=== PATIENT | male | born 1975 | race Caucasian/White ===

== ENCOUNTER 2018-05-12 22:18 | Observation (INO) ==
[2018-05-12 22:55] LABS: Basophils # 0.1 K/mcL (0.0-0.2); Basophils % 0.8 %; Eosinophils % 0.1 %; Hematocrit 49.5 % (37.5-50.1); Hemoglobin 17.4 g/dL (12.9-16.9); Immature Granulocytes % 0.7 % (0-4); Lymphocytes # 2.7 K/mcL (0.6-4.6); Mean Corpuscular HGB Conc 35.2 g/dL (31.6-35.5); Mean Corpuscular Hemoglobin 33.3 pg (28.0-33.3); Mean Corpuscular Volume 94.8 fL (83.0-100.0); Mean Platelet Volume 8.9 fL (9.4-12.4); Monocytes # 0.7 K/mcL (0.0-1.3); Monocytes % 7.3 %; Neutrophils # 5.7 K/mcL (1.6-8.9); Platelet Count 278 K/mcL (140-400); Red Blood Count 5.22 M/mcL (4.19-5.50); Red Cell Distribution Width 13.1 % (11.5-14.5); Segmented Neutrophils % 62.1 %
[2018-05-12 23:14] LABS: Acetaminophen < 10 mcg/mL (10-20); BUN/Creatinine Ratio 10 (6-26); Blood Urea Nitrogen 9 mg/dL (6-20); Calcium 9.2 mg/dL (8.6-10.3); Carbon Dioxide 23 mEq/L (23-29); Chloride 108 mEq/L (98-107); Ethanol 311 mg/dL (Less than 10); Glucose 133 mg/dL (70-105); Osmolality,Calculated 293 (280-300); Salicylate < 2.5 mg/dL (15.0-30.0); Sodium 141 mEq/L (136-145); eGFR For African Americans > 60 (> 60); eGFR For Non-African Americans > 60 (> 60)
[2018-05-12] MEDS ORDERED: ALPRAZolam 0.5 MG TABLET PO ONE (23:27)
[2018-05-12 23:53] LABS: Bilirubin,Urine Negative (Negative); Blood,Urine Negative (Negative); Clarity,Urine Clear (Clear); Color,Urine Yellow (Yellow); Glucose,Urine (UA) Normal (Normal); Ketones,Urine Negative (Negative); Leukocyte Esterase,Urine Negative (Negative); Nitrite,Urine Negative (Negative); Protein,Urine Negative (Neg-Trace); Specific Gravity,Urine 1.018 (1.010-1.025); Urobilinogen,Urine Normal (Normal)
[2018-05-13 00:14] LABS: Amphetamine Screen,Urine Negative ng/mL (Cutoff=1000); Barbiturate Screen,Urine Negative ng/mL (Cutoff=200); Benzodiazepines Screen,Urine Negative ng/mL (Cutoff=200); Cannabinoid Screen,Urine Positive ng/mL (Cutoff = 50); Cocaine Screen,Urine Negative ng/mL (Cutoff= 300); Opiate Screen,Urine Negative ng/mL (Cutoff=300)
--- NOTE | 2018-05-13 01:43 | Emergency Department Note ---
Disposition Clinical Impression: Anxiety, Suicidal ideation Alcohol intoxication Qualifiers: Complication of substance-induced condition: uncomplicated Qualified Code(s): F10.920 - Alcohol use, unspecified with intoxication, uncomplicated Disposition: Admitted As Inpatient Condition: Fair Referrals: NONE,PCP [Primary Care Provider] - Time of Disposition: 01:44 General Adult HPI - General Chief complaint: ED Alcohol Abuse Stated complaint: severe anxiety Time Seen by Provider: 05/12/18 22:23 Source: patient, EMS Limitations: no limitations - History of Present Illness Pain Scale: 4 - Related Data Previous Rx's Medication Instructions Recorded Gabapentin [Neurontin] 300 mg PO TID 20 Days capsule 12/26/15 LORazepam [Ativan] 1 mg PO BID 7 Days tablet 12/26/15 Nicotine Patch [Nicoderm] 14 mg TD DAILY 7 Days patch.td24 12/26/15 Sertraline [Zoloft] 25 mg PO DAILY 20 Days tablet 12/26/15 Thiamine (B-1) [Vitamin B-1] 100 mg PO DAILY 20 Days tablet 12/26/15 traMADol [Ultram] 50 mg PO Q6H PRN #20 tablet 12/26/15 Cyclobenzaprine [Flexeril] 10 mg PO TID PRN #15 tablet 09/18/16 Ibuprofen [Motrin] 600 mg PO Q8HR PRN #20 tab 09/18/16 Naproxen [Naprosyn] 500 mg PO BID PRN #10 tablet 04/18/18 methylPREDNISolone [Medrol] 4 mg PO TAPER #21 tablet 05/08/18 Allergies Allergy/AdvReac Type Severity Reaction Status Date / Time No Known Allergies Allergy Verified 12/23/15 16:38 Past Medical History - Past Medical History Medical history: Reports: seizures Surgical history: Reports: orthopedic, other Psychiatric history: Reports: anxiety, depression - Social History Smoking Status: Current every day smoker Smokeless Tobacco Status: No Alcohol use: Reports: occasionally Drug use: Reports: opiates, marijuana Physical Exam - General Limitations: no limitations General appearance: alert, appears intoxicated Course Course Narrative: Nursing note states patient was suicidal. My evaluation, he states "I am not sure." He is currently homeless. Patient appears in currently anxious. He is tearful, speaking about his multiple troubles in his life. He is agreeable to 1 mg by mouth Xanax. Reevaluation, patient is much more calm however still appears anxious. Initial workup shows patient is EtOH is 311. Mental health services will not evaluate him until he is within the legal limit. Restart cancellations, and will take approximately 10-12 hours for him to metabolize. I discussed the patient with the admitting hospitalist, Dr. Bernstein, who agrees to accept the patient for continued evaluation and monitoring of his EtOH. We discussed his psychological and social situation. Patient is pink slipped at this time. Vital Signs Temperature 98.5 F 05/12/18 22:21 Pulse Rate 105 05/12/18 22:21 Respiratory Rate 20 05/12/18 22:21 Blood Pressure 147/98 05/12/18 22:21 O2 Sat by Pulse Oximetry 99 05/12/18 22:21 Temperature 98.5 F 05/12/18 22:21 Pulse Rate 105 05/12/18 22:21 Respiratory Rate 20 05/12/18 22:21 Blood Pressure 147/98 05/12/18 22:21 O2 Sat by Pulse Oximetry 99 05/12/18 22:21 Oxygen Delivery Oxygen Delivery Room Air Medical Decision Making - Lab Data Result diagrams: 05/12/18 22:43 05/12/18 22:43 Lab Results 05/12/18 05/12/18 05/12/18 Range/Units 22:43 22:43 23:35 WBC 9.2 (4.3-11.1) K/mcL RBC 5.22 (4.19-5.50) M/mcL Hgb 17.4 H (12.9-16.9) g/dL Hct 49.5 (37.5-50.1) % MCV 94.8 (83.0-100.0) fL MCH 33.3 (28.0-33.3) pg MCHC 35.2 (31.6-35.5) g/dL RDW 13.1 (11.5-14.5) % Plt Count 278 (140-400) K/mcL MPV 8.9 L (9.4-12.4) fL Immature Gran % 0.7 (0-4) % Seg Neutrophils % 62.1 % Lymphocytes % 29.0 % Monocytes % 7.3 % Eosinophils % 0.1 % Basophils % 0.8 % Neutrophils # 5.7 (1.6-8.9) K/mcL Lymphocytes # 2.7 (0.6-4.6) K/mcL Monocytes # 0.7 (0.0-1.3) K/mcL Eosinophils # 0.0 (0.0-0.6) K/mcL Basophils # 0.1 (0.0-0.2) K/mcL Sodium 141 (136-145) mEq/L Potassium 4.0 (3.5-5.1) mEq/L Chloride 108 H (98-107) mEq/L Carbon Dioxide 23 (23-29) mEq/L BUN 9 (6-20) mg/dL Creatinine 0.86 (0.70-1.30) mg/dL Est GFR ( Amer) > 60 (> 60) Est GFR (Non-Af Amer) > 60 (> 60) BUN/Creatinine Ratio 10 (6-26) Glucose 133 H (70-105) mg/dL Calculated Osmolality 293 (280-300) Calcium 9.2 (8.6-10.3) mg/dL Urine Color Yellow (Yellow) Urine Clarity Clear (Clear) Urine pH 6.0 (5.0-8.0) pH Units Ur Specific [place] 1.018 (1.010-1.025) Urine Protein Negative (Neg-Trace) mg/dL Urine Glucose (UA) Normal (Normal) mg/dL Urine Ketones Negative (Negative) mg/dL Urine Blood Negative (Negative) Urine Nitrite Negative (Negative) Urine Bilirubin Negative (Negative) Urine Urobilinogen Normal (Normal) mg/dL Ur Leukocyte Esterase Negative (Negative) Salicylates < 2.5 L (15.0-30.0) mg/dL Urine Opiates Screen (Lhahud=955) ng/mL Acetaminophen < 10 L (10-20) mcg/mL Ur Barbiturates Screen (Qaifpg=337) ng/mL Ur Phencyclidine Scrn (Cutoff=25) ng/mL Ur Amphetamines Screen (Redkhm=0742) ng/mL U Benzodiazepines Scrn (Gvrlya=553) ng/mL Urine Cocaine Screen (Cutoff= 300) ng/mL U Marijuana (THC) Screen (Cutoff = 50) ng/mL Ethyl Alcohol 311 H (Less than 10) mg/dL 05/12/18 Range/Units 23:35 WBC (4.3-11.1) K/mcL RBC (4.19-5.50) M/mcL Hgb (12.9-16.9) g/dL Hct (37.5-50.1) % MCV (83.0-100.0) fL MCH (28.0-33.3) pg MCHC (31.6-35.5) g/dL RDW (11.5-14.5) % Plt Count (140-400) K/mcL MPV (9.4-12.4) fL Immature Gran % (0-4) % Seg Neutrophils % % Lymphocytes % % Monocytes % % Eosinophils % % Basophils % % Neutrophils # (1.6-8.9) K/mcL Lymphocytes # (0.6-4.6) K/mcL Monocytes # (0.0-1.3) K/mcL Eosinophils # (0.0-0.6) K/mcL Basophils # (0.0-0.2) K/mcL Sodium (136-145) mEq/L Potassium (3.5-5.1) mEq/L Chloride (98-107) mEq/L Carbon Dioxide (23-29) mEq/L BUN (6-20) mg/dL Creatinine (0.70-1.30) mg/dL Est GFR ( Amer) (> 60) Est GFR (Non-Af Amer) (> 60) BUN/Creatinine Ratio (6-26) Glucose (70-105) mg/dL Calculated Osmolality (280-300) Calcium (8.6-10.3) mg/dL Urine Color (Yellow) Urine Clarity (Clear) Urine pH (5.0-8.0) pH Units Ur Specific [place] (1.010-1.025) Urine Protein (Neg-Trace) mg/dL Urine Glucose (UA) (Normal) mg/dL Urine Ketones (Negative) mg/dL Urine Blood (Negative) Urine Nitrite (Negative) Urine Bilirubin (Negative) Urine Urobilinogen (Normal) mg/dL Ur Leukocyte Esterase (Negative) Salicylates (15.0-30.0) mg/dL Urine Opiates Screen Negative (Wmrdvd=869) ng/mL Acetaminophen (10-20) mcg/mL Ur Barbiturates Screen Negative (Mnfigt=199) ng/mL Ur Phencyclidine Scrn Positive H (Cutoff=25) ng/mL Ur Amphetamines Screen Negative (Mqmdqs=3689) ng/mL U Benzodiazepines Scrn Negative (Khpgdd=283) ng/mL Urine Cocaine Screen Negative (Cutoff= 300) ng/mL U Marijuana (THC) Screen Positive H (Cutoff = 50) ng/mL Ethyl Alcohol (Less than 10) mg/dL
[2018-05-13] MEDS ORDERED: Famotidine 20 MG/2 ML VIAL IVP ONE (03:15)
[2018-05-13] MEDS ORDERED: Naloxone 0.4 MG/ML INJ IVP PRN (04:53)
[2018-05-13] MEDS ORDERED: diazePAM 10 MG/2 ML SYRINGE IVP PRN ×3 (04:55)
[2018-05-13] MEDS ORDERED: *HR* LORazepam 2 MG/ML VIAL IVP PRN ×3 (04:55)
[2018-05-13] MEDS ORDERED: *HR* Promethazine 25 MG/ML VIAL IVP PRN (04:55)
[2018-05-13 06:15] LABS: Hematocrit 43.2 % (37.5-50.1); Mean Corpuscular Volume 97.1 fL (83.0-100.0); Mean Platelet Volume 9.1 fL (9.4-12.4); Platelet Count 194 K/mcL (140-400); Red Blood Count 4.45 M/mcL (4.19-5.50); Red Cell Distribution Width 13.1 % (11.5-14.5)
[2018-05-13 06:16] LABS: Hemoglobin 14.7 g/dL (12.9-16.9)
[2018-05-13 06:36] LABS: BUN/Creatinine Ratio 13 (6-26); Blood Urea Nitrogen 10 mg/dL (6-20); Calcium 8.4 mg/dL (8.6-10.3); Carbon Dioxide 22 mEq/L (23-29); Chloride 106 mEq/L (98-107); Glucose 88 mg/dL (70-105); Osmolality,Calculated 286 (280-300); Potassium 3.7 mEq/L (3.5-5.1); Sodium 139 mEq/L (136-145); eGFR For African Americans > 60 (> 60); eGFR For Non-African Americans > 60 (> 60)
[2018-05-13] MEDS: Vitamin B Complex/Vit C/Vit E 1 EACH TABLET PO SCH (07:46)
[2018-05-13] MEDS: Folic Acid 1 MG TABLET PO SCH (07:46)
[2018-05-13] MEDS: Thiamine (B-1) 100 MG TABLET PO SCH (07:46)
--- NOTE | 2018-05-13 09:11 | Internal Med History&Physical ---
Date of Encounter: 05/13/18 Time of Encounter: 04:00 Internal Medicine - H&P: HPI Admitted From: Home Plans for Post Hospital Care: Home History of present illness: Mr. Messer is a 42 year old male Impression presented to the emergency room with a blood alcohol level of 311. Unclear if his history is accurate, but he states that he was staying at a hotel because he doesn't have a home or family and he had a fall at the hotel. Someone called EMS who picked him up and came to the emergency room. He states that he does not think it was due to the alcohol. He states that he struggles with depression a lot has really bad anxiety and panic attacks. He denies nausea, vomiting, chest pain, shortness of breath. He also has a history of GERD which seems to be his main complaint right now. In the emergency room he made some comments about suicide therefore he is recommended to be medically cleared for his impending alcohol withdrawal after which she will be transferred to inpatient psych unit. Past Med Surg Social Fam HX - Past Medical History Medical history: seizures Additional medical history: Chronic Back Pain Psychiatric history: anxiety, depression - Past Surgical History Surgical History: orthopedic, other Additional surgical history: right foot/ankle - Social History Smoking Status: Current every day smoker Smokeless Tobacco Status: No Alcohol use: occasionally Drug use: opiates, marijuana Internal Medicine - H&P: Meds Thiamine (B-1) [Vitamin B-1] 100 mg PO DAILY 20 Days tablet 12/26/15 [Rx] ALPRAZolam [Xanax 1 MG Tablet] 1 mg PO TID PRN 05/13/18 [History] Baclofen [Lioresal] 10 mg PO BID 05/13/18 [History] Gabapentin [Neurontin] 600 mg PO BID 05/13/18 [History] Sertraline [Zoloft] 100 mg PO DAILY 05/13/18 [History] raNITIdine HCl [Zantac] 150 mg PO DAILY 05/13/18 [History] 3 Allergy/AdvReac Type Severity Reaction Status Date / Time No Known Allergies Allergy Verified 12/23/15 16:38 All Systems PM: A 10-system review of systems was performed and is negative for pertinent findings except as documented above in the HPI. - Constitutional Vitals: Temp Pulse Resp BP Pulse Ox 98.1 F 92 17 119/82 97 05/13/18 07:44 05/13/18 07:44 05/13/18 07:44 05/13/18 07:44 05/13/18 07:44 General appearance: Present: mild distress, A&O X 3 - Head Head exam: Present: atraumatic, normocephalic - Eye Eye exam: Present: EOMI. Absent: nystagmus - Neck Neck exam general surgery: Present: full ROM - Respiratory Respiratory exam: Present: CTAB. Absent: rhonchi, wheezes - Cardiovascular Cardiovascular exam: Present: RRR. Absent: diastolic murmur, systolic murmur - GI/Abdominal GI/Abdominal exam: Present: normal bowel sounds, soft. Absent: guarding - Extremities Exam Extremities exam: Present: tenderness, warm Additional comments: Stated he had tenderness at his ankles bilaterally, no obvious source of pain - Neurological Exam Neurological exam: Present: alert. Absent: altered, motor sensory deficit - Skin Skin exam: Present: dry, warm. Absent: rash Internal Med - H&P Results - Labs CBC & Chem 7: 05/13/18 05:49 05/13/18 05:49 Labs: Short CBC 05/13/18 Range/Units 05:49 WBC 6.0 (4.3-11.1) K/mcL Hgb 14.7 D (12.9-16.9) g/dL Hct 43.2 (37.5-50.1) % Plt Count 194 (140-400) K/mcL [facility] 05/13/18 05:49 Sodium 139 Potassium 3.7 Chloride 106 Carbon Dioxide 22 L BUN 10 Creatinine 0.75 Glucose 88 Calcium 8.4 L - Assessment and plan (1) Alcohol abuse Current Visit: No Status: Acute Assessment and plan: Blood alcohol level on arrival at the ER was 311. Patient will be monitored for signs of withdrawal. CIWA protocol (2) Anxiety Current Visit: Yes Status: Acute Assessment and plan: Patient states that he has a lot of anxiety, use to take medication for it, but has not been taking anything for it lately. Patient was sleeping when I arrived to admit him, and went back to sleep when I left Continue to monitor, will likely be getting ativan if he scores appropriately on CIWA protocol, which should help. (3) Suicidal ideation Current Visit: Yes Status: Acute Assessment and plan: Patient made worrisome comments to ER staff indicating self harm. Patient was put on medical hold, and will be going to inpatient psych unit after his alcohol withdrawal is managed. Psych consult. (4) Acute pain of both ankles Current Visit: Yes Status: Acute Assessment and plan: Patient states he has pain in both of his ankles secondary to fall that occurred at a hotel prior to his admission on exam he had some pain with palpation however no obvious deformity or swelling. No bruising or abrasion of the skin. Continue to monitor. Consider imaging if pain does not improve. (5) GERD (gastroesophageal reflux disease) Current Visit: Yes Status: Acute Assessment and plan: Patient's pain complaint to me in the emergency room was that his heartburn, he says that he takes Zantac at home and it usually helps. Could be related to his alcohol use, as alcohol can trigger reflux. Zantac given for heartburn symptoms. Qualifiers: Qualified Code(s): K21.9 - Gastro-esophageal reflux disease without esophagitis - Time Spent With Patient Total time spent is greater than 50% in coordination of care (as documented) at patient's floor/unit and/or counseling patient: Greater than 35 minutes
--- NOTE | 2018-05-13 09:19 | Event Note ---
Date of Encounter: 05/13/18 Time of Encounter: 09:17 Patient was seen and evaluated by hospitalist earlier this am. Presently denies any SI/HI. He states that he feels like he is having a nervous breakdown, and that he has PTSD Discussed that he will be seen by Psych once ETOH is acceptable level, he verbalized understanding. He is hemodynamically stable at this time
[2018-05-13] MEDS: Ibuprofen 400 MG TABLET PO PRN (10:36)
[2018-05-13] MEDS: Nicotine 14 MG PATCH.TD24 TD SCH (15:01)
[2018-05-13] MEDS ORDERED: ALPRAZolam 1 MG TABLET PO ONE (15:22)
[2018-05-13] MEDS ORDERED: Thiamine (B-1) 100 MG, Folic Acid 1 MG, MVI, adult with vitamin K 10 ML in 0.9 % Sodi... IVPB SCH (18:00)
[2018-05-13] MEDS ORDERED: hydrOXYzine pamoate 25 MG CAPSULE PO PRN (19:36)
--- NOTE | 2018-05-13 19:45 | Consult Note ---
Date of Encounter: 05/13/18 Time of Encounter: 19:45 Assessment & Recommendation (1) Depression Current visit: Yes Status: Acute Qualifiers: Depression Type: major depressive disorder Active/Remission status: currently active Psychotic features: without psychotic features Qualified Code(s): F32.2 - Major depressive disorder, single episode, severe without psychotic features (2) Alcohol abuse Current visit: No Status: Acute (3) Anxiety Current visit: Yes Status: Acute (4) Alcohol intoxication Current visit: Yes Status: Acute Qualifiers: Complication of substance-induced condition: uncomplicated Qualified Code(s ): F10.920 - Alcohol use, unspecified with intoxication, uncomplicated (5) Suicidal ideation Current visit: Yes Status: Acute History of Present Illness Patient: new to practice Requesting Physician: Chavo Lerner Reason for consult: depression History of present illness: Pt is a 42 yo ,, male, who presents for depression and anxiety. Pt noted recent exacerbation of depression with intoxication. Pt states "I stopped all of my medications I did not like the side-effects of zoloft for my depression....so I just stopped them then I got depressed and started drinking. " Pt noted "I made some statements when I was intoxicated and I do not have those feelings now but I would like to start another antidepressant." PT agreed to start wellbutrin 150 mg XL QAM for mood. Pt noted I came in because I needed some help I feel much better now. I feel safe and comfortable on the unit. Pt was in agreement with current treatment plan. Pt noted that he is doing much better today. Pt noted he slept 6 hours broken night. Pt noted his appetite is much better. Pt rated his depression a 5, on a scale of zero to ten with ten being the worst and zero being none. Pt rate his anxiety a 0, on the same scale. Pt denied any auditory or visual hallucinations. Pt denied any current thoughts to harm himself or anyone else. Pt denied HEP C, HIV, TBIs or seizures. Assessment/Plan 1.Interval hx 2.Continue current medications 3.Review current labs 4.Pt had an opportunity to ask questions and discuss current treatment plan. 5.Supportive therapy was provided 6.Pt encouraged to consider group or individual therapy 7.Pt was in agreement with treatment plan. 8.Pt was educated on the risks benefits and side effects of current medications. 9.Start wellbutrin xl 150 mg PO QAM for mood 10. Start visteril 50 mg PO Q6H for anxiety 11. Coordinate out pt follow up appointment. 12. D/C Sitter. 13. Pt Denies any suicidally at this time, pt cleared for D/C tomorrow. CC: Chavo Lerner Past Med Surg Social Fam HX - Past Medical History Medical history: seizures - Past Psychiatric History Psychiatric history: Reports: depression Family psychiatric history: No Family History of Suicide: None - Past Surgical History Surgical History: orthopedic, other - Social History Smoking Status: Current every day smoker Smokeless Tobacco Status: No Alcohol use: occasionally Drug use: opiates, marijuana Medications & Allergies Thiamine (B-1) [Vitamin B-1] 100 mg PO DAILY 20 Days tablet 12/26/15 [Rx] ALPRAZolam [Xanax 1 MG Tablet] 1 mg PO TID PRN 05/13/18 [History] Baclofen [Lioresal] 10 mg PO BID 05/13/18 [History] Gabapentin [Neurontin] 600 mg PO BID 05/13/18 [History] Sertraline [Zoloft] 100 mg PO DAILY 05/13/18 [History] raNITIdine HCl [Zantac] 150 mg PO DAILY 05/13/18 [History] 3 Allergy/AdvReac Type Severity Reaction Status Date / Time No Known Allergies Allergy Verified 12/23/15 16:38 Review of Systems Constitutional: Denies: fever, chills, weakness, weight change Eyes: Denies: eye pain, vision change Ears, Nose, Throat: Denies: ear pain, throat pain, dental pain, hearing loss, congestion Cardiovascular: Denies: chest pain, palpitations, dyspnea on exertion Respiratory: Denies: cough, dyspnea, wheezes Gastrointestinal: Denies: abdominal pain, nausea, vomiting, diarrhea, constipation Genitourinary male: Denies: urgency, dysuria, frequency, genital lesions Musculoskeletal: Denies: joint swelling, joint pain Integumentary: Denies: rash, lesions, pruritus Neurological: Denies: headache, weakness, numbness, memory loss Endocrine: Denies: fatigue, heat or cold intolerance Hematologic/Lymphatic: Denies: easy bruising, lymphadenopathy Allergic/Immunologic: Denies: urticaria, itchy eyes Psychiatry Exam - Constitutional Vitals: Temp Pulse Resp BP Pulse Ox 97.5 F L 74 16 131/76 96 05/13/18 16:28 05/13/18 16:28 05/13/18 16:28 05/13/18 16:28 05/13/18 16:28 General appearance: age & developmentally appropriate, well-groomed, well- nourished - Musculoskeletal Gait: normal Station: relaxed Strength & Tone: normal for patient - Psychiatric Patient Orientation: Yes Person, Yes Time, Yes Place Level of alertness: Alert Behavior: calm, cooperative Psychomotor activity: Normal Eye Contact: Maintains Eye Contact Mood Description: Euthymic/stable Affect description: congruent with mood, full range Speech Volume: Normal Speech pattern: normal rate, normal rhythm, normal tone, fluent, spontaneous Language & Vocabulary: consistent with education Thought Process: Linear, Goal Oriented Thought Content: No Suicidal ideation, No Homicidal ideation, No Overt delusions Perceptual Disturbances: No Auditory hallucinations, No Visual hallucinations Attention Span Ability: Capable of Focused Attention Memory Description: Grossly Intact Patient Reliability: Reliable Historian Fund of knowledge: Yes abstraction ability, Yes aware of current events Intelligence Estimate: Average Judgment: Limited Insight: Partial Results - Drug Levels and Toxicology Drug Levels and Toxicology: Drug Levels and Toxicity 05/13/18 18:31 Ethyl Alcohol < 10 - Labs Labs: Laboratory Last Values WBC 6.0 K/mcL (4.3-11.1) 05/13/18 05:49 RBC 4.45 M/mcL (4.19-5.50) 05/13/18 05:49 Hgb 14.7 g/dL (12.9-16.9) D 05/13/18 05:49 Hct 43.2 % (37.5-50.1) 05/13/18 05:49 MCV 97.1 fL (83.0-100.0) 05/13/18 05:49 MCH 33.0 pg (28.0-33.3) 05/13/18 05:49 MCHC 34.0 g/dL (31.6-35.5) 05/13/18 05:49 RDW 13.1 % (11.5-14.5) 05/13/18 05:49 Plt Count 194 K/mcL (140-400) 05/13/18 05:49 MPV 9.1 fL (9.4-12.4) L 05/13/18 05:49 Immature Gran % 0.7 % (0-4) 05/12/18 22:43 Seg Neutrophils % 62.1 % 05/12/18 22:43 Lymphocytes % 29.0 % 05/12/18 22:43 Monocytes % 7.3 % 05/12/18 22:43 Eosinophils % 0.1 % 05/12/18 22:43 Basophils % 0.8 % 05/12/18 22:43 Neutrophils # 5.7 K/mcL (1.6-8.9) 05/12/18 22:43 Lymphocytes # 2.7 K/mcL (0.6-4.6) 05/12/18 22:43 Monocytes # 0.7 K/mcL (0.0-1.3) 05/12/18 22:43 Eosinophils # 0.0 K/mcL (0.0-0.6) 05/12/18 22:43 Basophils # 0.1 K/mcL (0.0-0.2) 05/12/18 22:43 Sodium 139 mEq/L (136-145) 05/13/18 05:49 Potassium 3.7 mEq/L (3.5-5.1) 05/13/18 05:49 Chloride 106 mEq/L (98-107) 05/13/18 05:49 Carbon Dioxide 22 mEq/L (23-29) L 05/13/18 05:49 BUN 10 mg/dL (6-20) 05/13/18 05:49 Creatinine 0.75 mg/dL (0.70-1.30) 05/13/18 05:49 Est GFR ( Amer) > 60 (> 60) 05/13/18 05:49 Est GFR (Non-Af Amer) > 60 (> 60) 05/13/18 05:49 BUN/Creatinine Ratio 13 (6-26) 05/13/18 05:49 Glucose 88 mg/dL (70-105) 05/13/18 05:49 POC Glucose 117 mg/dL (70-99) H 05/12/18 22:54 Calculated Osmolality 286 (280-300) 05/13/18 05:49 Calcium 8.4 mg/dL (8.6-10.3) L 05/13/18 05:49 Urine Color Yellow (Yellow) 05/12/18 23:35 Urine Clarity Clear (Clear) 05/12/18 23:35 Urine pH 6.0 pH Units (5.0-8.0) 05/12/18 23:35 Ur Specific [place] 1.018 (1.010-1.025) 05/12/18 23:35 Urine Protein Negative mg/dL (Neg-Trace) 05/12/18 23:35 Urine Glucose (UA) Normal mg/dL (Normal) 05/12/18 23:35 Urine Ketones Negative mg/dL (Negative) 05/12/18 23:35 Urine Blood Negative (Negative) 05/12/18 23:35 Urine Nitrite Negative (Negative) 05/12/18 23:35 Urine Bilirubin Negative (Negative) 05/12/18 23:35 Urine Urobilinogen Normal mg/dL (Normal) 05/12/18 23:35 Ur Leukocyte Esterase Negative (Negative) 05/12/18 23:35 Salicylates < 2.5 mg/dL (15.0-30.0) L 05/12/18 22:43 Urine Opiates Screen Negative ng/mL (Vrhmcv=142) 05/12/18 23:35 Acetaminophen < 10 mcg/mL (10-20) L 05/12/18 22:43 Ur Barbiturates Screen Negative ng/mL (Udcgey=947) 05/12/18 23:35 Ur Phencyclidine Scrn Positive ng/mL (Cutoff=25) H 05/12/18 23:35 Ur Amphetamines Screen Negative ng/mL (Eywxpb=3422) 05/12/18 23:35 U Benzodiazepines Scrn Negative ng/mL (Xosija=051) 05/12/18 23:35 Urine Cocaine Screen Negative ng/mL (Cutoff= 300) 05/12/18 23:35 U Marijuana (THC) Screen Positive ng/mL (Cutoff = 50) H 05/12/18 23:35 Ethyl Alcohol < 10 mg/dL (Less than 10) 05/13/18 18:31 Consult Discharge Plan - Plan Additional Instructions: Continue wellbutrin xl 150 mg PO QAM for mood Continue visteril 50 mg PO Q6H for anxiety Coordinate out pt follow up appointment. D/C Sitter. Pt Denies any suicidally at this time, pt cleared for D/C tomorrow with scirpts and follow up. Referrals: NONE,PCP [Primary Care Provider] -
[2018-05-13] MEDS: Gabapentin 300 MG CAPSULE PO SCH (20:43)
[2018-05-14] MEDS: Ibuprofen 400 MG TABLET PO PRN (02:44)
[2018-05-14 07:16] VITALS: BP 138/91
[2018-05-14] MEDS: Nicotine 14 MG PATCH.TD24 TD SCH (07:37)
[2018-05-14] MEDS: Vitamin B Complex/Vit C/Vit E 1 EACH TABLET PO SCH (07:38)
[2018-05-14] MEDS: Gabapentin 300 MG CAPSULE PO SCH (07:38)
[2018-05-14] MEDS: Folic Acid 1 MG TABLET PO SCH (07:38)
[2018-05-14] MEDS: Thiamine (B-1) 100 MG TABLET PO SCH (07:38)
--- NOTE | 2018-05-14 07:58 | Discharge Summary ---
Date of Encounter: 05/14/18 Time of Encounter: 07:56 Hospital course: Mr. Messer is a 42 year old male past medical history of seizures and chronic back pain. Patient presented to the emergency room with a blood alcohol level of 311. He states that he been living in a hotel because he does not have a home her family and he had a fall at the hotel. He has been struggling with depression and anxiety with panic attacks. He stopped his previous antidepressants because he did not like the way they made him feel and he began to drink. He verbalized the ER physician that he was not sure if he wanted to harm himself or not-psychiatry was consult and however patient was too intoxicated to see the patient in the ER. He was pink slipped and admitted for further evaluation. Patient was given IV fluids overnight lab work was unremarkable EKG with no ST-T wave normalities. He was seen by psychiatry who recommended patient be seen as outpatient no suicidal ideations voiced. Recommending starting Wellbutrin had 50 mg XL every a.m. for mood as well as Vistaril 50 mg by mouth every 6 hours for anxiety patient does have a place to stay with a friend and he is anxious to be discharged so he can go to work. We do have an appointment with mental health with Mandi Hylton next Saturday advised patient to follow-up I gave patient has prescription for both Wellbutrin and Vistaril patient verbalized understanding he is hemodynamically stable and is ready for discharge. Discharge discussed with: patient - Time Spent with Patient Total time spent providing and/or coordinating discharge services: - Discharge Medications Prescriptions: BuPROPion XL (24 HR) [Wellbutrin Xl] 150 mg PO DAILY #14 tab.er.24h hydrOXYzine pamoate [HydrOXYzine Pamoate] 50 mg PO Q6H PRN #16 capsule PRN Reason: Anxiety Home Medications: Thiamine (B-1) [Vitamin B-1] 100 mg PO DAILY 20 Days tablet 12/26/15 [Rx] Baclofen [Lioresal] 10 mg PO BID 05/13/18 [History] Gabapentin [Neurontin] 600 mg PO BID 05/13/18 [History] raNITIdine HCl [Zantac] 150 mg PO DAILY 05/13/18 [History] BuPROPion XL (24 HR) [Wellbutrin Xl] 150 mg PO DAILY #14 tab.er.24h 05/14/18 [Rx ] hydrOXYzine pamoate [HydrOXYzine Pamoate] 50 mg PO Q6H PRN #16 capsule 05/14/18 [Rx] Allergies/Adverse Reactions: 3 Allergy/AdvReac Type Severity Reaction Status Date / Time No Known Allergies Allergy Verified 12/23/15 16:38 Date of admission: 05/13/18 03:32 Primary care physician: PCP NONE Consults: 05/13/18 04:55 Consult to [facility] Tender [CONS] Routine Reason for SW Consult: Anxiety, homelessness 05/13/18 15:44 Consult to Psychiatry [CONS] Routine Consulting Provider: Psychiatry Ally Reason consult: Sitter/1:1 - Constitutional Vitals: Temp Pulse Resp BP Pulse Ox 98.0 F 76 15 138/91 98 05/14/18 07:15 05/14/18 07:15 05/14/18 07:15 05/14/18 07:15 05/14/18 07:15 General appearance: Present: mild distress, A&O X 3 - Patient Status Disposition: Home, Self-Care Condition: Fair - Discharge Instructions Instructions: Bupropion (By mouth), Hydroxyzine (By mouth) Follow Up With: Rosalva Hylton [Advanced Practice Nurse] - 05/21/18 9:00 am Forms: Work/School Release Additional Instructions: Continue wellbutrin xl 150 mg PO QAM for mood Continue visteril 50 mg PO Q6H for anxiety Coordinate out pt follow up appointment. D/C Sitter. Pt Denies any suicidally at this time, pt cleared for D/C tomorrow with scirpts and follow up.
[2018-05-14] MEDS ORDERED: BuPROPion XL (24 HR) 150 MG TABLET PO SCH (09:00)
[2018-05-15 15:28] LABS: Phencyclidine Screen,Urine Negative ng/mL (Cutoff=25)
--- NOTE | 2018-05-19 21:06 | Emergency Department Note ---
Disposition Clinical Impression: Anxiety, Suicidal ideation Alcohol intoxication Qualifiers: Complication of substance-induced condition: uncomplicated Qualified Code(s): F10.920 - Alcohol use, unspecified with intoxication, uncomplicated Disposition: Admitted As Inpatient Condition: Fair General Adult HPI - General Chief complaint: ED Alcohol Abuse Stated complaint: severe anxiety Time Seen by Provider: 05/12/18 22:23 Source: patient, EMS Limitations: no limitations - History of Present Illness Pain Scale: 0 - Related Data Home Medications Medication Instructions Recorded Confirmed Baclofen [Lioresal] 10 mg PO BID 05/13/18 05/13/18 Gabapentin [Neurontin] 600 mg PO BID 05/13/18 05/13/18 raNITIdine HCl [Zantac] 150 mg PO DAILY 05/13/18 05/13/18 Previous Rx's Medication Instructions Recorded Thiamine (B-1) [Vitamin B-1] 100 mg PO DAILY 20 Days tablet 12/26/15 BuPROPion XL (24 HR) [Wellbutrin 150 mg PO DAILY #14 tab.er.24h 05/14/18 Xl] hydrOXYzine pamoate [HydrOXYzine 50 mg PO Q6H PRN #16 capsule 05/14/18 Pamoate] Allergies Allergy/AdvReac Type Severity Reaction Status Date / Time No Known Allergies Allergy Verified 12/23/15 16:38 Past Medical History - Past Medical History Medical history: Reports: seizures Surgical history: Reports: orthopedic, other Psychiatric history: Reports: depression - Social History Smoking Status: Current every day smoker Smokeless Tobacco Status: No Alcohol use: Reports: occasionally Drug use: Reports: opiates, marijuana Physical Exam - General Limitations: no limitations General appearance: alert, appears intoxicated Course Vital Signs Temperature 98.5 F 05/12/18 22:21 Pulse Rate 105 05/12/18 22:21 Respiratory Rate 20 05/12/18 22:21 Blood Pressure 147/98 05/12/18 22:21 O2 Sat by Pulse Oximetry 99 05/12/18 22:21 Temperature 98.0 F 05/14/18 07:15 Pulse Rate 76 05/14/18 07:15 Respiratory Rate 15 05/14/18 07:15 Blood Pressure 138/91 05/14/18 07:15 O2 Sat by Pulse Oximetry 98 05/14/18 07:15 Oxygen Delivery Oxygen Delivery Room Air Medical Decision Making - Lab Data Result diagrams: 05/13/18 05:49 05/13/18 05:49 Lab Results 05/12/18 05/12/18 05/12/18 Range/Units 22:43 22:43 22:54 WBC 9.2 (4.3-11.1) K/mcL RBC 5.22 (4.19-5.50) M/mcL Hgb 17.4 H (12.9-16.9) g/dL Hct 49.5 (37.5-50.1) % MCV 94.8 (83.0-100.0) fL MCH 33.3 (28.0-33.3) pg MCHC 35.2 (31.6-35.5) g/dL RDW 13.1 (11.5-14.5) % Plt Count 278 (140-400) K/mcL MPV 8.9 L (9.4-12.4) fL Immature Gran % 0.7 (0-4) % Seg Neutrophils % 62.1 % Lymphocytes % 29.0 % Monocytes % 7.3 % Eosinophils % 0.1 % Basophils % 0.8 % Neutrophils # 5.7 (1.6-8.9) K/mcL Lymphocytes # 2.7 (0.6-4.6) K/mcL Monocytes # 0.7 (0.0-1.3) K/mcL Eosinophils # 0.0 (0.0-0.6) K/mcL Basophils # 0.1 (0.0-0.2) K/mcL Sodium 141 (136-145) mEq/L Potassium 4.0 (3.5-5.1) mEq/L Chloride 108 H (98-107) mEq/L Carbon Dioxide 23 (23-29) mEq/L BUN 9 (6-20) mg/dL Creatinine 0.86 (0.70-1.30) mg/dL Est GFR ( Amer) > 60 (> 60) Est GFR (Non-Af Amer) > 60 (> 60) BUN/Creatinine Ratio 10 (6-26) Glucose 133 H (70-105) mg/dL POC Glucose 117 H (70-99) mg/dL Calculated Osmolality 293 (280-300) Calcium 9.2 (8.6-10.3) mg/dL Urine Color (Yellow) Urine Clarity (Clear) Urine pH (5.0-8.0) pH Units Ur Specific [place] (1.010-1.025) Urine Protein (Neg-Trace) mg/dL Urine Glucose (UA) (Normal) mg/dL Urine Ketones (Negative) mg/dL Urine Blood (Negative) Urine Nitrite (Negative) Urine Bilirubin (Negative) Urine Urobilinogen (Normal) mg/dL Ur Leukocyte Esterase (Negative) Salicylates < 2.5 L (15.0-30.0) mg/dL Urine Opiates Screen (Ojoech=602) ng/mL Acetaminophen < 10 L (10-20) mcg/mL Ur Barbiturates Screen (Gboxhp=155) ng/mL Ur Phencyclidine Scrn (Cutoff=25) ng/mL Ur Amphetamines Screen (Zvgtkn=6193) ng/mL U Benzodiazepines Scrn (Vdndgb=219) ng/mL Urine Cocaine Screen (Cutoff= 300) ng/mL U Marijuana (THC) Screen (Cutoff = 50) ng/mL Ethyl Alcohol 311 H (Less than 10) mg/dL 05/12/18 05/12/18 Range/Units 23:35 23:35 WBC (4.3-11.1) K/mcL RBC (4.19-5.50) M/mcL Hgb (12.9-16.9) g/dL Hct (37.5-50.1) % MCV (83.0-100.0) fL MCH (28.0-33.3) pg MCHC (31.6-35.5) g/dL RDW (11.5-14.5) % Plt Count (140-400) K/mcL MPV (9.4-12.4) fL Immature Gran % (0-4) % Seg Neutrophils % % Lymphocytes % % Monocytes % % Eosinophils % % Basophils % % Neutrophils # (1.6-8.9) K/mcL Lymphocytes # (0.6-4.6) K/mcL Monocytes # (0.0-1.3) K/mcL Eosinophils # (0.0-0.6) K/mcL Basophils # (0.0-0.2) K/mcL Sodium (136-145) mEq/L Potassium (3.5-5.1) mEq/L Chloride (98-107) mEq/L Carbon Dioxide (23-29) mEq/L BUN (6-20) mg/dL Creatinine (0.70-1.30) mg/dL Est GFR ( Amer) (> 60) Est GFR (Non-Af Amer) (> 60) BUN/Creatinine Ratio (6-26) Glucose (70-105) mg/dL POC Glucose (70-99) mg/dL Calculated Osmolality (280-300) Calcium (8.6-10.3) mg/dL Urine Color Yellow (Yellow) Urine Clarity Clear (Clear) Urine pH 6.0 (5.0-8.0) pH Units Ur Specific [place] 1.018 (1.010-1.025) Urine Protein Negative (Neg-Trace) mg/dL Urine Glucose (UA) Normal (Normal) mg/dL Urine Ketones Negative (Negative) mg/dL Urine Blood Negative (Negative) Urine Nitrite Negative (Negative) Urine Bilirubin Negative (Negative) Urine Urobilinogen Normal (Normal) mg/dL Ur Leukocyte Esterase Negative (Negative) Salicylates (15.0-30.0) mg/dL Urine Opiates Screen Negative (Ccvvsh=666) ng/mL Acetaminophen (10-20) mcg/mL Ur Barbiturates Screen Negative (Yyzbhi=065) ng/mL Ur Phencyclidine Scrn Negative (Cutoff=25) ng/mL Ur Amphetamines Screen Negative (Ocgpke=8027) ng/mL U Benzodiazepines Scrn Negative (Hjlrli=994) ng/mL Urine Cocaine Screen Negative (Cutoff= 300) ng/mL U Marijuana (THC) Screen Positive H (Cutoff = 50) ng/mL Ethyl Alcohol (Less than 10) mg/dL Attestation Statement - Attestation Attestation: I examined this patient and my medical decision-making was reviewed with the Resident Physician. I agree with the documented findings, disposition and treatment plan as described except to the extent set forth below. Suicidal ideation, no medical issues.
== END 2018-05-14 10:44 | disposition home or self-care (01) ==
LOC: 3BNU 22:18 → EMEROO 22:18 → 3BNU 05-13 04:00
PROVIDERS: ADMIT Family Medicine; ATTEND Family Medicine

== ENCOUNTER 2019-02-05 13:46 | Observation (INO) ==
[2019-02-05] MEDS ORDERED: KETAMINE HCL 50 MG/ML SYRINGE IV ONE (13:49)
[2019-02-05] MEDS ORDERED: Ketamine *HR* 500 MG/10 ML MDV IM ONE (13:51)
[2019-02-05] MEDS ORDERED: 0.9 % Sodium Chloride 1,000 ML IVC ONE ×2 (13:52→16:58)
--- NOTE | 2019-02-05 14:04 | Emergency Department Note ---
Disposition Clinical Impression: Altered mental status Disposition: Admitted As Inpatient Condition: Good General Adult HPI - General Stated complaint: Seizure Time Seen by Provider: 02/05/19 13:51 - Related Data Home Medications Medication Instructions Recorded Confirmed RX: No Known Home Drugs 02/05/19 02/05/19 Allergies Allergy/AdvReac Type Severity Reaction Status Date / Time No Known Allergies Allergy Verified 12/23/15 16:38 Past Medical History - Past Medical History Medical history: Reports: seizures Surgical history: Reports: orthopedic, other Psychiatric history: Reports: depression - Social History Smoking Status: Current every day smoker Smokeless Tobacco Status: No Alcohol use: Reports: recent Drug use: Reports: opiates, marijuana Course Vital Signs Temperature 97.8 F 02/05/19 14:00 Pulse Rate 130 02/05/19 14:00 Respiratory Rate 26 02/05/19 14:00 Blood Pressure 148/98 02/05/19 14:00 O2 Sat by Pulse Oximetry 98 02/05/19 14:00 Temperature 97.8 F 02/05/19 14:44 Pulse Rate 111 02/05/19 15:57 Respiratory Rate 16 02/05/19 15:57 Blood Pressure 133/103 02/05/19 15:57 O2 Sat by Pulse Oximetry 97 02/05/19 15:57 Oxygen Delivery Oxygen Delivery Room Air Medical Decision Making - Lab Data Result diagrams: 02/05/19 14:19 02/05/19 14:19 Lab Results 02/05/19 02/05/19 02/05/19 Range/Units 14:19 14:19 14:19 WBC 7.2 (4.3-11.1) K/mcL RBC 4.65 (4.19-5.50) M/mcL Hgb 15.3 (12.9-16.9) g/dL Hct 44.9 (37.5-50.1) % MCV 96.6 (83.0-100.0) fL MCH 32.9 (28.0-33.3) pg MCHC 34.1 (31.6-35.5) g/dL RDW 12.3 (11.5-14.5) % Plt Count 158 (140-400) K/mcL MPV 10.1 (9.4-12.4) fL Immature Gran % 0.1 (0-4) % Seg Neutrophils % 45.4 % Lymphocytes % 38.0 % Monocytes % 10.7 % Eosinophils % 4.1 % Basophils % 1.7 % Neutrophils # 3.3 (1.6-8.9) K/mcL Lymphocytes # 2.8 (0.6-4.6) K/mcL Monocytes # 0.8 (0.0-1.3) K/mcL Eosinophils # 0.3 (0.0-0.6) K/mcL Basophils # 0.1 (0.0-0.2) K/mcL Sodium 139 (136-145) mEq/L Potassium 3.4 L (3.5-5.1) mEq/L Chloride 106 (98-107) mEq/L Carbon Dioxide 26 (23-29) mEq/L BUN 13 (6-20) mg/dL Creatinine 0.64 L (0.70-1.30) mg/dL Est GFR ( Amer) > 60 (> 60) Est GFR (Non-Af Amer) > 60 (> 60) BUN/Creatinine Ratio 20 (6-26) Glucose 123 H (70-105) mg/dL Calculated Osmolality 289 (280-300) Calcium 9.6 (8.6-10.3) mg/dL Total Bilirubin 1.1 H (0.3-1.0) mg/dL Direct Bilirubin 0.4 H (0.0-0.2) mg/dL Indirect Bilirubin 0.7 (0.0-1.2) mg/dL AST 736 H (13-39) Units/L ALT 1053 H (7-52) Units/L Alkaline Phosphatase 153 H (34-104) Units/L Ammonia 67 H (16-53) mcmol/L Creatine Kinase 37 (30-223) Units/L Troponin I < 0.03 (< 0.04) ng/mL Serum Total Protein 7.2 (6.4-8.9) g/dL Albumin 4.5 (3.5-5.7) g/dL Globulin 2.7 (2.4-3.5) g/dL Albumin/Globulin Ratio 1.7 (1.1-2.2) Urine Color (Yellow) Urine Clarity (Clear) Urine pH (5.0-8.0) pH Units Ur Specific [place] (1.010-1.025) Urine Protein (Neg-Trace) mg/dL Urine Glucose (UA) (Normal) mg/dL Urine Ketones (Negative) mg/dL Urine Blood (Negative) Urine Nitrite (Negative) Urine Bilirubin (Negative) Urine Urobilinogen (Normal) mg/dL Ur Leukocyte Esterase (Negative) Ur Culture Indicated? (NO) Salicylates < 2.5 L (15.0-30.0) mg/dL Urine Opiates Screen (Wcxafv=931) ng/mL Acetaminophen < 10 L (10-20) mcg/mL Ur Barbiturates Screen (Gjnega=282) ng/mL Ur Phencyclidine Scrn (Cutoff=25) ng/mL Ur Amphetamines Screen (Dsklee=0859) ng/mL U Benzodiazepines Scrn (Zpgyoy=919) ng/mL Urine Cocaine Screen (Cutoff= 300) ng/mL U Marijuana (THC) Screen (Cutoff = 50) ng/mL Ur Drug Screen Interp Ethyl Alcohol 283 H (Less than 10) mg/dL Hep Bs Antigen (Nonreactive) 02/05/19 02/05/19 02/05/19 Range/Units 14:27 14:27 14:45 WBC (4.3-11.1) K/mcL RBC (4.19-5.50) M/mcL Hgb (12.9-16.9) g/dL Hct (37.5-50.1) % MCV (83.0-100.0) fL MCH (28.0-33.3) pg MCHC (31.6-35.5) g/dL RDW (11.5-14.5) % Plt Count (140-400) K/mcL MPV (9.4-12.4) fL Immature Gran % (0-4) % Seg Neutrophils % % Lymphocytes % % Monocytes % % Eosinophils % % Basophils % % Neutrophils # (1.6-8.9) K/mcL Lymphocytes # (0.6-4.6) K/mcL Monocytes # (0.0-1.3) K/mcL Eosinophils # (0.0-0.6) K/mcL Basophils # (0.0-0.2) K/mcL Sodium (136-145) mEq/L Potassium (3.5-5.1) mEq/L Chloride (98-107) mEq/L Carbon Dioxide (23-29) mEq/L BUN (6-20) mg/dL Creatinine (0.70-1.30) mg/dL Est GFR ( Amer) (> 60) Est GFR (Non-Af Amer) (> 60) BUN/Creatinine Ratio (6-26) Glucose (70-105) mg/dL Calculated Osmolality (280-300) Calcium (8.6-10.3) mg/dL Total Bilirubin (0.3-1.0) mg/dL Direct Bilirubin (0.0-0.2) mg/dL Indirect Bilirubin (0.0-1.2) mg/dL AST (13-39) Units/L ALT (7-52) Units/L Alkaline Phosphatase (34-104) Units/L Ammonia (16-53) mcmol/L Creatine Kinase (30-223) Units/L Troponin I (< 0.04) ng/mL Serum Total Protein (6.4-8.9) g/dL Albumin (3.5-5.7) g/dL Globulin (2.4-3.5) g/dL Albumin/Globulin Ratio (1.1-2.2) Urine Color Dark Yellow (Yellow) Urine Clarity Clear (Clear) Urine pH 5.5 (5.0-8.0) pH Units Ur Specific [place] 1.017 (1.010-1.025) Urine Protein Negative (Neg-Trace) mg/dL Urine Glucose (UA) Normal (Normal) mg/dL Urine Ketones Negative (Negative) mg/dL Urine Blood Negative (Negative) Urine Nitrite Negative (Negative) Urine Bilirubin Negative (Negative) Urine Urobilinogen 2.0 H (Normal) mg/dL Ur Leukocyte Esterase Negative (Negative) Ur Culture Indicated? NO (NO) Salicylates (15.0-30.0) mg/dL Urine Opiates Screen Negative (Uivvxp=654) ng/mL Acetaminophen (10-20) mcg/mL Ur Barbiturates Screen Negative (Wiiqyp=901) ng/mL Ur Phencyclidine Scrn Negative (Cutoff=25) ng/mL Ur Amphetamines Screen Negative (Fdityf=8008) ng/mL U Benzodiazepines Scrn Negative (Uzdkyi=582) ng/mL Urine Cocaine Screen Negative (Cutoff= 300) ng/mL U Marijuana (THC) Screen Positive H (Cutoff = 50) ng/mL Ur Drug Screen Interp See Below Ethyl Alcohol (Less than 10) mg/dL Hep Bs Antigen Nonreactive (Nonreactive) Critical Care Time Critical Care Time: Yes Total Critical Care Time: 45 Attestation: The high probability of a clinically significant, sudden or life threatening det erioration of the [] system(s) required my full and direct attention, intervention and personal management. The aggregate critical care time was [] minutes. This time is in addition to time spent performing reported procedures but includes the following: [] Data Review and interpretation [] Patient assessment and monitoring of vital signs [] Documentation [] Medication orders and management Attestation Statement - Attestation Attestation: I examined this patient and my medical decision-making was reviewed with the Resident Physician. I agree with the documented findings, disposition and treatment plan as described except to the extent set forth below. [id number] time provided Patient arrives with altered mentation. It was reported that he had a witnessed generalized tonic-clonic seizure. He is now perseverating ideas of persecution. It is uncertain whether the patient has a previous seizure disorder. He required intramuscular ketamine for behavior control in order to facilitate evaluation
--- NOTE | 2019-02-05 14:19 | Emergency Department Note ---
Disposition Clinical Impression: Altered mental status Qualifiers: Altered mental status type: unspecified Qualified Code(s): R41.82 - Altered mental status, unspecified Disposition: Admitted As Inpatient Condition: Good Referrals: NONE,PCP [Primary Care Provider] - Time of Disposition: 15:53 General Adult HPI - General Stated complaint: Seizure Time Seen by Provider: 02/05/19 13:51 Source: EMS Mode of arrival: EMS Limitations: no limitations Nursing Notes Reviewed: Yes Vital Signs Reviewed: Yes - History of Present Illness HPI Narrative: Pt is a 43M who was reported from EMS to have a seizure while drinking beer with friends and working on cars. Pt is altered on arrival with pressured speech, trying to get out of the stretcher, and telling everyone that people are out to get him. A medication report pulled by pharmacy shows a hx of taking gabapentin, ranitidine, sertraline, bupropion, hydroxyzine, baclofen, methylprednisone, ativan 1mg TID, tramdol HS. Fill dates are all from 2017, uncertain what he is taking now. Pt was combative and trying to leave the stretcher and it was evident that he would need further workup and treatment so 200mg IM ketamine was administered. Before being sedated, pt stated that he was having emotional problems and needed help. - Related Data Previous Rx's Medication Instructions Recorded Cyclobenzaprine [Flexeril] 10 mg PO TID #15 tablet 08/25/18 methylPREDNISolone [Medrol] 4 mg PO TAPER #21 tablet 08/25/18 Allergies Allergy/AdvReac Type Severity Reaction Status Date / Time No Known Allergies Allergy Verified 12/23/15 16:38 Limitations: ROS unobtainable due to patients medical condition Past Medical History - Past Medical History Medical history: Reports: seizures Surgical history: Reports: orthopedic, other Psychiatric history: Reports: depression - Social History Smoking Status: Current every day smoker Smokeless Tobacco Status: No Alcohol use: Reports: recent Drug use: Reports: opiates, marijuana Physical Exam - General Limitations: altered mental status - Head Head exam: atraumatic, normocephalic - Eye Eye exam: Present: normal appearance, PERRL, EOMI - ENT ENT exam: normal exam, normal oropharynx - Neck Neck exam: Present: normal inspection, full ROM - Chest Chest inspection: Present: normal inspection, symmetric chest wall rise - Respiratory Respiratory exam: Present: normal lung sounds bilaterally. Absent: respiratory distress, wheezes - Cardiovascular Cardiovascular exam: Present: tachycardia - Abdominal Exam Abdominal exam: Present: soft, Non-Tender - Expanded Lower Extremity Exam Foot/toe exam: Present: other (orange discoloration noted to bottoms of both feet. Whitish discoloration noted to left small toe consistent with moisture exposure) - Psychiatric Psychiatric exam: Present: agitated, anxious - Skin Skin exam: Present: warm, dry, intact Course Course Narrative: Will order AMS workup including drugs of abuse, EKG. Will place IV. Will get head CT. Will perform physical exam after sedation. - Reevaluation(s) Reevaluation #1: While patient was getting undressed, a small baggy containing presumed crack cocaine was found on his person. Time: 14:27 Vital Signs Temperature 97.8 F 02/05/19 14:00 Pulse Rate 130 02/05/19 14:00 Respiratory Rate 26 02/05/19 14:00 Blood Pressure 148/98 02/05/19 14:00 O2 Sat by Pulse Oximetry 98 02/05/19 14:00 Temperature 97.8 F 02/05/19 14:44 Pulse Rate 111 02/05/19 15:57 Respiratory Rate 16 02/05/19 15:57 Blood Pressure 133/103 02/05/19 15:57 O2 Sat by Pulse Oximetry 97 02/05/19 15:57 Oxygen Delivery Oxygen Delivery Room Air Medical Decision Making - MDM Narrative Medical decision making narrative: Pts CT was negative for acute intracranial pathology, lab work revealed transaminitis with elevated ETOH at 284, UDS was positive for marijuana but negative for cocaine. Pt continued to have agitation and required a sitter while he was in the department. He continued to endorse beliefs that there may be people after him. Pt remained hemodynamically stable while in the department and required no further interventions. Spoke with Dr. Jerez, hospitalist, who agreed to accept the patient. - Medical Records Medical records reviewed: Yes I reviewed the patient's medical records. - Lab Data Lab results reviewed: Yes I reviewed the patient's lab results. Result diagrams: 02/05/19 14:19 02/05/19 14:19 Lab Results 02/05/19 02/05/19 02/05/19 Range/Units 14:19 14:19 14:19 WBC 7.2 (4.3-11.1) K/mcL RBC 4.65 (4.19-5.50) M/mcL Hgb 15.3 (12.9-16.9) g/dL Hct 44.9 (37.5-50.1) % MCV 96.6 (83.0-100.0) fL MCH 32.9 (28.0-33.3) pg MCHC 34.1 (31.6-35.5) g/dL RDW 12.3 (11.5-14.5) % Plt Count 158 (140-400) K/mcL MPV 10.1 (9.4-12.4) fL Immature Gran % 0.1 (0-4) % Seg Neutrophils % 45.4 % Lymphocytes % 38.0 % Monocytes % 10.7 % Eosinophils % 4.1 % Basophils % 1.7 % Neutrophils # 3.3 (1.6-8.9) K/mcL Lymphocytes # 2.8 (0.6-4.6) K/mcL Monocytes # 0.8 (0.0-1.3) K/mcL Eosinophils # 0.3 (0.0-0.6) K/mcL Basophils # 0.1 (0.0-0.2) K/mcL Sodium 139 (136-145) mEq/L Potassium 3.4 L (3.5-5.1) mEq/L Chloride 106 (98-107) mEq/L Carbon Dioxide 26 (23-29) mEq/L BUN 13 (6-20) mg/dL Creatinine 0.64 L (0.70-1.30) mg/dL Est GFR ( Amer) > 60 (> 60) Est GFR (Non-Af Amer) > 60 (> 60) BUN/Creatinine Ratio 20 (6-26) Glucose 123 H (70-105) mg/dL Calculated Osmolality 289 (280-300) Calcium 9.6 (8.6-10.3) mg/dL Total Bilirubin 1.1 H (0.3-1.0) mg/dL Direct Bilirubin 0.4 H (0.0-0.2) mg/dL Indirect Bilirubin 0.7 (0.0-1.2) mg/dL AST 736 H (13-39) Units/L ALT 1053 H (7-52) Units/L Alkaline Phosphatase 153 H (34-104) Units/L Ammonia 67 H (16-53) mcmol/L Creatine Kinase 37 (30-223) Units/L Troponin I < 0.03 (< 0.04) ng/mL Serum Total Protein 7.2 (6.4-8.9) g/dL Albumin 4.5 (3.5-5.7) g/dL Globulin 2.7 (2.4-3.5) g/dL Albumin/Globulin Ratio 1.7 (1.1-2.2) Urine Color (Yellow) Urine Clarity (Clear) Urine pH (5.0-8.0) pH Units Ur Specific [place] (1.010-1.025) Urine Protein (Neg-Trace) mg/dL Urine Glucose (UA) (Normal) mg/dL Urine Ketones (Negative) mg/dL Urine Blood (Negative) Urine Nitrite (Negative) Urine Bilirubin (Negative) Urine Urobilinogen (Normal) mg/dL Ur Leukocyte Esterase (Negative) Ur Culture Indicated? (NO) Salicylates < 2.5 L (15.0-30.0) mg/dL Urine Opiates Screen (Nfrjnb=167) ng/mL Acetaminophen < 10 L (10-20) mcg/mL Ur Barbiturates Screen (Butrnm=273) ng/mL Ur Phencyclidine Scrn (Cutoff=25) ng/mL Ur Amphetamines Screen (Avujft=0057) ng/mL U Benzodiazepines Scrn (Gggelm=042) ng/mL Urine Cocaine Screen (Cutoff= 300) ng/mL U Marijuana (THC) Screen (Cutoff = 50) ng/mL Ur Drug Screen Interp Ethyl Alcohol 283 H (Less than 10) mg/dL 02/05/19 02/05/19 Range/Units 14:27 14:27 WBC (4.3-11.1) K/mcL RBC (4.19-5.50) M/mcL Hgb (12.9-16.9) g/dL Hct (37.5-50.1) % MCV (83.0-100.0) fL MCH (28.0-33.3) pg MCHC (31.6-35.5) g/dL RDW (11.5-14.5) % Plt Count (140-400) K/mcL MPV (9.4-12.4) fL Immature Gran % (0-4) % Seg Neutrophils % % Lymphocytes % % Monocytes % % Eosinophils % % Basophils % % Neutrophils # (1.6-8.9) K/mcL Lymphocytes # (0.6-4.6) K/mcL Monocytes # (0.0-1.3) K/mcL Eosinophils # (0.0-0.6) K/mcL Basophils # (0.0-0.2) K/mcL Sodium (136-145) mEq/L Potassium (3.5-5.1) mEq/L Chloride (98-107) mEq/L Carbon Dioxide (23-29) mEq/L BUN (6-20) mg/dL Creatinine (0.70-1.30) mg/dL Est GFR ( Amer) (> 60) Est GFR (Non-Af Amer) (> 60) BUN/Creatinine Ratio (6-26) Glucose (70-105) mg/dL Calculated Osmolality (280-300) Calcium (8.6-10.3) mg/dL Total Bilirubin (0.3-1.0) mg/dL Direct Bilirubin (0.0-0.2) mg/dL Indirect Bilirubin (0.0-1.2) mg/dL AST (13-39) Units/L ALT (7-52) Units/L Alkaline Phosphatase (34-104) Units/L Ammonia (16-53) mcmol/L Creatine Kinase (30-223) Units/L Troponin I (< 0.04) ng/mL Serum Total Protein (6.4-8.9) g/dL Albumin (3.5-5.7) g/dL Globulin (2.4-3.5) g/dL Albumin/Globulin Ratio (1.1-2.2) Urine Color Dark Yellow (Yellow) Urine Clarity Clear (Clear) Urine pH 5.5 (5.0-8.0) pH Units Ur Specific [place] 1.017 (1.010-1.025) Urine Protein Negative (Neg-Trace) mg/dL Urine Glucose (UA) Normal (Normal) mg/dL Urine Ketones Negative (Negative) mg/dL Urine Blood Negative (Negative) Urine Nitrite Negative (Negative) Urine Bilirubin Negative (Negative) Urine Urobilinogen 2.0 H (Normal) mg/dL Ur Leukocyte Esterase Negative (Negative) Ur Culture Indicated? NO (NO) Salicylates (15.0-30.0) mg/dL Urine Opiates Screen Negative (Xygnqk=070) ng/mL Acetaminophen (10-20) mcg/mL Ur Barbiturates Screen Negative (Nialgc=256) ng/mL Ur Phencyclidine Scrn Negative (Cutoff=25) ng/mL Ur Amphetamines Screen Negative (Cxbovm=0420) ng/mL U Benzodiazepines Scrn Negative (Vnnkyq=087) ng/mL Urine Cocaine Screen Negative (Cutoff= 300) ng/mL U Marijuana (THC) Screen Positive H (Cutoff = 50) ng/mL Ur Drug Screen Interp See Below Ethyl Alcohol (Less than 10) mg/dL - Radiology Data Radiology results reviewed: Yes I reviewed the patient's radiology results. Chest X-Ray 02/05/19 13:52 IMPRESSION: No acute cardiopulmonary process identified. D/ / Car Colorado MD / Car Colorado MD Interpreting Provider: Car Colorado MD Head CT 02/05/19 13:53 IMPRESSION: No acute intracranial abnormality. Mucosal thickening in the ethmoid air cells and frontal sinuses suggesting sinus disease. D/ / Cassius Marcial MD / Cassius Marcial MD Interpreting Provider: Cassius Marcial MD - EKG Data EKG #1 EKG attestation: Yes I reviewed and interpreted this EKG. EKG results narrative: HR 104, rhythm sinus tachycardia, axis rightward at 100. DE 146, QRS 127 and prolonged, QTc 453. No evidence of ST elevation or depression. No evidence of LVH.
[2019-02-05 14:46] LABS: Basophils # 0.1 K/mcL (0.0-0.2); Basophils % 1.7 %; Eosinophils # 0.3 K/mcL (0.0-0.6); Eosinophils % 4.1 %; Hematocrit 44.9 % (37.5-50.1); Hemoglobin 15.3 g/dL (12.9-16.9); Immature Granulocytes % 0.1 % (0-4); Lymphocytes # 2.8 K/mcL (0.6-4.6); Mean Corpuscular HGB Conc 34.1 g/dL (31.6-35.5); Mean Corpuscular Hemoglobin 32.9 pg (28.0-33.3); Mean Corpuscular Volume 96.6 fL (83.0-100.0); Mean Platelet Volume 10.1 fL (9.4-12.4); Monocytes # 0.8 K/mcL (0.0-1.3); Monocytes % 10.7 %; Neutrophils # 3.3 K/mcL (1.6-8.9); Platelet Count 158 K/mcL (140-400); Red Blood Count 4.65 M/mcL (4.19-5.50); Red Cell Distribution Width 12.3 % (11.5-14.5); Segmented Neutrophils % 45.4 %
[2019-02-05 14:55] LABS: Bilirubin,Urine Negative (Negative); Blood,Urine Negative (Negative); Clarity,Urine Clear (Clear); Color,Urine Dark Yellow (Yellow); Glucose,Urine (UA) Normal (Normal); Ketones,Urine Negative (Negative); Leukocyte Esterase,Urine Negative (Negative); Nitrite,Urine Negative (Negative); PH,Urine 5.5 pH Units (5.0-8.0); Protein,Urine Negative (Neg-Trace); Specific Gravity,Urine 1.017 (1.010-1.025)
[2019-02-05 15:28] LABS: Acetaminophen < 10 mcg/mL (10-20); Alanine Aminotransferase 1053 Units/L (7-52); Albumin 4.5 g/dL (3.5-5.7); Albumin/Globulin Ratio 1.7 (1.1-2.2); Alkaline Phosphatase 153 Units/L (34-104); Aspartate Amino Transferase 736 Units/L (13-39); BUN/Creatinine Ratio 20 (6-26); Bilirubin,Direct 0.4 mg/dL (0.0-0.2); Bilirubin,Indirect 0.7 mg/dL (0.0-1.2); Bilirubin,Total 1.1 mg/dL (0.3-1.0); Blood Urea Nitrogen 13 mg/dL (6-20); Calcium 9.6 mg/dL (8.6-10.3); Carbon Dioxide 26 mEq/L (23-29); Chloride 106 mEq/L (98-107); Creatine Kinase 37 Units/L (30-223); Ethanol 283 mg/dL (Less than 10); Globulin 2.7 g/dL (2.4-3.5); Glucose 123 mg/dL (70-105); Osmolality,Calculated 289 (280-300); Potassium 3.4 mEq/L (3.5-5.1); Salicylate < 2.5 mg/dL (15.0-30.0); Sodium 139 mEq/L (136-145); Total Protein 7.2 g/dL (6.4-8.9); Troponin I < 0.03 ng/mL (< 0.04); eGFR For Non-African Americans > 60 (> 60)
[2019-02-05 15:31] LABS: Amphetamine Screen,Urine Negative ng/mL (Cutoff=1000); Barbiturate Screen,Urine Negative ng/mL (Cutoff=200); Benzodiazepines Screen,Urine Negative ng/mL (Cutoff=200); Cannabinoid Screen,Urine Positive ng/mL (Cutoff = 50); Cocaine Screen,Urine Negative ng/mL (Cutoff= 300); Opiate Screen,Urine Negative ng/mL (Cutoff=300); Phencyclidine Screen,Urine Negative ng/mL (Cutoff=25)
[2019-02-05] MEDS ORDERED: Ziprasidone injection 20 MG/ML VIAL IM ONE ×2 (15:48→15:50)
[2019-02-05] MEDS ORDERED: Naloxone 0.4 MG/ML INJ IVP PRN (16:30)
[2019-02-05] MEDS ORDERED: Ondansetron 4 MG/2 ML VIAL IVP PRN (16:30)
--- NOTE | 2019-02-05 16:44 | Internal Med History&Physical ---
Date of Encounter: 02/05/19 Time of Encounter: 16:40 Internal Medicine - H&P: HPI Chief complaint: Seizure Admitted From: Emergency Dept History of present illness: Jerome Messer is a 43 M w hx EtOH use disorder, anx/dep, EtOH hepatitis, smoker , who p/w seizure. Pt is somnolent and not able to participate in much medical history without falling back asleep. He does not remember having a seizure, nor having them in the past. Does state that he's been drinking much more than his usual in the last week or so. Says he ran out of all his meds a long time ago but that he did take some of his leftover zoloft. Cannot tell me how much he drank recently or when last drink was, and is disoriented to time and place. In the ED, pt initially agitated and confused, required sedation w ziprasidone and and ketamine. HR 110-120s. EtOH level elevated to 0.2. LFTs w ALT 1000, AST 800, Tbili 1.1. Review of records reveals that patient had withdrawal seizure a few years ago and was treated at this hospital. Neuro consult and MRI at that time unrema rkable. Past medical, surgical, social, and family histories reviewed and updated as below. Past Med Surg Social Fam HX - Past Medical History Medical history: seizures Additional medical history: Chronic Back Pain Psychiatric history: depression - Past Surgical History Surgical History: orthopedic, other Additional surgical history: right foot/ankle - Social History Smoking Status: Current every day smoker Smokeless Tobacco Status: No Alcohol use: recent Drug use: opiates, marijuana Internal Medicine - H&P: Meds Cyclobenzaprine [Flexeril] 10 mg PO TID #15 tablet 08/25/18 [Rx] methylPREDNISolone [Medrol] 4 mg PO TAPER #21 tablet 08/25/18 [Rx] Allergy/AdvReac Type Severity Reaction Status Date / Time No Known Allergies Allergy Verified 12/23/15 16:38 All Systems PM: A 10-system review of systems was performed and is negative for pertinent findings except as documented above in the HPI. - Constitutional Vitals: Temp Pulse Resp BP Pulse Ox 97.8 F 111 16 133/103 97 02/05/19 14:44 02/05/19 15:57 02/05/19 15:57 02/05/19 15:57 02/05/19 15:57 Exam: General: NAD, poor eye contact, disheveled Head: Atraumatic, normocephalic. Face symmetric Eyes: EOMI, sclerae anicteric ENT: Mucous membranes dry, normal oral mucosa and poor dentition. Trachea midline. Thoracic: No visible chest wall deformities. Normal breath sounds b/l, no wheezing or crackles Cardio: Normal S1 and S2, regular rhythm, tachycardic, no murmurs. Abdomen: Soft, nontender, nondistended. No HSM Extremities: Warm, well perfused. DP pulses 2+ b/l. No edema Skin: Intact. No rashes, bruises, or ulcers Neuro: Drowsy, oriented only to person. Speech fluent. Internal Med - H&P Results - Labs CBC & Chem 7: 02/05/19 14:19 02/05/19 14:19 Labs: Short CBC 02/05/19 Range/Units 14:19 WBC 7.2 (4.3-11.1) K/mcL Hgb 15.3 (12.9-16.9) g/dL Hct 44.9 (37.5-50.1) % Plt Count 158 (140-400) K/mcL Neutrophils # 3.3 (1.6-8.9) K/mcL BMP 02/05/19 14:19 Sodium 139 Potassium 3.4 L Chloride 106 Carbon Dioxide 26 BUN 13 Creatinine 0.64 L Glucose 123 H Calcium 9.6 Cardiac Enzymes 02/05/19 Range/Units 14:19 Troponin I < 0.03 (< 0.04) ng/mL Liver Function 02/05/19 Range/Units 14:19 Total Bilirubin 1.1 H (0.3-1.0) mg/dL Direct Bilirubin 0.4 H (0.0-0.2) mg/dL AST 736 H (13-39) Units/L ALT 1053 H (7-52) Units/L Alkaline Phosphatase 153 H (34-104) Units/L Albumin 4.5 (3.5-5.7) g/dL Urine 02/05/19 Range/Units 14:27 Urine Color Dark Yellow (Yellow) Urine Clarity Clear (Clear) Urine pH 5.5 (5.0-8.0) pH Units Ur Specific [place] 1.017 (1.010-1.025) Urine Protein Negative (Neg-Trace) mg/dL Urine Glucose (UA) Normal (Normal) mg/dL - Impressions ITS Impressions Chest X-Ray 02/05/19 13:52 IMPRESSION: No acute cardiopulmonary process identified. D/ / Car Colorado MD / Car Colorado MD Interpreting Provider: Car Colorado MD Head CT 02/05/19 13:53 IMPRESSION: No acute intracranial abnormality. Mucosal thickening in the ethmoid air cells and frontal sinuses suggesting sinus disease. D/ / Cassius Marcial MD / Cassius Marcial MD Interpreting Provider: Cassius Marcial MD - Summary of Assessment and Plan Summary of Assessment and Plan: Jerome Messer is a 43 M w hx EtOH use disorder, anx/dep, EtOH hepatitis, s jeni, who p/w seizure and found to have significantly elevated LFTs. Seizure: suspect EtOH/withdrawal related - need to clarify med fill hx as pt has rx for wellbutrin, gabapentin, ativan, tramadol, baclofen, sertraline; he says he took zoloft recently but none of the others - holding all centrally acting agents - ativan prn seizure Tachycardia: dry MM, likely dehydration - NS 1L bolus s/p 500cc in ED Acute on chronic hepatitis: ALT 1000 and AST 800 when usually 200s, suspect 2/2 recent heavy EtOH use - daily MELD labs - fluids as above - viral panel given current hep A outbreak EtOH use disorder: high risk of wdwl - CIWA Anx/dep: meds as above, will need outpt f/u Smoker: nicotine patch scheduled PPx: lovenox FEN: regular, MIVF NS@125 Lines: PIV Consults: Code: Full Dispo: obs for seizure and hepatitis, although is high risk for EtOH withdrawal and may need longer hosp stay, will be homegoing
[2019-02-05] MEDS ORDERED: 0.9 % Sodium Chloride 1,000 ML ONE (16:56)
[2019-02-05] MEDS ORDERED: *HR* LORazepam 2 MG/ML VIAL IVP PRN ×4 (16:59→21:28)
[2019-02-05] MEDS ORDERED: *HR* LORazepam 1 MG TABLET PO SCH (17:00)
[2019-02-05 17:42] LABS: Hepatitis B Surface Antigen Nonreactive (Nonreactive)
[2019-02-05 18:12] LABS: Hepatitis B Core IgM Nonreactive (Nonreactive)
[2019-02-05 18:14] LABS: Hepatitis A Antibody IgM Nonreactive (Nonreactive)
[2019-02-05] MEDS: Thiamine (B-1) 100 MG TABLET PO SCH (21:08)
[2019-02-05] MEDS: Vitamin B Complex/Vit C/Vit E 1 EACH TABLET PO SCH (21:09)
[2019-02-05] MEDS: Folic Acid 1 MG TABLET PO SCH (21:09)
[2019-02-05] MEDS: Nicotine 21 MG PATCH.TD24 TD SCH (21:09)
[2019-02-05] MEDS: 0.9 % Sodium Chloride 1,000 ML IVC SCH (21:10)
[2019-02-05] MEDS ORDERED: *HR* Promethazine 25 MG/ML VIAL IVP PRN (21:28)
[2019-02-05 21:58] LABS: Amylase 37 Units/L (29-103); Lipase 48 Units/L (11-82)
[2019-02-05] MEDS: Ibuprofen 400 MG TABLET PO PRN (22:25)
--- NOTE | 2019-02-05 23:31 | Electrocardiograph Report ---
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
[2019-02-06] MEDS: 0.9 % Sodium Chloride 1,000 ML IVC SCH (05:17)
[2019-02-06 05:36] LABS: Hematocrit 36.7 % (37.5-50.1); Mean Corpuscular HGB Conc 34.6 g/dL (31.6-35.5); Mean Corpuscular Hemoglobin 33.2 pg (28.0-33.3); Mean Corpuscular Volume 96.1 fL (83.0-100.0); Mean Platelet Volume 10.5 fL (9.4-12.4); Platelet Count 113 K/mcL (140-400); Red Blood Count 3.82 M/mcL (4.19-5.50); Red Cell Distribution Width 12.1 % (11.5-14.5)
[2019-02-06 05:46] LABS: Hemoglobin 12.7 g/dL (12.9-16.9)
[2019-02-06 05:47] LABS: Hepatitis C Virus Antibody Reactive (Nonreactive)
[2019-02-06 06:08] LABS: Alanine Aminotransferase 786 Units/L (7-52); Albumin 3.6 g/dL (3.5-5.7); Albumin/Globulin Ratio 1.7 (1.1-2.2); Alkaline Phosphatase 112 Units/L (34-104); Aspartate Amino Transferase 555 Units/L (13-39); BUN/Creatinine Ratio 27 (6-26); Bilirubin,Total 1.8 mg/dL (0.3-1.0); Blood Urea Nitrogen 14 mg/dL (6-20); Carbon Dioxide 26 mEq/L (23-29); Chloride 107 mEq/L (98-107); Globulin 2.1 g/dL (2.4-3.5); Glucose 79 mg/dL (70-105); Magnesium 1.6 mg/dL (1.6-2.6); Osmolality,Calculated 287 (280-300); Potassium 4.1 mEq/L (3.5-5.1); Sodium 139 mEq/L (136-145); Total Protein 5.7 g/dL (6.4-8.9); eGFR For Non-African Americans > 60 (> 60)
[2019-02-06] MEDS: Thiamine (B-1) 100 MG TABLET PO SCH (09:12)
[2019-02-06] MEDS: Nicotine 21 MG PATCH.TD24 TD SCH (09:12)
[2019-02-06] MEDS: Ibuprofen 400 MG TABLET PO PRN (09:12)
[2019-02-06] MEDS: Vitamin B Complex/Vit C/Vit E 1 EACH TABLET PO SCH (09:12)
[2019-02-06] MEDS: Folic Acid 1 MG TABLET PO SCH (09:12)
[2019-02-06 15:24] VITALS: BP 125/83
--- NOTE | 2019-02-06 16:07 | Discharge Summary ---
- NOTES TO OUTPATIENT PROVIDER Notes to Outpatient Provider: Presented after having seizure while intoxicated - drinking heavily over the last week ran out of medications-alcohol level was 283-offered patient alcohol rehabilitation and resources however declined- complains of feet hurting-from shoes being too tight and that is why he drinks. We will monitor chemistry as outpatient. Consult to podiatry as outpatient Date of Encounter: 02/06/19 Time of Encounter: 16:05 - Discharge Diagnosis (1) Alcohol intoxication Priority: Primary Status: Acute Qualifiers: Complication of substance-induced condition: uncomplicated Qualified Code(s): F10.920 - Alcohol use, unspecified with intoxication, uncomplicated (2) Elevated liver enzymes Priority: Secondary Status: Acute (3) Seizure Priority: Primary Status: Acute Hospital course: Mr. Messer is a 43 year old male past medical history of alcohol abuse anxiety/depression alcohol hepatitis current smoker who presented to [facility] ED with seizure found to have elevated LFTs alcohol level 283 tox screen positive for marijuana-CT of head was negative or any intracranial abnormalities-patient was given IV fluids and monitored overnight currently he is alert and appropriate following simple commands. He verbalizes concerns about losing his job and would like work excuse because he has not been working for a week, he states that he has problems with his feet that they hurt because his boots are too tight he thinks is causing neuropathy in his feet and would like to see a fitting room operator. He has been missing a lot of work because of this he also admits that he has been drinking more. States he has not been taking his medications he does not have the money or any insurance-bilingual social worker was consulted patient was given information concerning resources for mental health and alcohol rehabilitation patient is currently declining any services. He states that he does not think that alcohol is a problem at this time. Patient is requesting pain medication as well as anxiety medicine advised patient that he will not follow up with his primary care provider as well as with mental health-he states he is unable to get appointment advised that nursing will also point out before he leaves verbalizes understanding-patient denies any suicidal ideations he just voices concerns about losing his job and is requesting that I write for him a work excuse for last week when he missed work because of his feet. Advised patient I can only write work excuse for the days that I saw him in the hospital patient states that would be fine. Encouraged patient to follow-up with PCP as well as alcohol resources. Patient verbalized understanding currently he is hemodynamically stable no seizure activity noted. I did discuss this case with Dr Benjamin who agrees with plan and she will be discharged to home - Time Spent with Patient Total time spent providing and/or coordinating discharge services: - Discharge Medications Prescriptions: No Action No Known Home Drugs 1 each .ROUTE AD each Home Medications: No Known Home Drugs 02/05/19 [History] Allergies/Adverse Reactions: Allergy/AdvReac Type Severity Reaction Status Date / Time No Known Allergies Allergy Verified 12/23/15 16:38 Date of admission: 02/05/19 16:20 Primary care physician: PCP NONE Consults: 02/05/19 16:34 Consult to Timber Spotter [CONS] Routine Reason for SW Consult: etoh Discharging clinician: Katie Nunez Anticipated date of discharge: 02/06/19 - Constitutional Vitals: Temp Pulse Resp BP Pulse Ox 98.4 F 111 13 125/83 96 02/06/19 15:17 02/06/19 15:17 02/06/19 15:17 02/06/19 15:17 02/06/19 15:17 Exam: General: NAD, poor eye contact, disheveled Head: Atraumatic, normocephalic. Face symmetric Eyes: EOMI, sclerae anicteric ENT: Mucous membranes dry, normal oral mucosa and poor dentition. Trachea midline. Thoracic: No visible chest wall deformities. Normal breath sounds b/l, no wheezing or crackles Cardio: Normal S1 and S2, regular rhythm, tachycardic, no murmurs. Abdomen: Soft, nontender, nondistended. No HSM Extremities: Warm, well perfused. DP pulses 2+ b/l. No edema Skin: Intact. No rashes, bruises, or ulcers Neuro: Alert and appropriate and follows simple commands - Patient Status Disposition: Home, Self-Care Condition: Good Functional capacity at discharge: independent ambulation Overall status at discharge: patient is back to baseline - Ambulatory Orders Ambulatory Orders: Comprehensive Metabolic Panel [CHEM] Time Frame: 02/09/19, Facility: [facility], Location: Lab - Discharge Instructions Follow Up With: Rosalva Hylton [Advanced Practice Nurse] - 02/11/19 10:40 am Doris Givens NARINDER [Advanced Practice Nurse] - (An appointment with podiatry has been requested. The office will contact you at home to schedule an appointment. ) Forms: ED Satisfaction Letter - Diet and Activity Activity: increase activity as tolerated Diet: advance to your usual diet
== END 2019-02-06 16:28 | disposition home or self-care (01) ==
LOC: EMEROOARM 13:46 → 3BNU 13:46
PROVIDERS: ADMIT Internal Medicine; ATTEND Internal Medicine

== ENCOUNTER 2019-07-01 15:39 | Inpatient (IN) ==
[2019-07-01] MEDS ORDERED: ALPRAZolam 0.5 MG TABLET PO ONE (15:49)
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
[2019-07-01 16:27] LABS: Basophils % 0.7 %; Immature Granulocytes % 0.3 % (0-4); Mean Platelet Volume 9.3 fL (9.4-12.4)
[2019-07-01 16:29] LABS: Amphetamine Screen,Urine Positive ng/mL (Cutoff=1000); Barbiturate Screen,Urine Negative ng/mL (Cutoff=200); Benzodiazepines Screen,Urine Negative ng/mL (Cutoff=200); Cannabinoid Screen,Urine Positive ng/mL (Cutoff = 50); Cocaine Screen,Urine Negative ng/mL (Cutoff= 300); Opiate Screen,Urine Negative ng/mL (Cutoff=300); Phencyclidine Screen,Urine Negative ng/mL (Cutoff=25)
[2019-07-01 16:29] LABS: Basophils # 0.1 K/mcL (0.0-0.2); Eosinophils % 0.5 %; Hematocrit 40.8 % (37.5-50.1); Hemoglobin 13.7 g/dL (12.9-16.9); Immature Platelets 3.9 % (1.1-6.1); Lymphocytes # 1.9 K/mcL (0.6-4.6); Lymphocytes % 25.1 %; Mean Corpuscular HGB Conc 33.6 g/dL (31.6-35.5); Mean Corpuscular Volume 89.3 fL (83.0-100.0); Monocytes # 0.8 K/mcL (0.0-1.3); Monocytes % 10.7 %; Neutrophils # 4.7 K/mcL (1.6-8.9); Nucleated Red Blood Cells 0.3 /100 WBC (0); Platelet Count 106 K/mcL (140-400); Red Blood Count 4.57 M/mcL (4.19-5.50); Segmented Neutrophils % 62.7 %; White Blood Count 7.5 K/mcL (4.3-11.1)
[2019-07-01 16:44] LABS: Acetaminophen < 10 mcg/mL (10-20); Alanine Aminotransferase 276 Units/L (7-52); Albumin 4.5 g/dL (3.5-5.7); Albumin/Globulin Ratio 1.5 (1.1-2.2); Alkaline Phosphatase 74 Units/L (34-104); Aspartate Amino Transferase 264 Units/L (13-39); Bilirubin,Direct 0.3 mg/dL (0.0-0.2); Bilirubin,Indirect 0.5 mg/dL (0.0-1.2); Bilirubin,Total 0.8 mg/dL (0.3-1.0); Blood Urea Nitrogen 11 mg/dL (6-20); Calcium 9.3 mg/dL (8.6-10.3); Carbon Dioxide 24 mEq/L (23-29); Chloride 95 mEq/L (98-107); Ethanol 376 mg/dL (Less than 10); Globulin 3.1 g/dL (2.4-3.5); Glucose 102 mg/dL (70-105); Osmolality,Calculated 280 (280-300); Potassium 3.9 mEq/L (3.5-5.1); Salicylate < 2.5 mg/dL (15.0-30.0); Sodium 135 mEq/L (136-145); Total Protein 7.6 g/dL (6.4-8.9); Valproate 27 mcg/mL (50-100)
[2019-07-01 16:46] LABS: BUN/Creatinine Ratio 16 (6-26); eGFR For African Americans > 60 (> 60); eGFR For Non-African Americans > 60 (> 60)
--- NOTE | 2019-07-01 16:49 | Emergency Department Note ---
Disposition Clinical Impression: Acute anxiety, Elevated liver enzymes Alcohol intoxication Qualifiers: Complication of substance-induced condition: with unspecified complication Q ualified Code(s): F10.929 - Alcohol use, unspecified with intoxication, unspecified Disposition: Still a Patient Condition: Good Referrals: Rosalva Hylton [Primary Care Provider] - Forms: ED Satisfaction Letter Time of Disposition: 00:53 General Adult HPI - General Chief complaint: ED Psychiatric Symptoms Time Seen by Provider: 07/01/19 15:47 Source: patient, EMS Mode of arrival: EMS Limitations: no limitations Nursing Notes Reviewed: Yes Vital Signs Reviewed: Yes - History of Present Illness HPI Narrative: Received patient in signout by the departing emergency medicine attending Dr. oTro SHAFFER, patient signed out at 1700. Patient has a history of a mental health disorder but is currently not suicidal or homicidal. However he is intoxicated by alcohol numerically and by physical examination. The plan is to observe the patient make sure he has dinner redraw the blood see her the blood alcohol level at 12 midnight and then at that point he can be seen by mental health services for further determination. Patient resting comfortably in bed. Disposition pending Pain Scale: 7 - Related Data Previous Rx's Medication Instructions Recorded Ibuprofen [Motrin] 600 mg PO Q8HR PRN #20 tab 06/22/19 Allergies Allergy/AdvReac Type Severity Reaction Status Date / Time No Known Allergies Allergy Verified 12/23/15 16:38 Constitutional: Reports: as per HPI Eyes: Reports: as per HPI ENT ED: Reports: as per HPI Cardiovascular: Reports: as per HPI Respiratory: Reports: as per HPI Gastrointestinal: Reports: as per HPI Genitourinary: Reports: as per HPI Musculoskeletal: Reports: back pain Integumentary: Reports: abrasion Neurological: Reports: headache Psychiatric: Reports: anxiety, depression Endocrine: Reports: as per HPI Hematological/Lymphatic: Reports: as per HPI Allergic/Immunologic: Reports: as per HPI Past Medical History - Past Medical History Medical history: Reports: other (Chronic back pain, anxiety) Surgical history: Reports: orthopedic, other Psychiatric history: Reports: anxiety, depression, panic disorder - Social History Smoking Status: Current every day smoker Smokeless Tobacco Status: No Alcohol use: Reports: occasionally, recent Drug use: Reports: none Physical Exam - General Limitations: no limitations General appearance: alert, in no apparent distress, anxious Course - Reevaluation(s) Reevaluation #1: Patient became slightly shaky and anxious earlier in the evening he got 25 mg of Librium and that helped his symptoms. The ethanol redraw at midnight showed his alcohol still elevated at 178, and he needs to be at 80 or below for one A evaluation. Patient signed out to the overnight emergency medicine attending Dr. Yung MARTINEZ. He will follow-up with repeat ethanol level has been placed for redraw at 4 AM. Then one a can be consulted and disposition pending 180s recommendation. Patient signed out at 1 AM in stable condition Time: 00:52 Vital Signs Temperature 98.4 F 07/01/19 15:41 Pulse Rate 117 07/01/19 15:41 Respiratory Rate 20 07/01/19 15:41 Blood Pressure 132/73 07/01/19 15:41 O2 Sat by Pulse Oximetry 94 07/01/19 15:41 Temperature 98.2 F 07/01/19 23:53 Pulse Rate 108 07/01/19 23:53 Respiratory Rate 19 07/01/19 23:53 Blood Pressure 120/75 07/01/19 23:53 O2 Sat by Pulse Oximetry 94 07/01/19 23:53 Oxygen Delivery Oxygen Delivery Room Air Medical Decision Making - Lab Data Result diagrams: 07/01/19 15:48 07/01/19 15:48 Lab Results 07/01/19 07/01/19 07/01/19 Range/Units 15:48 15:48 15:52 WBC 7.5 (4.3-11.1) K/mcL RBC 4.57 (4.19-5.50) M/mcL Hgb 13.7 (12.9-16.9) g/dL Hct 40.8 (37.5-50.1) % MCV 89.3 (83.0-100.0) fL MCH 30.0 (28.0-33.3) pg MCHC 33.6 (31.6-35.5) g/dL RDW 13.0 (11.5-14.5) % Plt Count 106 L (140-400) K/mcL MPV 9.3 L (9.4-12.4) fL Immature Gran % 0.3 (0-4) % Seg Neutrophils % 62.7 % Lymphocytes % 25.1 % Monocytes % 10.7 % Eosinophils % 0.5 % Basophils % 0.7 % Neutrophils # 4.7 (1.6-8.9) K/mcL Lymphocytes # 1.9 (0.6-4.6) K/mcL Monocytes # 0.8 (0.0-1.3) K/mcL Eosinophils # 0.0 (0.0-0.6) K/mcL Basophils # 0.1 (0.0-0.2) K/mcL Nucleated RBCs/100 WBC 0.3 H (0) /100 WBC Immature Plt Fraction 3.9 (1.1-6.1) % Sodium 135 L (136-145) mEq/L Potassium 3.9 (3.5-5.1) mEq/L Chloride 95 L (98-107) mEq/L Carbon Dioxide 24 (23-29) mEq/L BUN 11 (6-20) mg/dL Creatinine 0.67 L (0.70-1.30) mg/dL Est GFR ( Amer) > 60 (> 60) Est GFR (Non-Af Amer) > 60 (> 60) BUN/Creatinine Ratio 16 (6-26) Glucose 102 (70-105) mg/dL Calculated Osmolality 280 (280-300) Calcium 9.3 (8.6-10.3) mg/dL Total Bilirubin 0.8 (0.3-1.0) mg/dL Direct Bilirubin 0.3 H (0.0-0.2) mg/dL Indirect Bilirubin 0.5 (0.0-1.2) mg/dL AST 264 H (13-39) Units/L ALT 276 H (7-52) Units/L Alkaline Phosphatase 74 (34-104) Units/L Serum Total Protein 7.6 (6.4-8.9) g/dL Albumin 4.5 (3.5-5.7) g/dL Globulin 3.1 (2.4-3.5) g/dL Albumin/Globulin Ratio 1.5 (1.1-2.2) Salicylates < 2.5 L (15.0-30.0) mg/dL Urine Opiates Screen Negative (Iowuqp=996) ng/mL Ur Buprenorphine Scrn Negative (Cutoff=5) ng/mL Acetaminophen < 10 L (10-20) mcg/mL Ur Barbiturates Screen Negative (Bcbbvp=673) ng/mL Valproic Acid 27 L (50-100) mcg/mL Ur Phencyclidine Scrn Negative (Cutoff=25) ng/mL Ur Amphetamines Screen Positive H (Rvvsqh=2232) ng/mL U Benzodiazepines Scrn Negative (Pvxwyl=119) ng/mL Urine Cocaine Screen Negative (Cutoff= 300) ng/mL U Marijuana (THC) Screen Positive H (Cutoff = 50) ng/mL Ur Drug Screen Interp See Below Ethyl Alcohol 376 H (Less than 10) mg/dL 07/01/19 Range/Units 23:45 WBC (4.3-11.1) K/mcL RBC (4.19-5.50) M/mcL Hgb (12.9-16.9) g/dL Hct (37.5-50.1) % MCV (83.0-100.0) fL MCH (28.0-33.3) pg MCHC (31.6-35.5) g/dL RDW (11.5-14.5) % Plt Count (140-400) K/mcL MPV (9.4-12.4) fL Immature Gran % (0-4) % Seg Neutrophils % % Lymphocytes % % Monocytes % % Eosinophils % % Basophils % % Neutrophils # (1.6-8.9) K/mcL Lymphocytes # (0.6-4.6) K/mcL Monocytes # (0.0-1.3) K/mcL Eosinophils # (0.0-0.6) K/mcL Basophils # (0.0-0.2) K/mcL Nucleated RBCs/100 WBC (0) /100 WBC Immature Plt Fraction (1.1-6.1) % Sodium (136-145) mEq/L Potassium (3.5-5.1) mEq/L Chloride (98-107) mEq/L Carbon Dioxide (23-29) mEq/L BUN (6-20) mg/dL Creatinine (0.70-1.30) mg/dL Est GFR ( Amer) (> 60) Est GFR (Non-Af Amer) (> 60) BUN/Creatinine Ratio (6-26) Glucose (70-105) mg/dL Calculated Osmolality (280-300) Calcium (8.6-10.3) mg/dL Total Bilirubin (0.3-1.0) mg/dL Direct Bilirubin (0.0-0.2) mg/dL Indirect Bilirubin (0.0-1.2) mg/dL AST (13-39) Units/L ALT (7-52) Units/L Alkaline Phosphatase (34-104) Units/L Serum Total Protein (6.4-8.9) g/dL Albumin (3.5-5.7) g/dL Globulin (2.4-3.5) g/dL Albumin/Globulin Ratio (1.1-2.2) Salicylates (15.0-30.0) mg/dL Urine Opiates Screen (Ggyktp=947) ng/mL Ur Buprenorphine Scrn (Cutoff=5) ng/mL Acetaminophen (10-20) mcg/mL Ur Barbiturates Screen (Ggunqe=270) ng/mL Valproic Acid (50-100) mcg/mL Ur Phencyclidine Scrn (Cutoff=25) ng/mL Ur Amphetamines Screen (Icnyny=7172) ng/mL U Benzodiazepines Scrn (Doiock=966) ng/mL Urine Cocaine Screen (Cutoff= 300) ng/mL U Marijuana (THC) Screen (Cutoff = 50) ng/mL Ur Drug Screen Interp Ethyl Alcohol 178 H (Less than 10) mg/dL
--- NOTE | 2019-07-02 06:32 | Emergency Department Note ---
Disposition Clinical Impression: Acute anxiety, Elevated liver enzymes Alcohol intoxication Qualifiers: Complication of substance-induced condition: with unspecified complication Q ualified Code(s): F10.929 - Alcohol use, unspecified with intoxication, unspecified Disposition: Admitted As Inpatient Condition: Good Referrals: Rosalva Hylton [Primary Care Provider] - Forms: ED Satisfaction Letter Time of Disposition: 06:32 General Adult HPI - General Chief complaint: ED Psychiatric Symptoms Stated complaint: 1A eval Time Seen by Provider: 07/01/19 15:47 Source: patient, EMS Mode of arrival: EMS Limitations: no limitations - History of Present Illness Pain Scale: 6 - Related Data Previous Rx's Medication Instructions Recorded Ibuprofen [Motrin] 600 mg PO Q8HR PRN #20 tab 06/22/19 Allergies Allergy/AdvReac Type Severity Reaction Status Date / Time No Known Allergies Allergy Verified 12/23/15 16:38 Constitutional: Reports: as per HPI Eyes: Reports: as per HPI ENT ED: Reports: as per HPI Cardiovascular: Reports: as per HPI Respiratory: Reports: as per HPI Gastrointestinal: Reports: as per HPI Genitourinary: Reports: as per HPI Musculoskeletal: Reports: back pain Integumentary: Reports: abrasion Neurological: Reports: headache Psychiatric: Reports: anxiety, depression Endocrine: Reports: as per HPI Hematological/Lymphatic: Reports: as per HPI Allergic/Immunologic: Reports: as per HPI Past Medical History - Past Medical History Medical history: Reports: other (Chronic back pain, anxiety) Surgical history: Reports: orthopedic, other Psychiatric history: Reports: anxiety, depression, panic disorder - Social History Smoking Status: Current every day smoker Smokeless Tobacco Status: No Alcohol use: Reports: occasionally, recent Drug use: Reports: none Physical Exam - General Limitations: no limitations General appearance: alert, in no apparent distress, anxious Course Course Narrative: Patient was seen by one A the patient was starting to have alcohol withdrawal. Psychiatry felt that the patient should be admitted medically for management of the alcohol withdrawal with a psych consult. The case was discussed with the hospitalist and the patient was accepted to the hospitalist service Vital Signs Temperature 98.4 F 07/01/19 15:41 Pulse Rate 117 07/01/19 15:41 Respiratory Rate 20 07/01/19 15:41 Blood Pressure 132/73 07/01/19 15:41 O2 Sat by Pulse Oximetry 94 07/01/19 15:41 Temperature 98.2 F 07/02/19 03:04 Pulse Rate 108 07/02/19 03:04 Respiratory Rate 20 07/02/19 03:04 Blood Pressure 131/81 07/02/19 03:04 O2 Sat by Pulse Oximetry 94 07/02/19 03:04 Oxygen Delivery Oxygen Delivery Room Air Medical Decision Making - Lab Data Result diagrams: 07/01/19 15:48 07/01/19 15:48 Lab Results 07/01/19 07/01/19 07/01/19 Range/Units 15:48 15:48 15:52 WBC 7.5 (4.3-11.1) K/mcL RBC 4.57 (4.19-5.50) M/mcL Hgb 13.7 (12.9-16.9) g/dL Hct 40.8 (37.5-50.1) % MCV 89.3 (83.0-100.0) fL MCH 30.0 (28.0-33.3) pg MCHC 33.6 (31.6-35.5) g/dL RDW 13.0 (11.5-14.5) % Plt Count 106 L (140-400) K/mcL MPV 9.3 L (9.4-12.4) fL Immature Gran % 0.3 (0-4) % Seg Neutrophils % 62.7 % Lymphocytes % 25.1 % Monocytes % 10.7 % Eosinophils % 0.5 % Basophils % 0.7 % Neutrophils # 4.7 (1.6-8.9) K/mcL Lymphocytes # 1.9 (0.6-4.6) K/mcL Monocytes # 0.8 (0.0-1.3) K/mcL Eosinophils # 0.0 (0.0-0.6) K/mcL Basophils # 0.1 (0.0-0.2) K/mcL Nucleated RBCs/100 WBC 0.3 H (0) /100 WBC Immature Plt Fraction 3.9 (1.1-6.1) % Sodium 135 L (136-145) mEq/L Potassium 3.9 (3.5-5.1) mEq/L Chloride 95 L (98-107) mEq/L Carbon Dioxide 24 (23-29) mEq/L BUN 11 (6-20) mg/dL Creatinine 0.67 L (0.70-1.30) mg/dL Est GFR ( Amer) > 60 (> 60) Est GFR (Non-Af Amer) > 60 (> 60) BUN/Creatinine Ratio 16 (6-26) Glucose 102 (70-105) mg/dL Calculated Osmolality 280 (280-300) Calcium 9.3 (8.6-10.3) mg/dL Total Bilirubin 0.8 (0.3-1.0) mg/dL Direct Bilirubin 0.3 H (0.0-0.2) mg/dL Indirect Bilirubin 0.5 (0.0-1.2) mg/dL AST 264 H (13-39) Units/L ALT 276 H (7-52) Units/L Alkaline Phosphatase 74 (34-104) Units/L Serum Total Protein 7.6 (6.4-8.9) g/dL Albumin 4.5 (3.5-5.7) g/dL Globulin 3.1 (2.4-3.5) g/dL Albumin/Globulin Ratio 1.5 (1.1-2.2) Salicylates < 2.5 L (15.0-30.0) mg/dL Urine Opiates Screen Negative (Xngeyn=073) ng/mL Ur Buprenorphine Scrn Negative (Cutoff=5) ng/mL Acetaminophen < 10 L (10-20) mcg/mL Ur Barbiturates Screen Negative (Ainppb=951) ng/mL Valproic Acid 27 L (50-100) mcg/mL Ur Phencyclidine Scrn Negative (Cutoff=25) ng/mL Ur Amphetamines Screen Positive H (Rfoatq=4369) ng/mL U Benzodiazepines Scrn Negative (Ivarys=888) ng/mL Urine Cocaine Screen Negative (Cutoff= 300) ng/mL U Marijuana (THC) Screen Positive H (Cutoff = 50) ng/mL Ur Drug Screen Interp See Below Ethyl Alcohol 376 H (Less than 10) mg/dL 07/01/19 07/02/19 Range/Units 23:45 04:30 WBC (4.3-11.1) K/mcL RBC (4.19-5.50) M/mcL Hgb (12.9-16.9) g/dL Hct (37.5-50.1) % MCV (83.0-100.0) fL MCH (28.0-33.3) pg MCHC (31.6-35.5) g/dL RDW (11.5-14.5) % Plt Count (140-400) K/mcL MPV (9.4-12.4) fL Immature Gran % (0-4) % Seg Neutrophils % % Lymphocytes % % Monocytes % % Eosinophils % % Basophils % % Neutrophils # (1.6-8.9) K/mcL Lymphocytes # (0.6-4.6) K/mcL Monocytes # (0.0-1.3) K/mcL Eosinophils # (0.0-0.6) K/mcL Basophils # (0.0-0.2) K/mcL Nucleated RBCs/100 WBC (0) /100 WBC Immature Plt Fraction (1.1-6.1) % Sodium (136-145) mEq/L Potassium (3.5-5.1) mEq/L Chloride (98-107) mEq/L Carbon Dioxide (23-29) mEq/L BUN (6-20) mg/dL Creatinine (0.70-1.30) mg/dL Est GFR ( Amer) (> 60) Est GFR (Non-Af Amer) (> 60) BUN/Creatinine Ratio (6-26) Glucose (70-105) mg/dL Calculated Osmolality (280-300) Calcium (8.6-10.3) mg/dL Total Bilirubin (0.3-1.0) mg/dL Direct Bilirubin (0.0-0.2) mg/dL Indirect Bilirubin (0.0-1.2) mg/dL AST (13-39) Units/L ALT (7-52) Units/L Alkaline Phosphatase (34-104) Units/L Serum Total Protein (6.4-8.9) g/dL Albumin (3.5-5.7) g/dL Globulin (2.4-3.5) g/dL Albumin/Globulin Ratio (1.1-2.2) Salicylates (15.0-30.0) mg/dL Urine Opiates Screen (Ocpptg=675) ng/mL Ur Buprenorphine Scrn (Cutoff=5) ng/mL Acetaminophen (10-20) mcg/mL Ur Barbiturates Screen (Kupdzo=813) ng/mL Valproic Acid (50-100) mcg/mL Ur Phencyclidine Scrn (Cutoff=25) ng/mL Ur Amphetamines Screen (Yupvlh=3015) ng/mL U Benzodiazepines Scrn (Pboflp=415) ng/mL Urine Cocaine Screen (Cutoff= 300) ng/mL U Marijuana (THC) Screen (Cutoff = 50) ng/mL Ur Drug Screen Interp Ethyl Alcohol 178 H 67 H (Less than 10) mg/dL
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
[2019-07-02] MEDS ORDERED: Acetaminophen 325 MG TABLET PO PRN (07:08)
[2019-07-02] MEDS ORDERED: Ondansetron 4 MG/2 ML VIAL IVP PRN (07:08)
[2019-07-02] MEDS ORDERED: Naloxone 0.4 MG/ML INJ IVP PRN (07:08)
[2019-07-02] MEDS ORDERED: *HR* LORazepam 2 MG/ML VIAL IVP PRN ×2 (07:11→08:07)
[2019-07-02] MEDS ORDERED: *HR* LORazepam 2 MG/ML VIAL ONE (07:22)
[2019-07-02] MEDS ORDERED: *HR* LORazepam 2 MG/ML VIAL IVP ONE (07:25)
[2019-07-02] MEDS ORDERED: Ibuprofen 400 MG TABLET PO PRN (08:08)
[2019-07-02 08:52] LABS: Alanine Aminotransferase 242 Units/L (7-52); Albumin/Globulin Ratio 1.4 (1.1-2.2); Alkaline Phosphatase 102 Units/L (34-104); Aspartate Amino Transferase 245 Units/L (13-39); BUN/Creatinine Ratio 16 (6-26); Bilirubin,Total 1.2 mg/dL (0.3-1.0); Blood Urea Nitrogen 11 mg/dL (6-20); Calcium 9.5 mg/dL (8.6-10.3); Carbon Dioxide 25 mEq/L (23-29); Chloride 98 mEq/L (98-107); Globulin 2.9 g/dL (2.4-3.5); Glucose 89 mg/dL (70-105); Magnesium 1.4 mg/dL (1.6-2.6); Osmolality,Calculated 287 (280-300); Sodium 139 mEq/L (136-145); Total Protein 6.9 g/dL (6.4-8.9); eGFR For African Americans > 60 (> 60); eGFR For Non-African Americans > 60 (> 60)
[2019-07-02] MEDS: Nicotine 21 MG PATCH.TD24 TD SCH (09:27)
[2019-07-02] MEDS: *HR* LORazepam 2 MG/ML VIAL IVP PRN ×6 (09:32→19:45)
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
[2019-07-02] MEDS: Ringers Solution, Lactated 1,000 ML IVC SCH ×2 (11:34→23:50)
--- NOTE | 2019-07-02 16:58 | Event Note ---
Date of Encounter: 07/02/19 Time of Encounter: 16:00 Notified by nursing pt getting agitated and confused. Instructed further IV ativan as suspect since admit he is far behind and went four hours without any this afternoon. When I was available to leave ED pt seen at bedside. PAI GOW DEALER in room with him. He is oriented to place and year. Some confusion in describing why he is here. Noting that he really is anxious about having a couple belongings he would like retrieved but has no family whom speaks to him to obtain. When discussing he became tremulous and notes he is very anxious. HR on bedside tele varies from low 100s when perfectly resting to 130s when fidgeting in bed and talking about family. He has noted that his emergency contact is his friend Bentley and we are permitted to call him to ask him to call him after work to see if he can help with these errands to alleviate some anxiety. When I am out of room talking with RNs he is resting without tremor in bed. While he is clearly behind on ativan, he also has a anxiety component to sxs as well. Given his HR elevating to 130s with agitation/anxiety/tremor and inability to get him as much ativan as he likely requires, will be started on precedex gtt. Titration goals discussed with RN. Order discussed with pharmacy and after that discussion will hold ciwa ativan while on precedex drip but have prn seizure ativan remaining available. I have also discussed this case with Dr Hoyt and Dr Garcia
[2019-07-02] MEDS: Dexmedetomidine HCl 400 MCG/100 ML MLS IVC SCH (17:18)
[2019-07-02] MEDS: Thiamine (B-1) 100 MG, Folic Acid 1 MG, MVI, adult with vitamin K 10 ML in 0.9 % Sodi... IVPB SCH (18:35)
[2019-07-02] MEDS: Famotidine 20 MG TABLET PO SCH (19:46)
[2019-07-03] MEDS: Dexmedetomidine HCl 400 MCG/100 ML MLS IVC SCH ×4 (00:54→20:32)
[2019-07-03 02:23] LABS: Mean Platelet Volume 9.7 fL (9.4-12.4); Red Cell Distribution Width 12.7 % (11.5-14.5)
[2019-07-03 02:25] LABS: Basophils % 0.6 %; Eosinophils # 0.1 K/mcL (0.0-0.6); Eosinophils % 3.7 %; Hematocrit 34.2 % (37.5-50.1); Hemoglobin 11.5 g/dL (12.9-16.9); Immature Platelets 5.2 % (1.1-6.1); Lymphocytes # 1.1 K/mcL (0.6-4.6); Lymphocytes % 31.9 %; Mean Corpuscular HGB Conc 33.6 g/dL (31.6-35.5); Mean Corpuscular Hemoglobin 29.9 pg (28.0-33.3); Mean Corpuscular Volume 88.8 fL (83.0-100.0); Monocytes # 0.3 K/mcL (0.0-1.3); Monocytes % 9.1 %; Neutrophils # 1.9 K/mcL (1.6-8.9); Red Blood Count 3.85 M/mcL (4.19-5.50); Segmented Neutrophils % 54.7 %; White Blood Count 3.5 K/mcL (4.3-11.1)
[2019-07-03 02:36] LABS: Prothrombin Time 11.8 Seconds (9.4-12.1)
[2019-07-03 02:39] LABS: Alanine Aminotransferase 189 Units/L (7-52); Albumin 3.4 g/dL (3.5-5.7); Albumin/Globulin Ratio 1.4 (1.1-2.2); Alkaline Phosphatase 76 Units/L (34-104); Aspartate Amino Transferase 161 Units/L (13-39); BUN/Creatinine Ratio 21 (6-26); Bilirubin,Total 1.1 mg/dL (0.3-1.0); Blood Urea Nitrogen 14 mg/dL (6-20); Calcium 8.7 mg/dL (8.6-10.3); Carbon Dioxide 25 mEq/L (23-29); Chloride 106 mEq/L (98-107); Globulin 2.5 g/dL (2.4-3.5); Glucose 105 mg/dL (70-105); Osmolality,Calculated 287 (280-300); Potassium 3.5 mEq/L (3.5-5.1); Sodium 138 mEq/L (136-145); Total Protein 5.9 g/dL (6.4-8.9); eGFR For African Americans > 60 (> 60); eGFR For Non-African Americans > 60 (> 60)
[2019-07-03 02:52] LABS: Platelet Count 81 K/mcL (140-400)
[2019-07-03] MEDS: Famotidine 20 MG TABLET PO SCH ×2 (09:34→20:34)
[2019-07-03] MEDS: Nicotine 21 MG PATCH.TD24 TD SCH (09:35)
[2019-07-03] MEDS: Ringers Solution, Lactated 1,000 ML IVC SCH (10:00)
[2019-07-03] MEDS: *HR* LORazepam 2 MG/ML VIAL IVP PRN ×4 (10:13→23:56)
--- NOTE | 2019-07-03 13:55 | Internal Med Progress Note ---
Hospitalist Progress Note - Encounter Date of Encounter: 07/03/19 Time of Encounter: 13:53 - Subjective Interval History: I have seen and evaluated the patient at bedside. patient having visual hallucination, and resting and intentional tremors. denies chest pain, nausea or vomiting. denies abdominal pain or headache - Exam Vitals: Temp Pulse Resp BP Pulse Ox 98.4 F 54 19 164/108 93 07/03/19 11:25 07/03/19 11:25 07/03/19 11:25 07/03/19 11:25 07/03/19 11:25 Exam: Vitals: Reviewed General: Alert and oriented x4. In mild distress due to tremors Skin: Normal color, no rash, no lesions. HEENT: EOM, pupils equal, round and reactive. Cardiovascular: RRR, normal S1 & S2, no rubs, murmurs or gallops. Lungs: CTA b/l, no wheezes or crackles. Abdomen: Soft, non-tender, no rigidity. Extremities: No deformity, no edema or tenderness, no joint swelling or clubb ing. Neurological: visual hallucination and resting/intentional tremors Rest of the physical exam is non contributory - Assessment and Plan (1) Alcohol withdrawal Current Visit: No Status: Acute (2) Acute anxiety Current Visit: Yes Status: Acute (3) Elevated transaminase level Current Visit: Yes Status: Acute (4) Hepatitis C Current Visit: Yes Status: Chronic - Summary of Assessment and Plan Summary of Assessment and Plan: 43 year old male pmhx tobacco use, chronic back pain, hep c, anxiety, depression. Patient admitted to the hospital due to Alcohol withdrawal. Assessment: 1. Alcohol withdrawal 2. Anxiety 3. Transaminitis 4. Hep C 5. Alcohol abuse 6. DVT prophylaxis Plan: - Patient with visual hallucination and intentional/resting tremors - continue CIWA per protocol - On Dexmedetomidine drip, titrate per protocol - continue multi-vitamins. - discontinue IV fluids. encourage PO intake - started on heparin - will continue to trend LFTs, LFTs trending down. - Time Spent with Patient Total time spent is greater than 50% in coordination of care (as documented) at patient's floor/unit and/or counseling patient: Greater than 35 minutes (45) Plan of Care Discussed with: nurse Internal Medicine: Result - Labs CBC & Chem 7: 07/03/19 01:56 07/03/19 01:56 Labs: Short CBC 07/03/19 Range/Units 01:56 WBC 3.5 L D (4.3-11.1) K/mcL Hgb 11.5 L D (12.9-16.9) g/dL Hct 34.2 L (37.5-50.1) % Plt Count 81 L (140-400) K/mcL Neutrophils # 1.9 (1.6-8.9) K/mcL BMP 07/03/19 01:56 Sodium 138 Potassium 3.5 Chloride 106 Carbon Dioxide 25 BUN 14 Creatinine 0.68 L Glucose 105 Calcium 8.7 Liver Function 07/03/19 Range/Units 01:56 Total Bilirubin 1.1 H (0.3-1.0) mg/dL AST 161 H (13-39) Units/L ALT 189 H (7-52) Units/L Alkaline Phosphatase 76 (34-104) Units/L Albumin 3.4 L (3.5-5.7) g/dL - ABG Interpretation ABG results: PT/INR, D-dimer PT 11.8 Seconds (9.4-12.1) 07/03/19 01:56 - Impressions Impressions Liver Ultrasound 07/03/19 08:30 IMPRESSION: Fatty liver. No biliary ductal dilatation Cholelithiasis. No cholecystitis D/ / Jerome Castañeda MD / Jerome Castañeda MD Interpreting Provider: Jerome Castañeda MD Consult Discharge Plan - Plan Referrals: Rosalva yHlton [Primary Care Provider] - (1) Alcohol withdrawal Qualifiers: Complication of substance-induced condition: uncomplicated Qualified Code(s): F10.230 - Alcohol dependence with withdrawal, uncomplicated (4) Hepatitis C Qualifiers: Viral hepatitis chronicity: unspecified Hepatic coma status: without hepatic coma Qualified Code(s): B19.20 - Unspecified viral hepatitis C without hepatic coma
[2019-07-03] MEDS: Fluticasone Propionate Nasal 50 MCG/SPRAY BOTTLE NS SCH (17:31)
[2019-07-03] MEDS: Thiamine (B-1) 100 MG, Folic Acid 1 MG, MVI, adult with vitamin K 10 ML in 0.9 % Sodi... IVPB SCH (17:32)
[2019-07-03] MEDS: 0.9 % Sodium Chloride 1,000 ML ONE (20:32)
[2019-07-03] MEDS: *HR* Heparin 5,000 UNIT/ML VIAL SQ SCH (20:34)
[2019-07-04] MEDS: Dexmedetomidine HCl 400 MCG/100 ML MLS IVC SCH ×3 (01:44→16:42)
[2019-07-04 02:24] LABS: Basophils % 0.7 %; Hematocrit 36.2 % (37.5-50.1); Immature Granulocytes % 0.2 % (0-4); Mean Corpuscular Volume 88.9 fL (83.0-100.0); Red Blood Count 4.07 M/mcL (4.19-5.50); Red Cell Distribution Width 12.4 % (11.5-14.5)
[2019-07-04 02:25] LABS: Eosinophils # 0.3 K/mcL (0.0-0.6); Eosinophils % 6.5 %; Hemoglobin 12.2 g/dL (12.9-16.9); Lymphocytes # 1.5 K/mcL (0.6-4.6); Lymphocytes % 33.2 %; Mean Corpuscular HGB Conc 33.7 g/dL (31.6-35.5); Mean Platelet Volume 10.4 fL (9.4-12.4); Monocytes # 0.4 K/mcL (0.0-1.3); Monocytes % 8.9 %; Neutrophils # 2.3 K/mcL (1.6-8.9); Segmented Neutrophils % 50.5 %; White Blood Count 4.6 K/mcL (4.3-11.1)
[2019-07-04 02:27] LABS: Platelet Count 87 K/mcL (140-400)
[2019-07-04 02:42] LABS: BUN/Creatinine Ratio 16 (6-26); Blood Urea Nitrogen 10 mg/dL (6-20); Calcium 8.7 mg/dL (8.6-10.3); Carbon Dioxide 22 mEq/L (23-29); Chloride 109 mEq/L (98-107); Glucose 104 mg/dL (70-105); Magnesium 1.6 mg/dL (1.6-2.6); Osmolality,Calculated 285 (280-300); Phosphorous 3.2 mg/dL (2.7-4.5); Potassium 3.6 mEq/L (3.5-5.1); Sodium 138 mEq/L (136-145); eGFR For African Americans > 60 (> 60); eGFR For Non-African Americans > 60 (> 60)
[2019-07-04] MEDS: *HR* Heparin 5,000 UNIT/ML VIAL SQ SCH ×3 (05:11→20:56)
[2019-07-04] MEDS: Famotidine 20 MG TABLET PO SCH ×2 (07:55→20:45)
[2019-07-04] MEDS: Nicotine 21 MG PATCH.TD24 TD SCH (07:57)
[2019-07-04] MEDS: *HR* LORazepam 2 MG/ML VIAL IVP PRN ×4 (08:06→22:01)
[2019-07-04 08:45] LABS: Alanine Aminotransferase 179 Units/L (7-52); Albumin 3.5 g/dL (3.5-5.7); Albumin/Globulin Ratio 1.4 (1.1-2.2); Alkaline Phosphatase 85 Units/L (34-104); Aspartate Amino Transferase 139 Units/L (13-39); Bilirubin,Direct 0.3 mg/dL (0.0-0.2); Bilirubin,Indirect 0.6 mg/dL (0.0-1.2); Bilirubin,Total 0.9 mg/dL (0.3-1.0); Globulin 2.5 g/dL (2.4-3.5)
[2019-07-04] MEDS: Fluticasone Propionate Nasal 50 MCG/SPRAY BOTTLE NS SCH (11:52)
--- NOTE | 2019-07-04 13:54 | Internal Med Progress Note ---
Hospitalist Progress Note - Encounter Date of Encounter: 07/04/19 Time of Encounter: 13:52 - Subjective Interval History: I have seen and evaluated the patient at bedside. Patient still having visual hallucinations, denies auditory hallucinations. he reports seeing bugs crawling on the wall. denies chest pain, nausea, vomiting or abdominal pain. - Exam Vitals: Temp Pulse Resp BP Pulse Ox 97.6 F 51 18 148/90 96 07/04/19 11:03 07/04/19 11:03 07/04/19 11:03 07/04/19 11:03 07/04/19 11:03 Exam: Vitals: Reviewed General: Alert and oriented x4. In mild distress due to visual hallucinations Skin: Healing laceration on the forehead Cardiovascular: RRR, normal S1 & S2, no rubs, murmurs or gallops. Lungs: CTA b/l, no wheezes or crackles. Abdomen: Soft, non-tender, no rigidity. NABS in all 4 quadrants Extremities: No edema Neurological: visual hallucination and resting/intentional tremors Rest of the physical exam is non contributory - Assessment and Plan (1) Alcohol withdrawal Current Visit: No Status: Acute (2) Acute anxiety Current Visit: Yes Status: Acute (3) Elevated transaminase level Current Visit: Yes Status: Acute (4) Hepatitis C Current Visit: Yes Status: Chronic - Summary of Assessment and Plan Summary of Assessment and Plan: 43 year old male pmhx tobacco use, chronic back pain, hep c, anxiety, depress ion. Patient admitted to the hospital due to Alcohol withdrawal. Assessment: 1. Alcohol withdrawal 2. Anxiety 3. Transaminitis 4. Hep C 5. Alcohol abuse 6. DVT prophylaxis Plan: - Patient continues to have visual hallucination, reported seeing bugs and bird nets on the jones. - c/w CIWA per protocol, on Dexmedetomidine drip, titrate per protocol - on multi-vitamins. - on heparin subq for DVT prophylaxis - LFTs and bilirubin level continue trending down. will repeat level tomorrow morning. Disposition: - Patient not clinically stable to be discharged. still withdrawing - Time Spent with Patient Total time spent is greater than 50% in coordination of care (as documented) at patient's floor/unit and/or counseling patient: Greater than 35 minutes (45) Plan of Care Discussed with: nurse Internal Medicine: Result - Labs CBC & Chem 7: 07/04/19 01:44 07/04/19 01:44 Labs: Short CBC 07/04/19 Range/Units 01:44 WBC 4.6 (4.3-11.1) K/mcL Hgb 12.2 L (12.9-16.9) g/dL Hct 36.2 L (37.5-50.1) % Plt Count 87 L (140-400) K/mcL Neutrophils # 2.3 (1.6-8.9) K/mcL BMP 07/04/19 01:44 Sodium 138 Potassium 3.6 Chloride 109 H Carbon Dioxide 22 L BUN 10 Creatinine 0.61 L Glucose 104 Calcium 8.7 Liver Function 07/04/19 Range/Units 01:44 Total Bilirubin 0.9 (0.3-1.0) mg/dL Direct Bilirubin 0.3 H (0.0-0.2) mg/dL AST 139 H (13-39) Units/L ALT 179 H (7-52) Units/L Alkaline Phosphatase 85 (34-104) Units/L Albumin 3.5 (3.5-5.7) g/dL - ABG Interpretation ABG results: PT/INR, D-dimer PT 11.8 Seconds (9.4-12.1) 07/03/19 01:56 Consult Discharge Plan - Plan Referrals: Rosalva Hylton [Primary Care Provider] - 07/17/19 11:15 am (1) Alcohol withdrawal Qualifiers: Complication of substance-induced condition: uncomplicated Qualified Code(s): F10.230 - Alcohol dependence with withdrawal, uncomplicated (4) Hepatitis C Qualifiers: Viral hepatitis chronicity: unspecified Hepatic coma status: without hepatic coma Qualified Code(s): B19.20 - Unspecified viral hepatitis C without hepatic coma
[2019-07-04] MEDS: Thiamine (B-1) 100 MG, Folic Acid 1 MG, MVI, adult with vitamin K 10 ML in 0.9 % Sodi... IVPB SCH (17:15)
[2019-07-04] MEDS ORDERED: 0.9 % Sodium Chloride 1,000 ML ONE (21:59)
[2019-07-04] MEDS: 0.9 % Sodium Chloride 1,000 ML ONE (22:02)
[2019-07-05] MEDS: Dexmedetomidine HCl 400 MCG/100 ML MLS IVC SCH ×3 (01:40→20:37)
[2019-07-05] MEDS: *HR* Heparin 5,000 UNIT/ML VIAL SQ SCH ×2 (03:42→13:58)
[2019-07-05 04:42] LABS: BUN/Creatinine Ratio 15 (6-26); Blood Urea Nitrogen 11 mg/dL (6-20); Calcium 9.1 mg/dL (8.6-10.3); Carbon Dioxide 23 mEq/L (23-29); Chloride 106 mEq/L (98-107); Glucose 101 mg/dL (70-105); Magnesium 1.6 mg/dL (1.6-2.6); Osmolality,Calculated 286 (280-300); Phosphorous 4.1 mg/dL (2.7-4.5); Potassium 3.3 mEq/L (3.5-5.1); Sodium 138 mEq/L (136-145); eGFR For African Americans > 60 (> 60); eGFR For Non-African Americans > 60 (> 60)
[2019-07-05] MEDS: amLODIPine 5 MG TABLET PO SCH (09:27)
[2019-07-05] MEDS: Thiamine (B-1) 100 MG TABLET PO SCH (09:27)
[2019-07-05] MEDS: Famotidine 20 MG TABLET PO SCH ×2 (09:27→20:35)
[2019-07-05] MEDS: Renal Vitamin 1 CAP CAPSULE PO SCH (09:27)
[2019-07-05] MEDS: Nicotine 21 MG PATCH.TD24 TD SCH (09:27)
[2019-07-05] MEDS: Fluticasone Propionate Nasal 50 MCG/SPRAY BOTTLE NS SCH (09:28)
[2019-07-05 10:11] LABS: HCV Quant Log 5.45 log IU/mL
--- NOTE | 2019-07-05 10:58 | Internal Med Progress Note ---
Hospitalist Progress Note - Encounter Date of Encounter: 07/05/19 Time of Encounter: 10:56 - Subjective Interval History: I have seen and evaluated the patient at bedside. Patient still reporting some visual hallucinations, tremors have decreased to minimum. denies headache, nausea, vomiting or palpitations - Exam Vitals: Temp Pulse Resp BP Pulse Ox 97.8 F 52 18 132/82 98 07/05/19 07:25 07/05/19 09:00 07/05/19 07:25 07/05/19 09:00 07/05/19 07:25 Exam: Vitals: Reviewed General: Alert and oriented x4. reports feeling anxious. Skin: Healing laceration on the forehead Cardiovascular: RRR, normal S1 & S2, no rubs, murmurs or gallops. Lungs: CTA b/l, no wheezes or crackles. Abdomen: Soft, non-tender, no rigidity. NABS in all 4 quadrants Extremities: No edema Neurological: visual hallucination and resting/intentional tremors. No focal neurological abnormalities Rest of the physical exam is non contributory - Assessment and Plan (1) Alcohol withdrawal Current Visit: No Status: Acute (2) Acute anxiety Current Visit: Yes Status: Acute (3) Elevated transaminase level Current Visit: Yes Status: Acute (4) Hepatitis C Current Visit: Yes Status: Chronic - Summary of Assessment and Plan Summary of Assessment and Plan: 43 year old male pmhx tobacco use, chronic back pain, hep c, anxiety, depression. Patient admitted to the hospital due to Alcohol withdrawal. Assessment: 1. Alcohol withdrawal 2. Anxiety 3. Transaminitis 4. Hep C 5. Alcohol abuse 6. DVT prophylaxis Plan: - Patient continues to have visual hallucination, but no resting or intentional tremors. - On CIWA per protocol, - C/w Dexmedetomidine drip, titrate per protocol - amlodipine 10mg/PO added for better BP control - on multi-vitamins. - Heparin subq for DVT prophylaxis - c/w patient home dose of his mood stabilizing medications Disposition: - Patient not clinically stable to be discharged. still withdrawing - Time Spent with Patient Total time spent is greater than 50% in coordination of care (as documented) at patient's floor/unit and/or counseling patient: Greater than 35 minutes (40) Plan of Care Discussed with: patient (and the nurse.) Internal Medicine: Result - Labs CBC & Chem 7: 07/04/19 01:44 07/05/19 03:47 Labs: BMP 07/05/19 03:47 Sodium 138 Potassium 3.3 L Chloride 106 Carbon Dioxide 23 BUN 11 Creatinine 0.72 Glucose 101 Calcium 9.1 - ABG Interpretation ABG results: PT/INR, D-dimer PT 11.8 Seconds (9.4-12.1) 07/03/19 01:56 Consult Discharge Plan - Plan Referrals: Rosalva Hylton [Primary Care Provider] - 07/17/19 11:15 am (1) Alcohol withdrawal Qualifiers: Complication of substance-induced condition: uncomplicated Qualified Code(s): F10.230 - Alcohol dependence with withdrawal, uncomplicated (4) Hepatitis C Qualifiers: Viral hepatitis chronicity: unspecified Hepatic coma status: without hepatic coma Qualified Code(s): B19.20 - Unspecified viral hepatitis C without hepatic coma
[2019-07-05] MEDS: *HR* LORazepam 2 MG/ML VIAL IVP PRN ×2 (16:37→20:34)
[2019-07-06] MEDS: *HR* Heparin 5,000 UNIT/ML VIAL SQ SCH ×4 (03:28→21:10)
[2019-07-06] MEDS: Dexmedetomidine HCl 400 MCG/100 ML MLS IVC SCH ×3 (03:57→18:50)
[2019-07-06] MEDS: Renal Vitamin 1 CAP CAPSULE PO SCH (07:55)
[2019-07-06] MEDS: amLODIPine 5 MG TABLET PO SCH (07:55)
[2019-07-06] MEDS: Famotidine 20 MG TABLET PO SCH ×2 (07:55→21:09)
[2019-07-06] MEDS: Thiamine (B-1) 100 MG TABLET PO SCH (07:55)
[2019-07-06] MEDS: *HR* LORazepam 2 MG/ML VIAL IVP PRN ×4 (08:08→21:50)
[2019-07-06] MEDS: Nicotine 21 MG PATCH.TD24 TD SCH (09:27)
--- NOTE | 2019-07-06 09:44 | Psychiatry Progress Note ---
Date of Encounter: 07/07/19 Time of Encounter: 09:30 Subjective Interval history: Patient is seen and examined at the bedside. He continues to be on Precedex drip for his alcohol withdrawal. Denies any suicidal or homicidal ideation although he does have active visual hallucinations he tells me that he sees ants crawling on the TV and the wall. He is not tachycardic or diaphoretic. Patient seems to be confabulating as he keeps changing his story every time i ask him the question about his alcohol abuse. He tells me that alcohol helps with his back pain and symptoms of anxiety but on repeating the same question a few minutes later he told me about the family and social stressors in his life. Patient has no recollection of his being on duloxetine and fluoxetine and he only remember taking a brown pill. Review of Systems Psychiatric: Reports: anxiety. Denies: suicidal ideation, homicidal ideation, auditory hallucinations, visual hallucinations Results - Vital Signs Vital Signs: Temp Pulse Resp BP Pulse Ox 97.9 F 66 18 119/92 97 07/06/19 07:54 07/06/19 07:54 07/06/19 07:54 07/06/19 07:54 07/06/19 03:00 - Impressions ITS Impressions Liver Ultrasound 07/03/19 08:30 IMPRESSION: Fatty liver. No biliary ductal dilatation Cholelithiasis. No cholecystitis D/ / Jerome Castañeda MD / Jerome Castañeda MD Interpreting Provider: Jerome Castañeda MD Assessment and Plan (1) Anxiety Current visit: No Status: Acute Additional Plan: Patient has a history of anxiety. He sees Dr. Tamayo at the site of [facility]. Patient has no recollection of what medications he is on currently . On talking to the phamracist it appears that his last refill was for duloxetine 60 g by mouth, fluoxetine 20 mg by mouth daily, hydroxyzine 25-50 mg every 6 hours when necessary, seroquel 25 mg HS. He is also on Prazoin 1mg which i am assuming is for panic attacks but i am not sure. Recommendations have been made to continue on BuSpar 7.5 mg 3 times a day. Risks, benefits, side effects, alternatives discussed w/pt: Yes Patient agreeable to treatment: Yes (2) Alcohol withdrawal Current visit: No Status: Acute Additional Plan: -Patient came to the ED with alcohol level of 376.He is currently on Precedx drip , also on 2mg Ativan q6h PRN. He is mildly tremulous, actively visually hallucinating. He denies any suicidal or homicidal ideation. He is showing sings for Confabulation when i performed the H&P on him. There appears to be no consistency in his story. -At this point our recommendation is to continue on the CIWA protocol, patient with need inpatient/outpatient AOD services to help with his binge drinking episodes -since he is not actively suicidal he does not meet the criteria for inpatient admission - can add Haldol 5mg PO PRN for agitation , continue telemetry to monitor signs of any QTc prolongation Risks, benefits, side effects, alternatives discussed w/pt: Yes Patient agreeable to treatment: Yes Qualifiers: Complication of substance-induced condition: uncomplicated Qualified Code(s): F10.230 - Alcohol dependence with withdrawal, uncomplicated Consult Discharge Plan - Plan Referrals: Rosalva Hylton [Primary Care Provider] - 07/17/19 11:15 am - Attending Attestation I discussed this patient and my medical decision-making was reviewed with the Resident Physician. I agree with the documented findings, disposition and treatment plan as described. Psychiatry Exam - Constitutional Vitals: Temp Pulse Resp BP Pulse Ox 97.9 F 66 18 119/92 97 07/06/19 07:54 07/06/19 07:54 07/06/19 07:54 07/06/19 07:54 07/06/19 03:00 - Psychiatric Patient Orientation: Yes Person, Yes Time, Yes Place Level of alertness: Follows commands Behavior: cooperative, anxious Eye Contact: Maintains Eye Contact Mood Description: Anxious Speech Volume: Normal Speech pattern: normal rate, rambling Thought Content: No Suicidal ideation, No Homicidal ideation
[2019-07-06] MEDS: Fluticasone Propionate Nasal 50 MCG/SPRAY BOTTLE NS SCH (10:13)
[2019-07-06 10:56] LABS: HCV Quant Interpretation DETECTED (Not Detected)
--- NOTE | 2019-07-06 15:18 | Internal Med Progress Note ---
Hospitalist Progress Note - Encounter Date of Encounter: 07/06/19 Time of Encounter: 15:17 - Subjective Interval History: I have seen and evaluated the patient at bedside. patient reported seeing ants crawling on the wall and the TV. denies chest pain, headache or tremors. denies nausea or vomiting. - Exam Vitals: Temp Pulse Resp BP Pulse Ox 97.9 F 91 18 108/95 97 07/06/19 11:07 07/06/19 13:00 07/06/19 11:07 07/06/19 13:00 07/06/19 03:00 Exam: Vitals: Reviewed General: Alert and oriented x4. In mild distress due to anxiety Skin: Healing laceration on the forehead Cardiovascular: RRR, normal S1 & S2, no rubs, murmurs or gallops. Lungs: CTA b/l, no wheezes or crackles. Abdomen: Soft, non-tender, no rigidity. NABS in all 4 quadrants Extremities: No edema Neurological: visual hallucination and resting/intentional tremors. No focal neurological abnormalities Rest of the physical exam is non contributory - Assessment and Plan (1) Alcohol withdrawal Current Visit: No Status: Acute (2) Anxiety Current Visit: No Status: Acute - Summary of Assessment and Plan Summary of Assessment and Plan: 43 year old male pmhx tobacco use, chronic back pain, hep c, anxiety, depression. Patient admitted to the hospital due to Alcohol withdrawal. Assessment: 1. Alcohol withdrawal 2. Anxiety 3. Transaminitis 4. Hep C 5. Alcohol abuse 6. DVT prophylaxis 7. Hypokalemia Plan: - Patient continues to have visual hallucination, reported seeing ants crawling on the jones and on the TV - C/W CIWA per protocol, - Still on Dexmedetomidine drip, titrate per protocol - Bp well controlled on amlodipine 10mg/PO - on multi-vitamins. - Heparin subq for DVT prophylaxis - c/w patient home dose of his mood stabilizing medications - electrolytes replaced. will check potassium and magnesium level tomorrow morning. - On Buspar 7.5mg TID - Psychiatry recommendations appreciated Disposition: - Patient not clinically stable to be discharged. still withdrawing - Time Spent with Patient Total time spent is greater than 50% in coordination of care (as documented) at patient's floor/unit and/or counseling patient: Internal Medicine: Result - Labs CBC & Chem 7: 07/04/19 01:44 07/05/19 03:47 - ABG Interpretation ABG results: PT/INR, D-dimer PT 11.8 Seconds (9.4-12.1) 07/03/19 01:56 Consult Discharge Plan - Plan Referrals: Rosalva Hylton [Primary Care Provider] - 07/17/19 11:15 am (1) Alcohol withdrawal Qualifiers: Complication of substance-induced condition: uncomplicated Qualified Code(s): F10.230 - Alcohol dependence with withdrawal, uncomplicated
[2019-07-06] MEDS ORDERED: 0.9 % Sodium Chloride 1,000 ML ONE (16:18)
[2019-07-06] MEDS: Ringers Solution, Lactated 1,000 ML IVC SCH (19:59)
[2019-07-06] MEDS ORDERED: *HR* LORazepam 2 MG/ML VIAL IVP ONE (23:08)
[2019-07-07] MEDS: Dexmedetomidine HCl 400 MCG/100 ML MLS IVC SCH ×4 (01:43→23:42)
[2019-07-07] MEDS: *HR* LORazepam 2 MG/ML VIAL IVP PRN ×4 (03:24→20:18)
[2019-07-07 06:00] LABS: Basophils # 0.1 K/mcL (0.0-0.2); Basophils % 0.9 %; Eosinophils # 0.3 K/mcL (0.0-0.6); Eosinophils % 5.6 %; Hematocrit 40.4 % (37.5-50.1); Hemoglobin 13.6 g/dL (12.9-16.9); Immature Granulocytes % 0.6 % (0-4); Lymphocytes # 1.9 K/mcL (0.6-4.6); Lymphocytes % 35.6 %; Mean Corpuscular HGB Conc 33.7 g/dL (31.6-35.5); Mean Corpuscular Hemoglobin 30.3 pg (28.0-33.3); Mean Platelet Volume 9.6 fL (9.4-12.4); Monocytes # 0.8 K/mcL (0.0-1.3); Monocytes % 15.1 %; Neutrophils # 2.2 K/mcL (1.6-8.9); Platelet Count 151 K/mcL (140-400); Red Blood Count 4.49 M/mcL (4.19-5.50); Red Cell Distribution Width 12.8 % (11.5-14.5); Segmented Neutrophils % 42.2 %; White Blood Count 5.3 K/mcL (4.3-11.1)
[2019-07-07] MEDS: *HR* Heparin 5,000 UNIT/ML VIAL SQ SCH ×3 (06:05→20:17)
[2019-07-07 06:22] LABS: BUN/Creatinine Ratio 16 (6-26); Blood Urea Nitrogen 13 mg/dL (6-20); Calcium 9.1 mg/dL (8.6-10.3); Carbon Dioxide 21 mEq/L (23-29); Chloride 108 mEq/L (98-107); Glucose 130 mg/dL (70-105); Magnesium 1.7 mg/dL (1.6-2.6); Osmolality,Calculated 286 (280-300); Phosphorous 4.2 mg/dL (2.7-4.5); Potassium 3.6 mEq/L (3.5-5.1); Sodium 137 mEq/L (136-145); eGFR For African Americans > 60 (> 60); eGFR For Non-African Americans > 60 (> 60)
[2019-07-07] MEDS: Nicotine 21 MG PATCH.TD24 TD SCH (07:46)
[2019-07-07] MEDS: Famotidine 20 MG TABLET PO SCH ×2 (07:46→20:18)
[2019-07-07] MEDS: Thiamine (B-1) 100 MG TABLET PO SCH (07:46)
[2019-07-07] MEDS: amLODIPine 5 MG TABLET PO SCH (07:46)
[2019-07-07] MEDS: Renal Vitamin 1 CAP CAPSULE PO SCH (07:46)
[2019-07-07] MEDS: Fluticasone Propionate Nasal 50 MCG/SPRAY BOTTLE NS SCH (07:51)
--- NOTE | 2019-07-07 09:29 | Internal Med Progress Note ---
Hospitalist Progress Note - Encounter Date of Encounter: 07/07/19 Time of Encounter: 09:27 - Subjective Interval History: I have seen and evaluated the patient at bedside. Patient continues to report seeing ants crawling on the wall and around his bed. he also reported raising thoughts and having episodes of anxiety attacks during the day. - Exam Vitals: Temp Pulse Resp BP Pulse Ox 97.6 F 53 18 148/98 96 07/07/19 06:21 07/07/19 06:21 07/07/19 06:21 07/07/19 06:21 07/07/19 06:21 Exam: Vitals: Reviewed General: Alert and oriented x4. In mild distress due to anxiety and visual hallucination Skin: Healing laceration on the forehead Cardiovascular: RRR, normal S1 & S2, no rubs, murmurs or gallops. Lungs: CTA b/l, no wheezes or crackles. Abdomen: Soft, non-tender, no rigidity. NABS in all 4 quadrants Extremities: No edema Neurological: No focal neurological abnormalities Rest of the physical exam is non contributory - Assessment and Plan (1) Alcohol withdrawal Current Visit: No Status: Acute (2) Anxiety Current Visit: No Status: Acute - Summary of Assessment and Plan Summary of Assessment and Plan: 43 year old male pmhx tobacco use, chronic back pain, hep c, anxiety, depression. Patient admitted to the hospital due to Alcohol withdrawal. Assessment: 1. Alcohol withdrawal 2. Anxiety 3. Transaminitis 4. Hep C 5. Alcohol abuse 6. DVT prophylaxis 7. Hypokalemia Plan: - Reporting visual hallucinations. no auditory hallucination. Also reported anxiety attacks and raising thoughts - Psychiatry involved in patient care, recommendations appreciated - On Buspar 7.5mg TID - On CIWA per protocol. Dexmedetomidine drip continue to titrate per protocol - Bp well controlled. c/w amlodipine 10mg/PO - on multi-vitamins. - Heparin subq for DVT prophylaxis - C/w daily PT/OT Disposition: - Patient not clinically stable to be discharged. still withdrawing - Time Spent with Patient Total time spent is greater than 50% in coordination of care (as documented) at patient's floor/unit and/or counseling patient: Greater than 35 minutes (40) Plan of Care Discussed with: patient (and the nurse.) Internal Medicine: Result - Labs CBC & Chem 7: 07/07/19 05:26 07/07/19 05:26 Labs: Short CBC 07/07/19 Range/Units 05:26 WBC 5.3 (4.3-11.1) K/mcL Hgb 13.6 (12.9-16.9) g/dL Hct 40.4 (37.5-50.1) % Plt Count 151 D (140-400) K/mcL Neutrophils # 2.2 (1.6-8.9) K/mcL BMP 07/07/19 05:26 Sodium 137 Potassium 3.6 Chloride 108 H Carbon Dioxide 21 L BUN 13 Creatinine 0.81 Glucose 130 H Calcium 9.1 - ABG Interpretation ABG results: PT/INR, D-dimer PT 11.8 Seconds (9.4-12.1) 07/03/19 01:56 Consult Discharge Plan - Plan Referrals: Rosalva Hylton [Primary Care Provider] - 07/17/19 11:15 am (1) Alcohol withdrawal Qualifiers: Complication of substance-induced condition: uncomplicated Qualified Code(s): F10.230 - Alcohol dependence with withdrawal, uncomplicated
[2019-07-08] MEDS: *HR* LORazepam 2 MG/ML VIAL IVP PRN ×4 (00:33→19:52)
[2019-07-08] MEDS: *HR* Heparin 5,000 UNIT/ML VIAL SQ SCH ×3 (04:38→19:57)
[2019-07-08 05:40] LABS: BUN/Creatinine Ratio 13 (6-26); Blood Urea Nitrogen 12 mg/dL (6-20); Calcium 9.3 mg/dL (8.6-10.3); Carbon Dioxide 23 mEq/L (23-29); Chloride 108 mEq/L (98-107); Glucose 105 mg/dL (70-105); Magnesium 1.8 mg/dL (1.6-2.6); Osmolality,Calculated 288 (280-300); Phosphorous 4.7 mg/dL (2.7-4.5); Potassium 3.8 mEq/L (3.5-5.1); Sodium 139 mEq/L (136-145); eGFR For African Americans > 60 (> 60); eGFR For Non-African Americans > 60 (> 60)
[2019-07-08] MEDS ORDERED: 0.9 % Sodium Chloride 1,000 ML ONE (07:41)
[2019-07-08] MEDS: Nicotine 21 MG PATCH.TD24 TD SCH (07:50)
[2019-07-08] MEDS: Dexmedetomidine HCl 400 MCG/100 ML MLS IVC SCH (07:51)
[2019-07-08] MEDS: Famotidine 20 MG TABLET PO SCH ×2 (07:53→19:58)
[2019-07-08] MEDS: Renal Vitamin 1 CAP CAPSULE PO SCH (07:53)
[2019-07-08] MEDS: Thiamine (B-1) 100 MG TABLET PO SCH (07:53)
[2019-07-08] MEDS: amLODIPine 5 MG TABLET PO SCH (07:53)
[2019-07-08] MEDS: Fluticasone Propionate Nasal 50 MCG/SPRAY BOTTLE NS SCH (07:54)
--- NOTE | 2019-07-08 10:34 | Psychiatry Progress Note ---
Date of Encounter: 07/08/19 Time of Encounter: 10:20 Subjective Interval history: Patient seen and examined at the bedside. He continues to be on Precedex drip for alcohol withdrawal along with scheduled Ativan. patient continues to endorse visual hallucination with ants crawling on the wall and TV. Scored a 17 on his most recent CIWA. He denies any suicidal / homicidal ideation or auditory hallucination. Review of Systems Psychiatric: Reports: anxiety. Denies: suicidal ideation, homicidal ideation, auditory hallucinations, visual hallucinations Results - Vital Signs Vital Signs: Temp Pulse Resp BP Pulse Ox 97.6 F 57 18 117/89 96 07/08/19 07:32 07/08/19 07:41 07/08/19 07:32 07/08/19 07:32 07/08/19 07:32 - Labs Labs: Laboratory Results - last 24 hr 07/08/19 04:51 Sodium 139 Potassium 3.8 Chloride 108 H Carbon Dioxide 23 BUN 12 Creatinine 0.89 Est GFR ( Amer) > 60 Est GFR (Non-Af Amer) > 60 BUN/Creatinine Ratio 13 Glucose 105 Calculated Osmolality 288 Calcium 9.3 Phosphorus 4.7 H Magnesium 1.8 - Impressions ITS Impressions Liver Ultrasound 07/03/19 08:30 IMPRESSION: Fatty liver. No biliary ductal dilatation Cholelithiasis. No cholecystitis D/ / Jerome Castañeda MD / Jerome Castañeda MD Interpreting Provider: Jerome Castañeda MD Assessment and Plan (1) Anxiety Current visit: No Status: Acute Additional Plan: Patient has a history of anxiety. He sees Dr. Tamayo at the site of [facility]. Patient has no recollection of what medications he is on currently . On talking to the 2N phamracist it appears that his last refill was for duloxetine 60 g by mouth, fluoxetine 20 mg by mouth daily, hydroxyzine 25-50 mg every 6 hours when necessary, seroquel 25 mg HS. He is also on Prazoin 1mg which i am assuming is for panic attacks but i am not sure. Recommendations have been made to continue on BuSpar 7.5 mg 3 times a day. Risks, benefits, side effects, alternatives discussed w/pt: Yes Patient agr eeable to treatment: Yes (2) Alcohol withdrawal Current visit: Yes Status: Acute Additional Plan: -Patient came to the ED with alcohol level of 376. He is currently on Precedx drip , also on 2mg Ativan q6h PRN. He is mildly tremulous, actively visually hallucinating. He denies any suicidal or homicidal ideation. He is showing sings for Confabulation when i performed the H&P on him. There appears to be no consistency in his story. -At this point our recommendation is to continue on the CIWA protocol, patient with need inpatient/outpatient AOD services to help with his binge drinking episodes -since he is not actively suicidal he does not meet the criteria for inpatient admission -Added Haldol 5mg TID PRN for agitation , continue telemetry to monitor signs of any QTc prolongation Risks, benefits, side effects, alternatives discussed w/pt: Yes Patient agreeable to treatment: Yes Qualifiers: Complication of substance-induced condition: with perceptual disturbance Qualified Code(s): F10.232 - Alcohol dependence with withdrawal with perceptual disturbance Consult Discharge Plan - Plan Referrals: Rosalva Hylton [Primary Care Provider] - 07/17/19 11:15 am - Attending Attestation I discussed this patient and my medical decision-making was reviewed with the Resident Physician. I agree with the documented findings, disposition and treatment plan as described except to the extent set forth below. Continue with CIWAs/Ativan taper as planned. However, can also add an antipsychotic to help with visual hallucinations. Can use Haldol 5mg PO or IV every 4-6hours as needed. If given IV would have him on telemetry. Hallucinations will likely improve automatically once acute withdrawal period is over but an antipsychotic can help provide some relief from symptoms in the short term. Psychiatry Exam - Constitutional Vitals: Temp Pulse Resp BP Pulse Ox 97.6 F 57 18 117/89 96 07/08/19 07:32 07/08/19 07:41 07/08/19 07:32 07/08/19 07:32 07/08/19 07:32 General appearance: age & developmentally appropriate, well-groomed, well- nourished - Musculoskeletal Gait: normal Station: relaxed Strength & Tone: normal for patient - Psychiatric Patient Orientation: Yes Person, Yes Time, Yes Place Level of alertness: Alert Behavior: calm, cooperative Psychomotor activity: Normal Eye Contact: Maintains Eye Contact Mood Description: Euthymic/stable Affect description: congruent with mood, full range Speech Volume: Normal Speech pattern: normal rate, normal rhythm, normal tone, fluent, spontaneous Language & Vocabulary: consistent with education Thought Process: Linear, Goal Oriented Thought Content: No Suicidal ideation, No Homicidal ideation, No Overt delusions Perceptual Disturbances: No Auditory hallucinations, Yes Visual hallucinations Attention Span Ability: Capable of Focused Attention Memory Description: Grossly Intact Patient Reliability: Reliable Historian Fund of knowledge: Yes abstraction ability, Yes aware of current events Intelligence Estimate: Average Judgment: Limited Insight: Partial
--- NOTE | 2019-07-08 11:24 | Internal Med Progress Note ---
Hospitalist Progress Note - Encounter Date of Encounter: 07/08/19 Time of Encounter: 08:15 - Subjective Interval History: Although pt denies any SI/HI, pt reports that he continues to see ants crawling on TV/wall intermittently. Nevertheless, patient remains normotensive and HR is also normal. Most of his "high CIWA" score were due to him subjectively r eporting anxiety and visual hallucinations but there has been no objective signs so far and pt is resting comfortably during the day. - Exam Vitals: Temp Pulse Resp BP Pulse Ox 97.6 F 57 18 117/89 96 07/08/19 07:32 07/08/19 07:41 07/08/19 07:32 07/08/19 07:32 07/08/19 07:32 Exam: Vitals: Reviewed General: Alert and oriented x4. not in distress Skin: Healing laceration on the forehead Cardiovascular: RRR, normal S1 & S2, no rubs, murmurs or gallops. Lungs: CTA b/l, no wheezes or crackles. Abdomen: Soft, non-tender, no rigidity. Extremities: No edema Neurological: No focal neurological abnormalities - Assessment and Plan (1) Alcohol withdrawal Current Visit: Yes Status: Acute Assessment and Plan: Although patient reports visual hallucinations and anxiety, there is no objective signs of active withdrawal and it had been 6 days since the tx started part of his encephalopathy could be due to ?Wernicke's or even Korsakoff as the pt is noted to be confabulating per psych will attempt to wean precedex by starting scheduled ativan in addition to CIWA score will discuss with SW regarding placement for alcohol rehab and ECF per PT/OT rec (2) Anxiety Current Visit: No Status: Acute Assessment and Plan: On BuSpar 7.5 mg TID per psych (3) Hepatitis C Current Visit: Yes Status: Chronic Assessment and Plan: outpt GI follow up DVT Prophylaxis: Subcutaneous heparin - Time Spent with Patient Total time spent is greater than 50% in coordination of care (as documented) at patient's floor/unit and/or counseling patient: 25 - 35 minutes Plan of Care Discussed with: patient Internal Medicine: Result - Labs CBC & Chem 7: 07/07/19 05:26 07/08/19 04:51 Labs: BMP 07/08/19 04:51 Sodium 139 Potassium 3.8 Chloride 108 H Carbon Dioxide 23 BUN 12 Creatinine 0.89 Glucose 105 Calcium 9.3 - ABG Interpretation ABG results: PT/INR, D-dimer PT 11.8 Seconds (9.4-12.1) 07/03/19 01:56 Consult Discharge Plan - Plan Referrals: Rosalva Hylton [Primary Care Provider] - 07/17/19 11:15 am (1) Alcohol withdrawal Qualifiers: Complication of substance-induced condition: with perceptual disturbance Qualified Code(s): F10.232 - Alcohol dependence with withdrawal with perceptual disturbance (3) Hepatitis C Qualifiers: Viral hepatitis chronicity: chronic Hepatic coma status: without hepatic coma Qualified Code(s): B18.2 - Chronic viral hepatitis C
[2019-07-08] MEDS: *HR* LORazepam 1 MG TABLET PO SCH ×4 (11:41→23:41)
[2019-07-08] MEDS: Melatonin 3 MG TABLET PO PRN (19:57)
--- NOTE | 2019-07-08 22:12 | Electrocardiograph Report ---
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
[2019-07-09] MEDS: *HR* LORazepam 1 MG TABLET PO SCH ×6 (03:31→23:47)
[2019-07-09] MEDS: *HR* Heparin 5,000 UNIT/ML VIAL SQ SCH ×3 (04:40→20:07)
[2019-07-09] MEDS: Nicotine 21 MG PATCH.TD24 TD SCH (07:55)
[2019-07-09] MEDS: Thiamine (B-1) 100 MG TABLET PO SCH (07:56)
[2019-07-09] MEDS: Renal Vitamin 1 CAP CAPSULE PO SCH (07:56)
[2019-07-09] MEDS: Famotidine 20 MG TABLET PO SCH ×2 (07:56→20:07)
[2019-07-09] MEDS: amLODIPine 5 MG TABLET PO SCH (07:56)
[2019-07-09] MEDS: *HR* LORazepam 2 MG/ML VIAL IVP PRN ×2 (09:36→18:19)
[2019-07-09] MEDS: Fluticasone Propionate Nasal 50 MCG/SPRAY BOTTLE NS SCH (09:39)
--- NOTE | 2019-07-09 10:17 | Internal Med Progress Note ---
Hospitalist Progress Note - Encounter Date of Encounter: 07/09/19 Time of Encounter: 07:30 - Subjective Interval History: Patient was successfully weaned off on Precedex drip but had bouts of tachycardia and worsening tremor in the afternoon, despite being on scheduled ativan 1mg Q4 in addition to CIWA protocol. States that visual hallucination is more or less unchanged. - Exam Vitals: Temp Pulse Resp BP Pulse Ox 98.3 F 88 18 120/72 94 07/09/19 07:07 07/09/19 07:07 07/09/19 07:07 07/09/19 07:07 07/09/19 07:07 Exam: Vitals: Reviewed General: Alert and oriented x4. tremulous in all 4 extremities Skin: Healing laceration on the L forehead Cardiovascular: RRR, normal S1 & S2, no rubs, murmurs or gallops. Lungs: CTA b/l, no wheezes or crackles. Abdomen: Soft, non-tender, no rigidity. Extremities: No edema Neurological: No focal neurological abnormalities - Assessment and Plan (1) Alcohol withdrawal Current Visit: Yes Status: Acute Assessment and Plan: precedex gtt weaned off and pt then developed tachycardia and worsening tremor despite being on 1mg of PO ativan Q4 scheduled in addition to CIWA protocol part of his encephalopathy could be due to ?Wernicke's or even Korsakoff as the pt is noted to be confabulating per psych discussed with psych, will increase ativan to 2mg Q4 scheduled and continue CIWA protocol (2) Anxiety Current Visit: Yes Status: Acute Assessment and Plan: discussed with psych, will increase buspar to 15mg TID and add vistaril 25mg Q4 PRN (3) Hepatitis C Current Visit: Yes Status: Chronic Assessment and Plan: outpt GI follow up DVT Prophylaxis: Subcutaneous heparin - Time Spent with Patient Total time spent is greater than 50% in coordination of care (as documented) at patient's floor/unit and/or counseling patient: 25 - 35 minutes Plan of Care Discussed with: environmental consultant Internal Medicine: Result - Labs CBC & Chem 7: 07/07/19 05:26 07/08/19 04:51 - ABG Interpretation ABG results: PT/INR, D-dimer PT 11.8 Seconds (9.4-12.1) 07/03/19 01:56 - VTE Documentation of Mechanical Device: Intermittent pneumatic compression device Consult Discharge Plan - Plan Referrals: Rosalva Hylton [Primary Care Provider] - 07/17/19 11:15 am (1) Alcohol withdrawal Qualifiers: Complication of substance-induced condition: with perceptual disturbance Qualified Code(s): F10.232 - Alcohol dependence with withdrawal with perceptual disturbance (3) Hepatitis C Qualifiers: Viral hepatitis chronicity: chronic Hepatic coma status: without hepatic coma Qualified Code(s): B18.2 - Chronic viral hepatitis C
[2019-07-09] MEDS ORDERED: hydrOXYzine pamoate 25 MG CAPSULE PO PRN (10:18)
--- NOTE | 2019-07-09 11:00 | Psychiatry Progress Note ---
Date of Encounter: 07/09/19 Time of Encounter: 10:52 Subjective Interval history: Client not seen by this financial underwriter today but spoke with his primary provider over the phone. Client is now off the Precedex drip but once this was stopped he started having runs of tachycardia and tremors. Placed on scheduled Ativan. Client's vitals have otherwise been stable and he has not otherwise appeared to be in active withdrawal. However, visual hallucinations have continued. 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 Client has not been overly agitated or distressed in response to these hallucinations. He also has presented with signs of more permanent brain damage from chronic and heavy alcohol abuse such as confabulation/Korsakoff's syndrome. Continue to recommend AOD treatment once he is medically stable. Would continue with scheduled Ativan for today but taper PO dose incrementally every day so that he is not getting any more benzodiazepines than he needs. Since client has been demonstrating some anxiety can increase Buspar dose to 15mg TID. Since this medication can take a while to kick in can use Vistaril 50mg PO every 4-6hrs prn for breakthrough anxiety. Can also use Haldol 5mg as a prn to help with hallucinations but some of his presentation may take a long time to resolve/become permanent. Will sign off again for now but feel free to call if any additional questions. Review of Systems Psychiatric: Reports: anxiety. Denies: suicidal ideation, homicidal ideation, auditory hallucinations, visual hallucinations Results - Vital Signs Vital Signs: Temp Pulse Resp BP Pulse Ox 98.3 F 88 18 120/72 94 07/09/19 07:07 07/09/19 07:07 07/09/19 07:07 07/09/19 07:07 07/09/19 07:07 - Impressions ITS Impressions Liver Ultrasound 07/03/19 08:30 IMPRESSION: Fatty liver. No biliary ductal dilatation Cholelithiasis. No cholecystitis D/ / Jerome Castañeda MD / Jerome Castañeda MD Interpreting Provider: Jerome Castañeda MD Assessment and Plan (1) Anxiety Current visit: Yes Status: Acute Risks, benefits, side effects, alternatives discussed w/pt: Yes Patient agreeable to treatment: Yes (2) Alcohol withdrawal Current visit: Yes Status: Acute Risks, benefits, side effects, alternatives discussed w/pt: Yes Patient agreeable to treatment: Yes Qualifiers: Complication of substance-induced condition: with perceptual disturbance Qualified Code(s): F10.232 - Alcohol dependence with withdrawal with perceptual disturbance Consult Discharge Plan - Plan Referrals: Rosalva Hylton [Primary Care Provider] - 07/17/19 11:15 am Psychiatry Exam - Constitutional Vitals: Temp Pulse Resp BP Pulse Ox 98.3 F 88 18 120/72 94 07/09/19 07:07 07/09/19 07:07 07/09/19 07:07 07/09/19 07:07 07/09/19 07:07
[2019-07-09] MEDS: Melatonin 3 MG TABLET PO PRN (23:48)
[2019-07-10] MEDS: *HR* LORazepam 1 MG TABLET PO SCH ×3 (04:18→14:06)
[2019-07-10] MEDS: *HR* Heparin 5,000 UNIT/ML VIAL SQ SCH ×2 (04:18→14:07)
--- NOTE | 2019-07-10 09:27 | Discharge Summary ---
- NOTES TO OUTPATIENT PROVIDER Notes to Outpatient Provider: Advised to be voluntarily admitted at alcohol rehab Date of Encounter: 07/10/19 Time of Encounter: 07:30 - Discharge Diagnosis (1) Alcohol withdrawal Priority: Primary Status: Acute Qualifiers: Complication of substance-induced condition: with perceptual disturbance Qualified Code(s): F10.232 - Alcohol dependence with withdrawal with perceptual disturbance (2) Anxiety Priority: Secondary Status: Acute (3) Hepatitis C Priority: Secondary Status: Chronic Qualifiers: Viral hepatitis chronicity: chronic Hepatic coma status: without hepatic coma Qualified Code(s): B18.2 - Chronic viral hepatitis C Hospital course: Mr. Messer is a 43 year old male with past mental history of chronic back pain, hepatitis C, alcohol abuse, anxiety/depression, who was admitted for alcohol withdrawal in the background of poorly controlled anxiety. He remained on precedex gtt in addition to ativan per CIKS protocol for 6-7 days due to poorly controlled symptoms including bouts of panic attacks, visual hallucination, and tremor. He was eventually titrated off on Precedex drip after the addition of scheduled Ativan. Managed in consultation with psychiatry who recommended Buspar 15mg TID and addition of Vistaril 50mg Q4 PRN for anxiety. He will also be given a prescription for low dose gabapentin which he was taking for chronic LBP until he was lost to follow up. He was advised to be voluntarily admitted at the facility for alcohol rehab and worked with to find him a suitable facility for him to attend prior to discharge. Discharge discussed with: patient, nurse, social work, case management, field service consultant - Time Spent with Patient Total time spent providing and/or coordinating discharge services: 36 mins - Discharge Medications Prescriptions: New LORazepam [Ativan] 1 mg PO Q4HR PRN 7 Days #21 tablet PRN Reason: Anxiety Buspirone HCl [Buspar] 15 mg PO TID #45 tablet Haloperidol [Haldol] 5 mg PO TID PRN #15 tablet PRN Reason: Psychosis Gabapentin [Neurontin] 100 mg PO TID 30 Days #90 capsule amLODIPine [Norvasc] 10 mg PO DAILY #60 tablet hydrOXYzine pamoate [Vistaril] 50 mg PO Q4H PRN #90 capsule PRN Reason: Anxiety Continued Baclofen [Lioresal] 10 mg PO BID PRN PRN Reason: Muscle Spasm Prazosin [Minipress] 1 mg PO HS Celecoxib [Celebrex] 200 mg PO DAILY PRN PRN Reason: Pain raNITIdine HCl [Zantac] 150 mg PO BID PRN PRN Reason: GERD Cholecalciferol (Vitamin D3) [Vitamin D3] 1,000 mg PO HS Fluticasone Propionate Nasal [Flonase] 2 spray NS DAILY PRN PRN Reason: Allergy Symptoms Meloxicam 7.5 - 15 mg PO DAILY PRN PRN Reason: Pain Discontinued hydroCHLOROthiazide [Hydrochlorothiazide] 25 mg PO DAILY PRN PRN Reason: SWOLLEN ANKLES Quetiapine Fumarate [SEROquel] 25 mg PO HS PRN PRN Reason: Sleep hydrOXYzine HCl [Hydroxyzine HCl] 25 - 50 mg PO Q6H PRN PRN Reason: Anxiety Divalproex (24 HR) [Depakote ER (24 HR)] 1,500 mg PO HS FLUoxetine HCl [Prozac] 20 mg PO DAILY Duloxetine HCl [Cymbalta] 60 mg PO DAILY Home Medications: Baclofen [Lioresal] 10 mg PO BID PRN 07/02/19 [History] Celecoxib [Celebrex] 200 mg PO DAILY PRN 07/02/19 [History] Cholecalciferol (Vitamin D3) [Vitamin D3] 1,000 mg PO HS 07/02/19 [History] Fluticasone Propionate Nasal [Flonase] 2 spray NS DAILY PRN 07/02/19 [History] Meloxicam 7.5 - 15 mg PO DAILY PRN 07/02/19 [History] Prazosin [Minipress] 1 mg PO HS 07/02/19 [History] raNITIdine HCl [Zantac] 150 mg PO BID PRN 07/02/19 [History] Buspirone HCl [Buspar] 15 mg PO TID #45 tablet 07/10/19 [Rx] Gabapentin [Neurontin] 100 mg PO TID 30 Days #90 capsule 07/10/19 [Rx] Haloperidol [Haldol] 5 mg PO TID PRN #15 tablet 07/10/19 [Rx] LORazepam [Ativan] 1 mg PO Q4HR PRN 7 Days #21 tablet 07/10/19 [Rx] amLODIPine [Norvasc] 10 mg PO DAILY #60 tablet 07/10/19 [Rx] hydrOXYzine pamoate [Vistaril] 50 mg PO Q4H PRN #90 capsule 07/10/19 [Rx] Allergies/Adverse Reactions: Allergy/AdvReac Type Severity Reaction Status Date / Time No Known Allergies Allergy Verified 12/23/15 16:38 Date of admission: 07/03/19 13:26 Primary care physician: Rosalva Hylton Consults: 07/02/19 06:30 Consult to Psychiatry [CONS] Stat Consulting Provider: Psychiatry Ally Reason consult: Other Other reason and/or additional details: anxiety 07/06/19 07:29 Consult to Occupational Therapy [CONS] Routine Comment: Evaluate, develop and implement POC Reason for Consult: generalized weakness Does patient have active BEDREST order?: No Is patient medically & hemodynamically stable?: Yes Consult to Physical Therapy [CONS] Routine Comment: Evaluate, develop and implement POC Reason for Consult: generalized weakness Does patient have active BEDREST order?: No Is patient medically & hemodynamically stable?: Yes - Constitutional Vitals: Temp Pulse Resp BP Pulse Ox 97.7 F 79 16 108/75 92 07/10/19 07:53 07/10/19 07:53 07/10/19 07:53 07/10/19 07:53 07/10/19 07:53 Exam: Vitals: Reviewed General: Alert and oriented x4. No tremor noted today Skin: Healing laceration on the L forehead Cardiovascular: RRR, normal S1 & S2, no rubs, murmurs or gallops. Lungs: CTA b/l, no wheezes or crackles. Abdomen: Soft, non-tender, no rigidity. Extremities: No edema Neurological: No focal neurological abnormalities - Patient Status Disposition: Home, Self-Care Condition: Good Functional capacity at discharge: independent ambulation Overall status at discharge: patient is progressing back to baseline - Discharge Instructions Instructions: Anxiety (DC), Depression (DC) Follow Up With: Rosalva Hylton [Primary Care Provider] - 07/17/19 11:15 am - Diet and Activity Activity: resume usual activities as tolerated Diet: regular diet - VTE Documentation of Mechanical Device: Intermittent pneumatic compression device
[2019-07-10] MEDS: Nicotine 21 MG PATCH.TD24 TD SCH (10:00)
[2019-07-10] MEDS: Famotidine 20 MG TABLET PO SCH (10:02)
[2019-07-10] MEDS: Thiamine (B-1) 100 MG TABLET PO SCH (10:02)
[2019-07-10] MEDS: Renal Vitamin 1 CAP CAPSULE PO SCH (10:02)
[2019-07-10] MEDS: amLODIPine 5 MG TABLET PO SCH (10:02)
[2019-07-10] MEDS: Fluticasone Propionate Nasal 50 MCG/SPRAY BOTTLE NS SCH (10:05)
[2019-07-10 11:35] VITALS: BP 102/68
== END 2019-07-10 16:19 | disposition home or self-care (01) | DRG 775 ==
LOC: EMEROOARM 15:39 → 3BNU 15:39 → SUATTDRO 07-02 06:41 → 2NNU 07-02 08:26 → SUATTDRO 07-03 13:26 → 2ANU 07-09 05:24
PROVIDERS: ADMIT Internal Medicine; ATTEND Internal Medicine

== ENCOUNTER 2019-07-19 17:29 | Observation (INO) ==
--- NOTE | 2019-07-19 17:52 | Emergency Department Note ---
Disposition Clinical Impression: Alcohol abuse Disposition: Still a Patient Condition: Good Referrals: NONE,PCP [Primary Care Provider] - Forms: ED Satisfaction Letter Time of Disposition: 23:54 Alcohol HPI - General Chief Complaint: ED Alcohol Abuse Stated Complaint: Withdrawl Time Seen by Provider: 07/19/19 17:33 Source: patient Limitations: no limitations Nursing Notes Reviewed: Yes Vital Signs Reviewed: Yes - History of Present Illness HPI Narrative: 43-year-old male presents from scene via EMS. Patient was laying on the ground in the backyard of somebody's house. It was not his home and he did not know the homeowners. EMS brings him because patient has a history of alcohol is him and is requesting help. Patient was discharged from long-term this morning. He was arrested last night for public intoxication. Patient is requesting help for alcohol withdrawal symptoms to get clean. Patient notes he does go through withdrawal symptoms after nondrinking for 24 hours. Patient notes he had chest pain was sharp stabbing sensations going down to his toes. He also notes right ankle pain. Patient denies suicidal and homicidal ideation. PMH: Chronic alcoholism. Patient typically drinks a small bottle of vodka per day. He is not sure how many ounces or milliliters this bottle may be. Also history of hepatitis C though no history of IV drug use. ROS: Positive: Alcohol abuse Negative: Fever, chills, nausea, vomiting, cough, dyspnea, diaphoresis, abdominal pain, back pain - Related Data Home Medications Medication Instructions Recorded Confirmed Baclofen [Lioresal] 10 mg PO BID PRN 07/02/19 07/02/19 Celecoxib [Celebrex] 200 mg PO DAILY PRN 07/02/19 07/02/19 Cholecalciferol (Vitamin D3) 1,000 mg PO HS 07/02/19 07/02/19 [Vitamin D3] Fluticasone Propionate Nasal 2 spray NS DAILY PRN 07/02/19 07/02/19 [Flonase] Meloxicam 7.5 - 15 mg PO DAILY PRN 07/02/19 07/02/19 Prazosin [Minipress] 1 mg PO HS 07/02/19 07/02/19 raNITIdine HCl [Zantac] 150 mg PO BID PRN 07/02/19 07/02/19 Previous Rx's Medication Instructions Recorded Buspirone HCl [Buspar] 15 mg PO TID #45 tablet 07/10/19 Gabapentin [Neurontin] 100 mg PO TID 30 Days #90 capsule 07/10/19 Haloperidol [Haldol] 5 mg PO TID PRN #15 tablet 07/10/19 LORazepam [Ativan] 1 mg PO Q4HR PRN 7 Days #21 tablet 07/10/19 amLODIPine [Norvasc] 10 mg PO DAILY #60 tablet 07/10/19 hydrOXYzine pamoate [Vistaril] 50 mg PO Q4H PRN #90 capsule 07/10/19 Allergies Allergy/AdvReac Type Severity Reaction Status Date / Time No Known Allergies Allergy Verified 12/23/15 16:38 All systems ED: reviewed and negative except as stated. Review of Systems: As Per HPI Past Medical History - Past Medical History Medical history: Reports: GERD, seizures, other Surgical history: Reports: orthopedic, other Psychiatric history: Reports: anxiety, depression - Social History Smoking Status: Current every day smoker Smokeless Tobacco Status: No Alcohol use: Reports: heavy, recent Drug use: Reports: marijuana Physical Exam Vital Signs Reviewed General: Patient is alert, oriented, and in no acute distress. He is speaking quickly but does not have flight of ideas. Head: atraumatic, normocephalic Eye: normal appearance, PERRL, EOMI, no scleral icterus, no conjunctival injection ENT: mucous membranes moist, normal external ear exam Neck: normal inspection, trachea midline, full ROM Chest: normal inspection, symmetric chest rise Respiratory: Good respiratory effort. Bilateral breath sounds are clear without wheezing, crackles, or rhonchi. Cardiovascular: Regular rate and rhythm. No clicks, rubs, gallops, or murmors. Normal heart sounds. Abdomen: Bowel sounds present normoactive. Abdomen is soft, nondistended, and nontender. No guarding or rebound. No organomegaly noted. Musculoskeletal: Spontaneously moving all extremities. Skin: warm, dry, intact. Neuro: GCS 15. No focal neurologic deficits observed. Psych: Patient's affect is appropriate for situation. - General Limitations: no limitations General appearance: alert Course Course Narrative: Patient is homeless. Try sleeping in the park last night and was picked up for public intoxication. His plan today was to come to the emergency department for help. He has no other thoughts or plans beyond his presentation here. Patient's EtOH is 352. Assuming clearance of 20 units per hour. Intake 13-14 hours to get down to a legal limit of 80. Patient is not having any withdrawal symptoms at this time; he is intoxicated. I discussed the above with the admitting hospitalist, Dr. Bernstein. He also discussed the patient with inpatient social services manager. transit worker devises the patient's stay in the emergency department until he begins to have withdrawal s ymptoms. There is no indication for admission at this time per admit hospitalist and inpatient social services manager. From an ED perspective, cannot discharge patient home given his intoxication. Additionally, he does not have a home to which he may be discharged. We will board the patient and continue observation. Patient signed out to the night team, Dr. Guajardo. Pending: obs for intoxication. Vital Signs Temperature 98.6 F 07/19/19 17:41 Pulse Rate 119 07/19/19 17:41 Respiratory Rate 20 07/19/19 17:41 Blood Pressure 144/88 07/19/19 17:41 O2 Sat by Pulse Oximetry 96 07/19/19 17:41 Temperature 98.6 F 07/19/19 17:41 Pulse Rate 119 07/19/19 17:41 Respiratory Rate 20 07/19/19 17:41 Blood Pressure 144/88 07/19/19 17:41 O2 Sat by Pulse Oximetry 96 07/19/19 17:41 Oxygen Delivery Oxygen Delivery Room Air Alcohol - Lab Data Result diagrams: 07/19/19 18:07 07/19/19 18:07 Lab Results 07/19/19 07/19/19 07/19/19 Range/Units 18:07 18:07 18:07 WBC 10.1 (4.3-11.1) K/mcL RBC 4.64 (4.19-5.50) M/mcL Hgb 14.2 (12.9-16.9) g/dL Hct 42.1 (37.5-50.1) % MCV 90.7 (83.0-100.0) fL MCH 30.6 (28.0-33.3) pg MCHC 33.7 (31.6-35.5) g/dL RDW 13.2 (11.5-14.5) % Plt Count 318 (140-400) K/mcL MPV 8.9 L (9.4-12.4) fL Immature Gran % 0.2 (0-4) % Seg Neutrophils % 53.8 % Lymphocytes % 32.2 % Monocytes % 11.4 % Eosinophils % 1.0 % Basophils % 1.4 % Neutrophils # 5.4 (1.6-8.9) K/mcL Lymphocytes # 3.3 (0.6-4.6) K/mcL Monocytes # 1.2 (0.0-1.3) K/mcL Eosinophils # 0.1 (0.0-0.6) K/mcL Basophils # 0.1 (0.0-0.2) K/mcL PT (9.4-12.1) Seconds INR Sodium (136-145) mEq/L Potassium (3.5-5.1) mEq/L Chloride (98-107) mEq/L Carbon Dioxide (23-29) mEq/L BUN (6-20) mg/dL Creatinine (0.70-1.30) mg/dL Est GFR ( Amer) (> 60) Est GFR (Non-Af Amer) (> 60) BUN/Creatinine Ratio (6-26) Glucose (70-105) mg/dL Calculated Osmolality (280-300) Calcium (8.6-10.3) mg/dL Magnesium (1.6-2.6) mg/dL Total Bilirubin (0.3-1.0) mg/dL Direct Bilirubin (0.0-0.2) mg/dL Indirect Bilirubin (0.0-1.2) mg/dL AST (13-39) Units/L ALT (7-52) Units/L Alkaline Phosphatase (34-104) Units/L Serum Total Protein (6.4-8.9) g/dL Albumin (3.5-5.7) g/dL Globulin (2.4-3.5) g/dL Albumin/Globulin Ratio (1.1-2.2) Urine Color Yellow (Yellow) Urine Clarity Clear (Clear) Urine pH 6.0 (5.0-8.0) pH Units Ur Specific [place] 1.007 L (1.010-1.025) Urine Protein Negative (Neg-Trace) mg/dL Urine Glucose (UA) Normal (Normal) mg/dL Urine Ketones Negative (Negative) mg/dL Urine Blood Negative (Negative) Urine Nitrite Negative (Negative) Urine Bilirubin Negative (Negative) Urine Urobilinogen Normal (Normal) mg/dL Ur Leukocyte Esterase Negative (Negative) Salicylates (15.0-30.0) mg/dL Urine Opiates Screen Negative (Dduqzt=872) ng/mL Ur Buprenorphine Scrn Negative (Cutoff=5) ng/mL Acetaminophen (10-20) mcg/mL Ur Barbiturates Screen Negative (Djckmy=723) ng/mL Ur Phencyclidine Scrn Negative (Cutoff=25) ng/mL Ur Amphetamines Screen Negative (Ehlwzd=4819) ng/mL U Benzodiazepines Scrn Negative (Fohebo=695) ng/mL Urine Cocaine Screen Negative (Cutoff= 300) ng/mL U Marijuana (THC) Screen Negative (Cutoff = 50) ng/mL Ur Drug Screen Interp See Below Ethyl Alcohol (Less than 10) mg/dL 07/19/19 07/19/19 Range/Units 18:07 18:07 WBC (4.3-11.1) K/mcL RBC (4.19-5.50) M/mcL Hgb (12.9-16.9) g/dL Hct (37.5-50.1) % MCV (83.0-100.0) fL MCH (28.0-33.3) pg MCHC (31.6-35.5) g/dL RDW (11.5-14.5) % Plt Count (140-400) K/mcL MPV (9.4-12.4) fL Immature Gran % (0-4) % Seg Neutrophils % % Lymphocytes % % Monocytes % % Eosinophils % % Basophils % % Neutrophils # (1.6-8.9) K/mcL Lymphocytes # (0.6-4.6) K/mcL Monocytes # (0.0-1.3) K/mcL Eosinophils # (0.0-0.6) K/mcL Basophils # (0.0-0.2) K/mcL PT 10.4 (9.4-12.1) Seconds INR 0.9 Sodium 139 (136-145) mEq/L Potassium 3.1 L (3.5-5.1) mEq/L Chloride 104 (98-107) mEq/L Carbon Dioxide 22 L (23-29) mEq/L BUN 7 (6-20) mg/dL Creatinine 0.73 (0.70-1.30) mg/dL Est GFR ( Amer) > 60 (> 60) Est GFR (Non-Af Amer) > 60 (> 60) BUN/Creatinine Ratio 10 (6-26) Glucose 144 H (70-105) mg/dL Calculated Osmolality 289 (280-300) Calcium 9.1 (8.6-10.3) mg/dL Magnesium 2.0 (1.6-2.6) mg/dL Total Bilirubin 0.5 (0.3-1.0) mg/dL Direct Bilirubin 0.1 (0.0-0.2) mg/dL Indirect Bilirubin 0.4 (0.0-1.2) mg/dL AST 57 H (13-39) Units/L ALT 86 H (7-52) Units/L Alkaline Phosphatase 77 (34-104) Units/L Serum Total Protein 6.9 (6.4-8.9) g/dL Albumin 4.1 (3.5-5.7) g/dL Globulin 2.8 (2.4-3.5) g/dL Albumin/Globulin Ratio 1.5 (1.1-2.2) Urine Color (Yellow) Urine Clarity (Clear) Urine pH (5.0-8.0) pH Units Ur Specific [place] (1.010-1.025) Urine Protein (Neg-Trace) mg/dL Urine Glucose (UA) (Normal) mg/dL Urine Ketones (Negative) mg/dL Urine Blood (Negative) Urine Nitrite (Negative) Urine Bilirubin (Negative) Urine Urobilinogen (Normal) mg/dL Ur Leukocyte Esterase (Negative) Salicylates < 2.5 L (15.0-30.0) mg/dL Urine Opiates Screen (Knsohx=716) ng/mL Ur Buprenorphine Scrn (Cutoff=5) ng/mL Acetaminophen < 10 L (10-20) mcg/mL Ur Barbiturates Screen (Xbsahb=691) ng/mL Ur Phencyclidine Scrn (Cutoff=25) ng/mL Ur Amphetamines Screen (Aqkujk=7318) ng/mL U Benzodiazepines Scrn (Lmidix=419) ng/mL Urine Cocaine Screen (Cutoff= 300) ng/mL U Marijuana (THC) Screen (Cutoff = 50) ng/mL Ur Drug Screen Interp Ethyl Alcohol 352 H (Less than 10) mg/dL
[2019-07-19] MEDS ORDERED: *HR* LORazepam 2 MG/ML VIAL IVP ONE (17:59)
[2019-07-19 18:27] LABS: Bilirubin,Urine Negative (Negative); Blood,Urine Negative (Negative); Clarity,Urine Clear (Clear); Color,Urine Yellow (Yellow); Glucose,Urine (UA) Normal (Normal); Ketones,Urine Negative (Negative); Leukocyte Esterase,Urine Negative (Negative); Nitrite,Urine Negative (Negative); Protein,Urine Negative (Neg-Trace); Specific Gravity,Urine 1.007 (1.010-1.025); Urobilinogen,Urine Normal (Normal)
[2019-07-19 18:36] LABS: Amphetamine Screen,Urine Negative ng/mL (Cutoff=1000); Barbiturate Screen,Urine Negative ng/mL (Cutoff=200); Benzodiazepines Screen,Urine Negative ng/mL (Cutoff=200); Cannabinoid Screen,Urine Negative ng/mL (Cutoff = 50); Cocaine Screen,Urine Negative ng/mL (Cutoff= 300); Opiate Screen,Urine Negative ng/mL (Cutoff=300); Phencyclidine Screen,Urine Negative ng/mL (Cutoff=25)
[2019-07-19 18:40] LABS: Basophils # 0.1 K/mcL (0.0-0.2); Basophils % 1.4 %; Eosinophils # 0.1 K/mcL (0.0-0.6); Hematocrit 42.1 % (37.5-50.1); Hemoglobin 14.2 g/dL (12.9-16.9); Immature Granulocytes % 0.2 % (0-4); Lymphocytes # 3.3 K/mcL (0.6-4.6); Lymphocytes % 32.2 %; Mean Corpuscular HGB Conc 33.7 g/dL (31.6-35.5); Mean Corpuscular Hemoglobin 30.6 pg (28.0-33.3); Mean Corpuscular Volume 90.7 fL (83.0-100.0); Mean Platelet Volume 8.9 fL (9.4-12.4); Monocytes # 1.2 K/mcL (0.0-1.3); Monocytes % 11.4 %; Neutrophils # 5.4 K/mcL (1.6-8.9); Platelet Count 318 K/mcL (140-400); Red Blood Count 4.64 M/mcL (4.19-5.50); Red Cell Distribution Width 13.2 % (11.5-14.5); Segmented Neutrophils % 53.8 %; White Blood Count 10.1 K/mcL (4.3-11.1)
[2019-07-19 18:47] LABS: INR 0.9; Prothrombin Time 10.4 Seconds (9.4-12.1)
[2019-07-19 18:49] LABS: Acetaminophen < 10 mcg/mL (10-20); Alanine Aminotransferase 86 Units/L (7-52); Albumin 4.1 g/dL (3.5-5.7); Albumin/Globulin Ratio 1.5 (1.1-2.2); Alkaline Phosphatase 77 Units/L (34-104); Aspartate Amino Transferase 57 Units/L (13-39); BUN/Creatinine Ratio 10 (6-26); Bilirubin,Direct 0.1 mg/dL (0.0-0.2); Bilirubin,Indirect 0.4 mg/dL (0.0-1.2); Bilirubin,Total 0.5 mg/dL (0.3-1.0); Blood Urea Nitrogen 7 mg/dL (6-20); Calcium 9.1 mg/dL (8.6-10.3); Carbon Dioxide 22 mEq/L (23-29); Chloride 104 mEq/L (98-107); Ethanol 352 mg/dL (Less than 10); Globulin 2.8 g/dL (2.4-3.5); Glucose 144 mg/dL (70-105); Osmolality,Calculated 289 (280-300); Potassium 3.1 mEq/L (3.5-5.1); Salicylate < 2.5 mg/dL (15.0-30.0); Sodium 139 mEq/L (136-145); Total Protein 6.9 g/dL (6.4-8.9); eGFR For African Americans > 60 (> 60); eGFR For Non-African Americans > 60 (> 60)
--- NOTE | 2019-07-19 18:50 | Emergency Department Note ---
Disposition Clinical Impression: Alcohol abuse Disposition: Still a Patient Condition: Good Referrals: NONE,PCP [Primary Care Provider] - Forms: ED Satisfaction Letter Time of Disposition: 00:28 General Adult HPI - General Chief complaint: ED Alcohol Abuse Stated complaint: Withdrawl Time Seen by Provider: 07/19/19 17:33 Source: patient Limitations: no limitations Nursing Notes Reviewed: Yes Vital Signs Reviewed: Yes - History of Present Illness Pain Scale: 0 - Related Data Home Medications Medication Instructions Recorded Confirmed Baclofen [Lioresal] 10 mg PO BID PRN 07/02/19 07/02/19 Celecoxib [Celebrex] 200 mg PO DAILY PRN 07/02/19 07/02/19 Cholecalciferol (Vitamin D3) 1,000 mg PO HS 07/02/19 07/02/19 [Vitamin D3] Fluticasone Propionate Nasal 2 spray NS DAILY PRN 07/02/19 07/02/19 [Flonase] Meloxicam 7.5 - 15 mg PO DAILY PRN 07/02/19 07/02/19 Prazosin [Minipress] 1 mg PO HS 07/02/19 07/02/19 raNITIdine HCl [Zantac] 150 mg PO BID PRN 07/02/19 07/02/19 Previous Rx's Medication Instructions Recorded Buspirone HCl [Buspar] 15 mg PO TID #45 tablet 07/10/19 Gabapentin [Neurontin] 100 mg PO TID 30 Days #90 capsule 07/10/19 Haloperidol [Haldol] 5 mg PO TID PRN #15 tablet 07/10/19 LORazepam [Ativan] 1 mg PO Q4HR PRN 7 Days #21 tablet 07/10/19 amLODIPine [Norvasc] 10 mg PO DAILY #60 tablet 07/10/19 hydrOXYzine pamoate [Vistaril] 50 mg PO Q4H PRN #90 capsule 07/10/19 Allergies Allergy/AdvReac Type Severity Reaction Status Date / Time No Known Allergies Allergy Verified 12/23/15 16:38 Past Medical History - Past Medical History Medical history: Reports: GERD, seizures, other Surgical history: Reports: orthopedic, other Psychiatric history: Reports: anxiety, depression - Social History Smoking Status: Current every day smoker Smokeless Tobacco Status: No Alcohol use: Reports: heavy, recent Drug use: Reports: marijuana Physical Exam - General Limitations: no limitations General appearance: alert Course Vital Signs Temperature 98.6 F 07/19/19 17:41 Pulse Rate 119 07/19/19 17:41 Respiratory Rate 20 07/19/19 17:41 Blood Pressure 144/88 07/19/19 17:41 O2 Sat by Pulse Oximetry 96 07/19/19 17:41 Temperature 98.6 F 07/19/19 17:41 Pulse Rate 119 07/19/19 17:41 Respiratory Rate 20 07/19/19 17:41 Blood Pressure 144/88 07/19/19 17:41 O2 Sat by Pulse Oximetry 96 07/19/19 17:41 Oxygen Delivery Oxygen Delivery Room Air Medical Decision Making - Lab Data Result diagrams: 07/19/19 18:07 07/19/19 18:07 Lab Results 07/19/19 07/19/19 07/19/19 Range/Units 18:07 18:07 18:07 WBC 10.1 (4.3-11.1) K/mcL RBC 4.64 (4.19-5.50) M/mcL Hgb 14.2 (12.9-16.9) g/dL Hct 42.1 (37.5-50.1) % MCV 90.7 (83.0-100.0) fL MCH 30.6 (28.0-33.3) pg MCHC 33.7 (31.6-35.5) g/dL RDW 13.2 (11.5-14.5) % Plt Count 318 (140-400) K/mcL MPV 8.9 L (9.4-12.4) fL Immature Gran % 0.2 (0-4) % Seg Neutrophils % 53.8 % Lymphocytes % 32.2 % Monocytes % 11.4 % Eosinophils % 1.0 % Basophils % 1.4 % Neutrophils # 5.4 (1.6-8.9) K/mcL Lymphocytes # 3.3 (0.6-4.6) K/mcL Monocytes # 1.2 (0.0-1.3) K/mcL Eosinophils # 0.1 (0.0-0.6) K/mcL Basophils # 0.1 (0.0-0.2) K/mcL PT (9.4-12.1) Seconds INR Sodium (136-145) mEq/L Potassium (3.5-5.1) mEq/L Chloride (98-107) mEq/L Carbon Dioxide (23-29) mEq/L BUN (6-20) mg/dL Creatinine (0.70-1.30) mg/dL Est GFR ( Amer) (> 60) Est GFR (Non-Af Amer) (> 60) BUN/Creatinine Ratio (6-26) Glucose (70-105) mg/dL Calculated Osmolality (280-300) Calcium (8.6-10.3) mg/dL Magnesium (1.6-2.6) mg/dL Total Bilirubin (0.3-1.0) mg/dL Direct Bilirubin (0.0-0.2) mg/dL Indirect Bilirubin (0.0-1.2) mg/dL AST (13-39) Units/L ALT (7-52) Units/L Alkaline Phosphatase (34-104) Units/L Serum Total Protein (6.4-8.9) g/dL Albumin (3.5-5.7) g/dL Globulin (2.4-3.5) g/dL Albumin/Globulin Ratio (1.1-2.2) Urine Color Yellow (Yellow) Urine Clarity Clear (Clear) Urine pH 6.0 (5.0-8.0) pH Units Ur Specific [place] 1.007 L (1.010-1.025) Urine Protein Negative (Neg-Trace) mg/dL Urine Glucose (UA) Normal (Normal) mg/dL Urine Ketones Negative (Negative) mg/dL Urine Blood Negative (Negative) Urine Nitrite Negative (Negative) Urine Bilirubin Negative (Negative) Urine Urobilinogen Normal (Normal) mg/dL Ur Leukocyte Esterase Negative (Negative) Salicylates (15.0-30.0) mg/dL Urine Opiates Screen Negative (Vgebub=723) ng/mL Ur Buprenorphine Scrn Negative (Cutoff=5) ng/mL Acetaminophen (10-20) mcg/mL Ur Barbiturates Screen Negative (Wqscaf=379) ng/mL Ur Phencyclidine Scrn Negative (Cutoff=25) ng/mL Ur Amphetamines Screen Negative (Bhcnyv=8443) ng/mL U Benzodiazepines Scrn Negative (Auvwfs=091) ng/mL Urine Cocaine Screen Negative (Cutoff= 300) ng/mL U Marijuana (THC) Screen Negative (Cutoff = 50) ng/mL Ur Drug Screen Interp See Below Ethyl Alcohol (Less than 10) mg/dL 07/19/19 07/19/19 Range/Units 18:07 18:07 WBC (4.3-11.1) K/mcL RBC (4.19-5.50) M/mcL Hgb (12.9-16.9) g/dL Hct (37.5-50.1) % MCV (83.0-100.0) fL MCH (28.0-33.3) pg MCHC (31.6-35.5) g/dL RDW (11.5-14.5) % Plt Count (140-400) K/mcL MPV (9.4-12.4) fL Immature Gran % (0-4) % Seg Neutrophils % % Lymphocytes % % Monocytes % % Eosinophils % % Basophils % % Neutrophils # (1.6-8.9) K/mcL Lymphocytes # (0.6-4.6) K/mcL Monocytes # (0.0-1.3) K/mcL Eosinophils # (0.0-0.6) K/mcL Basophils # (0.0-0.2) K/mcL PT 10.4 (9.4-12.1) Seconds INR 0.9 Sodium 139 (136-145) mEq/L Potassium 3.1 L (3.5-5.1) mEq/L Chloride 104 (98-107) mEq/L Carbon Dioxide 22 L (23-29) mEq/L BUN 7 (6-20) mg/dL Creatinine 0.73 (0.70-1.30) mg/dL Est GFR ( Amer) > 60 (> 60) Est GFR (Non-Af Amer) > 60 (> 60) BUN/Creatinine Ratio 10 (6-26) Glucose 144 H (70-105) mg/dL Calculated Osmolality 289 (280-300) Calcium 9.1 (8.6-10.3) mg/dL Magnesium 2.0 (1.6-2.6) mg/dL Total Bilirubin 0.5 (0.3-1.0) mg/dL Direct Bilirubin 0.1 (0.0-0.2) mg/dL Indirect Bilirubin 0.4 (0.0-1.2) mg/dL AST 57 H (13-39) Units/L ALT 86 H (7-52) Units/L Alkaline Phosphatase 77 (34-104) Units/L Serum Total Protein 6.9 (6.4-8.9) g/dL Albumin 4.1 (3.5-5.7) g/dL Globulin 2.8 (2.4-3.5) g/dL Albumin/Globulin Ratio 1.5 (1.1-2.2) Urine Color (Yellow) Urine Clarity (Clear) Urine pH (5.0-8.0) pH Units Ur Specific [place] (1.010-1.025) Urine Protein (Neg-Trace) mg/dL Urine Glucose (UA) (Normal) mg/dL Urine Ketones (Negative) mg/dL Urine Blood (Negative) Urine Nitrite (Negative) Urine Bilirubin (Negative) Urine Urobilinogen (Normal) mg/dL Ur Leukocyte Esterase (Negative) Salicylates < 2.5 L (15.0-30.0) mg/dL Urine Opiates Screen (Yxscks=979) ng/mL Ur Buprenorphine Scrn (Cutoff=5) ng/mL Acetaminophen < 10 L (10-20) mcg/mL Ur Barbiturates Screen (Chozrn=700) ng/mL Ur Phencyclidine Scrn (Cutoff=25) ng/mL Ur Amphetamines Screen (Pxvrij=3524) ng/mL U Benzodiazepines Scrn (Ojzfcj=954) ng/mL Urine Cocaine Screen (Cutoff= 300) ng/mL U Marijuana (THC) Screen (Cutoff = 50) ng/mL Ur Drug Screen Interp Ethyl Alcohol 352 H (Less than 10) mg/dL Attestation Statement - Attestation Attestation: I examined this patient and my medical decision-making was reviewed with the Resident Physician. I agree with the documented findings, disposition and treatment plan as described except to the extent set forth below. Patient to the ED stating he is in alcohol withdrawal. Patient was released from long term this morning. Found laying in the yard. Admits to alcohol today. On exam he appears intoxicated. Slurring his words. Repeating himself. A cardiac. Abdomen soft lungs clear. Plan. Patient is currently intoxicated with an alcohol level of 350. Patient is not in alcohol withdrawal. Patient is not in withdrawal. He is intoxicated. He is homeless with no vertigo. 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 Using admission as he meets admission criteria. Patient was signed out to night guard pending sobriety
[2019-07-19] MEDS ORDERED: Potassium Chloride Elixir 20 MEQ/15 ML UDC PO ONE ×2 (19:56→20:45)
[2019-07-20] MEDS ORDERED: *HR* LORazepam 2 MG/ML VIAL IVP ONE (03:21)
[2019-07-20] MEDS ORDERED: 0.9 % Sodium Chloride 1,000 ML IVC ONE (03:21)
--- NOTE | 2019-07-20 04:16 | Emergency Department Note ---
Disposition Clinical Impression: Alcohol abuse, Alcohol withdrawal delirium, acute, mixed level of activity Disposition: Admitted As Inpatient Condition: Fair Reasons to Return/Additional Instructions: Admission to Dr. Bernstein at 04 12 Referrals: NONE,PCP [Primary Care Provider] - Forms: ED Satisfaction Letter Time of Disposition: 04:15 General Adult HPI - General Chief complaint: ED Alcohol Abuse Stated complaint: Withdrawl Time Seen by Provider: 07/19/19 17:33 Source: patient Limitations: no limitations Nursing Notes Reviewed: Yes Vital Signs Reviewed: Yes - History of Present Illness HPI Narrative: Patient is being observed in the emergency department for all withdrawal. At 3 AM he became agitated and developed a tremor again. Denies any nausea. Denies any suicidal or homicidal ideations at this time. During his last admission to the hospital he did require Precedex drip along with Ativan Pain Scale: 0 - Related Data Home Medications Medication Instructions Recorded Confirmed Baclofen [Lioresal] 10 mg PO BID PRN 07/02/19 07/02/19 Celecoxib [Celebrex] 200 mg PO DAILY PRN 07/02/19 07/02/19 Cholecalciferol (Vitamin D3) 1,000 mg PO HS 07/02/19 07/02/19 [Vitamin D3] Fluticasone Propionate Nasal 2 spray NS DAILY PRN 07/02/19 07/02/19 [Flonase] Meloxicam 7.5 - 15 mg PO DAILY PRN 07/02/19 07/02/19 Prazosin [Minipress] 1 mg PO HS 07/02/19 07/02/19 raNITIdine HCl [Zantac] 150 mg PO BID PRN 07/02/19 07/02/19 Previous Rx's Medication Instructions Recorded Buspirone HCl [Buspar] 15 mg PO TID #45 tablet 07/10/19 Gabapentin [Neurontin] 100 mg PO TID 30 Days #90 capsule 07/10/19 Haloperidol [Haldol] 5 mg PO TID PRN #15 tablet 07/10/19 LORazepam [Ativan] 1 mg PO Q4HR PRN 7 Days #21 tablet 07/10/19 amLODIPine [Norvasc] 10 mg PO DAILY #60 tablet 07/10/19 hydrOXYzine pamoate [Vistaril] 50 mg PO Q4H PRN #90 capsule 07/10/19 Allergies Allergy/AdvReac Type Severity Reaction Status Date / Time No Known Allergies Allergy Verified 12/23/15 16:38 Past Medical History - Past Medical History Medical history: Reports: GERD, seizures, other Surgical history: Reports: orthopedic, other Psychiatric history: Reports: anxiety, depression - Social History Smoking Status: Current every day smoker Smokeless Tobacco Status: No Alcohol use: Reports: heavy, recent Drug use: Reports: marijuana Physical Exam - General Limitations: no limitations General appearance: alert Course Course Narrative: Please see the attending note Dr. Heredia as well as the resident's note correlate with this one. - Reevaluation(s) Reevaluation #1: After the Ativan IV he did become more relaxed and did go back to sleep. Time: 04:16 - Consultations Consultation #1: Dr. Bernstein was contacted and agreed to observation at this time. As he is beginning to withdrawal. He is becoming more agitated. He does now have a tremor. I did give him Ativan 1 mg IV. A fluid bolus was started. Time: 04:12 Vital Signs Temperature 98.6 F 07/19/19 17:41 Pulse Rate 119 07/19/19 17:41 Respiratory Rate 20 07/19/19 17:41 Blood Pressure 144/88 07/19/19 17:41 O2 Sat by Pulse Oximetry 96 07/19/19 17:41 Temperature 98.6 F 07/19/19 17:41 Pulse Rate 119 07/19/19 17:41 Respiratory Rate 20 07/19/19 17:41 Blood Pressure 144/88 07/19/19 17:41 O2 Sat by Pulse Oximetry 96 07/19/19 17:41 Oxygen Delivery Oxygen Delivery Room Air Medical Decision Making - Medical Records Medical records reviewed: Yes I reviewed the patient's medical records. - Lab Data Lab results reviewed: Yes I reviewed the patient's lab results. Result diagrams: 07/19/19 18:07 07/19/19 18:07 Lab Results 07/19/19 07/19/19 07/19/19 Range/Units 18:07 18:07 18:07 WBC 10.1 (4.3-11.1) K/mcL RBC 4.64 (4.19-5.50) M/mcL Hgb 14.2 (12.9-16.9) g/dL Hct 42.1 (37.5-50.1) % MCV 90.7 (83.0-100.0) fL MCH 30.6 (28.0-33.3) pg MCHC 33.7 (31.6-35.5) g/dL RDW 13.2 (11.5-14.5) % Plt Count 318 (140-400) K/mcL MPV 8.9 L (9.4-12.4) fL Immature Gran % 0.2 (0-4) % Seg Neutrophils % 53.8 % Lymphocytes % 32.2 % Monocytes % 11.4 % Eosinophils % 1.0 % Basophils % 1.4 % Neutrophils # 5.4 (1.6-8.9) K/mcL Lymphocytes # 3.3 (0.6-4.6) K/mcL Monocytes # 1.2 (0.0-1.3) K/mcL Eosinophils # 0.1 (0.0-0.6) K/mcL Basophils # 0.1 (0.0-0.2) K/mcL PT (9.4-12.1) Seconds INR Sodium (136-145) mEq/L Potassium (3.5-5.1) mEq/L Chloride (98-107) mEq/L Carbon Dioxide (23-29) mEq/L BUN (6-20) mg/dL Creatinine (0.70-1.30) mg/dL Est GFR ( Amer) (> 60) Est GFR (Non-Af Amer) (> 60) BUN/Creatinine Ratio (6-26) Glucose (70-105) mg/dL Calculated Osmolality (280-300) Calcium (8.6-10.3) mg/dL Magnesium (1.6-2.6) mg/dL Total Bilirubin (0.3-1.0) mg/dL Direct Bilirubin (0.0-0.2) mg/dL Indirect Bilirubin (0.0-1.2) mg/dL AST (13-39) Units/L ALT (7-52) Units/L Alkaline Phosphatase (34-104) Units/L Serum Total Protein (6.4-8.9) g/dL Albumin (3.5-5.7) g/dL Globulin (2.4-3.5) g/dL Albumin/Globulin Ratio (1.1-2.2) Urine Color Yellow (Yellow) Urine Clarity Clear (Clear) Urine pH 6.0 (5.0-8.0) pH Units Ur Specific [place] 1.007 L (1.010-1.025) Urine Protein Negative (Neg-Trace) mg/dL Urine Glucose (UA) Normal (Normal) mg/dL Urine Ketones Negative (Negative) mg/dL Urine Blood Negative (Negative) Urine Nitrite Negative (Negative) Urine Bilirubin Negative (Negative) Urine Urobilinogen Normal (Normal) mg/dL Ur Leukocyte Esterase Negative (Negative) Salicylates (15.0-30.0) mg/dL Urine Opiates Screen Negative (Qjgkbl=108) ng/mL Ur Buprenorphine Scrn Negative (Cutoff=5) ng/mL Acetaminophen (10-20) mcg/mL Ur Barbiturates Screen Negative (Gpezdk=479) ng/mL Ur Phencyclidine Scrn Negative (Cutoff=25) ng/mL Ur Amphetamines Screen Negative (Mhfnmr=1069) ng/mL U Benzodiazepines Scrn Negative (Saihfh=648) ng/mL Urine Cocaine Screen Negative (Cutoff= 300) ng/mL U Marijuana (THC) Screen Negative (Cutoff = 50) ng/mL Ur Drug Screen Interp See Below Ethyl Alcohol (Less than 10) mg/dL 07/19/19 07/19/19 Range/Units 18:07 18:07 WBC (4.3-11.1) K/mcL RBC (4.19-5.50) M/mcL Hgb (12.9-16.9) g/dL Hct (37.5-50.1) % MCV (83.0-100.0) fL MCH (28.0-33.3) pg MCHC (31.6-35.5) g/dL RDW (11.5-14.5) % Plt Count (140-400) K/mcL MPV (9.4-12.4) fL Immature Gran % (0-4) % Seg Neutrophils % % Lymphocytes % % Monocytes % % Eosinophils % % Basophils % % Neutrophils # (1.6-8.9) K/mcL Lymphocytes # (0.6-4.6) K/mcL Monocytes # (0.0-1.3) K/mcL Eosinophils # (0.0-0.6) K/mcL Basophils # (0.0-0.2) K/mcL PT 10.4 (9.4-12.1) Seconds INR 0.9 Sodium 139 (136-145) mEq/L Potassium 3.1 L (3.5-5.1) mEq/L Chloride 104 (98-107) mEq/L Carbon Dioxide 22 L (23-29) mEq/L BUN 7 (6-20) mg/dL Creatinine 0.73 (0.70-1.30) mg/dL Est GFR ( Amer) > 60 (> 60) Est GFR (Non-Af Amer) > 60 (> 60) BUN/Creatinine Ratio 10 (6-26) Glucose 144 H (70-105) mg/dL Calculated Osmolality 289 (280-300) Calcium 9.1 (8.6-10.3) mg/dL Magnesium 2.0 (1.6-2.6) mg/dL Total Bilirubin 0.5 (0.3-1.0) mg/dL Direct Bilirubin 0.1 (0.0-0.2) mg/dL Indirect Bilirubin 0.4 (0.0-1.2) mg/dL AST 57 H (13-39) Units/L ALT 86 H (7-52) Units/L Alkaline Phosphatase 77 (34-104) Units/L Serum Total Protein 6.9 (6.4-8.9) g/dL Albumin 4.1 (3.5-5.7) g/dL Globulin 2.8 (2.4-3.5) g/dL Albumin/Globulin Ratio 1.5 (1.1-2.2) Urine Color (Yellow) Urine Clarity (Clear) Urine pH (5.0-8.0) pH Units Ur Specific [place] (1.010-1.025) Urine Protein (Neg-Trace) mg/dL Urine Glucose (UA) (Normal) mg/dL Urine Ketones (Negative) mg/dL Urine Blood (Negative) Urine Nitrite (Negative) Urine Bilirubin (Negative) Urine Urobilinogen (Normal) mg/dL Ur Leukocyte Esterase (Negative) Salicylates < 2.5 L (15.0-30.0) mg/dL Urine Opiates Screen (Jkhhlf=297) ng/mL Ur Buprenorphine Scrn (Cutoff=5) ng/mL Acetaminophen < 10 L (10-20) mcg/mL Ur Barbiturates Screen (Bvdzur=077) ng/mL Ur Phencyclidine Scrn (Cutoff=25) ng/mL Ur Amphetamines Screen (Fiqbdr=9062) ng/mL U Benzodiazepines Scrn (Zwfkhx=692) ng/mL Urine Cocaine Screen (Cutoff= 300) ng/mL U Marijuana (THC) Screen (Cutoff = 50) ng/mL Ur Drug Screen Interp Ethyl Alcohol 352 H (Less than 10) mg/dL Critical Care Time Critical Care Time: Yes Total Critical Care Time: 30 Attestation: The high probability of a clinically significant, sudden or life threatening deterioration of the patient's condition required my full and direct attention, intervention and personal management.
[2019-07-20] MEDS ORDERED: Naloxone 0.4 MG/ML INJ IVP PRN (06:06)
[2019-07-20] MEDS ORDERED: *HR* LORazepam 2 MG/ML VIAL IVP PRN (06:07)
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
[2019-07-20 06:57] LABS: Basophils # 0.1 K/mcL (0.0-0.2); Basophils % 2.3 %; Eosinophils # 0.2 K/mcL (0.0-0.6); Eosinophils % 4.8 %; Hematocrit 39.8 % (37.5-50.1); Hemoglobin 13.1 g/dL (12.9-16.9); Immature Granulocytes % 0.2 % (0-4); Lymphocytes # 1.7 K/mcL (0.6-4.6); Mean Corpuscular HGB Conc 32.9 g/dL (31.6-35.5); Mean Corpuscular Volume 91.1 fL (83.0-100.0); Mean Platelet Volume 8.9 fL (9.4-12.4); Monocytes # 0.4 K/mcL (0.0-1.3); Monocytes % 8.7 %; Neutrophils # 2.3 K/mcL (1.6-8.9); Platelet Count 268 K/mcL (140-400); Red Blood Count 4.37 M/mcL (4.19-5.50); Red Cell Distribution Width 13.2 % (11.5-14.5)
[2019-07-20 06:59] LABS: White Blood Count 4.8 K/mcL (4.3-11.1)
[2019-07-20] MEDS ORDERED: 0.9 % Sodium Chloride 1,000 ML IVC SCH (07:00)
[2019-07-20 07:17] LABS: Alanine Aminotransferase 84 Units/L (7-52); Albumin 3.6 g/dL (3.5-5.7); Albumin/Globulin Ratio 1.6 (1.1-2.2); Alkaline Phosphatase 74 Units/L (34-104); Aspartate Amino Transferase 72 Units/L (13-39); BUN/Creatinine Ratio 8 (6-26); Bilirubin,Total 0.6 mg/dL (0.3-1.0); Blood Urea Nitrogen 5 mg/dL (6-20); Calcium 8.5 mg/dL (8.6-10.3); Carbon Dioxide 27 mEq/L (23-29); Chloride 108 mEq/L (98-107); Globulin 2.3 g/dL (2.4-3.5); Glucose 79 mg/dL (70-105); Osmolality,Calculated 294 (280-300); Potassium 3.7 mEq/L (3.5-5.1); Sodium 144 mEq/L (136-145); Total Protein 5.9 g/dL (6.4-8.9); eGFR For African Americans > 60 (> 60); eGFR For Non-African Americans > 60 (> 60)
[2019-07-20] MEDS: *HR* LORazepam 2 MG/ML VIAL IVP PRN ×5 (08:10→20:48)
--- NOTE | 2019-07-20 08:26 | Event Note ---
Date of Encounter: 07/20/19 Time of Encounter: 08:26 Patient seen and examined swelling at bedside. Admitted overnight for alcohol abuse and withdrawal and anxiety. Was recently discharged. Was found to have a: This is come. Currently on [facility] protocol this will continue with ativan. Previous to have tremors and tachycardic on exam. Express wanting to stop drinking alcohol and had plan to join rehabilitation. Denies any chest pain difficulty breathing abdominal pain nausea vomiting or diarrhea. Has chronic back pain. We will resume home medications once confirmed. Resume gabapentin 100 3 times a day for now.
--- NOTE | 2019-07-20 09:03 | Electrocardiograph Report ---
[place] [id number] Test Date: 2019-07-19 Pat Name: Jerome Messer Department: EXAM1 Room: 2A44 Gender: M Gasateria Attendant: : 1975 Requested By: Beck Mas Order Number: [id number] Reading MD: Erika Carson Measurements Intervals [place] Rate: 116 P: 34 NM: 112 QRS: 78 QRSD: 124 T: 42 QT: 369 QTc: 513 Interpretive Statements Sinus tachycardia IVCD, consider atypical RBBB Electronically Signed On 07-20-2019 9:01:35 EDT by Erika Carson
[2019-07-20] MEDS ORDERED: Ibuprofen 400 MG TABLET PO PRN (11:58)
[2019-07-20] MEDS: Gabapentin 100 MG CAPSULE PO SCH ×2 (14:28→20:12)
[2019-07-20] MEDS: Thiamine (B-1) 100 MG, Folic Acid 1 MG, MVI, adult with vitamin K 10 ML in 0.9 % Sodi... IVPB SCH (17:00)
[2019-07-20] MEDS: Nicotine 21 MG PATCH.TD24 TD SCH (17:00)
[2019-07-21] MEDS: *HR* LORazepam 2 MG/ML VIAL IVP PRN ×6 (00:34→19:40)
[2019-07-21] MEDS: Gabapentin 100 MG CAPSULE PO SCH ×3 (08:03→20:34)
[2019-07-21] MEDS: Nicotine 21 MG PATCH.TD24 TD SCH (10:09)
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
[2019-07-21] MEDS: hydrOXYzine pamoate 25 MG CAPSULE PO PRN ×2 (12:15→17:47)
[2019-07-21] MEDS: Thiamine (B-1) 100 MG, Folic Acid 1 MG, MVI, adult with vitamin K 10 ML in 0.9 % Sodi... IVPB SCH (17:48)
[2019-07-21] MEDS ORDERED: Haloperidol Lactate 5 MG/ML VIAL IVP ONE (20:15)
[2019-07-21] MEDS ORDERED: *HR* Promethazine 25 MG/ML VIAL IVP PRN (20:17)
[2019-07-22] MEDS: Nicotine 21 MG PATCH.TD24 TD SCH (09:23)
[2019-07-22] MEDS: Gabapentin 100 MG CAPSULE PO SCH ×2 (09:23→16:01)
[2019-07-22 10:58] VITALS: BP 127/87
[2019-07-22] MEDS: hydrOXYzine pamoate 25 MG CAPSULE PO PRN (12:32)
--- NOTE | 2019-07-22 15:41 | Internal Med Progress Note ---
Hospitalist Progress Note - Encounter Date of Encounter: 07/22/19 Time of Encounter: 15:40 - Subjective Interval History: OPt was seen and examined at bed side. Patient received 1 time Haldol overnight. Patient denied any acute issues and concerns other than that. Patient denied any tremor and agitation this morning. Patient denied any hoarseness. Patient reports on and off anxiety. - Exam Vitals: Temp Pulse Resp BP Pulse Ox 97.9 F 102 18 127/87 95 07/22/19 10:57 07/22/19 10:57 07/22/19 10:57 07/22/19 10:57 07/21/19 23:51 Exam: General: In no acute distress. anxious Respiratory exam: CTAB. no accessory muscle use, rales, rhonchi, wheezes Cardiovascular exam: tachycardic, +S1, +S2. no murmur, gallop, rubs. GI/Abdominal exam: Non-tender, Non-distended, normal bowel sounds, soft, no peritoneal signs. Extremities exam: no pedal edema, pulses palpable in b/l lower extremities. no calf tenderness Neurological exam: CN II-XII intact, AO X3, no focal deficits. Mild tremors Skin exam: No skin rash - Assessment and Plan (1) Alcohol intoxication Current Visit: No Status: Acute Assessment and Plan: Patient has improved since the admission. Patient is not requiring On CIWA protocol. We will continue to monitor. We will wait for substance abuse placement. Social work is on consult. (2) Elevated liver enzymes Current Visit: Yes Status: Chronic Assessment and Plan: Chronic. Currently improved. Likely secondary to history of Hepatitis C and alcohol abuse. We will continue to monitor. (3) Depression with anxiety Current Visit: Yes Status: Chronic Assessment and Plan: Continue BuSpar and Vistaril.. DVT Prophylaxis: EPCD - Time Spent with Patient Total time spent is greater than 50% in coordination of care (as documented) at patient's floor/unit and/or counseling patient: 25 - 35 minutes Plan of Care Discussed with: patient Internal Medicine: Result - Labs CBC & Chem 7: 07/20/19 06:17 07/20/19 06:17 - ABG Interpretation ABG results: PT/INR, D-dimer PT 10.4 Seconds (9.4-12.1) 07/19/19 18:07 Consult Discharge Plan - Plan Referrals: NONE,PCP [Primary Care Provider] - (1) Alcohol intoxication Qualifiers: Complication of substance-induced condition: with unspecified complication Qualified Code(s): F10.929 - Alcohol use, unspecified with intoxication, unspecified
--- NOTE | 2019-07-22 16:09 | Discharge Summary ---
- NOTES TO OUTPATIENT PROVIDER Notes to Outpatient Provider: Pt was hospitalized due to alcohol withdrawal. Patient received Ativan on CIWA protocol. Patient subsequently improved. Patient was discharged home on Visteril as needed. Reports that he has been a [facility]. Suspicion to home today. Patient to go for rehabilitation at [facility]. Date of Encounter: 07/22/19 Time of Encounter: 16:05 - Discharge Diagnosis (1) Alcohol intoxication Priority: Primary Status: Acute Qualifiers: Complication of substance-induced condition: with unspecified complication Qualified Code(s): F10.929 - Alcohol use, unspecified with intoxication, unspecified (2) Elevated liver enzymes Priority: Secondary Status: Chronic (3) Depression with anxiety Priority: Secondary Status: Chronic Hospital course: Mr. Messer is a 43 year old male was hospitalized due to alcohol withdrawal. Patient received Ativan on CIMS protocol. Patient subsequently improved. Patient was discharged home on Visteril as needed. Reports that he has been a [facility]. Suspicion to home today. Patient to go for rehabilitation at [facility]. - Time Spent with Patient Total time spent providing and/or coordinating discharge services: 35 Time spent: Greater than 30 minutes - Discharge Medications Prescriptions: New Folic Acid 1 mg PO DAILY #7 tablet Thiamine (B-1) [Vitamin B-1] 100 mg PO DAILY #7 tablet Continued Baclofen [Lioresal] 10 mg PO BID PRN PRN Reason: Muscle Spasm Prazosin [Minipress] 1 mg PO HS Celecoxib [Celebrex] 200 mg PO DAILY PRN PRN Reason: Pain raNITIdine HCl [Zantac] 150 mg PO BID PRN PRN Reason: GERD Cholecalciferol (Vitamin D3) [Vitamin D3] 1,000 mg PO HS Fluticasone Propionate Nasal [Flonase] 2 spray NS DAILY PRN PRN Reason: Allergy Symptoms Meloxicam 7.5 - 15 mg PO DAILY PRN PRN Reason: Pain LORazepam [Ativan] 1 mg PO Q4HR PRN 7 Days #21 tablet PRN Reason: Anxiety Buspirone HCl [Buspar] 15 mg PO TID #45 tablet Haloperidol [Haldol] 5 mg PO TID PRN #15 tablet PRN Reason: Psychosis Gabapentin [Neurontin] 100 mg PO TID 30 Days #90 capsule amLODIPine [Norvasc] 10 mg PO DAILY #60 tablet Changed hydrOXYzine pamoate [Vistaril] 50 mg PO TID PRN #21 capsule PRN Reason: Anxiety Home Medications: Baclofen [Lioresal] 10 mg PO BID PRN 07/02/19 [History] Celecoxib [Celebrex] 200 mg PO DAILY PRN 07/02/19 [History] Cholecalciferol (Vitamin D3) [Vitamin D3] 1,000 mg PO HS 07/02/19 [History] Fluticasone Propionate Nasal [Flonase] 2 spray NS DAILY PRN 07/02/19 [History] Meloxicam 7.5 - 15 mg PO DAILY PRN 07/02/19 [History] Prazosin [Minipress] 1 mg PO HS 07/02/19 [History] raNITIdine HCl [Zantac] 150 mg PO BID PRN 07/02/19 [History] Buspirone HCl [Buspar] 15 mg PO TID #45 tablet 07/10/19 [Rx] Gabapentin [Neurontin] 100 mg PO TID 30 Days #90 capsule 07/10/19 [Rx] Haloperidol [Haldol] 5 mg PO TID PRN #15 tablet 07/10/19 [Rx] LORazepam [Ativan] 1 mg PO Q4HR PRN 7 Days #21 tablet 07/10/19 [Rx] amLODIPine [Norvasc] 10 mg PO DAILY #60 tablet 07/10/19 [Rx] Folic Acid 1 mg PO DAILY #7 tablet 07/22/19 [Rx] Thiamine (B-1) [Vitamin B-1] 100 mg PO DAILY #7 tablet 07/22/19 [Rx] hydrOXYzine pamoate [Vistaril] 50 mg PO TID PRN #21 capsule 07/22/19 [Rx] Allergies/Adverse Reactions: Allergy/AdvReac Type Severity Reaction Status Date / Time No Known Allergies Allergy Verified 12/23/15 16:38 Date of admission: 07/20/19 04:24 Primary care physician: PCP NONE Consults: 07/20/19 06:07 Consult to Cafeteria Supervisor [CONS] Routine Reason for SW Consult: Presents for alcohol intoxication. Wants resources to help quit. Is also currently homeless. Discharging clinician: Walt Toussaint - Constitutional Vitals: Temp Pulse Resp BP Pulse Ox 97.9 F 102 18 127/87 95 07/22/19 10:57 07/22/19 10:57 07/22/19 10:57 07/22/19 10:57 07/21/19 23:51 General appearance: Present: cooperative, A&O X 3 Exam: General: In no acute distress. anxious Respiratory exam: CTAB. no accessory muscle use, rales, rhonchi, wheezes Cardiovascular exam: tachycardic, +S1, +S2. no murmur, gallop, rubs. GI/Abdominal exam: Non-tender, Non-distended, normal bowel sounds, soft, no peritoneal signs. Extremities exam: no pedal edema, pulses palpable in b/l lower extremities. no calf tenderness Neurological exam: CN II-XII intact, AO X3, no focal deficits. Mild tremors Skin exam: No skin rash - Patient Status Disposition: Home, Self-Care Condition: Good Overall status at discharge: patient is progressing back to baseline - Discharge Instructions Follow Up With: NONE,PCP [Primary Care Provider] - - Diet and Activity Activity: increase activity as tolerated Diet: advance to your usual diet
[2019-07-23] MEDS ORDERED: Thiamine (B-1) 100 MG TABLET PO SCH (09:00)
[2019-07-23] MEDS ORDERED: Folic Acid 1 MG TABLET PO SCH (09:00)
== END 2019-07-22 17:55 | disposition home or self-care (01) ==
LOC: EMEROOARM 17:29 → 2ANU 17:29 → SUATTDRO 07-20 04:24 → 2ANU 07-20 05:29
PROVIDERS: ADMIT Family Medicine; ATTEND Family Medicine

== ENCOUNTER 2019-09-04 13:06 | Inpatient (IN) ==
[2019-09-04] MEDS ORDERED: hydrOXYzine pamoate 25 MG CAPSULE PO ONE (13:41)
[2019-09-04] MEDS ORDERED: *HR* LORazepam 1 MG TABLET PO SCH (13:45)
[2019-09-04 13:49] LABS: Bilirubin,Urine Small (Negative); Blood,Urine Negative (Negative); Clarity,Urine Clear (Clear); Color,Urine Dark Yellow (Yellow); Glucose,Urine (UA) Normal (Normal); Ketones,Urine Trace mg/dL (Negative); Leukocyte Esterase,Urine Negative (Negative); Nitrite,Urine Negative (Negative); PH,Urine 5.5 pH Units (5.0-8.0); Protein,Urine 100 mg/dL (Neg-Trace); Specific Gravity,Urine 1.022 (1.010-1.025); Urobilinogen,Urine Normal (Normal)
[2019-09-04 13:52] LABS: Bacteria,Urine None Seen per hpf (None-Few); Hyaline Casts,Urine None Seen per lpf (None-Few); Squamous Epithelial Cell,Urine Few per lpf (None-Few); WBC,Urine 0-3 per hpf (0-3)
[2019-09-04 13:53] LABS: Amphetamine Screen,Urine Negative ng/mL (Cutoff=1000); Barbiturate Screen,Urine Negative ng/mL (Cutoff=200); Benzodiazepines Screen,Urine Negative ng/mL (Cutoff=200); Cannabinoid Screen,Urine Positive ng/mL (Cutoff = 50); Cocaine Screen,Urine Negative ng/mL (Cutoff= 300); Opiate Screen,Urine Negative ng/mL (Cutoff=300); Phencyclidine Screen,Urine Negative ng/mL (Cutoff=25)
[2019-09-04] MEDS ORDERED: *HR* LORazepam 1 MG TABLET PO PRN ×3 (14:00→14:02)
[2019-09-04 14:43] LABS: Basophils # 0.1 K/mcL (0.0-0.2); Basophils % 1.1 %; Eosinophils % 0.6 %; Hematocrit 46.4 % (37.5-50.1); Immature Granulocytes % 0.3 % (0-4); Lymphocytes # 2.2 K/mcL (0.6-4.6); Mean Corpuscular HGB Conc 34.5 g/dL (31.6-35.5); Mean Corpuscular Hemoglobin 31.7 pg (28.0-33.3); Mean Corpuscular Volume 91.9 fL (83.0-100.0); Mean Platelet Volume 9.7 fL (9.4-12.4); Monocytes # 0.7 K/mcL (0.0-1.3); Monocytes % 10.5 %; Neutrophils # 3.9 K/mcL (1.6-8.9); Platelet Count 183 K/mcL (140-400); Red Blood Count 5.05 M/mcL (4.19-5.50); Red Cell Distribution Width 14.3 % (11.5-14.5); Segmented Neutrophils % 55.5 %
[2019-09-04 14:58] LABS: Acetaminophen < 10 mcg/mL (10-20); BUN/Creatinine Ratio 14 (6-26); Blood Urea Nitrogen 11 mg/dL (6-20); Calcium 9.5 mg/dL (8.6-10.3); Carbon Dioxide 19 mEq/L (23-29); Chloride 100 mEq/L (98-107); Chol/HDL Ratio 1.8 (0-4.9); Cholesterol 201 mg/dL (< 200); Ethanol 392 mg/dL (Less than 10); Glucose 133 mg/dL (70-105); HDL Cholesterol 112 mg/dL (40-59); LDL Cholesterol,Calculated 75 mg/dL (0-99); Osmolality,Calculated 279 (280-300); Salicylate < 2.5 mg/dL (15.0-30.0); Sodium 134 mEq/L (136-145); Triglycerides 69 mg/dL (< 150); eGFR For African Americans > 60 (> 60); eGFR For Non-African Americans > 60 (> 60)
[2019-09-04] MEDS ORDERED: Naloxone 0.4 MG/ML INJ IVP PRN (16:54)
[2019-09-04] MEDS ORDERED: *HR* LORazepam 2 MG/ML VIAL IVP PRN ×2 (16:57)
[2019-09-04] MEDS: 0.9 % Sodium Chloride 1,000 ML IVC SCH (18:30)
[2019-09-04] MEDS: Thiamine (B-1) 100 MG, Folic Acid 1 MG, MVI, adult with vitamin K 10 ML in 0.9 % Sodi... IVPB SCH (18:31)
[2019-09-04] MEDS: Cholecalciferol (D-3) 1,000 UNIT (25MCG) TABLET PO SCH (20:13)
[2019-09-04] MEDS ORDERED: *HR* LORazepam 2 MG/ML VIAL IVP ONE (20:32)
[2019-09-05] MEDS: *HR* LORazepam 2 MG/ML VIAL IVP PRN ×5 (00:47→19:35)
[2019-09-05 06:00] LABS: Basophils # 0.1 K/mcL (0.0-0.2); Basophils % 1.1 %; Eosinophils # 0.1 K/mcL (0.0-0.6); Hematocrit 38.7 % (37.5-50.1); Immature Granulocytes % 0.4 % (0-4); Lymphocytes # 1.4 K/mcL (0.6-4.6); Mean Corpuscular HGB Conc 34.9 g/dL (31.6-35.5); Mean Corpuscular Hemoglobin 31.3 pg (28.0-33.3); Mean Corpuscular Volume 89.8 fL (83.0-100.0); Mean Platelet Volume 10.1 fL (9.4-12.4); Monocytes # 0.6 K/mcL (0.0-1.3); Monocytes % 10.5 %; Neutrophils # 3.2 K/mcL (1.6-8.9); Platelet Count 135 K/mcL (140-400); Red Blood Count 4.31 M/mcL (4.19-5.50); Red Cell Distribution Width 14.1 % (11.5-14.5); White Blood Count 5.2 K/mcL (4.3-11.1)
[2019-09-05 06:07] LABS: Hemoglobin 13.5 g/dL (12.9-16.9)
[2019-09-05] MEDS: *HR* Heparin 5,000 UNIT/ML VIAL SQ SCH ×2 (06:12→17:53)
[2019-09-05 06:18] LABS: BUN/Creatinine Ratio 20 (6-26); Blood Urea Nitrogen 13 mg/dL (6-20); Calcium 9.3 mg/dL (8.6-10.3); Carbon Dioxide 26 mEq/L (23-29); Chloride 101 mEq/L (98-107); Glucose 93 mg/dL (70-105); Magnesium 1.5 mg/dL (1.6-2.6); Osmolality,Calculated 286 (280-300); Phosphorous 2.5 mg/dL (2.7-4.5); Potassium 3.7 mEq/L (3.5-5.1); Sodium 138 mEq/L (136-145); eGFR For African Americans > 60 (> 60); eGFR For Non-African Americans > 60 (> 60)
[2019-09-05] MEDS: amLODIPine 5 MG TABLET PO SCH (12:26)
[2019-09-05] MEDS: Baclofen 10 MG TABLET PO PRN (12:36)
[2019-09-05] MEDS: Nicotine 21 MG PATCH.TD24 TD SCH (12:36)
[2019-09-05] MEDS: Thiamine (B-1) 100 MG, Folic Acid 1 MG, MVI, adult with vitamin K 10 ML in 0.9 % Sodi... IVPB SCH (17:53)
[2019-09-05] MEDS: Divalproex (24 HR) 500 MG TABLET PO SCH (21:12)
[2019-09-05] MEDS: Cholecalciferol (D-3) 1,000 UNIT (25MCG) TABLET PO SCH (21:13)
[2019-09-06 01:09] LABS: Basophils % 0.7 %; Eosinophils # 0.1 K/mcL (0.0-0.6); Eosinophils % 1.7 %; Hematocrit 38.9 % (37.5-50.1); Hemoglobin 13.1 g/dL (12.9-16.9); Immature Granulocytes % 0.2 % (0-4); Lymphocytes # 1.5 K/mcL (0.6-4.6); Lymphocytes % 33.6 %; Mean Corpuscular HGB Conc 33.7 g/dL (31.6-35.5); Mean Corpuscular Volume 92.2 fL (83.0-100.0); Monocytes # 0.5 K/mcL (0.0-1.3); Monocytes % 10.7 %; Neutrophils # 2.4 K/mcL (1.6-8.9); Platelet Count 115 K/mcL (140-400); Red Blood Count 4.22 M/mcL (4.19-5.50); Red Cell Distribution Width 13.9 % (11.5-14.5); Segmented Neutrophils % 53.1 %; White Blood Count 4.6 K/mcL (4.3-11.1)
[2019-09-06 01:28] LABS: BUN/Creatinine Ratio 14 (6-26); Blood Urea Nitrogen 10 mg/dL (6-20); Calcium 8.9 mg/dL (8.6-10.3); Carbon Dioxide 21 mEq/L (23-29); Chloride 108 mEq/L (98-107); Glucose 107 mg/dL (70-105); Magnesium 1.8 mg/dL (1.6-2.6); Osmolality,Calculated 282 (280-300); Phosphorous 3.2 mg/dL (2.7-4.5); Potassium 3.4 mEq/L (3.5-5.1); Sodium 136 mEq/L (136-145); eGFR For African Americans > 60 (> 60); eGFR For Non-African Americans > 60 (> 60)
[2019-09-06] MEDS: *HR* LORazepam 2 MG/ML VIAL IVP PRN ×3 (05:07→19:55)
[2019-09-06] MEDS: *HR* Heparin 5,000 UNIT/ML VIAL SQ SCH ×2 (05:07→17:14)
[2019-09-06] MEDS: 0.9 % Sodium Chloride 1,000 ML IVC SCH ×4 (05:08→16:47)
[2019-09-06] MEDS: amLODIPine 5 MG TABLET PO SCH (09:39)
[2019-09-06] MEDS: Nicotine 21 MG PATCH.TD24 TD SCH (09:39)
[2019-09-06] MEDS: Baclofen 10 MG TABLET PO PRN (11:15)
[2019-09-06] MEDS: Thiamine (B-1) 100 MG, Folic Acid 1 MG, MVI, adult with vitamin K 10 ML in 0.9 % Sodi... IVPB SCH (17:13)
[2019-09-06] MEDS: Cholecalciferol (D-3) 1,000 UNIT (25MCG) TABLET PO SCH (19:55)
[2019-09-06] MEDS: Divalproex (24 HR) 500 MG TABLET PO SCH (19:55)
[2019-09-06] MEDS: Famotidine 20 MG TABLET PO SCH (23:00)
[2019-09-07] MEDS: *HR* LORazepam 2 MG/ML VIAL IVP PRN ×3 (00:28→14:06)
[2019-09-07 03:23] VITALS: BP 133/93
[2019-09-07] MEDS: 0.9 % Sodium Chloride 1,000 ML IVC SCH (04:21)
[2019-09-07 05:42] LABS: White Blood Count 3.7 K/mcL (4.3-11.1)
[2019-09-07 05:43] LABS: Basophils % 1.1 %; Eosinophils # 0.1 K/mcL (0.0-0.6); Eosinophils % 2.7 %; Hematocrit 36.7 % (37.5-50.1); Hemoglobin 12.8 g/dL (12.9-16.9); Immature Granulocytes % 0.3 % (0-4); Lymphocytes # 1.4 K/mcL (0.6-4.6); Lymphocytes % 36.5 %; Mean Corpuscular HGB Conc 34.9 g/dL (31.6-35.5); Mean Corpuscular Hemoglobin 32.2 pg (28.0-33.3); Mean Corpuscular Volume 92.4 fL (83.0-100.0); Mean Platelet Volume 10.3 fL (9.4-12.4); Monocytes # 0.4 K/mcL (0.0-1.3); Monocytes % 10.3 %; Neutrophils # 1.8 K/mcL (1.6-8.9); Platelet Count 110 K/mcL (140-400); Red Blood Count 3.97 M/mcL (4.19-5.50); Red Cell Distribution Width 13.7 % (11.5-14.5); Segmented Neutrophils % 49.1 %
[2019-09-07] MEDS: *HR* Heparin 5,000 UNIT/ML VIAL SQ SCH (05:58)
[2019-09-07 05:59] LABS: BUN/Creatinine Ratio 9 (6-26); Blood Urea Nitrogen 5 mg/dL (6-20); Calcium 8.8 mg/dL (8.6-10.3); Carbon Dioxide 22 mEq/L (23-29); Chloride 110 mEq/L (98-107); Glucose 89 mg/dL (70-105); Magnesium 1.5 mg/dL (1.6-2.6); Osmolality,Calculated 285 (280-300); Phosphorous 3.7 mg/dL (2.7-4.5); Potassium 3.5 mEq/L (3.5-5.1); Sodium 139 mEq/L (136-145); eGFR For African Americans > 60 (> 60); eGFR For Non-African Americans > 60 (> 60)
[2019-09-07] MEDS: amLODIPine 5 MG TABLET PO SCH (09:00)
[2019-09-07] MEDS: Nicotine 21 MG PATCH.TD24 TD SCH (09:01)
[2019-09-07] MEDS: Famotidine 20 MG TABLET PO SCH (09:01)
[2019-09-07] MEDS ORDERED: Famotidine 20 MG TABLET PO SCH (22:39)
== END 2019-09-07 16:45 | disposition home or self-care (01) | DRG 775 ==
LOC: EMEROOARM 13:06 → 3BNU 13:06
PROVIDERS: ADMIT Internal Medicine; ATTEND Student in an Organized Health Care Education/Training Program

== ENCOUNTER 2019-09-24 18:58 | Observation (INO) ==
[2019-09-24 19:45] LABS: Bilirubin,Urine Negative (Negative); Blood,Urine Negative (Negative); Clarity,Urine Clear (Clear); Color,Urine Yellow (Yellow); Glucose,Urine (UA) Normal (Normal); Ketones,Urine Negative (Negative); Leukocyte Esterase,Urine Negative (Negative); Nitrite,Urine Negative (Negative); PH,Urine 6.5 pH Units (5.0-8.0); Protein,Urine Negative (Neg-Trace); Specific Gravity,Urine 1.005 (1.010-1.025); Urobilinogen,Urine Normal (Normal)
[2019-09-24 19:56] LABS: Amphetamine Screen,Urine Negative ng/mL (Cutoff=1000); Barbiturate Screen,Urine Negative ng/mL (Cutoff=200); Benzodiazepines Screen,Urine Negative ng/mL (Cutoff=200); Cannabinoid Screen,Urine Negative ng/mL (Cutoff = 50); Cocaine Screen,Urine Negative ng/mL (Cutoff= 300); Opiate Screen,Urine Negative ng/mL (Cutoff=300); Phencyclidine Screen,Urine Negative ng/mL (Cutoff=25)
[2019-09-24 20:18] LABS: Basophils # 0.1 K/mcL (0.0-0.2); Basophils % 1.9 %; Eosinophils # 0.3 K/mcL (0.0-0.6); Eosinophils % 4.4 %; Hematocrit 45.2 % (37.5-50.1); Hemoglobin 15.7 g/dL (12.9-16.9); Immature Granulocytes % 0.3 % (0-4); Lymphocytes # 2.6 K/mcL (0.6-4.6); Lymphocytes % 44.2 %; Mean Corpuscular HGB Conc 34.7 g/dL (31.6-35.5); Mean Corpuscular Hemoglobin 32.6 pg (28.0-33.3); Mean Platelet Volume 8.9 fL (9.4-12.4); Monocytes # 0.6 K/mcL (0.0-1.3); Monocytes % 9.6 %; Neutrophils # 2.4 K/mcL (1.6-8.9); Platelet Count 155 K/mcL (140-400); Red Blood Count 4.81 M/mcL (4.19-5.50); Red Cell Distribution Width 14.7 % (11.5-14.5); Segmented Neutrophils % 39.6 %; White Blood Count 5.9 K/mcL (4.3-11.1)
[2019-09-24] MEDS ORDERED: Thiamine (B-1) 100 MG in 0.9 % Sodium Chloride 50 ML IVPB STA (20:23)
[2019-09-24] MEDS ORDERED: 0.9 % Sodium Chloride 1,000 ML IVC ONE (20:23)
[2019-09-24] MEDS ORDERED: *HR* LORazepam 2 MG/ML VIAL IVP ONE (20:28)
[2019-09-24 20:32] LABS: Acetaminophen < 10 mcg/mL (10-20); BUN/Creatinine Ratio 8 (6-26); Blood Urea Nitrogen 6 mg/dL (6-20); Calcium 9.2 mg/dL (8.6-10.3); Carbon Dioxide 23 mEq/L (23-29); Chloride 107 mEq/L (98-107); Ethanol 440 mg/dL (Less than 10); Glucose 90 mg/dL (70-105); Osmolality,Calculated 297 (280-300); Potassium 3.8 mEq/L (3.5-5.1); Salicylate < 2.5 mg/dL (15.0-30.0); Sodium 145 mEq/L (136-145); eGFR For African Americans > 60 (> 60); eGFR For Non-African Americans > 60 (> 60)
[2019-09-25] MEDS ORDERED: *HR* LORazepam 2 MG/ML VIAL IVP ONE (04:14)
[2019-09-25] MEDS ORDERED: Naloxone 0.4 MG/ML INJ IVP PRN (05:24)
[2019-09-25] MEDS ORDERED: *HR* LORazepam 2 MG/ML VIAL IVP PRN ×2 (05:26)
[2019-09-25 05:55] LABS: Hematocrit 41.3 % (37.5-50.1); Hemoglobin 14.5 g/dL (12.9-16.9); Mean Corpuscular HGB Conc 35.1 g/dL (31.6-35.5); Mean Corpuscular Hemoglobin 32.2 pg (28.0-33.3); Mean Corpuscular Volume 91.6 fL (83.0-100.0); Platelet Count 124 K/mcL (140-400); Red Blood Count 4.51 M/mcL (4.19-5.50); Red Cell Distribution Width 14.7 % (11.5-14.5); White Blood Count 5.3 K/mcL (4.3-11.1)
[2019-09-25 05:58] LABS: INR 0.9; Prothrombin Time 10.5 Seconds (9.4-12.1)
[2019-09-25 06:13] LABS: Albumin 4.1 g/dL (3.5-5.7); Albumin/Globulin Ratio 1.6 (1.1-2.2); Bilirubin,Direct 0.1 mg/dL (0.0-0.2); Bilirubin,Indirect 0.5 mg/dL (0.0-1.0); Bilirubin,Total 0.6 mg/dL (0.3-1.0); Globulin 2.6 g/dL (2.4-3.5); Total Protein 6.7 g/dL (6.4-8.9)
[2019-09-25 06:16] LABS: Alanine Aminotransferase 176 Units/L (7-52); Albumin/Globulin Ratio 1.5 (1.1-2.2); Alkaline Phosphatase 79 Units/L (34-104); Aspartate Amino Transferase 190 Units/L (13-39); BUN/Creatinine Ratio 11 (6-26); Bilirubin,Total 0.6 mg/dL (0.3-1.0); Blood Urea Nitrogen 7 mg/dL (6-20); Calcium 8.7 mg/dL (8.6-10.3); Carbon Dioxide 23 mEq/L (23-29); Chloride 106 mEq/L (98-107); Globulin 2.7 g/dL (2.4-3.5); Glucose 76 mg/dL (70-105); Osmolality,Calculated 289 (280-300); Potassium 3.7 mEq/L (3.5-5.1); Sodium 141 mEq/L (136-145); Total Protein 6.7 g/dL (6.4-8.9); eGFR For African Americans > 60 (> 60); eGFR For Non-African Americans > 60 (> 60)
[2019-09-25] MEDS ORDERED: Nicotine 21 MG PATCH.TD24 TD SCH (06:23)
[2019-09-25] MEDS: *HR* LORazepam 2 MG/ML VIAL IVP PRN ×2 (08:22→14:33)
[2019-09-25] MEDS ORDERED: Famotidine 20 MG TABLET PO PRN (12:29)
[2019-09-25 17:14] VITALS: BP 143/91
[2019-09-25] MEDS ORDERED: *HR* Heparin 5,000 UNIT/ML VIAL SQ SCH (18:00)
[2019-09-25] MEDS ORDERED: Thiamine (B-1) 100 MG, Folic Acid 1 MG, MVI, adult with vitamin K 10 ML in 0.9 % Sodi... IVPB SCH (18:00)
[2019-09-25] MEDS ORDERED: Cholecalciferol (D-3) 1,000 UNIT (25MCG) TABLET PO SCH (21:00)
[2019-09-25] MEDS ORDERED: Divalproex (24 HR) 500 MG TABLET PO SCH (21:00)
[2019-09-26] MEDS ORDERED: Folic Acid 1 MG TABLET PO SCH (09:00)
[2019-09-26] MEDS ORDERED: Cyanocobalamin (B-12) 1,000 MCG TABLET PO SCH (09:00)
[2019-09-28] MEDS ORDERED: Folic Acid 1 MG TABLET PO SCH (09:00)
[2019-09-28] MEDS ORDERED: Vitamin B Complex/Vit C/Vit E 1 EACH TABLET PO SCH (09:00)
== END 2019-09-25 18:14 | disposition left against medical advice (07) ==
LOC: 3BNU 18:58 → EMEROOARM 18:58 → 3BNU 09-25 05:25
PROVIDERS: ADMIT Internal Medicine; ATTEND Internal Medicine

== ENCOUNTER 2019-10-11 11:51 | Inpatient (IN) ==
[2019-10-11 12:27] LABS: Bilirubin,Urine Small (Negative); Blood,Urine Negative (Negative); Clarity,Urine Cloudy (Clear); Color,Urine Dark Yellow (Yellow); Glucose,Urine (UA) Normal (Normal); Ketones,Urine 15 mg/dL (Negative); Leukocyte Esterase,Urine Small (Negative); Nitrite,Urine Negative (Negative); Protein,Urine 30 mg/dL (Neg-Trace); Specific Gravity,Urine 1.016 (1.010-1.025)
[2019-10-11 12:29] LABS: Bacteria,Urine None Seen per hpf (None-Few); Hyaline Casts,Urine None Seen per lpf (None-Few); RBC,Urine 0-3 per hpf (0-3); Squamous Epithelial Cell,Urine Few per lpf (None-Few); WBC,Urine 0-3 per hpf (0-3)
[2019-10-11 12:38] LABS: Basophils # 0.1 K/mcL (0.0-0.2); Basophils % 1.6 %; Eosinophils # 0.1 K/mcL (0.0-0.6); Eosinophils % 1.6 %; Hematocrit 42.1 % (37.5-50.1); Hemoglobin 15.2 g/dL (12.9-16.9); Immature Granulocytes % 0.2 % (0-4); Lymphocytes # 1.4 K/mcL (0.6-4.6); Mean Corpuscular HGB Conc 36.1 g/dL (31.6-35.5); Mean Corpuscular Volume 91.5 fL (83.0-100.0); Mean Platelet Volume 9.6 fL (9.4-12.4); Monocytes # 0.5 K/mcL (0.0-1.3); Monocytes % 11.3 %; Neutrophils # 2.4 K/mcL (1.6-8.9); Platelet Count 117 K/mcL (140-400); Red Cell Distribution Width 13.2 % (11.5-14.5); Segmented Neutrophils % 53.3 %; White Blood Count 4.4 K/mcL (4.3-11.1)
[2019-10-11] MEDS ORDERED: *HR* LORazepam 2 MG/ML VIAL IVP PRN (12:46)
[2019-10-11 12:55] LABS: Amphetamine Screen,Urine Positive ng/mL (Cutoff=1000); Barbiturate Screen,Urine Negative ng/mL (Cutoff=200); Benzodiazepines Screen,Urine Negative ng/mL (Cutoff=200); Cannabinoid Screen,Urine Negative ng/mL (Cutoff = 50); Cocaine Screen,Urine Negative ng/mL (Cutoff= 300); Opiate Screen,Urine Negative ng/mL (Cutoff=300); Phencyclidine Screen,Urine Negative ng/mL (Cutoff=25)
[2019-10-11 12:57] LABS: Acetaminophen < 10 mcg/mL (10-20); BUN/Creatinine Ratio 12 (6-26); Blood Urea Nitrogen 8 mg/dL (6-20); Calcium 9.8 mg/dL (8.6-10.3); Carbon Dioxide 19 mEq/L (23-29); Chloride 98 mEq/L (98-107); Ethanol 303 mg/dL (Less than 10); Glucose 87 mg/dL (70-105); Osmolality,Calculated 284 (280-300); Potassium 3.6 mEq/L (3.5-5.1); Salicylate < 2.5 mg/dL (15.0-30.0); Sodium 138 mEq/L (136-145); eGFR For African Americans > 60 (> 60); eGFR For Non-African Americans > 60 (> 60)
[2019-10-11] MEDS ORDERED: *HR* LORazepam 2 MG/ML VIAL IVP ONE (13:39)
[2019-10-11] MEDS ORDERED: Ibuprofen 400 MG TABLET PO PRN (14:34)
[2019-10-11] MEDS ORDERED: Naloxone 0.4 MG/ML INJ IVP PRN (14:34)
[2019-10-11] MEDS ORDERED: Ondansetron 4 MG/2 ML VIAL IVP PRN (14:34)
[2019-10-11 16:33] LABS: VBG HCO3 21 mEq/L (21-27); VBG PCO2 25 mmHg (41-51); VBG PH 7.54 pH Units (7.32-7.42); VBG PO2 234 mmHg (25-50)
[2019-10-11 16:54] LABS: Albumin 4.2 g/dL (3.5-5.7); Albumin/Globulin Ratio 1.4 (1.1-2.2); Bilirubin,Direct 0.6 mg/dL (0.0-0.2); Bilirubin,Indirect 0.8 mg/dL (0.0-1.0); Bilirubin,Total 1.4 mg/dL (0.3-1.0); Globulin 2.9 g/dL (2.4-3.5); Total Protein 7.1 g/dL (6.4-8.9)
[2019-10-11] MEDS ORDERED: Ringers Solution, Lactated 1,000 ML IVC SCH (18:00)
[2019-10-11] MEDS: Thiamine (B-1) 100 MG, Folic Acid 1 MG, MVI, adult with vitamin K 10 ML in 0.9 % Sodi... IVPB SCH (19:10)
[2019-10-11] MEDS: hydrOXYzine pamoate 25 MG CAPSULE PO PRN (20:35)
[2019-10-11] MEDS ORDERED: MELATONIN 3 MG PO SCH (21:00)
[2019-10-11] MEDS ORDERED: Divalproex (24 HR) 500 MG TABLET PO SCH (21:00)
[2019-10-11] MEDS: *HR* LORazepam 2 MG/ML VIAL IVP PRN (21:29)
[2019-10-11] MEDS: Nicotine 21 MG PATCH.TD24 TD SCH (21:30)
[2019-10-12] MEDS: *HR* LORazepam 2 MG/ML VIAL IVP PRN ×5 (02:28→22:05)
[2019-10-12 02:41] LABS: Red Cell Distribution Width 13.2 % (11.5-14.5)
[2019-10-12 02:43] LABS: Basophils # 0.1 K/mcL (0.0-0.2); Basophils % 1.6 %; Eosinophils # 0.1 K/mcL (0.0-0.6); Eosinophils % 1.9 %; Hematocrit 34.8 % (37.5-50.1); Hemoglobin 12.6 g/dL (12.9-16.9); Immature Granulocytes % 0.3 % (0-4); Immature Platelets 7.4 % (1.1-6.1); Lymphocytes # 1.4 K/mcL (0.6-4.6); Lymphocytes % 46.2 %; Mean Corpuscular HGB Conc 36.2 g/dL (31.6-35.5); Mean Corpuscular Hemoglobin 32.5 pg (28.0-33.3); Mean Corpuscular Volume 89.7 fL (83.0-100.0); Mean Platelet Volume 10.2 fL (9.4-12.4); Monocytes # 0.3 K/mcL (0.0-1.3); Monocytes % 9.9 %; Neutrophils # 1.2 K/mcL (1.6-8.9); Platelet Count 82 K/mcL (140-400); Red Blood Count 3.88 M/mcL (4.19-5.50); Segmented Neutrophils % 40.1 %; White Blood Count 3.1 K/mcL (4.3-11.1)
[2019-10-12 02:46] LABS: Prothrombin Time 11.1 Seconds (9.4-12.1)
[2019-10-12 03:01] LABS: Alanine Aminotransferase 336 Units/L (7-52); Albumin 3.7 g/dL (3.5-5.7); Albumin/Globulin Ratio 1.5 (1.1-2.2); Alkaline Phosphatase 84 Units/L (34-104); Aspartate Amino Transferase 330 Units/L (13-39); BUN/Creatinine Ratio 20 (6-26); Bilirubin,Total 1.8 mg/dL (0.3-1.0); Blood Urea Nitrogen 12 mg/dL (6-20); Calcium 9.4 mg/dL (8.6-10.3); Carbon Dioxide 25 mEq/L (23-29); Chloride 99 mEq/L (98-107); Globulin 2.4 g/dL (2.4-3.5); Glucose 84 mg/dL (70-105); Magnesium 1.9 mg/dL (1.6-2.6); Osmolality,Calculated 281 (280-300); Phosphorous 3.9 mg/dL (2.7-4.5); Potassium 3.6 mEq/L (3.5-5.1); Sodium 136 mEq/L (136-145); Total Protein 6.1 g/dL (6.4-8.9); eGFR For African Americans > 60 (> 60); eGFR For Non-African Americans > 60 (> 60)
[2019-10-12 04:36] LABS: Hepatitis B Core IgM Nonreactive (Nonreactive)
[2019-10-12 04:37] LABS: Hepatitis A Antibody IgM Nonreactive (Nonreactive)
[2019-10-12] MEDS: Thiamine (B-1) 100 MG, Folic Acid 1 MG, MVI, adult with vitamin K 10 ML in 0.9 % Sodi... IVPB SCH (09:00)
[2019-10-12] MEDS: Nicotine 21 MG PATCH.TD24 TD SCH (09:01)
[2019-10-12 09:19] LABS: Hepatitis B Surface Antigen Reactive (Nonreactive); Hepatitis C Virus Antibody Reactive (Nonreactive)
[2019-10-12] MEDS: hydrOXYzine pamoate 25 MG CAPSULE PO PRN (17:32)
[2019-10-12] MEDS: OLANZapine 10 MG TAB.RAPDIS PO SCH (21:34)
[2019-10-13] MEDS: Nicotine 21 MG PATCH.TD24 TD SCH ×2 (00:48→08:59)
[2019-10-13] MEDS: *HR* LORazepam 2 MG/ML VIAL IVP PRN ×5 (02:11→16:09)
[2019-10-13 07:31] LABS: Red Blood Count 3.75 M/mcL (4.19-5.50)
[2019-10-13 07:33] LABS: Basophils % 0.7 %; Eosinophils # 0.1 K/mcL (0.0-0.6); Eosinophils % 3.5 %; Hematocrit 34.4 % (37.5-50.1); Hemoglobin 12.3 g/dL (12.9-16.9); Immature Granulocytes % 0.7 % (0-4); Immature Platelets 9.5 % (1.1-6.1); Lymphocytes # 1.3 K/mcL (0.6-4.6); Lymphocytes % 46.6 %; Mean Corpuscular HGB Conc 35.8 g/dL (31.6-35.5); Mean Corpuscular Hemoglobin 32.8 pg (28.0-33.3); Mean Corpuscular Volume 91.7 fL (83.0-100.0); Mean Platelet Volume 11.4 fL (9.4-12.4); Monocytes # 0.3 K/mcL (0.0-1.3); Monocytes % 9.9 %; Neutrophils # 1.1 K/mcL (1.6-8.9); Segmented Neutrophils % 38.6 %; White Blood Count 2.8 K/mcL (4.3-11.1)
[2019-10-13 07:37] LABS: Platelet Count 84 K/mcL (140-400)
[2019-10-13 07:46] LABS: Alanine Aminotransferase 248 Units/L (7-52); Albumin 3.8 g/dL (3.5-5.7); Albumin/Globulin Ratio 1.7 (1.1-2.2); Alkaline Phosphatase 87 Units/L (34-104); Aspartate Amino Transferase 210 Units/L (13-39); BUN/Creatinine Ratio 15 (6-26); Bilirubin,Total 1.1 mg/dL (0.3-1.0); Blood Urea Nitrogen 8 mg/dL (6-20); Calcium 9.7 mg/dL (8.6-10.3); Carbon Dioxide 26 mEq/L (23-29); Chloride 104 mEq/L (98-107); Globulin 2.3 g/dL (2.4-3.5); Glucose 99 mg/dL (70-105); Osmolality,Calculated 286 (280-300); Potassium 3.6 mEq/L (3.5-5.1); Sodium 139 mEq/L (136-145); Total Protein 6.1 g/dL (6.4-8.9); eGFR For African Americans > 60 (> 60); eGFR For Non-African Americans > 60 (> 60)
[2019-10-13] MEDS: Thiamine (B-1) 100 MG, Folic Acid 1 MG, MVI, adult with vitamin K 10 ML in 0.9 % Sodi... IVPB SCH (08:40)
[2019-10-13] MEDS: OLANZapine 10 MG TAB.RAPDIS PO SCH (21:02)
[2019-10-13] MEDS: Lactulose Oral Soln 20 GM/30 ML UDC PO SCH (21:02)
[2019-10-14] MEDS: Melatonin 3 MG TABLET PO PRN ×2 (00:09→20:42)
[2019-10-14] MEDS: hydrOXYzine pamoate 25 MG CAPSULE PO PRN ×2 (00:09→20:43)
[2019-10-14] MEDS: *HR* LORazepam 2 MG/ML VIAL IVP PRN ×5 (04:26→21:17)
[2019-10-14 05:05] LABS: Hematocrit 34.3 % (37.5-50.1); Immature Granulocytes % 0.3 % (0-4); Mean Platelet Volume 10.3 fL (9.4-12.4); Red Cell Distribution Width 13.2 % (11.5-14.5)
[2019-10-14 05:07] LABS: Basophils % 1.2 %; Eosinophils # 0.1 K/mcL (0.0-0.6); Eosinophils % 3.5 %; Immature Platelets 8.5 % (1.1-6.1); Lymphocytes # 1.5 K/mcL (0.6-4.6); Lymphocytes % 44.1 %; Mean Corpuscular Hemoglobin 32.5 pg (28.0-33.3); Monocytes # 0.3 K/mcL (0.0-1.3); Monocytes % 9.8 %; Neutrophils # 1.4 K/mcL (1.6-8.9); Red Blood Count 3.69 M/mcL (4.19-5.50); Segmented Neutrophils % 41.1 %; White Blood Count 3.5 K/mcL (4.3-11.1)
[2019-10-14 05:09] LABS: Platelet Count 90 K/mcL (140-400)
[2019-10-14 05:27] LABS: Alanine Aminotransferase 212 Units/L (7-52); Albumin 3.7 g/dL (3.5-5.7); Albumin/Globulin Ratio 1.5 (1.1-2.2); Alkaline Phosphatase 108 Units/L (34-104); Aspartate Amino Transferase 156 Units/L (13-39); BUN/Creatinine Ratio 16 (6-26); Bilirubin,Total 0.7 mg/dL (0.3-1.0); Blood Urea Nitrogen 11 mg/dL (6-20); Calcium 9.4 mg/dL (8.6-10.3); Carbon Dioxide 22 mEq/L (23-29); Chloride 109 mEq/L (98-107); Globulin 2.4 g/dL (2.4-3.5); Glucose 114 mg/dL (70-105); Osmolality,Calculated 292 (280-300); Potassium 3.5 mEq/L (3.5-5.1); Sodium 141 mEq/L (136-145); Total Protein 6.1 g/dL (6.4-8.9); eGFR For African Americans > 60 (> 60); eGFR For Non-African Americans > 60 (> 60)
[2019-10-14] MEDS: Nicotine 21 MG PATCH.TD24 TD SCH (08:48)
[2019-10-14] MEDS: Lactulose Oral Soln 20 GM/30 ML UDC PO SCH ×2 (08:48→20:35)
[2019-10-14] MEDS: OLANZapine 10 MG TAB.RAPDIS PO SCH (20:34)
[2019-10-15 02:14] LABS: Basophils % 0.6 %; Eosinophils # 0.1 K/mcL (0.0-0.6); Hematocrit 33.7 % (37.5-50.1); Hemoglobin 11.3 g/dL (12.9-16.9); Immature Granulocytes % 0.6 % (0-4); Lymphocytes # 1.3 K/mcL (0.6-4.6); Lymphocytes % 37.9 %; Mean Corpuscular HGB Conc 33.5 g/dL (31.6-35.5); Mean Corpuscular Hemoglobin 32.6 pg (28.0-33.3); Mean Corpuscular Volume 97.1 fL (83.0-100.0); Mean Platelet Volume 11.1 fL (9.4-12.4); Monocytes # 0.4 K/mcL (0.0-1.3); Monocytes % 11.2 %; Neutrophils # 1.6 K/mcL (1.6-8.9); Platelet Count 101 K/mcL (140-400); Red Blood Count 3.47 M/mcL (4.19-5.50); Red Cell Distribution Width 13.5 % (11.5-14.5); Segmented Neutrophils % 46.7 %; White Blood Count 3.4 K/mcL (4.3-11.1)
[2019-10-15 02:34] LABS: Alanine Aminotransferase 197 Units/L (7-52); Albumin 3.4 g/dL (3.5-5.7); Albumin/Globulin Ratio 1.4 (1.1-2.2); Alkaline Phosphatase 83 Units/L (34-104); Aspartate Amino Transferase 139 Units/L (13-39); BUN/Creatinine Ratio 14 (6-26); Bilirubin,Total 0.5 mg/dL (0.3-1.0); Blood Urea Nitrogen 10 mg/dL (6-20); Calcium 8.9 mg/dL (8.6-10.3); Carbon Dioxide 22 mEq/L (23-29); Chloride 110 mEq/L (98-107); Globulin 2.4 g/dL (2.4-3.5); Glucose 112 mg/dL (70-105); Osmolality,Calculated 290 (280-300); Potassium 3.8 mEq/L (3.5-5.1); Sodium 140 mEq/L (136-145); Total Protein 5.8 g/dL (6.4-8.9); eGFR For African Americans > 60 (> 60); eGFR For Non-African Americans > 60 (> 60)
[2019-10-15] MEDS ORDERED: *HR* LORazepam 2 MG/ML VIAL IVP ONE (06:23)
[2019-10-15] MEDS: Lactulose Oral Soln 20 GM/30 ML UDC PO SCH ×2 (13:12→20:18)
[2019-10-15] MEDS: Nicotine 21 MG PATCH.TD24 TD SCH (13:12)
[2019-10-15] MEDS: *HR* LORazepam 2 MG/ML VIAL IVP PRN ×2 (14:59→20:14)
[2019-10-15] MEDS: OLANZapine 10 MG TAB.RAPDIS PO SCH (20:18)
[2019-10-16] MEDS: *HR* LORazepam 2 MG/ML VIAL IVP PRN ×5 (00:50→20:31)
[2019-10-16 01:51] LABS: Basophils % 0.8 %; Eosinophils # 0.1 K/mcL (0.0-0.6); Eosinophils % 3.2 %; Hematocrit 33.8 % (37.5-50.1); Hemoglobin 12.1 g/dL (12.9-16.9); Immature Granulocytes % 0.5 % (0-4); Lymphocytes # 1.5 K/mcL (0.6-4.6); Lymphocytes % 38.8 %; Mean Corpuscular HGB Conc 35.8 g/dL (31.6-35.5); Mean Corpuscular Hemoglobin 33.2 pg (28.0-33.3); Mean Corpuscular Volume 92.6 fL (83.0-100.0); Mean Platelet Volume 10.8 fL (9.4-12.4); Monocytes # 0.4 K/mcL (0.0-1.3); Monocytes % 11.7 %; Neutrophils # 1.7 K/mcL (1.6-8.9); Platelet Count 137 K/mcL (140-400); Red Blood Count 3.65 M/mcL (4.19-5.50); Red Cell Distribution Width 13.5 % (11.5-14.5); White Blood Count 3.8 K/mcL (4.3-11.1)
[2019-10-16 01:53] LABS: Alanine Aminotransferase 219 Units/L (7-52); Albumin 3.5 g/dL (3.5-5.7); Albumin/Globulin Ratio 1.5 (1.1-2.2); Alkaline Phosphatase 85 Units/L (34-104); Aspartate Amino Transferase 146 Units/L (13-39); BUN/Creatinine Ratio 17 (6-26); Bilirubin,Total 0.4 mg/dL (0.3-1.0); Blood Urea Nitrogen 14 mg/dL (6-20); Carbon Dioxide 24 mEq/L (23-29); Chloride 108 mEq/L (98-107); Globulin 2.4 g/dL (2.4-3.5); Glucose 140 mg/dL (70-105); Osmolality,Calculated 293 (280-300); Potassium 3.8 mEq/L (3.5-5.1); Sodium 140 mEq/L (136-145); Total Protein 5.9 g/dL (6.4-8.9); eGFR For African Americans > 60 (> 60); eGFR For Non-African Americans > 60 (> 60)
[2019-10-16] MEDS: Lactulose Oral Soln 20 GM/30 ML UDC PO SCH ×2 (08:59→20:33)
[2019-10-16] MEDS: Nicotine 21 MG PATCH.TD24 TD SCH (08:59)
[2019-10-16] MEDS: hydrOXYzine pamoate 25 MG CAPSULE PO PRN ×2 (15:21→21:28)
[2019-10-16] MEDS: OLANZapine 10 MG TAB.RAPDIS PO SCH (20:33)
[2019-10-16] MEDS: Melatonin 3 MG TABLET PO PRN (20:42)
[2019-10-17 06:29] LABS: Alanine Aminotransferase 209 Units/L (7-52); Albumin 3.5 g/dL (3.5-5.7); Albumin/Globulin Ratio 1.6 (1.1-2.2); Alkaline Phosphatase 76 Units/L (34-104); Aspartate Amino Transferase 117 Units/L (13-39); BUN/Creatinine Ratio 19 (6-26); Bilirubin,Total 0.4 mg/dL (0.3-1.0); Blood Urea Nitrogen 14 mg/dL (6-20); Calcium 9.1 mg/dL (8.6-10.3); Carbon Dioxide 26 mEq/L (23-29); Chloride 109 mEq/L (98-107); Globulin 2.2 g/dL (2.4-3.5); Glucose 118 mg/dL (70-105); Magnesium 1.5 mg/dL (1.6-2.6); Osmolality,Calculated 292 (280-300); Potassium 3.7 mEq/L (3.5-5.1); Sodium 140 mEq/L (136-145); Total Protein 5.7 g/dL (6.4-8.9); eGFR For African Americans > 60 (> 60); eGFR For Non-African Americans > 60 (> 60)
[2019-10-17] MEDS: Nicotine 21 MG PATCH.TD24 TD SCH (08:45)
[2019-10-17] MEDS: Lactulose Oral Soln 20 GM/30 ML UDC PO SCH ×2 (08:46→20:37)
[2019-10-17] MEDS: *HR* LORazepam 2 MG/ML VIAL IVP PRN ×4 (09:23→23:42)
[2019-10-17] MEDS: hydrOXYzine pamoate 25 MG CAPSULE PO PRN ×3 (10:50→23:40)
[2019-10-17 13:14] LABS: HCV Quant Interpretation DETECTED (Not Detected); HCV Quant Log 5.18 log IU/mL
[2019-10-17] MEDS: OLANZapine 10 MG TAB.RAPDIS PO SCH (20:37)
[2019-10-17] MEDS: Melatonin 3 MG TABLET PO PRN (20:45)
[2019-10-18] MEDS: Lactulose Oral Soln 20 GM/30 ML UDC PO SCH (08:51)
[2019-10-18] MEDS: Nicotine 21 MG PATCH.TD24 TD SCH (08:52)
[2019-10-18] MEDS: hydrOXYzine pamoate 25 MG CAPSULE PO PRN (08:53)
[2019-10-18 14:22] LABS: HCV Genotype by Sequencing 1A OR 1B
[2019-10-18 15:55] VITALS: BP 125/85
== END 2019-10-18 16:19 | disposition home or self-care (01) | DRG 775 ==
LOC: EMEROOARM 11:51 → 3BNU 11:51
PROVIDERS: ADMIT Internal Medicine; ATTEND Internal Medicine

== ENCOUNTER 2020-03-07 14:23 | Observation (INO) ==
[2020-03-07] MEDS ORDERED: ALPRAZolam 1 MG TABLET PO ONE (14:43)
[2020-03-07 15:10] LABS: Basophils # 0.1 K/mcL (0.0-0.2); Basophils % 1.2 %; Eosinophils # 0.1 K/mcL (0.0-0.6); Eosinophils % 0.9 %; Hemoglobin 16.9 g/dL (12.9-16.9); Immature Granulocytes % 0.2 % (0-4); Lymphocytes % 40.5 %; Mean Corpuscular HGB Conc 35.2 g/dL (31.6-35.5); Mean Corpuscular Hemoglobin 32.5 pg (28.0-33.3); Mean Corpuscular Volume 92.3 fL (83.0-100.0); Mean Platelet Volume 10.1 fL (9.4-12.4); Monocytes # 0.7 K/mcL (0.0-1.3); Monocytes % 6.7 %; Neutrophils # 4.9 K/mcL (1.6-8.9); Platelet Count 118 K/mcL (140-400); Red Cell Distribution Width 13.2 % (11.5-14.5); Segmented Neutrophils % 50.5 %; White Blood Count 9.8 K/mcL (4.3-11.1)
[2020-03-07 15:24] LABS: Acetaminophen < 10 mcg/mL (10-20); Alanine Aminotransferase 59 Units/L (7-52); Albumin 4.7 g/dL (3.5-5.7); Albumin/Globulin Ratio 1.5 (1.1-2.2); Alkaline Phosphatase 94 Units/L (34-104); Aspartate Amino Transferase 77 Units/L (13-39); BUN/Creatinine Ratio 6 (6-26); Bilirubin,Direct 0.3 mg/dL (0.0-0.2); Bilirubin,Indirect 0.7 mg/dL (0.0-1.0); Blood Urea Nitrogen 4 mg/dL (6-20); Calcium 9.4 mg/dL (8.6-10.3); Carbon Dioxide 22 mEq/L (23-29); Chloride 104 mEq/L (98-107); Ethanol 339 mg/dL (Less than 10); Globulin 3.2 g/dL (2.4-3.5); Glucose 103 mg/dL (70-105); Osmolality,Calculated 287 (280-300); Potassium 3.4 mEq/L (3.5-5.1); Salicylate < 2.5 mg/dL (15.0-30.0); Sodium 140 mEq/L (136-145); Total Protein 7.9 g/dL (6.4-8.9); eGFR For African Americans > 60 (> 60); eGFR For Non-African Americans > 60 (> 60)
[2020-03-07 15:37] LABS: Amphetamine Screen,Urine Negative ng/mL (Cutoff=1000); Barbiturate Screen,Urine Negative ng/mL (Cutoff=200); Benzodiazepines Screen,Urine Negative ng/mL (Cutoff=200); Cannabinoid Screen,Urine Negative ng/mL (Cutoff = 50); Cocaine Screen,Urine Negative ng/mL (Cutoff= 300); Opiate Screen,Urine Negative ng/mL (Cutoff=300); Phencyclidine Screen,Urine Negative ng/mL (Cutoff=25)
[2020-03-07] MEDS ORDERED: Ziprasidone 20 MG in Water for inj. (sterile) 1 ML IM ONE (16:22)
[2020-03-07] MEDS ORDERED: HydrOXYzine SYP 10 MG/5 ML UDC PO ONE (23:30)
[2020-03-08] MEDS ORDERED: Mag Hydrox/Al Hydrox/Simeth 30 ML UDC PO PRN (05:06)
[2020-03-08] MEDS ORDERED: haloperidoL 5 MG TABLET PO PRN (05:06)
[2020-03-08] MEDS ORDERED: MOM Conc 10 ML UD.LIQ PO PRN (05:06)
[2020-03-08] MEDS ORDERED: traZODone 50 MG TABLET PO PRN (05:06)
[2020-03-08] MEDS ORDERED: *HR* LORazepam 1 MG TABLET PO PRN (05:06)
[2020-03-08] MEDS ORDERED: Haloperidol Lactate 5 MG/ML VIAL IM PRN (05:06)
[2020-03-08] MEDS ORDERED: *HR* LORazepam 2 MG/ML VIAL IM PRN (05:06)
[2020-03-08] MEDS: Folic Acid 1 MG TABLET PO SCH (10:30)
[2020-03-08] MEDS: Nicotine 21 MG PATCH.TD24 TD SCH (10:30)
[2020-03-08] MEDS: Thiamine (B-1) 100 MG TABLET PO SCH (10:30)
[2020-03-08] MEDS: hydrOXYzine pamoate 25 MG CAPSULE PO PRN ×2 (12:58→19:31)
[2020-03-08] MEDS: Acetaminophen 325 MG TABLET PO PRN (16:57)
[2020-03-08] MEDS ORDERED: QUEtiapine Fumarate 25 MG TABLET PO SCH (21:00)
[2020-03-09 08:22] VITALS: BP 131/88
[2020-03-09] MEDS: Folic Acid 1 MG TABLET PO SCH (08:22)
[2020-03-09] MEDS: Nicotine 21 MG PATCH.TD24 TD SCH (08:22)
[2020-03-09] MEDS: Acetaminophen 325 MG TABLET PO PRN (08:22)
[2020-03-09] MEDS: hydrOXYzine pamoate 25 MG CAPSULE PO PRN ×2 (08:22→12:28)
[2020-03-09] MEDS: Thiamine (B-1) 100 MG TABLET PO SCH (08:27)
== END 2020-03-09 15:30 | disposition other institution (70) ==
LOC: 1ANU 14:23 → EMEROOARM 14:23 → 1ANU 03-08 06:50
PROVIDERS: ADMIT Psychiatry & Neurology Psychiatry; ATTEND Psychiatry & Neurology Psychiatry

== ENCOUNTER 2020-06-19 13:02 | Observation (INO) ==
[2020-06-19] MEDS ORDERED: *HR* LORazepam 2 MG/ML VIAL IM ONE (13:05)
[2020-06-19 14:08] LABS: Basophils # 0.1 K/mcL (0.0-0.2); Basophils % 1.5 %; Eosinophils # 0.4 K/mcL (0.0-0.6); Eosinophils % 4.8 %; Hematocrit 46.5 % (37.5-50.1); Hemoglobin 15.5 g/dL (12.9-16.9); Immature Granulocytes % 0.3 % (0-4); Lymphocytes # 2.6 K/mcL (0.6-4.6); Lymphocytes % 36.3 %; Mean Corpuscular HGB Conc 33.3 g/dL (31.6-35.5); Mean Corpuscular Hemoglobin 31.3 pg (28.0-33.3); Mean Corpuscular Volume 93.8 fL (83.0-100.0); Mean Platelet Volume 8.7 fL (9.4-12.4); Monocytes # 0.7 K/mcL (0.0-1.3); Monocytes % 9.3 %; Neutrophils # 3.5 K/mcL (1.6-8.9); Nucleated Red Blood Cells 0.3 /100 WBC (0); Platelet Count 207 K/mcL (140-400); Red Blood Count 4.96 M/mcL (4.19-5.50); Red Cell Distribution Width 13.7 % (11.5-14.5); Segmented Neutrophils % 47.8 %; White Blood Count 7.2 K/mcL (4.3-11.1)
[2020-06-19 14:17] LABS: Bilirubin,Urine Negative (Negative); Blood,Urine Negative (Negative); Clarity,Urine Clear (Clear); Color,Urine Yellow (Yellow); Glucose,Urine (UA) Normal (Normal); Ketones,Urine Negative (Negative); Leukocyte Esterase,Urine Negative (Negative); Mucus,Urine Few per lpf (None-Few); Nitrite,Urine Negative (Negative); Protein,Urine 50 mg/dL (Neg-Trace); RBC,Urine 0-3 per hpf (0-3); Specific Gravity,Urine 1.018 (1.010-1.025); Urobilinogen,Urine Normal (Normal); WBC,Urine 0-3 per hpf (0-3)
[2020-06-19 14:29] LABS: Acetaminophen < 10 mcg/mL (10-20); BUN/Creatinine Ratio 12 (6-26); Blood Urea Nitrogen 7 mg/dL (6-20); Carbon Dioxide 22 mEq/L (23-29); Chloride 104 mEq/L (98-107); Chol/HDL Ratio 2.4 (0-4.9); Cholesterol 163 mg/dL (< 200); Ethanol 285 mg/dL (Less than 10); Glucose 79 mg/dL (70-105); HDL Cholesterol 67 mg/dL (40-59); LDL Cholesterol,Calculated 80 mg/dL (< 100); Osmolality,Calculated 291 (280-300); Potassium 3.1 mEq/L (3.5-5.1); Salicylate < 2.5 mg/dL (15.0-30.0); Sodium 142 mEq/L (136-145); Triglycerides 79 mg/dL (< 150); eGFR For African Americans > 60 (> 60); eGFR For Non-African Americans > 60 (> 60)
[2020-06-19 14:30] LABS: Amphetamine Screen,Urine Negative ng/mL (Cutoff=1000); Barbiturate Screen,Urine Negative ng/mL (Cutoff=200); Benzodiazepines Screen,Urine Negative ng/mL (Cutoff=200); Cannabinoid Screen,Urine Positive ng/mL (Cutoff = 50); Cocaine Screen,Urine Negative ng/mL (Cutoff= 300); Opiate Screen,Urine Negative ng/mL (Cutoff=300); Phencyclidine Screen,Urine Negative ng/mL (Cutoff=25)
[2020-06-19 14:42] LABS: Thyroid Stimulating Hormone 0.622 mcIU/mL (0.340-5.600)
[2020-06-19] MEDS ORDERED: *HR* LORazepam 2 MG/ML VIAL IVP PRN (15:09)
[2020-06-19] MEDS ORDERED: Thiamine (B-1) 100 MG, Folic Acid 1 MG, MVI, adult with vitamin K 10 ML in 0.9 % Sodi... IVPB ONE (15:10)
[2020-06-19 15:40] LABS: Alanine Aminotransferase 25 Units/L (7-52); Albumin 4.1 g/dL (3.5-5.7); Albumin/Globulin Ratio 1.6 (1.1-2.2); Alkaline Phosphatase 70 Units/L (34-104); Aspartate Amino Transferase 33 Units/L (13-39); Bilirubin,Total 0.6 mg/dL (0.3-1.0); Globulin 2.6 g/dL (2.4-3.5); Total Protein 6.7 g/dL (6.4-8.9)
[2020-06-19] MEDS: 0.9 % Sodium Chloride 1,000 ML IVC SCH (16:44)
[2020-06-19] MEDS: *HR* LORazepam 2 MG/ML VIAL IVP PRN ×2 (16:58→21:09)
[2020-06-19] MEDS: Nicotine 14 MG PATCH.TD24 TD SCH (21:09)
[2020-06-20] MEDS: *HR* LORazepam 2 MG/ML VIAL IVP PRN ×5 (04:05→20:39)
[2020-06-20 04:18] LABS: Basophils # 0.1 K/mcL (0.0-0.2); Eosinophils # 0.2 K/mcL (0.0-0.6); Eosinophils % 3.5 %; Hematocrit 38.7 % (37.5-50.1); Immature Granulocytes % 0.2 % (0-4); Lymphocytes # 1.4 K/mcL (0.6-4.6); Mean Corpuscular HGB Conc 33.6 g/dL (31.6-35.5); Mean Corpuscular Volume 95.3 fL (83.0-100.0); Mean Platelet Volume 8.9 fL (9.4-12.4); Monocytes # 0.5 K/mcL (0.0-1.3); Monocytes % 7.6 %; Neutrophils # 3.9 K/mcL (1.6-8.9); Platelet Count 157 K/mcL (140-400); Red Blood Count 4.06 M/mcL (4.19-5.50); Red Cell Distribution Width 13.4 % (11.5-14.5); Segmented Neutrophils % 64.7 %
[2020-06-20 04:26] LABS: Prothrombin Time 11.8 Seconds (9.4-12.1)
[2020-06-20 04:38] LABS: Alanine Aminotransferase 19 Units/L (7-52); Albumin 3.4 g/dL (3.5-5.7); Albumin/Globulin Ratio 1.6 (1.1-2.2); Alkaline Phosphatase 61 Units/L (34-104); Aspartate Amino Transferase 25 Units/L (13-39); BUN/Creatinine Ratio 17 (6-26); Bilirubin,Total 0.8 mg/dL (0.3-1.0); Blood Urea Nitrogen 10 mg/dL (6-20); Calcium 7.7 mg/dL (8.6-10.3); Carbon Dioxide 24 mEq/L (23-29); Chloride 107 mEq/L (98-107); Globulin 2.1 g/dL (2.4-3.5); Glucose 76 mg/dL (70-105); Osmolality,Calculated 286 (280-300); Potassium 3.5 mEq/L (3.5-5.1); Sodium 139 mEq/L (136-145); Total Protein 5.5 g/dL (6.4-8.9); eGFR For African Americans > 60 (> 60); eGFR For Non-African Americans > 60 (> 60)
[2020-06-20] MEDS: 0.9 % Sodium Chloride 1,000 ML IVC SCH (05:21)
[2020-06-20 08:15] LABS: Estimated Average Glucose 94 mg/dl; Hemoglobin A1C 4.9 %
[2020-06-20] MEDS: Vitamin B Complex/Vit C/Vit E 1 EACH TABLET PO SCH (08:35)
[2020-06-20] MEDS: Folic Acid 1 MG TABLET PO SCH (08:35)
[2020-06-20] MEDS: Nicotine 14 MG PATCH.TD24 TD SCH (08:35)
[2020-06-20] MEDS: Thiamine (B-1) 100 MG TABLET PO SCH (08:35)
[2020-06-21 04:50] LABS: Hematocrit 40.1 % (37.5-50.1); Hemoglobin 13.7 g/dL (12.9-16.9); Mean Corpuscular HGB Conc 34.2 g/dL (31.6-35.5); Mean Corpuscular Hemoglobin 32.3 pg (28.0-33.3); Mean Corpuscular Volume 94.6 fL (83.0-100.0); Mean Platelet Volume 9.5 fL (9.4-12.4); Platelet Count 128 K/mcL (140-400); Red Blood Count 4.24 M/mcL (4.19-5.50); Red Cell Distribution Width 13.4 % (11.5-14.5); White Blood Count 6.4 K/mcL (4.3-11.1)
[2020-06-21 05:01] LABS: BUN/Creatinine Ratio 9 (6-26); Blood Urea Nitrogen 5 mg/dL (6-20); Calcium 8.4 mg/dL (8.6-10.3); Carbon Dioxide 22 mEq/L (23-29); Chloride 108 mEq/L (98-107); Glucose 85 mg/dL (70-105); Osmolality,Calculated 283 (280-300); Potassium 3.3 mEq/L (3.5-5.1); Sodium 138 mEq/L (136-145); eGFR For African Americans > 60 (> 60); eGFR For Non-African Americans > 60 (> 60)
[2020-06-21] MEDS: Thiamine (B-1) 100 MG TABLET PO SCH (08:02)
[2020-06-21] MEDS: Vitamin B Complex/Vit C/Vit E 1 EACH TABLET PO SCH (08:03)
[2020-06-21] MEDS: Folic Acid 1 MG TABLET PO SCH (08:03)
[2020-06-21] MEDS: Nicotine 14 MG PATCH.TD24 TD SCH (08:03)
[2020-06-21] MEDS ORDERED: Fluticasone Propionate Nasal 50 MCG/SPRAY BOTTLE NS PRN (08:19)
[2020-06-21] MEDS ORDERED: hydrOXYzine pamoate 25 MG CAPSULE PO PRN (08:19)
[2020-06-21] MEDS: Cyanocobalamin (B-12) 1,000 MCG TABLET PO SCH (10:02)
[2020-06-21] MEDS: Famotidine 20 MG TABLET PO SCH ×2 (10:02→20:36)
[2020-06-21] MEDS: *HR* LORazepam 2 MG/ML VIAL IVP PRN ×2 (14:56→20:34)
[2020-06-21 20:05] VITALS: BP 127/88
[2020-06-21] MEDS ORDERED: QUEtiapine Fumarate 25 MG TABLET PO SCH (21:00)
[2020-06-21] MEDS ORDERED: Cholecalciferol (D-3) 1,000 UNIT (25MCG) TABLET PO SCH (21:00)
[2020-06-22 06:53] LABS: BUN/Creatinine Ratio 11 (6-26); Blood Urea Nitrogen 6 mg/dL (6-20); Carbon Dioxide 22 mEq/L (23-29); Chloride 108 mEq/L (98-107); Glucose 94 mg/dL (70-105); Osmolality,Calculated 283 (280-300); Potassium 3.5 mEq/L (3.5-5.1); Sodium 138 mEq/L (136-145); eGFR For African Americans > 60 (> 60); eGFR For Non-African Americans > 60 (> 60)
[2020-06-22] MEDS: Folic Acid 1 MG TABLET PO SCH (08:41)
[2020-06-22] MEDS: Thiamine (B-1) 100 MG TABLET PO SCH (08:41)
[2020-06-22] MEDS: Nicotine 14 MG PATCH.TD24 TD SCH (08:42)
[2020-06-22] MEDS: Famotidine 20 MG TABLET PO SCH (08:42)
[2020-06-22] MEDS: Vitamin B Complex/Vit C/Vit E 1 EACH TABLET PO SCH (08:42)
[2020-06-22] MEDS: Cyanocobalamin (B-12) 1,000 MCG TABLET PO SCH (08:43)
== END 2020-06-22 11:28 ==
LOC: 3BNU 13:02 → EMEROOARM 13:02 → SUATTDRO 15:07 → 3BNU 15:12
PROVIDERS: ADMIT Internal Medicine; ATTEND Internal Medicine

== ENCOUNTER 2020-06-22 11:35 | Inpatient (IN) ==
[2020-06-22] MEDS ORDERED: *HR* LORazepam 1 MG TABLET PO PRN (11:42)
[2020-06-22] MEDS ORDERED: Mag Hydrox/Al Hydrox/Simeth 30 ML UDC PO PRN (11:42)
[2020-06-22] MEDS ORDERED: hydrOXYzine pamoate 25 MG CAPSULE PO PRN (11:42)
[2020-06-22] MEDS ORDERED: *HR* LORazepam 2 MG/ML VIAL IM PRN (11:42)
[2020-06-22] MEDS ORDERED: haloperidoL 5 MG TABLET PO PRN (11:42)
[2020-06-22] MEDS ORDERED: MOM Conc 10 ML UD.LIQ PO PRN (11:42)
[2020-06-22] MEDS ORDERED: Haloperidol Lactate 5 MG/ML VIAL IM PRN (11:42)
[2020-06-22] MEDS ORDERED: QUEtiapine Fumarate 25 MG TABLET PO PRN (11:42)
[2020-06-22] MEDS ORDERED: Fluticasone Propionate Nasal 50 MCG/SPRAY BOTTLE NS PRN (13:41)
[2020-06-22] MEDS ORDERED: Thiamine (B-1) 100 MG TABLET PO SCH (13:45)
[2020-06-22] MEDS ORDERED: Cyanocobalamin (B-12) 1,000 MCG TABLET PO SCH (13:45)
[2020-06-22] MEDS: Cholecalciferol (D-3) 1,000 UNIT (25MCG) TABLET PO SCH (20:01)
[2020-06-23] MEDS: Nicotine 14 MG PATCH.TD24 TD SCH (08:57)
[2020-06-23] MEDS: Thiamine (B-1) 100 MG TABLET PO SCH (08:58)
[2020-06-23] MEDS: Vitamin B Complex/Vit C/Vit E 1 EACH TABLET PO SCH (08:59)
[2020-06-23] MEDS: Folic Acid 1 MG TABLET PO SCH (08:59)
[2020-06-23] MEDS: Cyanocobalamin (B-12) 1,000 MCG TABLET PO SCH (08:59)
[2020-06-23] MEDS: traZODone 50 MG TABLET PO SCH (21:12)
[2020-06-23] MEDS: Cholecalciferol (D-3) 1,000 UNIT (25MCG) TABLET PO SCH (21:12)
[2020-06-24] MEDS: Thiamine (B-1) 100 MG TABLET PO SCH (09:01)
[2020-06-24] MEDS: Cyanocobalamin (B-12) 1,000 MCG TABLET PO SCH (09:02)
[2020-06-24] MEDS: Vitamin B Complex/Vit C/Vit E 1 EACH TABLET PO SCH (09:02)
[2020-06-24] MEDS: Folic Acid 1 MG TABLET PO SCH (09:02)
[2020-06-24] MEDS: Nicotine 14 MG PATCH.TD24 TD SCH (09:02)
[2020-06-24] MEDS: traZODone 50 MG TABLET PO SCH (21:26)
[2020-06-24] MEDS: Cholecalciferol (D-3) 1,000 UNIT (25MCG) TABLET PO SCH (21:27)
[2020-06-25] MEDS: Folic Acid 1 MG TABLET PO SCH (09:32)
[2020-06-25] MEDS: Thiamine (B-1) 100 MG TABLET PO SCH (09:32)
[2020-06-25] MEDS: Vitamin B Complex/Vit C/Vit E 1 EACH TABLET PO SCH (09:32)
[2020-06-25] MEDS: Cyanocobalamin (B-12) 1,000 MCG TABLET PO SCH (09:32)
[2020-06-25] MEDS: Nicotine 14 MG PATCH.TD24 TD SCH (09:43)
[2020-06-25] MEDS: Ibuprofen 400 MG TABLET PO PRN (10:32)
[2020-06-25] MEDS: hydrOXYzine pamoate 25 MG CAPSULE PO PRN ×2 (12:37→20:09)
[2020-06-25] MEDS: traZODone 50 MG TABLET PO SCH (20:10)
[2020-06-25] MEDS: Cholecalciferol (D-3) 1,000 UNIT (25MCG) TABLET PO SCH (20:11)
[2020-06-26] MEDS: Nicotine 14 MG PATCH.TD24 TD SCH (09:34)
[2020-06-26] MEDS: Folic Acid 1 MG TABLET PO SCH (09:34)
[2020-06-26] MEDS: Thiamine (B-1) 100 MG TABLET PO SCH (09:34)
[2020-06-26] MEDS: Cyanocobalamin (B-12) 1,000 MCG TABLET PO SCH (09:34)
[2020-06-26] MEDS: Vitamin B Complex/Vit C/Vit E 1 EACH TABLET PO SCH (09:34)
[2020-06-26] MEDS: hydrOXYzine pamoate 25 MG CAPSULE PO PRN ×2 (09:36→20:46)
[2020-06-26] MEDS: Ibuprofen 400 MG TABLET PO PRN (15:32)
[2020-06-26] MEDS: Cholecalciferol (D-3) 1,000 UNIT (25MCG) TABLET PO SCH (20:47)
[2020-06-26] MEDS: traZODone 50 MG TABLET PO SCH (20:47)
[2020-06-27] MEDS: Folic Acid 1 MG TABLET PO SCH (09:43)
[2020-06-27] MEDS: Thiamine (B-1) 100 MG TABLET PO SCH (09:43)
[2020-06-27] MEDS: Vitamin B Complex/Vit C/Vit E 1 EACH TABLET PO SCH (09:43)
[2020-06-27] MEDS: Cyanocobalamin (B-12) 1,000 MCG TABLET PO SCH (09:43)
[2020-06-27] MEDS: hydrOXYzine pamoate 25 MG CAPSULE PO PRN ×3 (09:46→20:11)
[2020-06-27] MEDS: Nicotine 14 MG PATCH.TD24 TD SCH (09:51)
[2020-06-27] MEDS: Ibuprofen 400 MG TABLET PO PRN (14:11)
[2020-06-27] MEDS: traZODone 50 MG TABLET PO SCH (20:09)
[2020-06-27] MEDS: Cholecalciferol (D-3) 1,000 UNIT (25MCG) TABLET PO SCH (20:11)
[2020-06-28] MEDS: Thiamine (B-1) 100 MG TABLET PO SCH (09:01)
[2020-06-28] MEDS: Cyanocobalamin (B-12) 1,000 MCG TABLET PO SCH (09:01)
[2020-06-28] MEDS: hydrOXYzine pamoate 25 MG CAPSULE PO PRN ×3 (09:01→20:39)
[2020-06-28] MEDS: Folic Acid 1 MG TABLET PO SCH (09:02)
[2020-06-28] MEDS: Vitamin B Complex/Vit C/Vit E 1 EACH TABLET PO SCH (09:02)
[2020-06-28] MEDS: Nicotine 14 MG PATCH.TD24 TD SCH ×2 (09:04→10:47)
[2020-06-28] MEDS: Ibuprofen 400 MG TABLET PO PRN ×2 (15:25→20:40)
[2020-06-28] MEDS: Cholecalciferol (D-3) 1,000 UNIT (25MCG) TABLET PO SCH (20:39)
[2020-06-28] MEDS: traZODone 50 MG TABLET PO SCH (20:39)
[2020-06-29] MEDS: Vitamin B Complex/Vit C/Vit E 1 EACH TABLET PO SCH (09:16)
[2020-06-29] MEDS: Thiamine (B-1) 100 MG TABLET PO SCH (09:17)
[2020-06-29] MEDS: Cyanocobalamin (B-12) 1,000 MCG TABLET PO SCH (09:17)
[2020-06-29] MEDS: Folic Acid 1 MG TABLET PO SCH (09:17)
[2020-06-29] MEDS: Nicotine 14 MG PATCH.TD24 TD SCH (09:18)
[2020-06-29] MEDS: hydrOXYzine pamoate 25 MG CAPSULE PO PRN ×2 (13:25→21:02)
[2020-06-29] MEDS: traZODone 50 MG TABLET PO SCH (21:00)
[2020-06-29] MEDS: Cholecalciferol (D-3) 1,000 UNIT (25MCG) TABLET PO SCH (21:03)
[2020-06-30] MEDS: Nicotine 14 MG PATCH.TD24 TD SCH (09:04)
[2020-06-30] MEDS: Vitamin B Complex/Vit C/Vit E 1 EACH TABLET PO SCH (09:06)
[2020-06-30] MEDS: Folic Acid 1 MG TABLET PO SCH (09:06)
[2020-06-30] MEDS: Cyanocobalamin (B-12) 1,000 MCG TABLET PO SCH (09:06)
[2020-06-30] MEDS: Thiamine (B-1) 100 MG TABLET PO SCH (09:06)
[2020-06-30] MEDS: hydrOXYzine pamoate 25 MG CAPSULE PO PRN ×3 (09:13→20:41)
[2020-06-30] MEDS: traZODone 50 MG TABLET PO SCH (20:41)
[2020-06-30] MEDS: Cholecalciferol (D-3) 1,000 UNIT (25MCG) TABLET PO SCH (20:41)
[2020-07-01] MEDS: Nicotine 14 MG PATCH.TD24 TD SCH (08:10)
[2020-07-01] MEDS: Vitamin B Complex/Vit C/Vit E 1 EACH TABLET PO SCH (08:11)
[2020-07-01] MEDS: Thiamine (B-1) 100 MG TABLET PO SCH (08:11)
[2020-07-01] MEDS: Folic Acid 1 MG TABLET PO SCH (08:11)
[2020-07-01] MEDS: Cyanocobalamin (B-12) 1,000 MCG TABLET PO SCH (08:12)
[2020-07-01] MEDS: hydrOXYzine pamoate 25 MG CAPSULE PO PRN ×3 (08:15→20:32)
[2020-07-01] MEDS: Ibuprofen 400 MG TABLET PO PRN (15:19)
[2020-07-01] MEDS: Cholecalciferol (D-3) 1,000 UNIT (25MCG) TABLET PO SCH (20:29)
[2020-07-01] MEDS: traZODone 50 MG TABLET PO SCH (20:30)
[2020-07-02] MEDS: Nicotine 14 MG PATCH.TD24 TD SCH (09:00)
[2020-07-02] MEDS: hydrOXYzine pamoate 25 MG CAPSULE PO PRN ×3 (09:57→20:29)
[2020-07-02] MEDS: Cyanocobalamin (B-12) 1,000 MCG TABLET PO SCH (09:59)
[2020-07-02] MEDS: Vitamin B Complex/Vit C/Vit E 1 EACH TABLET PO SCH (09:59)
[2020-07-02] MEDS: Folic Acid 1 MG TABLET PO SCH (09:59)
[2020-07-02] MEDS: Thiamine (B-1) 100 MG TABLET PO SCH (09:59)
[2020-07-02] MEDS: Ibuprofen 400 MG TABLET PO PRN (10:22)
[2020-07-02] MEDS: Cholecalciferol (D-3) 1,000 UNIT (25MCG) TABLET PO SCH (20:29)
[2020-07-02] MEDS: traZODone 50 MG TABLET PO SCH (20:29)
[2020-07-03] MEDS: hydrOXYzine pamoate 25 MG CAPSULE PO PRN ×3 (09:47→20:55)
[2020-07-03] MEDS: Folic Acid 1 MG TABLET PO SCH (09:47)
[2020-07-03] MEDS: Vitamin B Complex/Vit C/Vit E 1 EACH TABLET PO SCH (09:48)
[2020-07-03] MEDS: Thiamine (B-1) 100 MG TABLET PO SCH (09:48)
[2020-07-03] MEDS: Nicotine 14 MG PATCH.TD24 TD SCH (09:49)
[2020-07-03] MEDS: Ibuprofen 400 MG TABLET PO PRN (09:50)
[2020-07-03] MEDS: Cyanocobalamin (B-12) 1,000 MCG TABLET PO SCH (10:28)
[2020-07-03] MEDS: traZODone 50 MG TABLET PO SCH (20:55)
[2020-07-03] MEDS: Cholecalciferol (D-3) 1,000 UNIT (25MCG) TABLET PO SCH (20:56)
[2020-07-04] MEDS: hydrOXYzine pamoate 25 MG CAPSULE PO PRN ×3 (09:29→20:16)
[2020-07-04] MEDS: Folic Acid 1 MG TABLET PO SCH (09:29)
[2020-07-04] MEDS: Thiamine (B-1) 100 MG TABLET PO SCH (09:29)
[2020-07-04] MEDS: Vitamin B Complex/Vit C/Vit E 1 EACH TABLET PO SCH (09:30)
[2020-07-04] MEDS: Nicotine 14 MG PATCH.TD24 TD SCH ×2 (09:30→11:20)
[2020-07-04] MEDS: Cyanocobalamin (B-12) 1,000 MCG TABLET PO SCH (09:30)
[2020-07-04] MEDS: Ibuprofen 400 MG TABLET PO PRN (11:30)
[2020-07-04] MEDS: Cholecalciferol (D-3) 1,000 UNIT (25MCG) TABLET PO SCH (20:16)
[2020-07-04] MEDS: traZODone 50 MG TABLET PO SCH (20:16)
[2020-07-05] MEDS: Thiamine (B-1) 100 MG TABLET PO SCH (08:08)
[2020-07-05] MEDS: Cyanocobalamin (B-12) 1,000 MCG TABLET PO SCH (08:08)
[2020-07-05] MEDS: Vitamin B Complex/Vit C/Vit E 1 EACH TABLET PO SCH (08:08)
[2020-07-05] MEDS: Folic Acid 1 MG TABLET PO SCH (08:08)
[2020-07-05] MEDS: hydrOXYzine pamoate 25 MG CAPSULE PO PRN ×3 (08:09→20:48)
[2020-07-05] MEDS: Nicotine 14 MG PATCH.TD24 TD SCH ×2 (08:10→14:13)
[2020-07-05] MEDS: Ibuprofen 400 MG TABLET PO PRN (09:32)
[2020-07-05] MEDS: Cholecalciferol (D-3) 1,000 UNIT (25MCG) TABLET PO SCH (20:48)
[2020-07-05] MEDS ORDERED: traZODone 50 MG TABLET PO SCH (21:00)
[2020-07-06] MEDS: Thiamine (B-1) 100 MG TABLET PO SCH (09:43)
[2020-07-06] MEDS: Folic Acid 1 MG TABLET PO SCH (09:43)
[2020-07-06] MEDS: Vitamin B Complex/Vit C/Vit E 1 EACH TABLET PO SCH (09:44)
[2020-07-06] MEDS: Nicotine 14 MG PATCH.TD24 TD SCH (09:44)
[2020-07-06] MEDS: hydrOXYzine pamoate 25 MG CAPSULE PO PRN ×2 (09:47→14:41)
[2020-07-06] MEDS: Cyanocobalamin (B-12) 1,000 MCG TABLET PO SCH (09:47)
[2020-07-06 10:01] VITALS: BP 124/84
[2020-07-06] MEDS: Ibuprofen 400 MG TABLET PO PRN (11:28)
== END 2020-07-06 15:15 | disposition home or self-care (01) | DRG 751 ==
LOC: 1ANU 11:35
PROVIDERS: ADMIT Psychiatry & Neurology Psychiatry; ATTEND Psychiatry & Neurology Psychiatry

== ENCOUNTER 2021-06-06 19:22 | Observation (INO) ==
[2021-06-06] MEDS ORDERED: Morphine Sulfate 2 MG/ML SYRINGE IVP STA (19:40)
[2021-06-06 19:57] LABS: Basophils # 0.1 K/mcL (0.0-0.2); Basophils % 1.4 %; Eosinophils # 0.3 K/mcL (0.0-0.6); Eosinophils % 3.5 %; Hematocrit 52.8 % (37.5-50.1); Hemoglobin 17.8 g/dL (12.9-16.9); Immature Granulocytes % 0.3 % (0-4); Lymphocytes # 3.9 K/mcL (0.6-4.6); Lymphocytes % 42.1 %; Mean Corpuscular HGB Conc 33.7 g/dL (31.6-35.5); Mean Corpuscular Hemoglobin 32.5 pg (28.0-33.3); Mean Corpuscular Volume 96.5 fL (83.0-100.0); Mean Platelet Volume 9.7 fL (9.4-12.4); Monocytes # 0.6 K/mcL (0.0-1.3); Monocytes % 6.3 %; Neutrophils # 4.3 K/mcL (1.6-8.9); Platelet Count 177 K/mcL (140-400); Red Blood Count 5.47 M/mcL (4.19-5.50); Red Cell Distribution Width 12.6 % (11.5-14.5); Segmented Neutrophils % 46.4 %; White Blood Count 9.3 K/mcL (4.3-11.1)
[2021-06-06 19:58] LABS: Bilirubin,Urine Negative (Negative); Blood,Urine Negative (Negative); Clarity,Urine Clear (Clear); Color,Urine Light-Yellow (Yellow); Glucose,Urine (UA) Normal (Normal); Ketones,Urine Negative (Negative); Leukocyte Esterase,Urine Negative (Negative); Nitrite,Urine Negative (Negative); PH,Urine 5.5 pH Units (5.0-8.0); Protein,Urine Negative (Neg-Trace); Urobilinogen,Urine Normal (Normal)
[2021-06-06 20:15] LABS: Amphetamine Screen,Urine Negative ng/mL (Cutoff=1000); Barbiturate Screen,Urine Negative ng/mL (Cutoff=200); Benzodiazepines Screen,Urine Negative ng/mL (Cutoff=200); Cannabinoid Screen,Urine Positive ng/mL (Cutoff = 50); Cocaine Screen,Urine Negative ng/mL (Cutoff= 300); Opiate Screen,Urine Negative ng/mL (Cutoff=300); Phencyclidine Screen,Urine Negative ng/mL (Cutoff=25)
[2021-06-06 20:19] LABS: Estimated Average Glucose 94 mg/dl; Hemoglobin A1C 4.9 %
[2021-06-06 20:20] LABS: Acetaminophen < 10 mcg/mL (10-20); BUN/Creatinine Ratio 8 (6-26); Blood Urea Nitrogen 7 mg/dL (6-20); Calcium 9.1 mg/dL (8.6-10.3); Carbon Dioxide 21 mEq/L (23-29); Chloride 110 mEq/L (98-107); Chol/HDL Ratio 2.8 (0-4.9); Cholesterol 170 mg/dL (< 200); Ethanol 358 mg/dL (Less than 10); Glucose 89 mg/dL (70-105); HDL Cholesterol 60 mg/dL (40-59); LDL Cholesterol,Calculated 86 mg/dL (< 100); Osmolality,Calculated 289 (280-300); Potassium 3.7 mEq/L (3.5-5.1); Salicylate < 2.5 mg/dL (15.0-30.0); Sodium 141 mEq/L (136-145); Triglycerides 121 mg/dL (< 150); eGFR For African Americans > 60 (> 60); eGFR For Non-African Americans > 60 (> 60)
[2021-06-06 21:00] LABS: Adenovirus Not Detected (Not Detect); Bordetella Pertussis Not Detected (Not Detect); Chlamydophila pneumoniae Not Detected (Not Detect); Coronavirus 229E Not Detected (Not Detect); Coronavirus HKU1 Not Detected (Not Detect); Coronavirus NL63 Not Detected (Not Detect); Coronavirus OC43 Not Detected (Not Detect); Human Metapneumovirus Not Detected (Not Detect); Human Rhinovirus/Enterovirus Not Detected (Not Detect); Influenza A Subtype 2009 H1 Not Detected (Not Detect); Influenza B Not Detected (Not Detect); Mycoplasma pneumoniae Not Detected (Not Detect); Parainfluenza Virus 1 Not Detected (Not Detect); Parainfluenza Virus 2 Not Detected (Not Detect); Parainfluenza Virus 3 Not Detected (Not Detect); Parainfluenza Virus 4 Not Detected (Not Detect); Respiratory Syncytial Virus Not Detected (Not Detect); SARS-CoV-2 Not Detected (Not Detect)
[2021-06-07] MEDS ORDERED: Naloxone 0.4 MG/ML INJ IVP PRN (01:13)
[2021-06-07] MEDS ORDERED: Ondansetron 4 MG/2 ML VIAL IVP PRN (01:13)
[2021-06-07] MEDS ORDERED: *HR* LORazepam 2 MG/ML VIAL IVP PRN (01:18)
[2021-06-07] MEDS: 0.9 % Sodium Chloride 1,000 ML IVC SCH ×2 (02:10→11:31)
[2021-06-07] MEDS: *HR* LORazepam 2 MG/ML VIAL IVP PRN ×3 (02:11→18:07)
[2021-06-07 04:32] LABS: Basophils # 0.1 K/mcL (0.0-0.2); Eosinophils # 0.2 K/mcL (0.0-0.6); Eosinophils % 2.6 %; Hematocrit 47.5 % (37.5-50.1); Immature Granulocytes % 0.4 % (0-4); Lymphocytes # 2.6 K/mcL (0.6-4.6); Lymphocytes % 30.8 %; Mean Corpuscular HGB Conc 34.1 g/dL (31.6-35.5); Mean Corpuscular Hemoglobin 33.1 pg (28.0-33.3); Mean Corpuscular Volume 96.9 fL (83.0-100.0); Mean Platelet Volume 9.8 fL (9.4-12.4); Monocytes # 0.5 K/mcL (0.0-1.3); Monocytes % 5.6 %; Platelet Count 130 K/mcL (140-400); Red Cell Distribution Width 12.3 % (11.5-14.5); Segmented Neutrophils % 59.6 %; White Blood Count 8.4 K/mcL (4.3-11.1)
[2021-06-07 04:34] LABS: Hemoglobin 16.2 g/dL (12.9-16.9)
[2021-06-07 04:54] LABS: Alanine Aminotransferase 26 Units/L (7-52); Albumin 3.9 g/dL (3.5-5.7); Albumin/Globulin Ratio 1.5 (1.1-2.2); Alkaline Phosphatase 54 Units/L (34-104); Aspartate Amino Transferase 29 Units/L (13-39); BUN/Creatinine Ratio 11 (6-26); Bilirubin,Direct 0.1 mg/dL (0.0-0.2); Bilirubin,Indirect 0.4 mg/dL (0.0-1.0); Bilirubin,Total 0.5 mg/dL (0.3-1.0); Blood Urea Nitrogen 8 mg/dL (6-20); Calcium 8.4 mg/dL (8.6-10.3); Carbon Dioxide 18 mEq/L (23-29); Chloride 110 mEq/L (98-107); Ethanol 161 mg/dL (Less than 10); Globulin 2.6 g/dL (2.4-3.5); Glucose 66 mg/dL (70-105); Magnesium 1.6 mg/dL (1.6-2.6); Osmolality,Calculated 287 (280-300); Potassium 3.9 mEq/L (3.5-5.1); Sodium 140 mEq/L (136-145); Total Protein 6.5 g/dL (6.4-8.9); eGFR For African Americans > 60 (> 60); eGFR For Non-African Americans > 60 (> 60)
[2021-06-07 05:07] LABS: Thyroid Stimulating Hormone 1.477 mcIU/mL (0.340-5.600)
[2021-06-07] MEDS ORDERED: Mag Hydrox/Al Hydrox/Simeth 30 ML UDC PO PRN (09:31)
[2021-06-07] MEDS ORDERED: hydrOXYzine pamoate 25 MG CAPSULE PO PRN (13:17)
[2021-06-07 16:23] LABS: BUN/Creatinine Ratio 16 (6-26); Blood Urea Nitrogen 12 mg/dL (6-20); Calcium 8.6 mg/dL (8.6-10.3); Carbon Dioxide 22 mEq/L (23-29); Chloride 108 mEq/L (98-107); Glucose 110 mg/dL (70-105); Osmolality,Calculated 282 (280-300); Potassium 3.9 mEq/L (3.5-5.1); Sodium 136 mEq/L (136-145); eGFR For African Americans > 60 (> 60); eGFR For Non-African Americans > 60 (> 60)
[2021-06-07] MEDS ORDERED: Nicotine 21 MG PATCH.TD24 TD SCH (17:30)
[2021-06-07] MEDS ORDERED: Thiamine (B-1) 100 MG, Folic Acid 1 MG, MVI, adult with vitamin K 10 ML in 0.9 % Sodi... IVPB SCH (18:00)
[2021-06-07 20:19] VITALS: TEMP 98.4
[2021-06-07] MEDS ORDERED: traZODone 50 MG TABLET PO SCH (21:00)
[2021-06-07 21:55] VITALS: BP 143/103; PULSE 104; O2SAT 93
[2021-06-07] MEDS ORDERED: *HR* LORazepam 0.5 MG TABLET PO ONE (22:23)
== END 2021-06-07 22:50 ==
LOC: EMEROOARM 19:22 → 3BNU 19:22
PROVIDERS: ADMIT Internal Medicine; ATTEND Internal Medicine

== ENCOUNTER 2021-06-23 18:20 | Observation (INO) ==
[~2021-06-23 18:20] MED LIST: Thiamine (B-1) 100 MG, Folic Acid 1 MG, MVI, adult with vitamin K 10 ML in 0.9 % Sodi... IVPB ONE
[2021-06-23] MEDS ORDERED: Haloperidol Lactate 5 MG/ML VIAL IM ONE (19:06)
[2021-06-23] MEDS ORDERED: *HR* LORazepam 2 MG/ML VIAL IM ONE (19:06)
[2021-06-23] MEDS ORDERED: MVI, adult with vitamin K 10 ML in 0.9 % Sodium Chloride 1,000 ML IVC ONE (19:21)
[2021-06-23] MEDS ORDERED: Thiamine (B-1) 200 MG in 0.9 % Sodium Chloride 50 ML IVPB ONE (19:21)
[2021-06-23] MEDS ORDERED: Folic Acid 1 MG in 0.9 % Sodium Chloride 50 ML IVPB ONE (19:21)
[2021-06-23 20:11] LABS: Basophils # 0.1 K/mcL (0.0-0.2); Basophils % 1.4 %; Eosinophils # 0.2 K/mcL (0.0-0.6); Eosinophils % 2.2 %; Hematocrit 51.2 % (37.5-50.1); Hemoglobin 17.5 g/dL (12.9-16.9); Immature Granulocytes % 0.4 % (0-4); Lymphocytes # 3.4 K/mcL (0.6-4.6); Mean Corpuscular HGB Conc 34.2 g/dL (31.6-35.5); Mean Corpuscular Hemoglobin 31.9 pg (28.0-33.3); Mean Corpuscular Volume 93.4 fL (83.0-100.0); Mean Platelet Volume 9.2 fL (9.4-12.4); Monocytes # 0.5 K/mcL (0.0-1.3); Monocytes % 6.4 %; Neutrophils # 3.5 K/mcL (1.6-8.9); Platelet Count 250 K/mcL (140-400); Red Blood Count 5.48 M/mcL (4.19-5.50); Red Cell Distribution Width 12.1 % (11.5-14.5); Segmented Neutrophils % 45.6 %; White Blood Count 7.6 K/mcL (4.3-11.1)
[2021-06-23] MEDS ORDERED: 0.9 % Sodium Chloride 1,000 ML IVC ONE (20:22)
[2021-06-23 20:34] LABS: Acetaminophen < 10 mcg/mL (10-20); Alanine Aminotransferase 36 Units/L (7-52); Albumin 4.3 g/dL (3.5-5.7); Albumin/Globulin Ratio 1.3 (1.1-2.2); Alkaline Phosphatase 74 Units/L (34-104); Aspartate Amino Transferase 36 Units/L (13-39); BUN/Creatinine Ratio 9 (6-26); Bilirubin,Indirect 0.3 mg/dL (0.0-1.0); Bilirubin,Total 0.3 mg/dL (0.3-1.0); Blood Urea Nitrogen 8 mg/dL (6-20); Calcium 8.8 mg/dL (8.6-10.3); Carbon Dioxide 24 mEq/L (23-29); Chloride 103 mEq/L (98-107); Ethanol 339 mg/dL (Less than 10); Globulin 3.3 g/dL (2.4-3.5); Glucose 79 mg/dL (70-105); Osmolality,Calculated 289 (280-300); Potassium 3.3 mEq/L (3.5-5.1); Salicylate < 2.5 mg/dL (15.0-30.0); Sodium 141 mEq/L (136-145); Total Protein 7.6 g/dL (6.4-8.9); eGFR For African Americans > 60 (> 60); eGFR For Non-African Americans > 60 (> 60)
[2021-06-23 22:16] LABS: Bilirubin,Urine Negative (Negative); Blood,Urine Negative (Negative); Clarity,Urine Clear (Clear); Color,Urine Light-Yellow (Yellow); Glucose,Urine (UA) Normal (Normal); Ketones,Urine Negative (Negative); Leukocyte Esterase,Urine Negative (Negative); Nitrite,Urine Negative (Negative); Protein,Urine Negative (Neg-Trace); Specific Gravity,Urine 1.008 (1.010-1.025); Urobilinogen,Urine Normal (Normal)
[2021-06-23 22:27] LABS: Amphetamine Screen,Urine Negative ng/mL (Cutoff=1000); Barbiturate Screen,Urine Negative ng/mL (Cutoff=200); Benzodiazepines Screen,Urine Negative ng/mL (Cutoff=200); Cannabinoid Screen,Urine Positive ng/mL (Cutoff = 50); Cocaine Screen,Urine Negative ng/mL (Cutoff= 300); Opiate Screen,Urine Negative ng/mL (Cutoff=300); Phencyclidine Screen,Urine Negative ng/mL (Cutoff=25)
[2021-06-24] MEDS ORDERED: *HR* LORazepam 2 MG/ML VIAL IVP PRN (00:01)
[2021-06-24] MEDS ORDERED: Ondansetron 4 MG/2 ML VIAL IVP PRN (00:01)
[2021-06-24] MEDS ORDERED: Naloxone 0.4 MG/ML INJ IVP PRN (00:01)
[2021-06-24] MEDS ORDERED: Acetaminophen 325 MG TABLET PO PRN (00:01)
[2021-06-24] MEDS: *HR* Heparin 5,000 UNIT/ML VIAL SQ SCH ×2 (05:29→18:08)
[2021-06-24] MEDS: *HR* LORazepam 2 MG/ML VIAL IVP PRN ×2 (07:33→19:48)
[2021-06-24 09:46] LABS: Basophils # 0.1 K/mcL (0.0-0.2); Basophils % 0.7 %; Eosinophils % 0.4 %; Hematocrit 42.6 % (37.5-50.1); Immature Granulocytes % 0.1 % (0-4); Lymphocytes # 1.2 K/mcL (0.6-4.6); Lymphocytes % 16.7 %; Mean Corpuscular HGB Conc 35.4 g/dL (31.6-35.5); Mean Corpuscular Hemoglobin 32.5 pg (28.0-33.3); Mean Corpuscular Volume 91.8 fL (83.0-100.0); Mean Platelet Volume 9.2 fL (9.4-12.4); Monocytes # 0.5 K/mcL (0.0-1.3); Neutrophils # 5.4 K/mcL (1.6-8.9); Platelet Count 171 K/mcL (140-400); Red Blood Count 4.64 M/mcL (4.19-5.50); Red Cell Distribution Width 11.9 % (11.5-14.5); Segmented Neutrophils % 75.1 %; White Blood Count 7.2 K/mcL (4.3-11.1)
[2021-06-24 09:47] LABS: Hemoglobin 15.1 g/dL (12.9-16.9)
[2021-06-24 10:06] LABS: BUN/Creatinine Ratio 12 (6-26); Blood Urea Nitrogen 9 mg/dL (6-20); Calcium 8.4 mg/dL (8.6-10.3); Carbon Dioxide 22 mEq/L (23-29); Chloride 106 mEq/L (98-107); Glucose 103 mg/dL (70-105); Magnesium 1.5 mg/dL (1.6-2.6); Osmolality,Calculated 285 (280-300); Phosphorous 2.6 mg/dL (2.7-4.5); Potassium 3.8 mEq/L (3.5-5.1); Sodium 138 mEq/L (136-145); eGFR For African Americans > 60 (> 60); eGFR For Non-African Americans > 60 (> 60)
[2021-06-24] MEDS: 0.9 % Sodium Chloride 1,000 ML IVC SCH ×2 (11:03→22:11)
[2021-06-24] MEDS: Thiamine (B-1) 100 MG, Folic Acid 1 MG, MVI, adult with vitamin K 10 ML in 0.9 % Sodi... IVPB SCH (19:45)
[2021-06-24] MEDS ORDERED: traZODone 50 MG TABLET PO ONE (21:30)
[2021-06-24] MEDS: Nicotine 14 MG PATCH.TD24 TD SCH (22:09)
[2021-06-25 02:45] LABS: Basophils % 0.7 %; Eosinophils # 0.1 K/mcL (0.0-0.6); Eosinophils % 3.3 %; Hemoglobin 14.4 g/dL (12.9-16.9); Immature Granulocytes % 0.2 % (0-4); Lymphocytes # 1.4 K/mcL (0.6-4.6); Lymphocytes % 33.8 %; Mean Corpuscular HGB Conc 35.1 g/dL (31.6-35.5); Mean Corpuscular Hemoglobin 32.5 pg (28.0-33.3); Mean Corpuscular Volume 92.6 fL (83.0-100.0); Mean Platelet Volume 9.8 fL (9.4-12.4); Monocytes # 0.4 K/mcL (0.0-1.3); Monocytes % 8.5 %; Neutrophils # 2.3 K/mcL (1.6-8.9); Platelet Count 126 K/mcL (140-400); Red Blood Count 4.43 M/mcL (4.19-5.50); Red Cell Distribution Width 11.9 % (11.5-14.5); Segmented Neutrophils % 53.5 %; White Blood Count 4.3 K/mcL (4.3-11.1)
[2021-06-25 03:06] LABS: BUN/Creatinine Ratio 13 (6-26); Blood Urea Nitrogen 8 mg/dL (6-20); Calcium 8.4 mg/dL (8.6-10.3); Carbon Dioxide 21 mEq/L (23-29); Chloride 109 mEq/L (98-107); Glucose 89 mg/dL (70-105); Magnesium 1.8 mg/dL (1.6-2.6); Osmolality,Calculated 282 (280-300); Phosphorous 3.2 mg/dL (2.7-4.5); Potassium 3.5 mEq/L (3.5-5.1); Sodium 137 mEq/L (136-145); eGFR For African Americans > 60 (> 60); eGFR For Non-African Americans > 60 (> 60)
[2021-06-25] MEDS: *HR* Heparin 5,000 UNIT/ML VIAL SQ SCH ×3 (06:32→17:36)
[2021-06-25] MEDS: Nicotine 14 MG PATCH.TD24 TD SCH (08:23)
[2021-06-25] MEDS: 0.9 % Sodium Chloride 1,000 ML IVC SCH ×2 (17:36→19:27)
[2021-06-25] MEDS: *HR* LORazepam 2 MG/ML VIAL IVP PRN (17:36)
[2021-06-25] MEDS: Thiamine (B-1) 100 MG, Folic Acid 1 MG, MVI, adult with vitamin K 10 ML in 0.9 % Sodi... IVPB SCH (19:27)
[2021-06-25] MEDS ORDERED: traZODone 50 MG TABLET PO SCH (21:00)
[2021-06-26] MEDS: *HR* Heparin 5,000 UNIT/ML VIAL SQ SCH (06:18)
[2021-06-26] MEDS: *HR* LORazepam 2 MG/ML VIAL IVP PRN (06:21)
[2021-06-26 06:22] VITALS: TEMP 97.4
[2021-06-26 06:46] LABS: Basophils % 0.5 %; Eosinophils # 0.2 K/mcL (0.0-0.6); Eosinophils % 4.3 %; Hemoglobin 14.5 g/dL (12.9-16.9); Immature Granulocytes % 0.2 % (0-4); Lymphocytes # 1.5 K/mcL (0.6-4.6); Lymphocytes % 34.8 %; Mean Corpuscular HGB Conc 33.7 g/dL (31.6-35.5); Mean Corpuscular Hemoglobin 31.8 pg (28.0-33.3); Mean Corpuscular Volume 94.3 fL (83.0-100.0); Mean Platelet Volume 10.4 fL (9.4-12.4); Monocytes # 0.4 K/mcL (0.0-1.3); Monocytes % 8.6 %; Neutrophils # 2.2 K/mcL (1.6-8.9); Platelet Count 107 K/mcL (140-400); Red Blood Count 4.56 M/mcL (4.19-5.50); Red Cell Distribution Width 11.9 % (11.5-14.5); Segmented Neutrophils % 51.6 %; White Blood Count 4.2 K/mcL (4.3-11.1)
[2021-06-26] MEDS ORDERED: Fluticasone Propionate Nasal 50 MCG/SPRAY BOTTLE NS PRN (07:30)
[2021-06-26] MEDS: Nicotine 14 MG PATCH.TD24 TD SCH (07:56)
[2021-06-26] MEDS: Gabapentin 300 MG CAPSULE PO SCH ×2 (07:56→14:03)
[2021-06-26] MEDS: 0.9 % Sodium Chloride 1,000 ML IVC SCH (07:57)
[2021-06-26 07:58] LABS: BUN/Creatinine Ratio 7 (6-26); Blood Urea Nitrogen 5 mg/dL (6-20); Calcium 8.3 mg/dL (8.6-10.3); Carbon Dioxide 21 mEq/L (23-29); Chloride 111 mEq/L (98-107); Glucose 92 mg/dL (70-105); Magnesium 1.7 mg/dL (1.6-2.6); Osmolality,Calculated 283 (280-300); Phosphorous 3.5 mg/dL (2.7-4.5); Potassium 3.5 mEq/L (3.5-5.1); Sodium 138 mEq/L (136-145); eGFR For African Americans > 60 (> 60); eGFR For Non-African Americans > 60 (> 60)
[2021-06-26] MEDS ORDERED: Vitamin B Complex/Vit C/Vit E 1 EACH TABLET PO SCH (09:00)
[2021-06-26] MEDS ORDERED: Thiamine (B-1) 100 MG TABLET PO SCH (09:00)
[2021-06-26] MEDS ORDERED: Cyanocobalamin (B-12) 1,000 MCG TABLET PO SCH (09:00)
[2021-06-26] MEDS ORDERED: Folic Acid 1 MG TABLET PO SCH (09:00)
[2021-06-26 12:17] VITALS: PULSE 65; O2SAT 96
[2021-06-26 14:14] VITALS: BP 132/96
[2021-06-26] MEDS ORDERED: Cholecalciferol (D-3) 1,000 UNIT (25MCG) TABLET PO SCH (21:00)
[2021-06-26] MEDS ORDERED: traZODone 50 MG TABLET PO SCH (21:00)
[2021-06-26] MEDS ORDERED: Mirtazapine 15 MG TABLET PO SCH (21:00)
[2021-06-26] MEDS ORDERED: TRAZODONE HCL 300 MG PO SCH (21:00)
== END 2021-06-26 16:28 | disposition home or self-care (01) ==
LOC: EMEROOARM 18:20 → 2NENU 18:20
PROVIDERS: ADMIT Internal Medicine; ATTEND Internal Medicine

== ENCOUNTER 2021-07-10 15:00 | Inpatient (IN) ==
[2021-07-10] MEDS ORDERED: Ziprasidone 10 MG, Closed System Device IM Kit 1 EACH in Water for inj. (sterile) 0.5 ML IM STA (15:37)
[2021-07-10] MEDS ORDERED: Water for inj. (sterile) 10 ML ONE (15:44)
[2021-07-10] MEDS ORDERED: Ziprasidone 20 MG/VIAL VIAL IM ONE (15:44)
[2021-07-10 15:46] LABS: Hemoglobin 17.6 g/dL (12.9-16.9); Immature Granulocytes % 0.1 % (0-4); Lymphocytes % 41.7 %
[2021-07-10 15:48] LABS: Basophils # 0.1 K/mcL (0.0-0.2); Basophils % 1.1 %; Eosinophils # 0.2 K/mcL (0.0-0.6); Eosinophils % 1.9 %; Hematocrit 49.7 % (37.5-50.1); Immature Platelets 8.6 % (1.1-6.1); Lymphocytes # 3.3 K/mcL (0.6-4.6); Mean Corpuscular HGB Conc 35.4 g/dL (31.6-35.5); Mean Corpuscular Hemoglobin 32.1 pg (28.0-33.3); Mean Corpuscular Volume 90.7 fL (83.0-100.0); Mean Platelet Volume 10.3 fL (9.4-12.4); Monocytes # 0.7 K/mcL (0.0-1.3); Monocytes % 8.8 %; Neutrophils # 3.7 K/mcL (1.6-8.9); Red Blood Count 5.48 M/mcL (4.19-5.50); Segmented Neutrophils % 46.4 %
[2021-07-10 15:54] LABS: Platelet Count 97 K/mcL (140-400)
[2021-07-10 15:59] LABS: Acetaminophen < 10 mcg/mL (10-20); BUN/Creatinine Ratio 10 (6-26); Blood Urea Nitrogen 7 mg/dL (6-20); Calcium 9.2 mg/dL (8.6-10.3); Carbon Dioxide 24 mEq/L (23-29); Chloride 101 mEq/L (98-107); Chol/HDL Ratio 2.1 (0-4.9); Cholesterol 160 mg/dL (< 200); Ethanol 285 mg/dL (Less than 10); Glucose 86 mg/dL (70-105); HDL Cholesterol 78 mg/dL (40-59); LDL Cholesterol,Calculated 64 mg/dL (< 100); Osmolality,Calculated 283 (280-300); Potassium 3.6 mEq/L (3.5-5.1); Salicylate < 2.5 mg/dL (15.0-30.0); Sodium 138 mEq/L (136-145); Triglycerides 88 mg/dL (< 150); eGFR For African Americans > 60 (> 60); eGFR For Non-African Americans > 60 (> 60)
[2021-07-10 16:10] LABS: Bilirubin,Urine Negative (Negative); Blood,Urine Negative (Negative); Clarity,Urine Clear (Clear); Color,Urine Light-Yellow (Yellow); Glucose,Urine (UA) Normal (Normal); Ketones,Urine Trace mg/dL (Negative); Leukocyte Esterase,Urine Negative (Negative); Nitrite,Urine Negative (Negative); Protein,Urine Trace mg/dL (Neg-Trace); Specific Gravity,Urine 1.008 (1.010-1.025); Urobilinogen,Urine Normal (Normal)
[2021-07-10 16:24] LABS: Amphetamine Screen,Urine Negative ng/mL (Cutoff=1000); Barbiturate Screen,Urine Negative ng/mL (Cutoff=200); Benzodiazepines Screen,Urine Negative ng/mL (Cutoff=200); Cannabinoid Screen,Urine Negative ng/mL (Cutoff = 50); Cocaine Screen,Urine Negative ng/mL (Cutoff= 300); Opiate Screen,Urine Negative ng/mL (Cutoff=300); Phencyclidine Screen,Urine Negative ng/mL (Cutoff=25)
[2021-07-10 16:54] LABS: Estimated Average Glucose 108 mg/dl; Hemoglobin A1C 5.4 %
[2021-07-10 17:51] LABS: Adenovirus Not Detected (Not Detect); Coronavirus 229E Not Detected (Not Detect); Coronavirus HKU1 Not Detected (Not Detect); Coronavirus NL63 Not Detected (Not Detect); Coronavirus OC43 Not Detected (Not Detect); Human Metapneumovirus Not Detected (Not Detect); Human Rhinovirus/Enterovirus Not Detected (Not Detect); Influenza A Subtype 2009 H1 Not Detected (Not Detect); SARS-CoV-2 Not Detected (Not Detect)
[2021-07-10 17:52] LABS: Bordetella Pertussis Not Detected (Not Detect); Chlamydophila pneumoniae Not Detected (Not Detect); Influenza B Not Detected (Not Detect); Mycoplasma pneumoniae Not Detected (Not Detect); Parainfluenza Virus 1 Not Detected (Not Detect); Parainfluenza Virus 2 Not Detected (Not Detect); Parainfluenza Virus 3 Not Detected (Not Detect); Parainfluenza Virus 4 Not Detected (Not Detect); Respiratory Syncytial Virus Not Detected (Not Detect)
[2021-07-10] MEDS ORDERED: *HR* LORazepam 2 MG/ML VIAL IVP PRN ×2 (19:42)
[2021-07-10] MEDS ORDERED: Acetaminophen 325 MG TABLET PO PRN (19:46)
[2021-07-10] MEDS ORDERED: Naloxone 0.4 MG/ML INJ IVP PRN (19:46)
[2021-07-10] MEDS ORDERED: Ondansetron 4 MG/2 ML VIAL IVP PRN (19:46)
[2021-07-10] MEDS ORDERED: Pantoprazole 40 MG VIAL IVP ONE (21:31)
[2021-07-10] MEDS ORDERED: Fluticasone Propionate Nasal 50 MCG/SPRAY BOTTLE NS PRN (21:31)
[2021-07-10] MEDS: *HR* LORazepam 2 MG/ML VIAL IVP PRN (22:03)
[2021-07-10] MEDS: 0.9 % Sodium Chloride 1,000 ML IVC SCH (23:17)
[2021-07-11] MEDS: *HR* LORazepam 2 MG/ML VIAL IVP PRN ×3 (04:23→16:15)
[2021-07-11] MEDS: 0.9 % Sodium Chloride 1,000 ML IVC SCH ×3 (07:32→23:20)
[2021-07-11] MEDS: Gabapentin 300 MG CAPSULE PO SCH ×3 (07:33→21:38)
[2021-07-11] MEDS: Thiamine (B-1) 100 MG TABLET PO SCH (07:33)
[2021-07-11] MEDS: Cyanocobalamin (B-12) 1,000 MCG TABLET PO SCH (07:33)
[2021-07-11] MEDS: Folic Acid 1 MG TABLET PO SCH (07:33)
[2021-07-11] MEDS: FluocinoLONE Acet 0.025% CRM 15 GM TUBE TP SCH ×2 (13:44→21:40)
[2021-07-11] MEDS: Nicotine 21 MG PATCH.TD24 TD SCH (15:29)
[2021-07-11] MEDS ORDERED: Thiamine (B-1) 100 MG, Folic Acid 1 MG, MVI, adult with vitamin K 10 ML in 0.9 % Sodi... IVPB SCH (18:00)
[2021-07-11] MEDS ORDERED: Cholecalciferol (D-3) 1,000 UNIT (25MCG) TABLET PO SCH (21:00)
[2021-07-11] MEDS ORDERED: Mirtazapine 15 MG TABLET PO SCH (21:00)
[2021-07-11] MEDS ORDERED: traZODone 50 MG TABLET PO SCH (21:00)
[2021-07-12 02:20] LABS: Hematocrit 41.1 % (37.5-50.1); Hemoglobin 14.5 g/dL (12.9-16.9); Immature Platelets 9.2 % (1.1-6.1); Mean Corpuscular HGB Conc 35.3 g/dL (31.6-35.5); Mean Corpuscular Hemoglobin 32.5 pg (28.0-33.3); Mean Corpuscular Volume 92.2 fL (83.0-100.0); Mean Platelet Volume 11.6 fL (9.4-12.4); Red Blood Count 4.46 M/mcL (4.19-5.50); Red Cell Distribution Width 12.5 % (11.5-14.5)
[2021-07-12 02:31] LABS: BUN/Creatinine Ratio 13 (6-26); Blood Urea Nitrogen 8 mg/dL (6-20); Calcium 8.3 mg/dL (8.6-10.3); Carbon Dioxide 21 mEq/L (23-29); Chloride 109 mEq/L (98-107); Ethanol < 10 mg/dL (Less than 10); Glucose 127 mg/dL (70-105); Magnesium 1.2 mg/dL (1.6-2.6); Osmolality,Calculated 284 (280-300); Phosphorous 2.5 mg/dL (2.7-4.5); Potassium 3.3 mEq/L (3.5-5.1); Sodium 137 mEq/L (136-145); eGFR For African Americans > 60 (> 60); eGFR For Non-African Americans > 60 (> 60)
[2021-07-12] MEDS: *HR* LORazepam 2 MG/ML VIAL IVP PRN (05:46)
[2021-07-12] MEDS: 0.9 % Sodium Chloride 1,000 ML IVC SCH ×2 (07:40→15:50)
[2021-07-12] MEDS: Nicotine 21 MG PATCH.TD24 TD SCH (08:52)
[2021-07-12] MEDS: Gabapentin 300 MG CAPSULE PO SCH ×2 (08:53→16:02)
[2021-07-12] MEDS: Folic Acid 1 MG TABLET PO SCH (08:54)
[2021-07-12] MEDS: Thiamine (B-1) 100 MG TABLET PO SCH (08:54)
[2021-07-12] MEDS: Cyanocobalamin (B-12) 1,000 MCG TABLET PO SCH (08:54)
[2021-07-12] MEDS: FluocinoLONE Acet 0.025% CRM 15 GM TUBE TP SCH (08:56)
[2021-07-12 10:36] VITALS: TEMP 98.1
[2021-07-12 14:22] VITALS: BP 112/76; PULSE 108; O2SAT 95
== END 2021-07-12 16:54 | disposition left against medical advice (07) | DRG 770 ==
LOC: EMEROOARM 15:00 → ICNU 19:45 → INTOOBSV 19:45 → SUATTDRO 19:45 → ICNU 19:47 → 3BNU 19:51
PROVIDERS: ADMIT Internal Medicine; ATTEND Internal Medicine

== ENCOUNTER 2021-07-24 20:41 | Inpatient (IN) ==
[2021-07-24] MEDS ORDERED: Isovue-370 500 ML BOTTLE IVP ONE (21:30)
[2021-07-24] MEDS ORDERED: 0.9 % Sodium Chloride 1,000 ML IV ONE (21:30)
[2021-07-24] MEDS ORDERED: cefTRIAXone 2,000 MG in Water for inj. (sterile) 10 ML IVP ONE (21:30)
[2021-07-24] MEDS ORDERED: Vancomycin 1,500 MG/265 ML IV.SOLN IVPB ONE (22:00)
[2021-07-24 22:12] LABS: Basophils # 0.1 K/mcL (0.0-0.2); Basophils % 0.6 %; Hematocrit 46.1 % (37.5-50.1); Hemoglobin 16.2 g/dL (12.9-16.9); Immature Granulocytes % 0.6 % (0-4); Lymphocytes # 1.9 K/mcL (0.6-4.6); Lymphocytes % 9.1 %; Mean Corpuscular HGB Conc 35.1 g/dL (31.6-35.5); Mean Corpuscular Hemoglobin 32.1 pg (28.0-33.3); Mean Corpuscular Volume 91.5 fL (83.0-100.0); Mean Platelet Volume 9.5 fL (9.4-12.4); Monocytes # 1.8 K/mcL (0.0-1.3); Monocytes % 8.6 %; Neutrophils # 16.6 K/mcL (1.6-8.9); Platelet Count 224 K/mcL (140-400); Red Blood Count 5.04 M/mcL (4.19-5.50); Red Cell Distribution Width 13.2 % (11.5-14.5); Segmented Neutrophils % 81.1 %; White Blood Count 20.4 K/mcL (4.3-11.1)
[2021-07-24 22:46] LABS: Alanine Aminotransferase 60 Units/L (7-52); Albumin 4.3 g/dL (3.5-5.7); Albumin/Globulin Ratio 1.4 (1.1-2.2); Alkaline Phosphatase 75 Units/L (34-104); Aspartate Amino Transferase 32 Units/L (13-39); BUN/Creatinine Ratio 10 (6-26); Bilirubin,Total 0.6 mg/dL (0.3-1.0); Blood Urea Nitrogen 7 mg/dL (6-20); Calcium 9.1 mg/dL (8.6-10.3); Carbon Dioxide 17 mEq/L (23-29); Chloride 102 mEq/L (98-107); Glucose 114 mg/dL (70-105); Osmolality,Calculated 285 (280-300); Potassium 3.4 mEq/L (3.5-5.1); Sodium 138 mEq/L (136-145); Total Protein 7.3 g/dL (6.4-8.9); eGFR For African Americans > 60 (> 60); eGFR For Non-African Americans > 60 (> 60)
[2021-07-24] MEDS ORDERED: *HR* LORazepam 2 MG/ML VIAL IVP ONE (22:57)
[2021-07-24] MEDS ORDERED: *HR* LORazepam 2 MG/ML VIAL IVP PRN (23:39)
[2021-07-24] MEDS ORDERED: Naloxone 0.4 MG/ML INJ IVP PRN (23:40)
[2021-07-24] MEDS ORDERED: 0.9 % Sodium Chloride 1,000 ML IVC SCH (23:45)
[2021-07-25 01:19] LABS: Amphetamine Screen,Urine Negative ng/mL (Cutoff=1000); Barbiturate Screen,Urine Negative ng/mL (Cutoff=200); Benzodiazepines Screen,Urine Negative ng/mL (Cutoff=200); Cannabinoid Screen,Urine Positive ng/mL (Cutoff = 50); Cocaine Screen,Urine Negative ng/mL (Cutoff= 300); Opiate Screen,Urine Negative ng/mL (Cutoff=300); Phencyclidine Screen,Urine Negative ng/mL (Cutoff=25)
[2021-07-25 01:28] LABS: BUN/Creatinine Ratio 9 (6-26); Blood Urea Nitrogen 6 mg/dL (6-20); Calcium 8.4 mg/dL (8.6-10.3); Carbon Dioxide 19 mEq/L (23-29); Chloride 103 mEq/L (98-107); Ethanol 196 mg/dL (Less than 10); Glucose 104 mg/dL (70-105); Osmolality,Calculated 284 (280-300); Potassium 3.7 mEq/L (3.5-5.1); Sodium 138 mEq/L (136-145); eGFR For African Americans > 60 (> 60); eGFR For Non-African Americans > 60 (> 60)
[2021-07-25] MEDS ORDERED: 0.9 % Sodium Chloride 1,000 ML IV ONE ×2 (02:36→06:26)
[2021-07-25] MEDS: *HR* LORazepam 2 MG/ML VIAL IVP PRN ×2 (02:38→10:10)
[2021-07-25 04:43] LABS: Hematocrit 40.4 % (37.5-50.1); Mean Corpuscular HGB Conc 34.9 g/dL (31.6-35.5); Mean Corpuscular Hemoglobin 32.2 pg (28.0-33.3); Mean Corpuscular Volume 92.2 fL (83.0-100.0); Mean Platelet Volume 9.5 fL (9.4-12.4); Platelet Count 184 K/mcL (140-400); Red Blood Count 4.38 M/mcL (4.19-5.50); Red Cell Distribution Width 13.2 % (11.5-14.5); White Blood Count 19.1 K/mcL (4.3-11.1)
[2021-07-25 04:44] LABS: Hemoglobin 14.1 g/dL (12.9-16.9)
[2021-07-25] MEDS: Acetaminophen 325 MG TABLET PO PRN ×2 (04:58→16:13)
[2021-07-25] MEDS: Piperacillin/Tazobactam 3.375 GM in 0.9 % Sodium Chloride Mini Bag 100 ML IVPB SCH ×2 (09:17→16:37)
[2021-07-25] MEDS: Vancomycin 1,500 MG/265 ML IV.SOLN IVPB SCH ×2 (09:25→21:04)
[2021-07-25] MEDS ORDERED: Vancomycin 1,250 MG/262.5 ML IV.SOLN IVPB SCH (10:00)
[2021-07-25] MEDS ORDERED: Td (TENIVAC) Vaccine 0.5 ML VIAL IM ONE (10:14)
[2021-07-25] MEDS ORDERED: Tdap (Boostrix) Vaccine 0.5 ML SYRINGE IM ONE (10:16)
[2021-07-25] MEDS ORDERED: Morphine Sulfate 2 MG/ML SYRINGE IVP ONE (10:45)
[2021-07-25 14:01] LABS: C-Reactive Protein 163 mg/L (Less than 10)
[2021-07-25] MEDS ORDERED: TRAZODONE HCL 300 MG PO SCH (21:00)
[2021-07-25] MEDS: Nicotine 21 MG PATCH.TD24 TD SCH (21:04)
[2021-07-25] MEDS: traZODone 50 MG TABLET PO SCH (21:04)
[2021-07-25] MEDS: Thiamine (B-1) 100 MG, Folic Acid 1 MG, MVI, adult with vitamin K 10 ML in 0.9 % Sodi... IVPB SCH (23:02)
[2021-07-26] MEDS: *HR* LORazepam 2 MG/ML VIAL IVP PRN ×3 (01:34→18:14)
[2021-07-26] MEDS: Piperacillin/Tazobactam 3.375 GM in 0.9 % Sodium Chloride Mini Bag 100 ML IVPB SCH ×4 (03:22→23:20)
[2021-07-26] MEDS: Nicotine 21 MG PATCH.TD24 TD SCH (07:23)
[2021-07-26 08:21] LABS: Red Cell Distribution Width 13.2 % (11.5-14.5)
[2021-07-26 08:23] LABS: Basophils % 0.3 %; Eosinophils # 0.3 K/mcL (0.0-0.6); Eosinophils % 3.3 %; Hematocrit 39.1 % (37.5-50.1); Hemoglobin 13.3 g/dL (12.9-16.9); Immature Granulocytes % 0.7 % (0-4); Immature Platelets 5.4 % (1.1-6.1); Lymphocytes % 11.3 %; Mean Platelet Volume 10.1 fL (9.4-12.4); Monocytes # 0.4 K/mcL (0.0-1.3); Monocytes % 4.3 %; Neutrophils # 7.3 K/mcL (1.6-8.9); Platelet Count 112 K/mcL (140-400); Red Blood Count 4.16 M/mcL (4.19-5.50); Segmented Neutrophils % 80.1 %; White Blood Count 9.1 K/mcL (4.3-11.1)
[2021-07-26 08:39] LABS: BUN/Creatinine Ratio 11 (6-26); Blood Urea Nitrogen 7 mg/dL (6-20); Carbon Dioxide 25 mEq/L (23-29); Chloride 105 mEq/L (98-107); Glucose 87 mg/dL (70-105); Osmolality,Calculated 281 (280-300); Platelet Estimate Slight Decrease (Normal); Potassium 3.3 mEq/L (3.5-5.1); Sodium 137 mEq/L (136-145); eGFR For African Americans > 60 (> 60); eGFR For Non-African Americans > 60 (> 60)
[2021-07-26] MEDS: Vancomycin 1,500 MG/265 ML IV.SOLN IVPB SCH (09:05)
[2021-07-26] MEDS ORDERED: Vancomycin 1,750 MG/517.5 ML IV.SOLN IVPB SCH ×2 (10:00→21:00)
[2021-07-26 10:55] LABS: Calcium 8.5 mg/dL (8.6-10.3)
[2021-07-26] MEDS: Vancomycin 1,750 MG/517.5 ML IV.SOLN IVPB SCH ×2 (12:18→23:20)
[2021-07-26] MEDS: Thiamine (B-1) 100 MG, Folic Acid 1 MG, MVI, adult with vitamin K 10 ML in 0.9 % Sodi... IVPB SCH (18:13)
[2021-07-26] MEDS: traZODone 50 MG TABLET PO SCH (20:41)
[2021-07-26] MEDS: Melatonin 3 MG TABLET PO PRN (20:42)
[2021-07-26] MEDS: Ondansetron 4 MG/2 ML VIAL IVP PRN (20:52)
[2021-07-27 02:10] LABS: Basophils # 0.1 K/mcL (0.0-0.2); Basophils % 0.6 %; Eosinophils # 0.3 K/mcL (0.0-0.6); Eosinophils % 3.9 %; Hematocrit 37.8 % (37.5-50.1); Immature Granulocytes % 0.5 % (0-4); Immature Platelets 7.8 % (1.1-6.1); Lymphocytes # 1.1 K/mcL (0.6-4.6); Lymphocytes % 14.1 %; Mean Corpuscular HGB Conc 34.4 g/dL (31.6-35.5); Mean Corpuscular Hemoglobin 32.2 pg (28.0-33.3); Mean Corpuscular Volume 93.6 fL (83.0-100.0); Mean Platelet Volume 11.1 fL (9.4-12.4); Monocytes # 0.5 K/mcL (0.0-1.3); Neutrophils # 5.8 K/mcL (1.6-8.9); Red Blood Count 4.04 M/mcL (4.19-5.50); Red Cell Distribution Width 13.2 % (11.5-14.5); Segmented Neutrophils % 74.9 %; White Blood Count 7.7 K/mcL (4.3-11.1)
[2021-07-27 02:11] LABS: Platelet Count 94 K/mcL (140-400)
[2021-07-27 02:19] LABS: BUN/Creatinine Ratio 5 (6-26); Blood Urea Nitrogen 6 mg/dL (6-20); C-Reactive Protein 208 mg/L (Less than 10); Calcium 8.3 mg/dL (8.6-10.3); Carbon Dioxide 24 mEq/L (23-29); Chloride 108 mEq/L (98-107); Glucose 104 mg/dL (70-105); Osmolality,Calculated 286 (280-300); Potassium 3.4 mEq/L (3.5-5.1); Sodium 139 mEq/L (136-145); eGFR For African Americans > 60 (> 60); eGFR For Non-African Americans > 60 (> 60)
[2021-07-27] MEDS: Piperacillin/Tazobactam 3.375 GM in 0.9 % Sodium Chloride Mini Bag 100 ML IVPB SCH ×3 (07:04→22:49)
[2021-07-27] MEDS: *HR* LORazepam 2 MG/ML VIAL IVP PRN ×3 (07:05→18:04)
[2021-07-27] MEDS: Nicotine 21 MG PATCH.TD24 TD SCH (07:05)
[2021-07-27] MEDS: Vancomycin 1,750 MG/517.5 ML IV.SOLN IVPB SCH (11:46)
[2021-07-27] MEDS: Vancomycin 1,250 MG/262.5 ML IV.SOLN IVPB SCH (14:14)
[2021-07-27] MEDS: Ketorolac 30 MG/ML VIAL IVP PRN (14:15)
[2021-07-27] MEDS: 0.9 % Sodium Chloride 1,000 ML IVC SCH (14:19)
[2021-07-27] MEDS ORDERED: Lidocaine -MPF 1% 2 ML VIAL ID ONE (16:57)
[2021-07-27] MEDS: traZODone 50 MG TABLET PO SCH (20:21)
[2021-07-28] MEDS: Vancomycin 1,250 MG/262.5 ML IV.SOLN IVPB SCH ×2 (00:49→12:17)
[2021-07-28] MEDS: Ondansetron 4 MG/2 ML VIAL IVP PRN (04:26)
[2021-07-28] MEDS: *HR* LORazepam 2 MG/ML VIAL IVP PRN ×3 (07:47→21:54)
[2021-07-28] MEDS: Nicotine 21 MG PATCH.TD24 TD SCH (07:48)
[2021-07-28] MEDS: Ketorolac 30 MG/ML VIAL IVP PRN (07:48)
[2021-07-28] MEDS: Piperacillin/Tazobactam 3.375 GM in 0.9 % Sodium Chloride Mini Bag 100 ML IVPB SCH ×2 (07:48→15:22)
[2021-07-28 09:27] LABS: Basophils # 0.1 K/mcL (0.0-0.2); Basophils % 0.8 %; Eosinophils # 0.3 K/mcL (0.0-0.6); Eosinophils % 4.8 %; Hematocrit 37.7 % (37.5-50.1); Hemoglobin 12.3 g/dL (12.9-16.9); Immature Granulocytes % 0.5 % (0-4); Lymphocytes # 1.3 K/mcL (0.6-4.6); Lymphocytes % 21.2 %; Mean Corpuscular HGB Conc 32.6 g/dL (31.6-35.5); Mean Corpuscular Hemoglobin 31.5 pg (28.0-33.3); Mean Corpuscular Volume 96.4 fL (83.0-100.0); Mean Platelet Volume 10.7 fL (9.4-12.4); Monocytes # 0.6 K/mcL (0.0-1.3); Monocytes % 9.8 %; Red Blood Count 3.91 M/mcL (4.19-5.50); Red Cell Distribution Width 13.3 % (11.5-14.5); Segmented Neutrophils % 62.9 %; White Blood Count 6.3 K/mcL (4.3-11.1)
[2021-07-28 09:50] LABS: Platelet Count 97 K/mcL (140-400)
[2021-07-28 10:17] LABS: Calcium 8.3 mg/dL (8.6-10.3); Potassium 3.5 mEq/L (3.5-5.1)
[2021-07-28] MEDS ORDERED: Fluticasone Propionate Nasal 50 MCG/SPRAY BOTTLE NS PRN (17:16)
[2021-07-28] MEDS ORDERED: cephALEXin 500 MG CAPSULE PO SCH (21:00)
[2021-07-28] MEDS: Doxycycline 100 MG CAPSULE PO SCH (21:54)
[2021-07-28] MEDS: Mirtazapine 15 MG TABLET PO SCH (21:54)
[2021-07-28] MEDS: Gabapentin 300 MG CAPSULE PO SCH (21:54)
[2021-07-28] MEDS: Cholecalciferol (D-3) 1,000 UNIT (25MCG) TABLET PO SCH (21:54)
[2021-07-28] MEDS: traZODone 50 MG TABLET PO SCH (21:55)
[2021-07-28] MEDS ORDERED: Mag Hydrox/Al Hydrox/Simeth 30 ML UDC PO PRN (22:03)
[2021-07-29] MEDS ORDERED: Ketorolac 30 MG/ML VIAL IVP ONE (00:40)
[2021-07-29 00:44] LABS: Basophils # 0.1 K/mcL (0.0-0.2); Eosinophils # 0.3 K/mcL (0.0-0.6); Eosinophils % 4.5 %; Hematocrit 36.1 % (37.5-50.1); Hemoglobin 12.3 g/dL (12.9-16.9); Immature Granulocytes % 0.6 % (0-4); Lymphocytes # 1.4 K/mcL (0.6-4.6); Lymphocytes % 19.7 %; Mean Corpuscular HGB Conc 34.1 g/dL (31.6-35.5); Mean Platelet Volume 10.3 fL (9.4-12.4); Monocytes # 0.8 K/mcL (0.0-1.3); Monocytes % 10.9 %; Neutrophils # 4.4 K/mcL (1.6-8.9); Platelet Count 111 K/mcL (140-400); Red Blood Count 3.84 M/mcL (4.19-5.50); Red Cell Distribution Width 13.2 % (11.5-14.5); Segmented Neutrophils % 63.3 %; White Blood Count 6.9 K/mcL (4.3-11.1)
[2021-07-29 01:03] LABS: Calcium 8.6 mg/dL (8.6-10.3); Potassium 3.3 mEq/L (3.5-5.1)
[2021-07-29] MEDS: Piperacillin/Tazobactam 3.375 GM in 0.9 % Sodium Chloride Mini Bag 100 ML IVPB SCH (01:14)
[2021-07-29] MEDS ORDERED: 0.9 % Sodium Chloride 1,000 ML IVC ONE (07:33)
[2021-07-29] MEDS: cephALEXin 500 MG CAPSULE PO SCH ×4 (08:49→20:56)
[2021-07-29] MEDS: Gabapentin 300 MG CAPSULE PO SCH ×3 (08:49→20:56)
[2021-07-29] MEDS: Folic Acid 1 MG TABLET PO SCH (08:49)
[2021-07-29] MEDS: Doxycycline 100 MG CAPSULE PO SCH ×2 (08:49→20:56)
[2021-07-29] MEDS: Cyanocobalamin (B-12) 1,000 MCG TABLET PO SCH (08:49)
[2021-07-29] MEDS: Nicotine 21 MG PATCH.TD24 TD SCH (08:53)
[2021-07-29 09:21] LABS: Bilirubin,Urine Negative (Negative); Blood,Urine Negative (Negative); Clarity,Urine Clear (Clear); Color,Urine Colorless (Yellow); Glucose,Urine (UA) Normal (Normal); Ketones,Urine Negative (Negative); Leukocyte Esterase,Urine Negative (Negative); Nitrite,Urine Negative (Negative); Protein,Urine Negative (Neg-Trace); Specific Gravity,Urine 1.007 (1.010-1.025); Urobilinogen,Urine Normal (Normal)
[2021-07-29 11:11] LABS: Protein/Creatinine Ratio,Urine 0.14 mg/mg (0.00-0.20); Sodium, Urine 46.8 mEq/L
[2021-07-29] MEDS: *HR* LORazepam 2 MG/ML VIAL IVP PRN ×3 (13:12→21:09)
[2021-07-29] MEDS: *HR* Heparin 5,000 UNIT/ML VIAL SQ SCH (17:34)
[2021-07-29] MEDS: Cholecalciferol (D-3) 1,000 UNIT (25MCG) TABLET PO SCH (20:56)
[2021-07-29] MEDS: Mirtazapine 15 MG TABLET PO SCH (20:56)
[2021-07-29] MEDS: traZODone 50 MG TABLET PO SCH (20:57)
[2021-07-30] MEDS: *HR* LORazepam 2 MG/ML VIAL IVP PRN ×4 (02:59→21:14)
[2021-07-30] MEDS: *HR* Heparin 5,000 UNIT/ML VIAL SQ SCH ×2 (05:28→17:17)
[2021-07-30 09:43] LABS: Basophils # 0.1 K/mcL (0.0-0.2); Basophils % 0.5 %; Eosinophils # 0.1 K/mcL (0.0-0.6); Eosinophils % 0.6 %; Hematocrit 38.4 % (37.5-50.1); Hemoglobin 12.8 g/dL (12.9-16.9); Immature Granulocytes % 1.7 % (0-4); Lymphocytes # 1.2 K/mcL (0.6-4.6); Lymphocytes % 10.8 %; Mean Corpuscular HGB Conc 33.3 g/dL (31.6-35.5); Mean Corpuscular Hemoglobin 31.4 pg (28.0-33.3); Mean Corpuscular Volume 94.3 fL (83.0-100.0); Mean Platelet Volume 10.2 fL (9.4-12.4); Monocytes # 1.7 K/mcL (0.0-1.3); Monocytes % 15.9 %; Neutrophils # 7.7 K/mcL (1.6-8.9); Platelet Count 144 K/mcL (140-400); Red Blood Count 4.07 M/mcL (4.19-5.50); Red Cell Distribution Width 13.5 % (11.5-14.5); Segmented Neutrophils % 70.5 %
[2021-07-30 09:44] LABS: White Blood Count 10.9 K/mcL (4.3-11.1)
[2021-07-30] MEDS: cephALEXin 500 MG CAPSULE PO SCH ×4 (09:55→20:17)
[2021-07-30] MEDS: 0.9 % Sodium Chloride 1,000 ML IVC SCH ×3 (09:56→15:02)
[2021-07-30] MEDS: Multivit/Ca/Min/Fe/FA 1 TAB TABLET PO SCH (09:57)
[2021-07-30] MEDS: Nicotine 21 MG PATCH.TD24 TD SCH (09:57)
[2021-07-30] MEDS: Cyanocobalamin (B-12) 1,000 MCG TABLET PO SCH (09:57)
[2021-07-30] MEDS: Gabapentin 300 MG CAPSULE PO SCH ×3 (09:57→20:17)
[2021-07-30] MEDS: Doxycycline 100 MG CAPSULE PO SCH ×2 (09:57→20:17)
[2021-07-30] MEDS: Folic Acid 1 MG TABLET PO SCH (09:57)
[2021-07-30 09:59] LABS: Calcium 8.5 mg/dL (8.6-10.3); Potassium 3.1 mEq/L (3.5-5.1)
[2021-07-30 12:27] LABS: Albumin 3.3 g/dL (3.5-5.7); Albumin/Globulin Ratio 1.3 (1.1-2.2); Bilirubin,Indirect 0.4 mg/dL (0.0-1.0); Bilirubin,Total 0.4 mg/dL (0.3-1.0); Globulin 2.6 g/dL (2.4-3.5); Total Protein 5.9 g/dL (6.4-8.9)
[2021-07-30] MEDS: diazePAM 10 MG TABLET PO SCH ×2 (14:41→17:18)
[2021-07-30] MEDS: Ringers Solution, Lactated 1,000 ML IVC SCH (14:42)
[2021-07-30] MEDS: Cholecalciferol (D-3) 1,000 UNIT (25MCG) TABLET PO SCH (20:16)
[2021-07-30] MEDS: Mirtazapine 15 MG TABLET PO SCH (20:16)
[2021-07-30] MEDS: Melatonin 3 MG TABLET PO PRN (20:17)
[2021-07-30] MEDS: traZODone 50 MG TABLET PO SCH (20:17)
[2021-07-30 23:58] LABS: Creatinine,Urine 22 mg/dL
[2021-07-31] MEDS: diazePAM 10 MG TABLET PO SCH ×4 (00:32→17:09)
[2021-07-31] MEDS: *HR* LORazepam 2 MG/ML VIAL IVP PRN ×2 (01:59→21:52)
[2021-07-31] MEDS: Ringers Solution, Lactated 1,000 ML IVC SCH (02:00)
[2021-07-31 06:32] LABS: Basophils % 0.5 %; Eosinophils # 0.3 K/mcL (0.0-0.6); Eosinophils % 3.8 %; Hematocrit 34.7 % (37.5-50.1); Hemoglobin 11.5 g/dL (12.9-16.9); Immature Granulocytes % 0.6 % (0-4); Lymphocytes # 1.3 K/mcL (0.6-4.6); Lymphocytes % 16.1 %; Mean Corpuscular HGB Conc 33.1 g/dL (31.6-35.5); Mean Corpuscular Hemoglobin 31.6 pg (28.0-33.3); Mean Corpuscular Volume 95.3 fL (83.0-100.0); Monocytes # 1.4 K/mcL (0.0-1.3); Monocytes % 17.8 %; Neutrophils # 4.8 K/mcL (1.6-8.9); Platelet Count 135 K/mcL (140-400); Red Blood Count 3.64 M/mcL (4.19-5.50); Red Cell Distribution Width 13.6 % (11.5-14.5); Segmented Neutrophils % 61.2 %; White Blood Count 7.9 K/mcL (4.3-11.1)
[2021-07-31 06:50] LABS: Calcium 8.4 mg/dL (8.6-10.3); Uric Acid 6.2 mg/dL (2.3-7.6)
[2021-07-31 07:25] LABS: Hepatitis B Surface Antigen Nonreactive (Nonreactive)
[2021-07-31] MEDS: *HR* Heparin 5,000 UNIT/ML VIAL SQ SCH ×2 (07:48→17:10)
[2021-07-31 07:54] LABS: Hepatitis B Core IgM Nonreactive (Nonreactive)
[2021-07-31 07:56] LABS: Hepatitis A Antibody IgM Nonreactive (Nonreactive)
[2021-07-31] MEDS: Folic Acid 1 MG TABLET PO SCH (08:31)
[2021-07-31] MEDS: Cyanocobalamin (B-12) 1,000 MCG TABLET PO SCH (08:31)
[2021-07-31] MEDS: cephALEXin 500 MG CAPSULE PO SCH ×4 (08:31→21:53)
[2021-07-31] MEDS: Nicotine 21 MG PATCH.TD24 TD SCH (08:31)
[2021-07-31] MEDS: Multivit/Ca/Min/Fe/FA 1 TAB TABLET PO SCH (08:31)
[2021-07-31] MEDS: Doxycycline 100 MG CAPSULE PO SCH ×2 (08:31→21:53)
[2021-07-31] MEDS: Gabapentin 300 MG CAPSULE PO SCH ×3 (08:31→21:53)
[2021-07-31] MEDS: Ondansetron 4 MG/2 ML VIAL IVP PRN (15:46)
[2021-07-31] MEDS: Mirtazapine 15 MG TABLET PO SCH (21:53)
[2021-07-31] MEDS: Cholecalciferol (D-3) 1,000 UNIT (25MCG) TABLET PO SCH (21:53)
[2021-07-31] MEDS: traZODone 50 MG TABLET PO SCH (21:54)
[2021-08-01] MEDS: diazePAM 10 MG TABLET PO SCH ×5 (00:03→18:21)
[2021-08-01 02:02] LABS: Calcium 8.4 mg/dL (8.6-10.3); Magnesium 1.2 mg/dL (1.6-2.6); Potassium 3.1 mEq/L (3.5-5.1)
[2021-08-01] MEDS ORDERED: Albuterol 2.5 MG/3 ML NEBULIZER IH PRN (04:12)
[2021-08-01] MEDS ORDERED: methylPREDNISolone 125 MG/2 ML VIAL IVP ONE (04:13)
[2021-08-01 05:11] LABS: VBG HCO3 25 mEq/L (21-27); VBG PCO2 46 mmHg (41-51); VBG PH 7.34 pH Units (7.32-7.42); VBG PO2 191 mmHg (25-50)
[2021-08-01 05:50] LABS: Hepatitis C Virus Antibody Reactive (Nonreactive)
[2021-08-01] MEDS: *HR* Heparin 5,000 UNIT/ML VIAL SQ SCH ×2 (06:47→18:22)
[2021-08-01 08:23] LABS: Adenovirus Not Detected (Not Detect); Bordetella Pertussis Not Detected (Not Detect); Chlamydophila pneumoniae Not Detected (Not Detect); Coronavirus 229E Not Detected (Not Detect); Coronavirus HKU1 Not Detected (Not Detect); Coronavirus NL63 Not Detected (Not Detect); Coronavirus OC43 Not Detected (Not Detect); Human Metapneumovirus Not Detected (Not Detect); Human Rhinovirus/Enterovirus Not Detected (Not Detect); Influenza A Subtype 2009 H1 Not Detected (Not Detect); Influenza B Not Detected (Not Detect); Mycoplasma pneumoniae Not Detected (Not Detect); Parainfluenza Virus 1 Not Detected (Not Detect); Parainfluenza Virus 2 Not Detected (Not Detect); Parainfluenza Virus 3 Not Detected (Not Detect); Parainfluenza Virus 4 Not Detected (Not Detect); Respiratory Syncytial Virus Not Detected (Not Detect); SARS-CoV-2 Not Detected (Not Detect)
[2021-08-01] MEDS ORDERED: 0.9 % Sodium Chloride 1,000 ML IVC ONE (08:40)
[2021-08-01] MEDS: Cyanocobalamin (B-12) 1,000 MCG TABLET PO SCH (09:41)
[2021-08-01] MEDS: Nicotine 21 MG PATCH.TD24 TD SCH (09:41)
[2021-08-01] MEDS: cephALEXin 500 MG CAPSULE PO SCH ×4 (09:41→21:19)
[2021-08-01] MEDS: Folic Acid 1 MG TABLET PO SCH (09:41)
[2021-08-01] MEDS: Gabapentin 300 MG CAPSULE PO SCH ×3 (09:41→20:57)
[2021-08-01] MEDS: Doxycycline 100 MG CAPSULE PO SCH ×2 (09:42→20:56)
[2021-08-01] MEDS: Acetaminophen 325 MG TABLET PO PRN (09:42)
[2021-08-01] MEDS: Multivit/Ca/Min/Fe/FA 1 TAB TABLET PO SCH (09:42)
[2021-08-01] MEDS: Ringers Solution, Lactated 1,000 ML IVC SCH ×3 (11:43→22:52)
[2021-08-01 12:22] LABS: Basophils % 0.2 %; Hematocrit 35.4 % (37.5-50.1); Hemoglobin 11.7 g/dL (12.9-16.9); Immature Granulocytes % 0.5 % (0-4); Lymphocytes # 0.5 K/mcL (0.6-4.6); Lymphocytes % 3.9 %; Mean Corpuscular HGB Conc 33.1 g/dL (31.6-35.5); Mean Corpuscular Hemoglobin 32.2 pg (28.0-33.3); Mean Corpuscular Volume 97.5 fL (83.0-100.0); Mean Platelet Volume 10.5 fL (9.4-12.4); Monocytes # 0.4 K/mcL (0.0-1.3); Monocytes % 3.1 %; Neutrophils # 12.1 K/mcL (1.6-8.9); Platelet Count 198 K/mcL (140-400); Red Blood Count 3.63 M/mcL (4.19-5.50); Red Cell Distribution Width 13.7 % (11.5-14.5); Segmented Neutrophils % 92.3 %
[2021-08-01 12:23] LABS: White Blood Count 13.1 K/mcL (4.3-11.1)
[2021-08-01] MEDS ORDERED: diazePAM 5 MG TABLET PO SCH (20:00)
[2021-08-01] MEDS: Mirtazapine 15 MG TABLET PO SCH (20:57)
[2021-08-01] MEDS: traZODone 50 MG TABLET PO SCH (20:57)
[2021-08-01] MEDS: Cholecalciferol (D-3) 1,000 UNIT (25MCG) TABLET PO SCH (20:57)
[2021-08-02] MEDS: diazePAM 10 MG TABLET PO SCH ×4 (00:05→17:54)
[2021-08-02 05:39] LABS: Basophils % 0.1 %; Hemoglobin 11.2 g/dL (12.9-16.9); Immature Granulocytes % 0.6 % (0-4); Lymphocytes # 1.2 K/mcL (0.6-4.6); Lymphocytes % 6.5 %; Mean Corpuscular HGB Conc 32.9 g/dL (31.6-35.5); Mean Corpuscular Hemoglobin 31.7 pg (28.0-33.3); Mean Corpuscular Volume 96.3 fL (83.0-100.0); Mean Platelet Volume 10.2 fL (9.4-12.4); Monocytes # 1.2 K/mcL (0.0-1.3); Monocytes % 6.7 %; Neutrophils # 15.2 K/mcL (1.6-8.9); Platelet Count 225 K/mcL (140-400); Red Blood Count 3.53 M/mcL (4.19-5.50); Red Cell Distribution Width 13.4 % (11.5-14.5); Segmented Neutrophils % 86.1 %; White Blood Count 17.7 K/mcL (4.3-11.1)
[2021-08-02] MEDS: *HR* Heparin 5,000 UNIT/ML VIAL SQ SCH ×2 (05:51→17:53)
[2021-08-02 06:06] LABS: Calcium 8.5 mg/dL (8.6-10.3); Potassium 4.1 mEq/L (3.5-5.1)
[2021-08-02] MEDS: Cyanocobalamin (B-12) 1,000 MCG TABLET PO SCH (08:34)
[2021-08-02] MEDS: Multivit/Ca/Min/Fe/FA 1 TAB TABLET PO SCH (08:34)
[2021-08-02] MEDS: cephALEXin 500 MG CAPSULE PO SCH ×2 (08:34→12:52)
[2021-08-02] MEDS: Folic Acid 1 MG TABLET PO SCH (08:34)
[2021-08-02] MEDS: Doxycycline 100 MG CAPSULE PO SCH ×2 (08:34→21:40)
[2021-08-02] MEDS: Gabapentin 300 MG CAPSULE PO SCH ×3 (08:34→21:40)
[2021-08-02] MEDS: Nicotine 21 MG PATCH.TD24 TD SCH (08:35)
[2021-08-02] MEDS ORDERED: diazePAM 5 MG TABLET PO SCH (09:00)
[2021-08-02] MEDS ORDERED: PHENobarbital 65 MG/ML VIAL IVP ONE (10:09)
[2021-08-02] MEDS ORDERED: SODIUM CHLORIDE 0.9% IVPB ONE (10:30)
[2021-08-02] MEDS ORDERED: PHENOBARBITAL IVPB ONE (10:30)
[2021-08-02] MEDS: Ringers Solution, Lactated 1,000 ML IVC SCH ×2 (11:13→16:05)
[2021-08-02] MEDS ORDERED: diazePAM 5 MG TABLET PO ONE (21:33)
[2021-08-02] MEDS: Cholecalciferol (D-3) 1,000 UNIT (25MCG) TABLET PO SCH (21:40)
[2021-08-02] MEDS: Mirtazapine 15 MG TABLET PO SCH (21:40)
[2021-08-02] MEDS: traZODone 50 MG TABLET PO SCH (21:41)
[2021-08-03] MEDS ORDERED: Morphine Sulfate 2 MG/ML SYRINGE IVP ONE (02:55)
[2021-08-03] MEDS ORDERED: Perflutren Lipid Microsphere 1.3 ML in 0.9 % Sodium Chloride 8.7 ML IVP PRN (02:57)
[2021-08-03 03:16] LABS: Basophils # 0.1 K/mcL (0.0-0.2); Basophils % 0.5 %; Eosinophils # 0.3 K/mcL (0.0-0.6); Eosinophils % 2.4 %; Hematocrit 33.1 % (37.5-50.1); Immature Granulocytes % 0.4 % (0-4); Lymphocytes # 1.9 K/mcL (0.6-4.6); Lymphocytes % 16.1 %; Mean Corpuscular HGB Conc 33.2 g/dL (31.6-35.5); Mean Corpuscular Volume 96.2 fL (83.0-100.0); Mean Platelet Volume 10.4 fL (9.4-12.4); Monocytes # 1.1 K/mcL (0.0-1.3); Monocytes % 9.1 %; Neutrophils # 8.3 K/mcL (1.6-8.9); Platelet Count 234 K/mcL (140-400); Red Blood Count 3.44 M/mcL (4.19-5.50); Red Cell Distribution Width 13.7 % (11.5-14.5); Segmented Neutrophils % 71.5 %; White Blood Count 11.6 K/mcL (4.3-11.1)
[2021-08-03 03:38] LABS: BUN/Creatinine Ratio 7 (6-26); Blood Urea Nitrogen 15 mg/dL (6-20); Calcium 8.4 mg/dL (8.6-10.3); Carbon Dioxide 23 mEq/L (23-29); Chloride 109 mEq/L (98-107); Glucose 132 mg/dL (70-105); Osmolality,Calculated 293 (280-300); Potassium 3.6 mEq/L (3.5-5.1); Sodium 140 mEq/L (136-145); Troponin I < 0.03 ng/mL (< 0.04); eGFR For African Americans 41 (> 60); eGFR For Non-African Americans 34 (> 60)
[2021-08-03] MEDS: *HR* Heparin 5,000 UNIT/ML VIAL SQ SCH ×2 (05:55→17:39)
[2021-08-03] MEDS: diazePAM 10 MG TABLET PO SCH ×2 (05:55→17:39)
[2021-08-03] MEDS: Multivit/Ca/Min/Fe/FA 1 TAB TABLET PO SCH (09:46)
[2021-08-03] MEDS: Nicotine 21 MG PATCH.TD24 TD SCH (09:46)
[2021-08-03] MEDS: Folic Acid 1 MG TABLET PO SCH (09:46)
[2021-08-03] MEDS: Gabapentin 300 MG CAPSULE PO SCH ×3 (09:46→20:55)
[2021-08-03] MEDS: Magnesium Oxide 400 MG TABLET PO SCH ×2 (09:46→20:55)
[2021-08-03] MEDS: Doxycycline 100 MG CAPSULE PO SCH ×2 (09:46→20:56)
[2021-08-03] MEDS: Cyanocobalamin (B-12) 1,000 MCG TABLET PO SCH (09:46)
[2021-08-03] MEDS ORDERED: Ketorolac 15 MG/ML VIAL IVP ONE (10:04)
[2021-08-03 18:49] LABS: Albumin 2.8 g/dL (3.5-5.7); Bilirubin,Direct 0.1 mg/dL (0.0-0.2); Bilirubin,Indirect 0.3 mg/dL (0.0-1.0); Bilirubin,Total 0.4 mg/dL (0.3-1.0); Globulin 2.7 g/dL (2.4-3.5); Total Protein 5.5 g/dL (6.4-8.9)
[2021-08-03] MEDS: traZODone 50 MG TABLET PO SCH (20:55)
[2021-08-03] MEDS: Cholecalciferol (D-3) 1,000 UNIT (25MCG) TABLET PO SCH (20:55)
[2021-08-03] MEDS: Mirtazapine 15 MG TABLET PO SCH (20:56)
[2021-08-04] MEDS: *HR* Heparin 5,000 UNIT/ML VIAL SQ SCH ×2 (06:26→18:28)
[2021-08-04] MEDS: diazePAM 10 MG TABLET PO SCH (06:26)
[2021-08-04 07:12] LABS: Basophils # 0.1 K/mcL (0.0-0.2); Basophils % 0.4 %; Eosinophils # 0.4 K/mcL (0.0-0.6); Eosinophils % 3.3 %; Hematocrit 35.5 % (37.5-50.1); Hemoglobin 11.5 g/dL (12.9-16.9); Immature Granulocytes % 0.8 % (0-4); Lymphocytes # 2.1 K/mcL (0.6-4.6); Lymphocytes % 17.7 %; Mean Corpuscular HGB Conc 32.4 g/dL (31.6-35.5); Mean Corpuscular Hemoglobin 31.4 pg (28.0-33.3); Mean Platelet Volume 10.4 fL (9.4-12.4); Monocytes % 8.3 %; Neutrophils # 8.2 K/mcL (1.6-8.9); Platelet Count 269 K/mcL (140-400); Red Blood Count 3.66 M/mcL (4.19-5.50); Red Cell Distribution Width 13.7 % (11.5-14.5); Segmented Neutrophils % 69.5 %; White Blood Count 11.8 K/mcL (4.3-11.1)
[2021-08-04 07:29] LABS: Calcium 8.8 mg/dL (8.6-10.3); Potassium 4.2 mEq/L (3.5-5.1)
[2021-08-04] MEDS: Multivit/Ca/Min/Fe/FA 1 TAB TABLET PO SCH (08:55)
[2021-08-04] MEDS: Doxycycline 100 MG CAPSULE PO SCH ×2 (08:55→21:45)
[2021-08-04] MEDS: Cyanocobalamin (B-12) 1,000 MCG TABLET PO SCH (08:55)
[2021-08-04] MEDS: Magnesium Oxide 400 MG TABLET PO SCH ×2 (08:55→21:45)
[2021-08-04] MEDS: Folic Acid 1 MG TABLET PO SCH (08:55)
[2021-08-04] MEDS: Gabapentin 300 MG CAPSULE PO SCH ×3 (08:55→21:45)
[2021-08-04] MEDS: Nicotine 21 MG PATCH.TD24 TD SCH (08:56)
[2021-08-04] MEDS ORDERED: 0.9 % Sodium Chloride 1,000 ML IVC ONE (09:14)
[2021-08-04 11:43] LABS: Amphetamine Screen,Urine Negative ng/mL (Cutoff=1000)
[2021-08-04 11:44] LABS: Barbiturate Screen,Urine Negative ng/mL (Cutoff=200); Benzodiazepines Screen,Urine Positive ng/mL (Cutoff=300); Cannabinoid Screen,Urine Negative ng/mL (Cutoff = 50); Cocaine Screen,Urine Negative ng/mL (Cutoff= 300); Opiate Screen,Urine Negative ng/mL (Cutoff=300); Phencyclidine Screen,Urine Negative ng/mL (Cutoff=25)
[2021-08-04] MEDS ORDERED: diazePAM 5 MG TABLET PO ONE (16:48)
[2021-08-04] MEDS: Ringers Solution, Lactated 1,000 ML IVC SCH ×4 (18:48→21:36)
[2021-08-04] MEDS: traZODone 50 MG TABLET PO SCH (21:44)
[2021-08-04] MEDS: Mirtazapine 15 MG TABLET PO SCH (21:45)
[2021-08-04] MEDS: Cholecalciferol (D-3) 1,000 UNIT (25MCG) TABLET PO SCH (21:45)
[2021-08-04] MEDS: Acetaminophen 325 MG TABLET PO PRN (21:53)
[2021-08-05] MEDS: *HR* Heparin 5,000 UNIT/ML VIAL SQ SCH (05:12)
[2021-08-05 05:33] LABS: Basophils # 0.1 K/mcL (0.0-0.2); Basophils % 0.9 %; Eosinophils # 0.5 K/mcL (0.0-0.6); Eosinophils % 4.7 %; Hematocrit 36.7 % (37.5-50.1); Immature Granulocytes % 1.2 % (0-4); Lymphocytes # 2.5 K/mcL (0.6-4.6); Lymphocytes % 22.3 %; Mean Corpuscular HGB Conc 32.7 g/dL (31.6-35.5); Mean Corpuscular Hemoglobin 31.7 pg (28.0-33.3); Mean Corpuscular Volume 97.1 fL (83.0-100.0); Mean Platelet Volume 9.9 fL (9.4-12.4); Neutrophils # 6.9 K/mcL (1.6-8.9); Platelet Count 315 K/mcL (140-400); Red Blood Count 3.78 M/mcL (4.19-5.50); Red Cell Distribution Width 13.5 % (11.5-14.5); Segmented Neutrophils % 61.9 %; White Blood Count 11.1 K/mcL (4.3-11.1)
[2021-08-05 05:55] LABS: Calcium 9.1 mg/dL (8.6-10.3); Potassium 4.7 mEq/L (3.5-5.1)
[2021-08-05] MEDS: Cyanocobalamin (B-12) 1,000 MCG TABLET PO SCH (08:12)
[2021-08-05] MEDS: Folic Acid 1 MG TABLET PO SCH (08:12)
[2021-08-05] MEDS: Ringers Solution, Lactated 1,000 ML IVC SCH (08:12)
[2021-08-05] MEDS: Doxycycline 100 MG CAPSULE PO SCH (08:12)
[2021-08-05] MEDS: Gabapentin 300 MG CAPSULE PO SCH (08:12)
[2021-08-05] MEDS: Multivit/Ca/Min/Fe/FA 1 TAB TABLET PO SCH (08:12)
[2021-08-05] MEDS: Nicotine 21 MG PATCH.TD24 TD SCH (08:15)
[2021-08-05 11:13] VITALS: BP 130/93; PULSE 95; TEMP 98.3; O2SAT 93
== END 2021-08-05 13:03 | disposition home or self-care (01) | DRG 710 ==
LOC: CDU 20:41 → EMEROOARM 20:41 → SUATTDRO 23:40 → CDU 23:41 → 3NENU 07-25 16:52 → SUATTDRO 07-27 15:43
PROVIDERS: ADMIT Student in an Organized Health Care Education/Training Program; ATTEND Internal Medicine

== ENCOUNTER 2022-04-17 19:29 | Inpatient (IN) ==
[2022-04-17] MEDS ORDERED: *HR* LORazepam 2 MG/ML VIAL IVP ONE (19:37)
[2022-04-17 20:16] LABS: Basophils # 0.1 K/mcL (0.0-0.2); Eosinophils # 0.2 K/mcL (0.0-0.6); Eosinophils % 1.4 %; Hematocrit 53.1 % (37.5-50.1); Hemoglobin 18.2 g/dL (12.9-16.9); Immature Granulocytes % 0.3 % (0-4); Lymphocytes # 4.3 K/mcL (0.6-4.6); Lymphocytes % 32.6 %; Mean Corpuscular HGB Conc 34.3 g/dL (31.6-35.5); Mean Corpuscular Hemoglobin 30.9 pg (28.0-33.3); Mean Corpuscular Volume 90.2 fL (83.0-100.0); Mean Platelet Volume 9.6 fL (9.4-12.4); Monocytes % 7.6 %; Neutrophils # 7.6 K/mcL (1.6-8.9); Platelet Count 146 K/mcL (140-400); Red Blood Count 5.89 M/mcL (4.19-5.50); Red Cell Distribution Width 13.9 % (11.5-14.5); Segmented Neutrophils % 57.1 %; White Blood Count 13.3 K/mcL (4.3-11.1)
[2022-04-17 20:25] LABS: INR 1.1; Prothrombin Time 11.8 Seconds (9.4-12.1)
[2022-04-17 20:28] LABS: Activated Partial Thrombo Time 36.3 Seconds (26.0-36.0)
[2022-04-17 20:38] LABS: Troponin I < 0.03 ng/mL (< 0.04)
[2022-04-17 20:54] LABS: Acetaminophen < 10 mcg/mL (10-20); Alanine Aminotransferase 32 Units/L (7-52); Albumin 4.2 g/dL (3.5-5.7); Albumin/Globulin Ratio 1.4 (1.1-2.2); Alkaline Phosphatase 78 Units/L (34-104); Aspartate Amino Transferase 33 Units/L (13-39); BUN/Creatinine Ratio 11 (6-26); Bilirubin,Direct 0.1 mg/dL (0.0-0.2); Bilirubin,Indirect 0.5 mg/dL (0.0-1.0); Bilirubin,Total 0.6 mg/dL (0.3-1.0); Blood Urea Nitrogen 10 mg/dL (6-20); Calcium 8.9 mg/dL (8.6-10.3); Carbon Dioxide 17 mEq/L (23-29); Chloride 106 mEq/L (98-107); Chol/HDL Ratio 2.4 (0-4.9); Cholesterol 134 mg/dL (< 200); Ethanol 391 mg/dL (Less than 10); Globulin 3.1 g/dL (2.4-3.5); Glucose 101 mg/dL (70-105); HDL Cholesterol 56 mg/dL (40-59); LDL Cholesterol,Calculated 63 mg/dL (< 100); Osmolality,Calculated 289 (280-300); Potassium 3.9 mEq/L (3.5-5.1); Salicylate < 2.5 mg/dL (15.0-30.0); Sodium 140 mEq/L (136-145); Thyroid Stimulating Hormone 2.087 mcIU/mL (0.340-5.600); Total Protein 7.3 g/dL (6.4-8.9); Triglycerides 77 mg/dL (< 150); eGFR For African Americans > 60 (> 60); eGFR For Non-African Americans > 60 (> 60)
[2022-04-17 20:57] LABS: Estimated Average Glucose 103 mg/dl; Hemoglobin A1C 5.2 %
[2022-04-18 02:19] LABS: Bilirubin,Urine Negative (Negative); Blood,Urine Negative (Negative); Clarity,Urine Clear (Clear); Color,Urine Yellow (Yellow); Glucose,Urine (UA) Normal (Normal); Ketones,Urine Negative (Negative); Leukocyte Esterase,Urine Negative (Negative); Mucus,Urine Few per lpf (None-Few); Nitrite,Urine Negative (Negative); PH,Urine 5.5 pH Units (5.0-8.0); Protein,Urine 30 mg/dL (Neg-Trace); RBC,Urine 0-3 per hpf (0-3); Specific Gravity,Urine 1.015 (1.010-1.025); Urobilinogen,Urine Normal (Normal); WBC,Urine 0-3 per hpf (0-3)
[2022-04-18 02:28] LABS: Amphetamine Screen,Urine Negative ng/mL (Cutoff=1000); Barbiturate Screen,Urine Negative ng/mL (Cutoff=200); Benzodiazepines Screen,Urine Negative ng/mL (Cutoff=200); Cannabinoid Screen,Urine Negative ng/mL (Cutoff = 50); Cocaine Screen,Urine Negative ng/mL (Cutoff= 300); Opiate Screen,Urine Negative ng/mL (Cutoff=300); Phencyclidine Screen,Urine Negative ng/mL (Cutoff=25)
[2022-04-18 08:26] LABS: Influenza A PCR Negative (Negative); Influenza B PCR Negative (Negative); Resp. Syncytial Virus PCR Negative (Negative)
[2022-04-18] MEDS ORDERED: *HR* LORazepam 1 MG TABLET PO STA (08:38)
[2022-04-18] MEDS ORDERED: Thiamine (B-1) 100 MG in 0.9 % Sodium Chloride 50 ML IVPB ONE (08:39)
[2022-04-18 10:58] LABS: SARS-CoV-2 by PCR (In House) Positive (Negative)
[2022-04-18] MEDS ORDERED: *HR* LORazepam 2 MG/ML VIAL IVP STA (11:55)
[2022-04-18] MEDS ORDERED: Naloxone 0.4 MG/ML INJ IVP PRN (12:25)
[2022-04-18] MEDS ORDERED: Acetaminophen 325 MG TABLET PO PRN (12:31)
[2022-04-18] MEDS ORDERED: Melatonin 3 MG TABLET PO PRN (12:31)
[2022-04-18] MEDS ORDERED: Ondansetron 4 MG/2 ML VIAL IVP PRN (12:31)
[2022-04-18] MEDS ORDERED: *HR* LORazepam 2 MG/ML VIAL IVP PRN (12:33)
[2022-04-18] MEDS ORDERED: tiZANidine 4 MG TABLET PO PRN (14:06)
[2022-04-18] MEDS: Folic Acid 1 MG TABLET PO SCH (14:24)
[2022-04-18] MEDS: *HR* LORazepam 2 MG/ML VIAL IVP PRN ×2 (14:24→19:54)
[2022-04-18] MEDS ORDERED: GI Cocktail 40 ML EACH PO ONE (14:35)
[2022-04-18] MEDS: traZODone 50 MG TABLET PO SCH (19:43)
[2022-04-18] MEDS: Nicotine 21 MG PATCH.TD24 TD SCH (21:34)
[2022-04-19 02:59] LABS: INR 1.1; Prothrombin Time 11.7 Seconds (9.4-12.1)
[2022-04-19 03:34] LABS: Alanine Aminotransferase 25 Units/L (7-52); Albumin 3.8 g/dL (3.5-5.7); Albumin/Globulin Ratio 1.3 (1.1-2.2); Alkaline Phosphatase 71 Units/L (34-104); Aspartate Amino Transferase 24 Units/L (13-39); BUN/Creatinine Ratio 21 (6-26); Blood Urea Nitrogen 15 mg/dL (6-20); C-Reactive Protein 42 mg/L (Less than 10); Calcium 9.3 mg/dL (8.6-10.3); Carbon Dioxide 21 mEq/L (23-29); Chloride 106 mEq/L (98-107); Ferritin 174 ng/mL (20-250); Glucose 128 mg/dL (70-105); Lactate Dehydrogenase 177 Units/L (140-271); Magnesium 1.9 mg/dL (1.6-2.6); Osmolality,Calculated 284 (280-300); Potassium 4.4 mEq/L (3.5-5.1); Sodium 136 mEq/L (136-145); Total Protein 6.8 g/dL (6.4-8.9); eGFR For African Americans > 60 (> 60); eGFR For Non-African Americans > 60 (> 60)
[2022-04-19] MEDS: *HR* LORazepam 2 MG/ML VIAL IVP PRN ×5 (04:34→21:41)
[2022-04-19] MEDS: *HR* Enoxaparin 40 MG/0.4 ML SYRINGE SQ SCH (06:06)
[2022-04-19] MEDS: Tiotropium 10 INH DOSE IH SCH (07:47)
[2022-04-19] MEDS ORDERED: Remdesivir 200 MG in 0.9 % Sodium Chloride 100 ML IVPB ONE (07:51)
[2022-04-19] MEDS: Nicotine 21 MG PATCH.TD24 TD SCH ×2 (09:15→21:31)
[2022-04-19] MEDS: Folic Acid 1 MG TABLET PO SCH (09:16)
[2022-04-19] MEDS: Dexamethasone Sodium Phos/PF 10 MG/ML VIAL IVP SCH (09:16)
[2022-04-19] MEDS: Thiamine (B-1) 100 MG TABLET PO SCH (09:17)
[2022-04-19] MEDS: traZODone 50 MG TABLET PO SCH (19:55)
[2022-04-20] MEDS: *HR* LORazepam 2 MG/ML VIAL IVP PRN ×3 (02:00→14:49)
[2022-04-20 05:24] LABS: Eosinophils % 0.1 %; Immature Granulocytes % 0.5 % (0-4)
[2022-04-20 05:26] LABS: Basophils % 0.2 %; Hemoglobin 15.6 g/dL (12.9-16.9); Immature Platelets 8.6 % (1.1-6.1); Lymphocytes % 14.2 %; Mean Corpuscular HGB Conc 34.7 g/dL (31.6-35.5); Mean Corpuscular Hemoglobin 31.2 pg (28.0-33.3); Mean Platelet Volume 10.7 fL (9.4-12.4); Monocytes # 0.7 K/mcL (0.0-1.3); Monocytes % 6.2 %; Neutrophils # 9.1 K/mcL (1.6-8.9); Red Cell Distribution Width 13.4 % (11.5-14.5); Segmented Neutrophils % 78.8 %; White Blood Count 11.6 K/mcL (4.3-11.1)
[2022-04-20 05:55] LABS: Alanine Aminotransferase 26 Units/L (7-52); Albumin 3.8 g/dL (3.5-5.7); Albumin/Globulin Ratio 1.5 (1.1-2.2); Alkaline Phosphatase 66 Units/L (34-104); Aspartate Amino Transferase 22 Units/L (13-39); BUN/Creatinine Ratio 17 (6-26); Bilirubin,Direct 0.2 mg/dL (0.0-0.2); Blood Urea Nitrogen 12 mg/dL (6-20); Carbon Dioxide 22 mEq/L (23-29); Chloride 107 mEq/L (98-107); Globulin 2.6 g/dL (2.4-3.5); Glucose 108 mg/dL (70-105); Osmolality,Calculated 282 (280-300); Phosphorous 2.9 mg/dL (2.7-4.5); Sodium 136 mEq/L (136-145); Total Protein 6.4 g/dL (6.4-8.9); eGFR For African Americans > 60 (> 60); eGFR For Non-African Americans > 60 (> 60)
[2022-04-20 06:06] LABS: Lymphocytes # 1.7 K/mcL (0.6-4.6); Platelet Count 94 K/mcL (140-400)
[2022-04-20 06:07] LABS: Platelet Estimate Decreased (Normal)
[2022-04-20] MEDS: *HR* Enoxaparin 40 MG/0.4 ML SYRINGE SQ SCH (06:19)
[2022-04-20 06:39] VITALS: TEMP 98
[2022-04-20 07:02] LABS: Magnesium 1.6 mg/dL (1.6-2.6)
[2022-04-20 07:39] LABS: Bilirubin,Indirect 0.7 mg/dL (0.0-1.0); Bilirubin,Total 0.9 mg/dL (0.3-1.0)
[2022-04-20] MEDS: Tiotropium 10 INH DOSE IH SCH (07:43)
[2022-04-20] MEDS ORDERED: Remdesivir 100 MG in 0.9 % Sodium Chloride 100 ML IVPB SCH (08:00)
[2022-04-20] MEDS: Nicotine 21 MG PATCH.TD24 TD SCH (08:26)
[2022-04-20] MEDS: Thiamine (B-1) 100 MG TABLET PO SCH (08:26)
[2022-04-20] MEDS: Folic Acid 1 MG TABLET PO SCH (08:26)
[2022-04-20] MEDS: Dexamethasone Sodium Phos/PF 10 MG/ML VIAL IVP SCH (08:27)
[2022-04-20 11:24] VITALS: BP 133/83; PULSE 130; O2SAT 98
== END 2022-04-20 16:50 | disposition left against medical advice (07) | DRG 137 ==
LOC: EMEROOARM 19:29 → 3NENU 19:29 → SUATTDRO 04-18 12:25 → 3NENU 04-18 13:20
PROVIDERS: ADMIT Internal Medicine; ATTEND Internal Medicine

== ENCOUNTER 2022-05-14 15:09 | Observation (INO) ==
[2022-05-14 16:15] LABS: Mean Corpuscular Hemoglobin 32.2 pg (28.0-33.3); Mean Corpuscular Volume 94.3 fL (83.0-100.0); Mean Platelet Volume 10.9 fL (9.4-12.4)
[2022-05-14 16:16] LABS: Basophils % 0.9 %
[2022-05-14 16:18] LABS: Eosinophils % 0.6 %; Hematocrit 43.3 % (37.5-50.1); Hemoglobin 14.8 g/dL (12.9-16.9); Immature Granulocytes % 0.3 % (0-4); Immature Platelets 7.7 % (1.1-6.1); Lymphocytes # 0.9 K/mcL (0.6-4.6); Lymphocytes % 26.7 %; Mean Corpuscular HGB Conc 34.2 g/dL (31.6-35.5); Monocytes # 0.4 K/mcL (0.0-1.3); Monocytes % 10.7 %; Neutrophils # 2.1 K/mcL (1.6-8.9); Red Blood Count 4.59 M/mcL (4.19-5.50); Red Cell Distribution Width 14.3 % (11.5-14.5); Segmented Neutrophils % 60.8 %; White Blood Count 3.4 K/mcL (4.3-11.1)
[2022-05-14 16:21] LABS: Platelet Count 61 K/mcL (140-400)
[2022-05-14 16:37] LABS: Alanine Aminotransferase 190 Units/L (7-52); Albumin 3.9 g/dL (3.5-5.7); Albumin/Globulin Ratio 1.3 (1.1-2.2); Alkaline Phosphatase 98 Units/L (34-104); Aspartate Amino Transferase 156 Units/L (13-39); BUN/Creatinine Ratio 8 (6-26); Bilirubin,Total 1.1 mg/dL (0.3-1.0); Blood Urea Nitrogen 6 mg/dL (6-20); Calcium 9.2 mg/dL (8.6-10.3); Carbon Dioxide 23 mEq/L (23-29); Chloride 105 mEq/L (98-107); Globulin 3.1 g/dL (2.4-3.5); Glucose 103 mg/dL (70-105); Osmolality,Calculated 288 (280-300); Potassium 3.6 mEq/L (3.5-5.1); Sodium 140 mEq/L (136-145); Troponin I < 0.03 ng/mL (< 0.04); eGFR For African Americans > 60 (> 60); eGFR For Non-African Americans > 60 (> 60)
[2022-05-14] MEDS ORDERED: *HR* LORazepam 2 MG/ML VIAL IVP ONE ×2 (19:22→20:26)
[2022-05-14] MEDS ORDERED: Magnesium Sulfate 1 GM/102 ML PIGGYBACK IVPB ONE (22:20)
[2022-05-14] MEDS ORDERED: *HR* LORazepam 2 MG/ML VIAL IVP PRN (23:41)
[2022-05-14] MEDS ORDERED: Thiamine (B-1) 200 MG in 0.9 % Sodium Chloride 50 ML IVPB SCH (23:45)
[2022-05-15] MEDS ORDERED: Melatonin 3 MG TABLET PO PRN (00:18)
[2022-05-15] MEDS ORDERED: Naloxone 0.4 MG/ML INJ IVP PRN (00:18)
[2022-05-15] MEDS ORDERED: Ondansetron ODT 4 MG TAB.RAPDIS SL PRN (00:18)
[2022-05-15] MEDS: *HR* LORazepam 2 MG/ML VIAL IVP PRN ×6 (02:20→22:31)
[2022-05-15 03:01] LABS: Bacteria,Urine Few per hpf (None-Few); Bilirubin,Urine Small (Negative); Blood,Urine Negative (Negative); Clarity,Urine Clear (Clear); Color,Urine Light-Orange (Yellow); Glucose,Urine (UA) Normal (Normal); Ketones,Urine Negative (Negative); Leukocyte Esterase,Urine Negative (Negative); Mucus,Urine Few per lpf (None-Few); Nitrite,Urine Negative (Negative); PH,Urine 8.5 pH Units (5.0-8.0); Protein,Urine 70 mg/dL (Neg-Trace); RBC,Urine 0-3 per hpf (0-3); Specific Gravity,Urine 1.028 (1.010-1.025); Squamous Epithelial Cell,Urine Few per hpf (None-Few); Urobilinogen,Urine >=8.0 mg/dL (Normal); WBC,Urine 0-3 per hpf (0-3)
[2022-05-15 08:05] LABS: Hemoglobin 13.6 g/dL (12.9-16.9); Immature Granulocytes % 0.3 % (0-4)
[2022-05-15 08:07] LABS: Basophils % 0.9 %; Eosinophils # 0.1 K/mcL (0.0-0.6); Eosinophils % 2.6 %; Hematocrit 39.5 % (37.5-50.1); Immature Platelets 10.8 % (1.1-6.1); Lymphocytes # 1.1 K/mcL (0.6-4.6); Lymphocytes % 32.5 %; Mean Corpuscular HGB Conc 34.4 g/dL (31.6-35.5); Mean Corpuscular Hemoglobin 32.3 pg (28.0-33.3); Mean Corpuscular Volume 93.8 fL (83.0-100.0); Mean Platelet Volume 11.4 fL (9.4-12.4); Monocytes # 0.4 K/mcL (0.0-1.3); Monocytes % 10.7 %; Red Blood Count 4.21 M/mcL (4.19-5.50); Red Cell Distribution Width 13.9 % (11.5-14.5); White Blood Count 3.5 K/mcL (4.3-11.1)
[2022-05-15 08:09] LABS: Neutrophils # 1.9 K/mcL (1.6-8.9); Platelet Count 54 K/mcL (140-400)
[2022-05-15 08:28] LABS: Alanine Aminotransferase 136 Units/L (7-52); Albumin 3.5 g/dL (3.5-5.7); Albumin/Globulin Ratio 1.4 (1.1-2.2); Alkaline Phosphatase 93 Units/L (34-104); Aspartate Amino Transferase 99 Units/L (13-39); BUN/Creatinine Ratio 13 (6-26); Bilirubin,Total 1.4 mg/dL (0.3-1.0); Blood Urea Nitrogen 9 mg/dL (6-20); Calcium 8.7 mg/dL (8.6-10.3); Carbon Dioxide 26 mEq/L (23-29); Chloride 105 mEq/L (98-107); Globulin 2.5 g/dL (2.4-3.5); Glucose 89 mg/dL (70-105); Magnesium 1.7 mg/dL (1.6-2.6); Osmolality,Calculated 284 (280-300); Potassium 3.5 mEq/L (3.5-5.1); Sodium 138 mEq/L (136-145); eGFR For African Americans > 60 (> 60); eGFR For Non-African Americans > 60 (> 60)
[2022-05-15] MEDS: Folic Acid 1 MG TABLET PO SCH (08:39)
[2022-05-15] MEDS: Nicotine 21 MG PATCH.TD24 TD SCH (08:39)
[2022-05-15] MEDS ORDERED: Fluticasone Propionate Nasal 50 MCG/SPRAY BOTTLE NS PRN (15:24)
[2022-05-15] MEDS ORDERED: tiZANidine 4 MG TABLET PO PRN (15:32)
[2022-05-15 18:58] LABS: Adenovirus F 40/41 PCR Not detected (Not detect); Astrovirus PCR Not detected (Not detect); C.difficile Toxin A/B Gene PCR Not detected (Not detect); Campylobacter by PCR Not detected (Not detect); Cryptosporidium by PCR Not detected (Not detect); Cyclospora cayetanensis PCR Not detected (Not detect); Entamoeba histolytica PCR Not detected (Not detect); Enteroaggregative E.coli(EAEC) Not detected (Not detect); Enteropathogenic E.coli(EPEC) DETECTED (Not detect); Enterotoxigenic E.coli (ETEC) Not detected (Not detect); Giardia lamblia PCR Not detected (Not detect); Norovirus GI/GII PCR Not detected (Not detect); Plesiomonas shigelloides PCR Not detected (Not detect); Rotavirus A PCR Not detected (Not detect); Salmonella PCR Not detected (Not detect); Sapovirus PCR Not detected (Not detect); Shig/EnteroinvasiveE coli EIEC Not detected (Not detect); Shigalike tox-prod E coli STEC Not detected (Not detect); Vibrio PCR Not detected (Not detect); Vibrio cholerae PCR Not detected (Not detect); Yersinia enterocolitica PCR Not detected (Not detect)
[2022-05-15] MEDS ORDERED: traZODone 50 MG TABLET PO SCH (21:00)
[2022-05-15 22:17] VITALS: O2SAT 94
[2022-05-16] MEDS: *HR* LORazepam 2 MG/ML VIAL IVP PRN ×2 (03:02→07:59)
[2022-05-16] MEDS ORDERED: *HR* Enoxaparin 40 MG/0.4 ML SYRINGE SQ SCH (06:00)
[2022-05-16 06:36] VITALS: BP 145/89; PULSE 94; TEMP 97.3
[2022-05-16] MEDS: Folic Acid 1 MG TABLET PO SCH (07:48)
[2022-05-16] MEDS: Nicotine 21 MG PATCH.TD24 TD SCH (07:48)
[2022-05-16] MEDS ORDERED: Lactobacillus 1 EACH CAP.SPRINK PO SCH (09:00)
[2022-05-16] MEDS ORDERED: Thiamine (B-1) 200 MG in 0.9 % Sodium Chloride 50 ML IVPB SCH (09:00)
== END 2022-05-16 09:50 | disposition home or self-care (01) ==
LOC: 3NENU 15:09 → EMEROOARM 15:09 → SUATTDRO 05-15 03:27 → 3NENU 05-15 05:32
PROVIDERS: ADMIT Internal Medicine; ATTEND Internal Medicine

== ENCOUNTER 2022-06-15 10:23 | Inpatient (IN) ==
[2022-06-15] MEDS ORDERED: *HR* HYDROcodone/Acet 5/325 mg TABLET PO ONE (10:38)
[2022-06-15] MEDS ORDERED: Lidocaine -MPF 1% 5 ML AMPUL INFILT ONE (11:15)
[2022-06-15] MEDS ORDERED: *HR* LORazepam 2 MG/ML VIAL IVP ONE (11:36)
[2022-06-15 13:06] LABS: Hematocrit 41.1 % (37.5-50.1); Hemoglobin 14.7 g/dL (12.9-16.9); Mean Corpuscular HGB Conc 35.8 g/dL (31.6-35.5); Mean Corpuscular Hemoglobin 33.7 pg (28.0-33.3); Mean Corpuscular Volume 94.3 fL (83.0-100.0); Mean Platelet Volume 10.7 fL (9.4-12.4); Platelet Count 225 K/mcL (140-400); Red Blood Count 4.36 M/mcL (4.19-5.50); Red Cell Distribution Width 13.3 % (11.5-14.5)
[2022-06-15 13:29] LABS: Acetaminophen < 10 mcg/mL (10-20); BUN/Creatinine Ratio 6 (6-26); Blood Urea Nitrogen 5 mg/dL (6-20); Calcium 8.9 mg/dL (8.6-10.3); Carbon Dioxide 25 mEq/L (23-29); Chloride 98 mEq/L (98-107); Ethanol 152 mg/dL (Less than 10); Glucose 151 mg/dL (70-105); Osmolality,Calculated 282 (280-300); Potassium 2.4 mEq/L (3.5-5.1); Salicylate < 2.5 mg/dL (15.0-30.0); Sodium 136 mEq/L (136-145); eGFR For African Americans > 60 (> 60); eGFR For Non-African Americans > 60 (> 60)
[2022-06-15] MEDS ORDERED: Potassium Effervescent 25 MEQ TABLET.EFF PO ONE (13:32)
[2022-06-15 13:38] LABS: Platelet Estimate Normal (Normal); Reactive Lymphocytes Present (Not Present)
[2022-06-15 13:40] LABS: Basophils # 0.4 K/mcL (0.0-0.2); Eosinophils # 0.2 K/mcL (0.0-0.6); Lymphocytes # 2.4 K/mcL (0.6-4.6); Monocytes # 1.9 K/mcL (0.0-1.3); Neutrophils # 3.8 K/mcL (1.6-8.9); White Blood Count 8.7 K/mcL (4.3-11.1)
[2022-06-15] MEDS ORDERED: cephALEXin 500 MG CAPSULE PO ONE (13:50)
[2022-06-15 13:54] LABS: Amphetamine Screen,Urine Negative ng/mL (Cutoff=1000); Barbiturate Screen,Urine Negative ng/mL (Cutoff=200); Benzodiazepines Screen,Urine Negative ng/mL (Cutoff=200); Cannabinoid Screen,Urine Negative ng/mL (Cutoff = 50); Cocaine Screen,Urine Negative ng/mL (Cutoff= 300); Opiate Screen,Urine Negative ng/mL (Cutoff=300); Phencyclidine Screen,Urine Negative ng/mL (Cutoff=25)
[2022-06-15] MEDS ORDERED: Tdap (Boostrix) Vaccine 0.5 ML SYRINGE IM ONE (13:57)
[2022-06-15 14:00] LABS: Bilirubin,Urine Negative (Negative); Blood,Urine Negative (Negative); Clarity,Urine Clear (Clear); Color,Urine Light-Yellow (Yellow); Glucose,Urine (UA) Normal (Normal); Ketones,Urine Negative (Negative); Leukocyte Esterase,Urine Negative (Negative); Nitrite,Urine Negative (Negative); Protein,Urine Negative (Neg-Trace); Specific Gravity,Urine < 1.005 (1.010-1.025); Urobilinogen,Urine Normal (Normal)
[2022-06-15 16:17] LABS: Magnesium 1.4 mg/dL (1.6-2.6)
[2022-06-15] MEDS ORDERED: Naloxone 0.4 MG/ML INJ IVP PRN (16:29)
[2022-06-15] MEDS ORDERED: tiZANidine 4 MG TABLET PO PRN (17:43)
[2022-06-15] MEDS ORDERED: *HR* LORazepam 2 MG/ML VIAL IVP PRN ×2 (17:43)
[2022-06-15] MEDS: *HR* LORazepam 2 MG/ML VIAL IVP PRN (18:30)
[2022-06-15] MEDS: Nicotine 21 MG PATCH.TD24 TD SCH (19:58)
[2022-06-15] MEDS: traZODone 50 MG TABLET PO SCH (19:58)
[2022-06-15] MEDS: *HR* OxyCODONE/APAP 5/325 TABLET PO PRN (19:59)
[2022-06-16 02:12] LABS: Basophils # 0.1 K/mcL (0.0-0.2); Basophils % 1.1 %; Eosinophils # 0.1 K/mcL (0.0-0.6); Eosinophils % 1.1 %; Hematocrit 38.8 % (37.5-50.1); Hemoglobin 13.6 g/dL (12.9-16.9); Immature Granulocytes % 0.4 % (0-4); Lymphocytes # 1.9 K/mcL (0.6-4.6); Lymphocytes % 35.8 %; Mean Corpuscular HGB Conc 35.1 g/dL (31.6-35.5); Mean Corpuscular Hemoglobin 33.2 pg (28.0-33.3); Mean Corpuscular Volume 94.6 fL (83.0-100.0); Mean Platelet Volume 10.4 fL (9.4-12.4); Monocytes # 0.9 K/mcL (0.0-1.3); Monocytes % 17.4 %; Neutrophils # 2.3 K/mcL (1.6-8.9); Platelet Count 161 K/mcL (140-400); Red Cell Distribution Width 13.1 % (11.5-14.5); Segmented Neutrophils % 44.2 %; White Blood Count 5.3 K/mcL (4.3-11.1)
[2022-06-16 02:26] LABS: BUN/Creatinine Ratio 8 (6-26); Blood Urea Nitrogen 6 mg/dL (6-20); Calcium 8.1 mg/dL (8.6-10.3); Carbon Dioxide 29 mEq/L (23-29); Chloride 101 mEq/L (98-107); Glucose 105 mg/dL (70-105); Osmolality,Calculated 286 (280-300); Potassium 2.5 mEq/L (3.5-5.1); Sodium 139 mEq/L (136-145); eGFR For African Americans > 60 (> 60); eGFR For Non-African Americans > 60 (> 60)
[2022-06-16] MEDS: *HR* OxyCODONE/APAP 5/325 TABLET PO PRN ×3 (02:56→19:51)
[2022-06-16 07:19] LABS: BUN/Creatinine Ratio 9 (6-26); Blood Urea Nitrogen 7 mg/dL (6-20); Calcium 8.2 mg/dL (8.6-10.3); Carbon Dioxide 30 mEq/L (23-29); Chloride 100 mEq/L (98-107); Glucose 100 mg/dL (70-105); Osmolality,Calculated 282 (280-300); Potassium 2.9 mEq/L (3.5-5.1); Sodium 137 mEq/L (136-145); eGFR For African Americans > 60 (> 60); eGFR For Non-African Americans > 60 (> 60)
[2022-06-16] MEDS: Nicotine 21 MG PATCH.TD24 TD SCH (08:25)
[2022-06-16] MEDS: *HR* LORazepam 2 MG/ML VIAL IVP PRN ×5 (08:33→23:11)
[2022-06-16] MEDS: traZODone 50 MG TABLET PO SCH (19:51)
[2022-06-17 03:24] LABS: Basophils # 0.1 K/mcL (0.0-0.2); Basophils % 1.1 %; Eosinophils # 0.1 K/mcL (0.0-0.6); Eosinophils % 2.2 %; Hematocrit 35.8 % (37.5-50.1); Hemoglobin 12.3 g/dL (12.9-16.9); Immature Granulocytes % 0.4 % (0-4); Lymphocytes # 1.8 K/mcL (0.6-4.6); Lymphocytes % 39.2 %; Mean Corpuscular HGB Conc 34.4 g/dL (31.6-35.5); Mean Corpuscular Hemoglobin 33.3 pg (28.0-33.3); Mean Platelet Volume 10.9 fL (9.4-12.4); Monocytes # 0.6 K/mcL (0.0-1.3); Monocytes % 13.7 %; Neutrophils # 1.9 K/mcL (1.6-8.9); Platelet Count 160 K/mcL (140-400); Red Blood Count 3.69 M/mcL (4.19-5.50); Red Cell Distribution Width 12.8 % (11.5-14.5); Segmented Neutrophils % 43.4 %; White Blood Count 4.5 K/mcL (4.3-11.1)
[2022-06-17 03:35] LABS: BUN/Creatinine Ratio 13 (6-26); Blood Urea Nitrogen 10 mg/dL (6-20); Carbon Dioxide 28 mEq/L (23-29); Chloride 103 mEq/L (98-107); Glucose 143 mg/dL (70-105); Osmolality,Calculated 284 (280-300); Potassium 2.9 mEq/L (3.5-5.1); Sodium 136 mEq/L (136-145); eGFR For African Americans > 60 (> 60); eGFR For Non-African Americans > 60 (> 60)
[2022-06-17] MEDS: Nicotine 21 MG PATCH.TD24 TD SCH (07:49)
[2022-06-17] MEDS: *HR* OxyCODONE/APAP 5/325 TABLET PO PRN ×2 (08:55→15:56)
[2022-06-17] MEDS: *HR* LORazepam 2 MG/ML VIAL IVP PRN ×3 (08:56→19:53)
[2022-06-17] MEDS: traZODone 50 MG TABLET PO SCH (19:53)
[2022-06-18 03:08] LABS: Basophils # 0.1 K/mcL (0.0-0.2); Basophils % 1.1 %; Eosinophils # 0.1 K/mcL (0.0-0.6); Eosinophils % 2.5 %; Hematocrit 37.5 % (37.5-50.1); Hemoglobin 12.8 g/dL (12.9-16.9); Immature Granulocytes % 0.2 % (0-4); Lymphocytes # 1.9 K/mcL (0.6-4.6); Lymphocytes % 35.2 %; Mean Corpuscular HGB Conc 34.1 g/dL (31.6-35.5); Mean Corpuscular Hemoglobin 33.2 pg (28.0-33.3); Mean Corpuscular Volume 97.2 fL (83.0-100.0); Mean Platelet Volume 10.9 fL (9.4-12.4); Monocytes # 0.6 K/mcL (0.0-1.3); Neutrophils # 2.6 K/mcL (1.6-8.9); Platelet Count 192 K/mcL (140-400); Red Blood Count 3.86 M/mcL (4.19-5.50); Red Cell Distribution Width 12.9 % (11.5-14.5); White Blood Count 5.3 K/mcL (4.3-11.1)
[2022-06-18 03:22] LABS: BUN/Creatinine Ratio 9 (6-26); Blood Urea Nitrogen 7 mg/dL (6-20); Calcium 8.3 mg/dL (8.6-10.3); Carbon Dioxide 26 mEq/L (23-29); Chloride 108 mEq/L (98-107); Glucose 110 mg/dL (70-105); Osmolality,Calculated 287 (280-300); Potassium 3.4 mEq/L (3.5-5.1); Sodium 139 mEq/L (136-145); eGFR For African Americans > 60 (> 60); eGFR For Non-African Americans > 60 (> 60)
[2022-06-18] MEDS: Nicotine 21 MG PATCH.TD24 TD SCH (09:02)
[2022-06-18] MEDS: *HR* LORazepam 2 MG/ML VIAL IVP PRN ×3 (09:04→19:42)
[2022-06-18] MEDS: *HR* OxyCODONE/APAP 5/325 TABLET PO PRN ×2 (10:23→21:48)
[2022-06-18] MEDS: metroNIDAZOLE 500 MG TABLET PO SCH ×2 (12:36→21:47)
[2022-06-18] MEDS: traZODone 50 MG TABLET PO SCH (21:46)
[2022-06-18] MEDS: Doxycycline 100 MG CAPSULE PO SCH (21:47)
[2022-06-19] MEDS: Nicotine 21 MG PATCH.TD24 TD SCH (07:54)
[2022-06-19] MEDS: metroNIDAZOLE 500 MG TABLET PO SCH ×2 (07:55→13:56)
[2022-06-19] MEDS: Doxycycline 100 MG CAPSULE PO SCH (07:55)
[2022-06-19] MEDS: *HR* OxyCODONE/APAP 5/325 TABLET PO PRN ×2 (07:55→13:56)
[2022-06-19] MEDS: *HR* LORazepam 2 MG/ML VIAL IVP PRN ×2 (07:56→13:56)
[2022-06-19 08:04] VITALS: PULSE 71
[2022-06-19 08:08] VITALS: TEMP 97.9
[2022-06-19 15:52] VITALS: BP 141/89; O2SAT 98
== END 2022-06-19 16:30 | disposition home or self-care (01) | DRG 952 ==
LOC: EMEROOARM 10:23 → 3NENU 10:23
PROVIDERS: ADMIT Internal Medicine; ATTEND Internal Medicine

== ENCOUNTER 2022-06-30 13:22 | Inpatient (IN) ==
[2022-06-30] MEDS ORDERED: Haloperidol Lactate 5 MG/ML VIAL ONE (13:38)
[2022-06-30] MEDS ORDERED: *HR* LORazepam 2 MG/ML VIAL ONE (13:38)
[2022-06-30] MEDS ORDERED: Haloperidol Lactate 5 MG/ML VIAL IM ONE (13:44)
[2022-06-30] MEDS ORDERED: *HR* LORazepam 2 MG/ML VIAL IM ONE (13:45)
[2022-06-30] MEDS ORDERED: *HR* LORazepam 2 MG/ML VIAL IVP PRN (14:18)
[2022-06-30] MEDS ORDERED: Folic Acid 1 MG in 0.9 % Sodium Chloride 50 ML IVPB SCH (14:30)
[2022-06-30 15:00] LABS: Acetaminophen < 10 mcg/mL (10-20); Alanine Aminotransferase 101 Units/L (7-52); Albumin 4.2 g/dL (3.5-5.7); Albumin/Globulin Ratio 1.5 (1.1-2.2); Alkaline Phosphatase 100 Units/L (34-104); Aspartate Amino Transferase 144 Units/L (13-39); BUN/Creatinine Ratio 7 (6-26); Bilirubin,Direct 0.1 mg/dL (0.0-0.2); Bilirubin,Indirect 0.6 mg/dL (0.0-1.0); Bilirubin,Total 0.7 mg/dL (0.3-1.0); Blood Urea Nitrogen 5 mg/dL (6-20); Calcium 8.7 mg/dL (8.6-10.3); Carbon Dioxide 21 mEq/L (23-29); Chloride 107 mEq/L (98-107); Chol/HDL Ratio 2.6 (0-4.9); Cholesterol 179 mg/dL (< 200); Ethanol 506 mg/dL (Less than 10); Globulin 2.8 g/dL (2.4-3.5); Glucose 86 mg/dL (70-105); HDL Cholesterol 69 mg/dL (40-59); LDL Cholesterol,Calculated 94 mg/dL (< 100); Osmolality,Calculated 289 (280-300); Potassium 5.2 mEq/L (3.5-5.1); Salicylate < 2.5 mg/dL (15.0-30.0); Sodium 141 mEq/L (136-145); Triglycerides 78 mg/dL (< 150); eGFR For African Americans > 60 (> 60); eGFR For Non-African Americans > 60 (> 60)
[2022-06-30 15:14] LABS: Basophils # 0.1 K/mcL (0.0-0.2); Basophils % 1.5 %; Eosinophils # 0.1 K/mcL (0.0-0.6); Eosinophils % 1.7 %; Hemoglobin 14.9 g/dL (12.9-16.9); Immature Granulocytes % 0.3 % (0-4); Lymphocytes # 2.7 K/mcL (0.6-4.6); Lymphocytes % 44.4 %; Mean Corpuscular HGB Conc 33.9 g/dL (31.6-35.5); Mean Corpuscular Hemoglobin 33.3 pg (28.0-33.3); Mean Corpuscular Volume 98.4 fL (83.0-100.0); Mean Platelet Volume 9.7 fL (9.4-12.4); Monocytes # 0.3 K/mcL (0.0-1.3); Monocytes % 5.7 %; Neutrophils # 2.8 K/mcL (1.6-8.9); Platelet Count 154 K/mcL (140-400); Red Blood Count 4.47 M/mcL (4.19-5.50); Red Cell Distribution Width 13.2 % (11.5-14.5); Segmented Neutrophils % 46.4 %
[2022-06-30 15:15] LABS: Influenza A PCR Negative (Negative); Influenza B PCR Negative (Negative); Resp. Syncytial Virus PCR Negative (Negative)
[2022-06-30 15:20] LABS: SARS-CoV-2 by PCR (In House) Negative (Negative)
[2022-06-30 15:37] LABS: Magnesium 1.8 mg/dL (1.6-2.6)
[2022-06-30] MEDS ORDERED: 0.9 % Sodium Chloride 1,000 ML IV ONE ×2 (15:57→16:09)
[2022-06-30 16:29] LABS: Estimated Average Glucose 94 mg/dl; Hemoglobin A1C 4.9 %
[2022-06-30] MEDS ORDERED: Thiamine (B-1) 100 MG, Folic Acid 1 MG, MVI, adult with vitamin K 10 ML in 0.9 % Sodi... IVPB SCH (18:00)
[2022-06-30 18:31] LABS: Bilirubin,Urine Negative (Negative); Blood,Urine Negative (Negative); Clarity,Urine Clear (Clear); Color,Urine Light-Yellow (Yellow); Glucose,Urine (UA) Normal (Normal); Ketones,Urine Negative (Negative); Leukocyte Esterase,Urine Negative (Negative); Nitrite,Urine Negative (Negative); Protein,Urine Negative (Neg-Trace); Specific Gravity,Urine 1.008 (1.010-1.025); Urobilinogen,Urine Normal (Normal)
[2022-06-30 18:41] LABS: Amphetamine Screen,Urine Negative ng/mL (Cutoff=1000); Barbiturate Screen,Urine Negative ng/mL (Cutoff=200); Benzodiazepines Screen,Urine Negative ng/mL (Cutoff=200); Cannabinoid Screen,Urine Negative ng/mL (Cutoff = 50); Cocaine Screen,Urine Negative ng/mL (Cutoff= 300); Opiate Screen,Urine Negative ng/mL (Cutoff=300); Phencyclidine Screen,Urine Negative ng/mL (Cutoff=25)
[2022-06-30] MEDS ORDERED: Melatonin 3 MG TABLET PO PRN (19:42)
[2022-06-30] MEDS ORDERED: Naloxone 0.4 MG/ML INJ IVP PRN (19:42)
[2022-06-30] MEDS ORDERED: Calamine/Zinc oxide Lotion 120 ML BOTTLE TP PRN (21:02)
[2022-06-30] MEDS: *HR* Heparin 5,000 UNIT/ML VIAL SQ SCH (22:53)
[2022-07-01] MEDS ORDERED: DiphenhydraMINE CREAM 28.4 GM TUBE TP PRN (02:00)
[2022-07-01] MEDS: *HR* Heparin 5,000 UNIT/ML VIAL SQ SCH ×3 (04:54→20:13)
[2022-07-01] MEDS: Thiamine (B-1) 100 MG TABLET PO SCH (07:52)
[2022-07-01] MEDS: Folic Acid 1 MG TABLET PO SCH (07:52)
[2022-07-01] MEDS: *HR* LORazepam 2 MG/ML VIAL IVP PRN ×4 (07:53→20:13)
[2022-07-01] MEDS ORDERED: *HR* LORazepam 2 MG/ML VIAL IVP ONE (09:37)
[2022-07-01 12:34] LABS: Basophils % 0.6 %; Eosinophils # 0.1 K/mcL (0.0-0.6); Eosinophils % 0.9 %; Hematocrit 38.7 % (37.5-50.1); Hemoglobin 13.6 g/dL (12.9-16.9); Immature Granulocytes % 0.3 % (0-4); Lymphocytes # 1.5 K/mcL (0.6-4.6); Lymphocytes % 22.9 %; Mean Corpuscular HGB Conc 35.1 g/dL (31.6-35.5); Mean Corpuscular Hemoglobin 33.4 pg (28.0-33.3); Mean Corpuscular Volume 95.1 fL (83.0-100.0); Monocytes # 0.3 K/mcL (0.0-1.3); Monocytes % 4.3 %; Neutrophils # 4.6 K/mcL (1.6-8.9); Platelet Count 110 K/mcL (140-400); Red Blood Count 4.07 M/mcL (4.19-5.50); Red Cell Distribution Width 12.3 % (11.5-14.5); White Blood Count 6.5 K/mcL (4.3-11.1)
[2022-07-01 12:44] LABS: Activated Partial Thrombo Time 33.4 Seconds (26.0-36.0)
[2022-07-01 13:04] LABS: Alanine Aminotransferase 139 Units/L (7-52); Albumin 3.5 g/dL (3.5-5.7); Albumin/Globulin Ratio 1.5 (1.1-2.2); Alkaline Phosphatase 113 Units/L (34-104); Aspartate Amino Transferase 244 Units/L (13-39); BUN/Creatinine Ratio 13 (6-26); Bilirubin,Total 1.5 mg/dL (0.3-1.0); Blood Urea Nitrogen 7 mg/dL (6-20); Carbon Dioxide 20 mEq/L (23-29); Chloride 103 mEq/L (98-107); Globulin 2.4 g/dL (2.4-3.5); Glucose 83 mg/dL (70-105); Magnesium 1.3 mg/dL (1.6-2.6); Osmolality,Calculated 277 (280-300); Phosphorous 2.1 mg/dL (2.7-4.5); Potassium 3.8 mEq/L (3.5-5.1); Sodium 135 mEq/L (136-145); Total Protein 5.9 g/dL (6.4-8.9); eGFR For African Americans > 60 (> 60); eGFR For Non-African Americans > 60 (> 60)
[2022-07-01 13:14] LABS: Hepatitis B Surface Antigen Nonreactive (Nonreactive)
[2022-07-01 13:43] LABS: Hepatitis B Core IgM Nonreactive (Nonreactive)
[2022-07-01 13:44] LABS: Hepatitis A Antibody IgM Nonreactive (Nonreactive)
[2022-07-01] MEDS ORDERED: traZODone 50 MG TABLET PO ONE (19:55)
[2022-07-01] MEDS: Nicotine 21 MG PATCH.TD24 TD SCH (20:11)
[2022-07-01] MEDS: Pantoprazole 40 MG VIAL IVP SCH (22:30)
[2022-07-02 00:30] LABS: Hepatitis C Virus Antibody Reactive (Nonreactive)
[2022-07-02 02:19] LABS: Basophils % 0.7 %; Eosinophils % 2.4 %; Mean Platelet Volume 10.6 fL (9.4-12.4)
[2022-07-02 02:20] LABS: Eosinophils # 0.1 K/mcL (0.0-0.6); Hematocrit 37.5 % (37.5-50.1); Hemoglobin 13.2 g/dL (12.9-16.9); Immature Platelets 7.5 % (1.1-6.1); Lymphocytes # 1.3 K/mcL (0.6-4.6); Mean Corpuscular HGB Conc 35.2 g/dL (31.6-35.5); Mean Corpuscular Hemoglobin 33.2 pg (28.0-33.3); Mean Corpuscular Volume 94.5 fL (83.0-100.0); Monocytes # 0.2 K/mcL (0.0-1.3); Monocytes % 5.6 %; Neutrophils # 2.4 K/mcL (1.6-8.9); Red Blood Count 3.97 M/mcL (4.19-5.50); Segmented Neutrophils % 59.3 %; White Blood Count 4.1 K/mcL (4.3-11.1)
[2022-07-02 02:32] LABS: Alanine Aminotransferase 129 Units/L (7-52); Albumin 3.4 g/dL (3.5-5.7); Albumin/Globulin Ratio 1.4 (1.1-2.2); Alkaline Phosphatase 107 Units/L (34-104); Aspartate Amino Transferase 189 Units/L (13-39); BUN/Creatinine Ratio 14 (6-26); Bilirubin,Direct 0.4 mg/dL (0.0-0.2); Bilirubin,Indirect 1.2 mg/dL (0.0-1.0); Bilirubin,Total 1.6 mg/dL (0.3-1.0); Blood Urea Nitrogen 8 mg/dL (6-20); Calcium 8.4 mg/dL (8.6-10.3); Carbon Dioxide 23 mEq/L (23-29); Chloride 104 mEq/L (98-107); Globulin 2.4 g/dL (2.4-3.5); Glucose 77 mg/dL (70-105); Osmolality,Calculated 279 (280-300); Platelet Count 98 K/mcL (140-400); Potassium 3.5 mEq/L (3.5-5.1); Sodium 136 mEq/L (136-145); Total Protein 5.8 g/dL (6.4-8.9); eGFR For African Americans > 60 (> 60); eGFR For Non-African Americans > 60 (> 60)
[2022-07-02] MEDS: *HR* Heparin 5,000 UNIT/ML VIAL SQ SCH ×3 (04:13→20:18)
[2022-07-02] MEDS: Folic Acid 1 MG TABLET PO SCH (08:26)
[2022-07-02] MEDS: Thiamine (B-1) 100 MG TABLET PO SCH (08:26)
[2022-07-02] MEDS: Ibuprofen 400 MG TABLET PO PRN ×2 (08:26→15:07)
[2022-07-02] MEDS: Nicotine 21 MG PATCH.TD24 TD SCH (08:26)
[2022-07-02] MEDS: Pantoprazole 40 MG VIAL IVP SCH (08:27)
[2022-07-02] MEDS ORDERED: *HR* LORazepam 2 MG/ML VIAL IVP ONE (08:47)
[2022-07-02] MEDS: *HR* LORazepam 2 MG/ML VIAL IVP PRN ×5 (09:28→22:37)
[2022-07-02] MEDS ORDERED: *HR* LORazepam 2 MG/ML VIAL IVP STA (16:37)
[2022-07-02] MEDS ORDERED: traZODone 50 MG TABLET PO PRN (20:31)
[2022-07-02] MEDS ORDERED: Nicotine 21 MG PATCH.TD24 TD ONE (22:25)
[2022-07-03] MEDS: *HR* LORazepam 2 MG/ML VIAL IVP PRN ×3 (00:52→07:58)
[2022-07-03] MEDS: *HR* Heparin 5,000 UNIT/ML VIAL SQ SCH ×2 (05:41→14:11)
[2022-07-03] MEDS: Nicotine 21 MG PATCH.TD24 TD SCH (07:56)
[2022-07-03] MEDS: Folic Acid 1 MG TABLET PO SCH (07:57)
[2022-07-03] MEDS: Thiamine (B-1) 100 MG TABLET PO SCH (07:57)
[2022-07-03] MEDS: Pantoprazole 40 MG VIAL IVP SCH (07:58)
[2022-07-03 08:35] LABS: Alanine Aminotransferase 95 Units/L (7-52); Albumin 3.5 g/dL (3.5-5.7); Albumin/Globulin Ratio 1.5 (1.1-2.2); Alkaline Phosphatase 103 Units/L (34-104); Aspartate Amino Transferase 91 Units/L (13-39); BUN/Creatinine Ratio 13 (6-26); Bilirubin,Direct 0.3 mg/dL (0.0-0.2); Bilirubin,Indirect 0.7 mg/dL (0.0-1.0); Blood Urea Nitrogen 8 mg/dL (6-20); Calcium 8.5 mg/dL (8.6-10.3); Carbon Dioxide 23 mEq/L (23-29); Chloride 109 mEq/L (98-107); Globulin 2.4 g/dL (2.4-3.5); Glucose 101 mg/dL (70-105); Osmolality,Calculated 286 (280-300); Potassium 3.5 mEq/L (3.5-5.1); Sodium 139 mEq/L (136-145); Total Protein 5.9 g/dL (6.4-8.9); eGFR For African Americans > 60 (> 60); eGFR For Non-African Americans > 60 (> 60)
[2022-07-03 11:16] LABS: Influenza A PCR Negative (Negative); Influenza B PCR Negative (Negative); Resp. Syncytial Virus PCR Negative (Negative)
[2022-07-03 11:17] LABS: SARS-CoV-2 by PCR (In House) Negative (Negative)
[2022-07-03 12:05] VITALS: BP 141/95; PULSE 78; TEMP 97.7; O2SAT 97
== END 2022-07-03 15:22 | DRG 775 ==
LOC: 3BNU 13:22 → EMEROOARM 13:22 → SUATTDRO 19:23 → 3BNU 19:55
PROVIDERS: ADMIT Internal Medicine; ATTEND Registered Nurse

== ENCOUNTER 2022-07-28 13:22 | Inpatient (IN) ==
[2022-07-28] MEDS ORDERED: Thiamine (B-1) 200 MG in 0.9 % Sodium Chloride 50 ML IVPB ONE (15:20)
[2022-07-28] MEDS ORDERED: 0.9 % Sodium Chloride 1,000 ML IVC ONE (15:20)
[2022-07-28] MEDS ORDERED: Ondansetron ODT 4 MG TAB.RAPDIS SL ONE ×2 (15:29→19:26)
[2022-07-28 15:51] LABS: Basophils # 0.1 K/mcL (0.0-0.2); Basophils % 0.4 %; Eosinophils % 0.1 %; Hemoglobin 15.1 g/dL (12.9-16.9); Immature Granulocytes % 0.6 % (0-4); Lymphocytes % 12.2 %; Mean Corpuscular HGB Conc 35.1 g/dL (31.6-35.5); Mean Corpuscular Hemoglobin 33.4 pg (28.0-33.3); Mean Corpuscular Volume 95.1 fL (83.0-100.0); Mean Platelet Volume 9.8 fL (9.4-12.4); Monocytes # 2.2 K/mcL (0.0-1.3); Monocytes % 13.7 %; Neutrophils # 11.8 K/mcL (1.6-8.9); Platelet Count 109 K/mcL (140-400); Red Blood Count 4.52 M/mcL (4.19-5.50); Red Cell Distribution Width 13.2 % (11.5-14.5); White Blood Count 16.2 K/mcL (4.3-11.1)
[2022-07-28 16:01] LABS: Alanine Aminotransferase 40 Units/L (7-52); Albumin 3.8 g/dL (3.5-5.7); Albumin/Globulin Ratio 1.4 (1.1-2.2); Alkaline Phosphatase 101 Units/L (34-104); Aspartate Amino Transferase 45 Units/L (13-39); BUN/Creatinine Ratio 7 (6-26); Bilirubin,Total 0.8 mg/dL (0.3-1.0); Blood Urea Nitrogen 5 mg/dL (6-20); Calcium 7.8 mg/dL (8.6-10.3); Carbon Dioxide 19 mEq/L (23-29); Chloride 103 mEq/L (98-107); Ethanol 355 mg/dL (Less than 10); Globulin 2.8 g/dL (2.4-3.5); Glucose 101 mg/dL (70-105); Lipase 10 Units/L (11-82); Magnesium 1.4 mg/dL (1.6-2.6); Osmolality,Calculated 289 (280-300); Potassium 2.9 mEq/L (3.5-5.1); Sodium 141 mEq/L (136-145); Total Protein 6.6 g/dL (6.4-8.9)
[2022-07-28] MEDS ORDERED: Magnesium Oxide 400 MG TABLET PO STA (16:30)
[2022-07-28] MEDS ORDERED: *HR* LORazepam 2 MG/ML VIAL IVP ONE ×2 (18:18→20:27)
[2022-07-28] MEDS ORDERED: Ondansetron 4 MG/2 ML VIAL IVP ONE (18:18)
[2022-07-28 18:20] LABS: Amphetamine Screen,Urine Negative ng/mL (Cutoff=1000); Barbiturate Screen,Urine Negative ng/mL (Cutoff=200); Benzodiazepines Screen,Urine Positive ng/mL (Cutoff=200); Cannabinoid Screen,Urine Positive ng/mL (Cutoff = 50); Cocaine Screen,Urine Negative ng/mL (Cutoff= 300); Opiate Screen,Urine Negative ng/mL (Cutoff=300); Phencyclidine Screen,Urine Negative ng/mL (Cutoff=25)
[2022-07-28] MEDS ORDERED: Naloxone 0.4 MG/ML INJ IVP PRN (19:52)
[2022-07-28] MEDS: Ringers Solution, Lactated 1,000 ML IVC SCH (20:54)
[2022-07-28] MEDS: *HR* LORazepam 2 MG/ML VIAL IVP PRN ×3 (21:05→23:56)
[2022-07-28] MEDS ORDERED: Potassium Phosphate 44 MEQ in 0.9 % Sodium Chloride 250 ML IVPB ONE (21:50)
[2022-07-28] MEDS: Thiamine (B-1) 100 MG, Folic Acid 1 MG, MVI, adult with vitamin K 10 ML in 0.9 % Sodi... IVPB SCH (22:05)
[2022-07-28] MEDS: Nicotine 21 MG PATCH.TD24 TD SCH (22:05)
[2022-07-28] MEDS: *HR* Heparin 5,000 UNIT/ML VIAL SQ SCH (22:05)
[2022-07-29 01:51] LABS: Eosinophils % 0.5 %; Immature Granulocytes % 0.4 % (0-4); Red Cell Distribution Width 13.2 % (11.5-14.5)
[2022-07-29 01:54] LABS: Basophils # 0.1 K/mcL (0.0-0.2); Basophils % 0.6 %; Hematocrit 38.8 % (37.5-50.1); Hemoglobin 13.6 g/dL (12.9-16.9); Immature Platelets 3.9 % (1.1-6.1); Lymphocytes # 1.5 K/mcL (0.6-4.6); Lymphocytes % 17.1 %; Mean Corpuscular HGB Conc 35.1 g/dL (31.6-35.5); Mean Corpuscular Hemoglobin 34.1 pg (28.0-33.3); Mean Corpuscular Volume 97.2 fL (83.0-100.0); Monocytes # 0.8 K/mcL (0.0-1.3); Monocytes % 9.6 %; Neutrophils # 6.1 K/mcL (1.6-8.9); Platelet Count 74 K/mcL (140-400); Red Blood Count 3.99 M/mcL (4.19-5.50); Segmented Neutrophils % 71.8 %; White Blood Count 8.5 K/mcL (4.3-11.1)
[2022-07-29 02:13] LABS: BUN/Creatinine Ratio 9 (6-26); Blood Urea Nitrogen 6 mg/dL (6-20); Calcium 7.4 mg/dL (8.6-10.3); Carbon Dioxide 20 mEq/L (23-29); Chloride 105 mEq/L (98-107); Glucose 70 mg/dL (70-105); Magnesium 1.2 mg/dL (1.6-2.6); Osmolality,Calculated 282 (280-300); Phosphorous 2.2 mg/dL (2.7-4.5); Potassium 3.4 mEq/L (3.5-5.1); Sodium 138 mEq/L (136-145)
[2022-07-29] MEDS: *HR* LORazepam 2 MG/ML VIAL IVP PRN ×5 (03:13→21:33)
[2022-07-29] MEDS: *HR* Heparin 5,000 UNIT/ML VIAL SQ SCH ×3 (05:50→21:23)
[2022-07-29] MEDS: Ondansetron 4 MG/2 ML VIAL IVP PRN ×2 (08:56→21:34)
[2022-07-29] MEDS: Nicotine 21 MG PATCH.TD24 TD SCH (08:57)
[2022-07-29] MEDS: Ringers Solution, Lactated 1,000 ML IVC SCH ×2 (08:58→16:38)
[2022-07-29 10:51] LABS: BUN/Creatinine Ratio 10 (6-26); Blood Urea Nitrogen 7 mg/dL (6-20); Calcium 8.1 mg/dL (8.6-10.3); Carbon Dioxide 26 mEq/L (23-29); Chloride 104 mEq/L (98-107); Glucose 99 mg/dL (70-105); Magnesium 1.8 mg/dL (1.6-2.6); Osmolality,Calculated 282 (280-300); Phosphorous 1.3 mg/dL (2.7-4.5); Potassium 3.5 mEq/L (3.5-5.1); Sodium 137 mEq/L (136-145)
[2022-07-29] MEDS: Folic Acid 1 MG TABLET PO SCH (14:40)
[2022-07-29] MEDS: Thiamine (B-1) 100 MG, Folic Acid 1 MG, MVI, adult with vitamin K 10 ML in 0.9 % Sodi... IVPB SCH (17:31)
[2022-07-29] MEDS: Magnesium Oxide 400 MG TABLET PO SCH (21:23)
[2022-07-30] MEDS: *HR* LORazepam 2 MG/ML VIAL IVP PRN ×8 (01:07→19:57)
[2022-07-30] MEDS: *HR* Heparin 5,000 UNIT/ML VIAL SQ SCH ×3 (05:18→21:35)
[2022-07-30] MEDS: Folic Acid 1 MG TABLET PO SCH (07:59)
[2022-07-30] MEDS: Nicotine 21 MG PATCH.TD24 TD SCH (07:59)
[2022-07-30] MEDS: Magnesium Oxide 400 MG TABLET PO SCH ×2 (07:59→20:00)
[2022-07-30 09:22] LABS: Basophils % 0.5 %; Eosinophils % 3.3 %; Hematocrit 38.3 % (37.5-50.1); Immature Granulocytes % 0.3 % (0-4)
[2022-07-30 09:24] LABS: Eosinophils # 0.1 K/mcL (0.0-0.6); Hemoglobin 13.4 g/dL (12.9-16.9); Immature Platelets 6.4 % (1.1-6.1); Lymphocytes # 1.1 K/mcL (0.6-4.6); Lymphocytes % 30.1 %; Mean Corpuscular Hemoglobin 33.4 pg (28.0-33.3); Mean Corpuscular Volume 95.5 fL (83.0-100.0); Mean Platelet Volume 9.9 fL (9.4-12.4); Monocytes # 0.4 K/mcL (0.0-1.3); Monocytes % 10.3 %; Neutrophils # 2.1 K/mcL (1.6-8.9); Red Blood Count 4.01 M/mcL (4.19-5.50); Red Cell Distribution Width 12.7 % (11.5-14.5); Segmented Neutrophils % 55.5 %; White Blood Count 3.7 K/mcL (4.3-11.1)
[2022-07-30 09:40] LABS: BUN/Creatinine Ratio 6 (6-26); Blood Urea Nitrogen 4 mg/dL (6-20); Carbon Dioxide 22 mEq/L (23-29); Chloride 105 mEq/L (98-107); Glucose 89 mg/dL (70-105); Osmolality,Calculated 280 (280-300); Potassium 3.5 mEq/L (3.5-5.1); Sodium 137 mEq/L (136-145)
[2022-07-30 09:49] LABS: Platelet Count 67 K/mcL (140-400)
[2022-07-30 10:20] LABS: Platelet Estimate Decreased (Normal)
[2022-07-30] MEDS: Thiamine (B-1) 100 MG, Folic Acid 1 MG, MVI, adult with vitamin K 10 ML in 0.9 % Sodi... IVPB SCH (17:31)
[2022-07-30] MEDS: traZODone 50 MG TABLET PO PRN (21:35)
[2022-07-31] MEDS: *HR* Heparin 5,000 UNIT/ML VIAL SQ SCH ×3 (06:01→21:03)
[2022-07-31 06:43] LABS: Mean Corpuscular Hemoglobin 33.4 pg (28.0-33.3)
[2022-07-31 06:44] LABS: Basophils % 0.7 %; Eosinophils # 0.2 K/mcL (0.0-0.6); Eosinophils % 3.9 %; Hematocrit 37.2 % (37.5-50.1); Hemoglobin 12.9 g/dL (12.9-16.9); Immature Granulocytes % 0.2 % (0-4); Immature Platelets 7.8 % (1.1-6.1); Lymphocytes # 1.5 K/mcL (0.6-4.6); Lymphocytes % 36.2 %; Mean Corpuscular HGB Conc 34.7 g/dL (31.6-35.5); Mean Corpuscular Volume 96.4 fL (83.0-100.0); Monocytes # 0.4 K/mcL (0.0-1.3); Monocytes % 10.3 %; Red Blood Count 3.86 M/mcL (4.19-5.50); Red Cell Distribution Width 12.7 % (11.5-14.5); Segmented Neutrophils % 48.7 %; White Blood Count 4.1 K/mcL (4.3-11.1)
[2022-07-31 06:48] LABS: Platelet Count 86 K/mcL (140-400)
[2022-07-31 07:06] LABS: BUN/Creatinine Ratio 9 (6-26); Blood Urea Nitrogen 6 mg/dL (6-20); Carbon Dioxide 24 mEq/L (23-29); Chloride 109 mEq/L (98-107); Glucose 83 mg/dL (70-105); Magnesium 1.7 mg/dL (1.6-2.6); Osmolality,Calculated 285 (280-300); Potassium 3.1 mEq/L (3.5-5.1); Sodium 139 mEq/L (136-145)
[2022-07-31] MEDS: Magnesium Oxide 400 MG TABLET PO SCH ×2 (08:57→20:18)
[2022-07-31] MEDS: Folic Acid 1 MG TABLET PO SCH (08:57)
[2022-07-31] MEDS: Nicotine 21 MG PATCH.TD24 TD SCH (08:57)
[2022-07-31] MEDS: Vancomycin Oral Soln 125 MG/2.5 ML UDC PO SCH ×4 (08:57→21:17)
[2022-07-31] MEDS: *HR* LORazepam 2 MG/ML VIAL IVP PRN ×4 (08:58→20:17)
[2022-07-31] MEDS ORDERED: Potassium Effervescent 25 MEQ TABLET.EFF PO ONE (17:12)
[2022-07-31] MEDS: traZODone 50 MG TABLET PO PRN (21:17)
[2022-08-01] MEDS: *HR* Heparin 5,000 UNIT/ML VIAL SQ SCH ×3 (05:11→21:53)
[2022-08-01] MEDS: Folic Acid 1 MG TABLET PO SCH (08:13)
[2022-08-01] MEDS: Nicotine 21 MG PATCH.TD24 TD SCH (08:13)
[2022-08-01] MEDS: Magnesium Oxide 400 MG TABLET PO SCH ×2 (08:13→21:53)
[2022-08-01] MEDS: Vancomycin Oral Soln 125 MG/2.5 ML UDC PO SCH ×4 (08:13→21:53)
[2022-08-01] MEDS: *HR* LORazepam 2 MG/ML VIAL IVP PRN ×3 (09:38→17:05)
[2022-08-01] MEDS ORDERED: *HR* LORazepam Oral Conc 2 MG/ML PO ONE (10:07)
[2022-08-01] MEDS ORDERED: GI Cocktail 40 ML EACH PO ONE (14:00)
[2022-08-01] MEDS: traZODone 50 MG TABLET PO PRN (22:00)
[2022-08-02 02:08] LABS: Hematocrit 38.1 % (37.5-50.1); Mean Platelet Volume 10.3 fL (9.4-12.4)
[2022-08-02 02:10] LABS: Basophils # 0.1 K/mcL (0.0-0.2); Basophils % 1.1 %; Eosinophils # 0.2 K/mcL (0.0-0.6); Eosinophils % 3.9 %; Hemoglobin 13.2 g/dL (12.9-16.9); Immature Granulocytes % 1.3 % (0-4); Immature Platelets 6.2 % (1.1-6.1); Lymphocytes # 2.1 K/mcL (0.6-4.6); Lymphocytes % 44.3 %; Mean Corpuscular HGB Conc 34.6 g/dL (31.6-35.5); Mean Corpuscular Hemoglobin 33.8 pg (28.0-33.3); Mean Corpuscular Volume 97.7 fL (83.0-100.0); Monocytes # 0.7 K/mcL (0.0-1.3); Neutrophils # 1.7 K/mcL (1.6-8.9); Platelet Count 109 K/mcL (140-400); Segmented Neutrophils % 35.4 %; White Blood Count 4.7 K/mcL (4.3-11.1)
[2022-08-02 02:17] LABS: BUN/Creatinine Ratio 13 (6-26); Blood Urea Nitrogen 9 mg/dL (6-20); Calcium 8.7 mg/dL (8.6-10.3); Carbon Dioxide 22 mEq/L (23-29); Chloride 111 mEq/L (98-107); Glucose 97 mg/dL (70-105); Magnesium 1.7 mg/dL (1.6-2.6); Osmolality,Calculated 291 (280-300); Potassium 3.5 mEq/L (3.5-5.1); Sodium 141 mEq/L (136-145)
[2022-08-02] MEDS: *HR* Heparin 5,000 UNIT/ML VIAL SQ SCH (05:06)
[2022-08-02] MEDS ORDERED: Ipratropium/Albuterol Neb 3 ML IH PRN (06:25)
[2022-08-02 06:38] VITALS: BP 148/87; PULSE 69; TEMP 97.4
[2022-08-02 07:18] VITALS: O2SAT 98
[2022-08-02] MEDS: Vancomycin Oral Soln 125 MG/2.5 ML UDC PO SCH (07:58)
[2022-08-02] MEDS: Folic Acid 1 MG TABLET PO SCH (07:58)
[2022-08-02] MEDS: Nicotine 21 MG PATCH.TD24 TD SCH (07:58)
[2022-08-02] MEDS: Magnesium Oxide 400 MG TABLET PO SCH (07:58)
== END 2022-08-02 09:30 | disposition home or self-care (01) | DRG 775 ==
LOC: EMEROOARM 13:22 → 3NENU 13:22 → SUATTDRO 19:48 → 3NENU 20:34 → SUATTDRO 07-29 15:36
PROVIDERS: ADMIT Internal Medicine; ATTEND Family Medicine